=== PATIENT | female | born 1965 | race Caucasian/White ===

== ENCOUNTER 2022-12-21 08:36 | Outpatient (OUT) | payer BC, SELFPAY ==
--- NOTE | 2022-12-21 08:46 | ECG_ITS ---
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
--- NOTE | 2022-12-21 09:37 | PM.PRESUREVA ---
History of Present Illness History of Present Illness Chief complaint: PAT visit Narrative: Patient presents for preadmission testing. The patient states she has a long history of an enlarged thyroid, however it was discovered earlier this year that she had a thyroid nodule and she underwent a biopsy. She states she has intermittent dysphagia and hoarseness of her voice. She denies heat or cold intolerance, fatigue, difficulty breathing, or any other complaints. Review of Systems ROS Narrative REVIEW OF SYSTEMS: Negative except as stated in HPI, ten or more systems reviewed. Constitutional: No fever , chills, weakness ENT: No sore throat or epistaxis Cardiovascular: No edema, chest pain, or palpitations Respiratory: No shortness of breath, cough, or wheezing Musculoskeletal: No joint pain or swelling Gastrointestinal: No abdominal pain, constipation, diarrhea, or vomiting Genitourinary: No dysuria or hematuria Neurological: No numbness, tingling, weakness, or headache Psychiatric: No mood changes PFSH PFS Medical History (Updated 12/21/22 @ 09:36 by Elina Osuna NP) (2022) Surgical History (Updated 12/21/22 @ 09:20 by Elina Osuna NP) Family History (Updated 12/21/22 @ 09:15 by Elina Osuna NP) Other Family history of COPD (chronic obstructive pulmonary disease) Family history of brain cancer Family history of diabetes mellitus Family history of heart disease Family history of hypertension Family history of kidney cancer Family history of myocardial infarction Family history of pancreatic cancer Family history of stroke Social History (Updated 12/21/22 @ 09:12 by Elina Osuna NP) Within the past year, how often did you have a drink containing alcohol: monthly or less Smoking status: Never smoker Non-prescribed substance use: denies use 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 Highest level of school completed/degree received: high school graduate Meds Home Medications and Allergies Home Medications Medication Instructions Recorded Confirmed Type atorvastatin 20 mg tablet 20 mg PO DAILY 12/21/22 12/21/22 History gabapentin 600 mg tablet 600 mg PO DAILY 12/21/22 12/21/22 History glucosamine-chondroitin 250 mg-200 2 tab PO TID 12/21/22 12/21/22 History mg tablet (Osteo Bi-Flex) multivitamin 1 tab PO DAILY 12/21/22 12/21/22 History Allergies Allergy/AdvReac Type Severity Reaction Status Date / Time Penicillins Allergy Hives Verified 12/21/22 09:08 Sulfa (Sulfonamide Allergy Hives Verified 12/21/22 09:08 Antibiotics) Exam Narrative Exam Narrative: Constitutional: Awake, alert, comfortable, well-appearing, nontoxic, interactive, vital signs as charted Head: Normocephalic, atraumatic Eyes: Conjunctiva and lids normal to inspection, pupils normal ENT: Tympanic membranes pearly foster, nonerythematous, noninjected, naris patent, posterior oropharynx clear, oral mucosa moist Neck: Supple, normal appearance, normal range of motion, no meningeal signs, no lymphadenopathy Respiratory: No respiratory distress, breath sounds clear Cardiovascular: Regular rate and rhythm, strong and regular heart tones Musculoskeletal: Normal gait, no swelling or edema Skin: No rashes or induration, no lesions, only visible skin inspected Neuro: No neurological deficits, normal sensation Psychiatric: Oriented ?3, normal affect Assessment and Plan Assessment and Plan (1) Dysphagia: (2) Hoarseness of voice: (3) Thyroid mass: Onset Date: 2022 (4) Thyromegaly: Plan Right hemithyroidectomy, possible total thyroidectomy, possible neck exploration with RLN monitor, frozen section, 1st assist, 2nd scrub scheduled with Dr. Neff 12/28/2022.
[2022-12-21 10:01] LABS: Basophils Percent Auto 0.5 % (0.2-2.0); Eosinophils Absolute Auto 0.1 10^3/uL (0.0-0.7); Eosinophils Percent Auto 1.8 % (0.9-7.0); Hematocrit 42.1 % (36.0-48.0); Immature Granulocytes Abs Auto 0.02 10^3/uL (0.00-0.03); Immature Granulocytes Pct Auto 0.4 % (0.0-0.5); Lymphocytes Absolute Auto 1.8 10^3/uL (1.2-3.8); Lymphocytes Percent Auto 31.1 % (20.5-60.0); Mean Corpuscular HGB Conc 33.3 g/dL (29.9-35.2); Mean Corpuscular Hemoglobin 31.3 pg (26.7-34.0); Mean Corpuscular Volume 94.2 fL (81.0-99.0); Mean Platelet Volume 9.2 fL (9.5-13.5); Monocytes Absolute Auto 0.4 10^3/uL (0.3-0.8); Neutrophils Absolute Auto 3.4 10^3/uL (1.4-6.5); Neutrophils Percent Auto 59.2 % (43.0-75.0); Platelet Count 258 10^3/uL (150-450); Red Blood Count 4.47 10^6/uL (4.20-5.40); Red Cell Distribution Width 11.6 % (11.0-15.0); White Blood Count 5.7 10^3/uL (4.0-11.0)
[2022-12-21 11:10] LABS: Calcium 9.5 mg/dL (8.5-10.1); Magnesium 2.1 mg/dL (1.8-2.4); Phosphorus 2.6 mg/dL (2.6-4.7)
[2022-12-21 12:20] LABS: INR 0.96; Partial Thromboplastin Time 24.2 sec (22.3-36.2); Prothrombin Time 10.2 sec (9.0-11.6)
== END 2022-12-21 08:37 ==
LOC: PST 08:40
PROVIDERS: Otolaryngology; PCP Family Medicine
DX: Z01.812 Encounter for preprocedural laboratory examination (principal); Z01.810 Encounter for preprocedural cardiovascular examination; R13.10 Dysphagia, unspecified; R49.0 Dysphonia; E07.9 Disorder of thyroid, unspecified; E01.0 Iodine-deficiency related diffuse (endemic) goiter; R94.31 Abnormal electrocardiogram [ECG] [EKG]
CPT/HCPCS: 36415; 82310; 83735; 84100; 85025; 85610; 85730; 93005; G0463

== ENCOUNTER 2022-12-28 14:50 | Outpatient (OUT) | payer BC, SELFPAY ==
[2022-12-21 09:13] VITALS: BP 121/76; PULSE 71; RESP 18; TEMP 36.5; O2SAT 98; BMI 32.5
[2022-12-28] VITALS (15 sets, daily range): BP systolic 103–133; BP diastolic 53–87; PULSE 77–99; RESP 16–20; TEMP 36.1–36.9; O2SAT 92–99; BMI 32.5; BMI 33.5
--- NOTE | 2022-12-28 | OP_ITS ---
OPERATION DATE: ??12/28/2022 SURGEON:? Lena Neff M.D. PREOPERATIVE DIAGNOSIS:? Left thyroid nodule. POSTOPERATIVE DIAGNOSIS:? Papillary carcinoma of the thyroid. PROCEDURE:? Total thyroidectomy and neck exploration. ANESTHESIA:? General endotracheal. COMPLICATIONS:? None. FINDINGS:? A 1.5 cm left thyroid nodule consistent with papillary carcinoma, as well as anterior compartment lymphadenopathy. INDICATIONS:? This 57-year-old woman presented with an enlarging left thyroid nodule and a fine needle aspiration which showed atypia of undetermined significance.? PROCEDURE:? Patient identified in the holding area and taken back to the OR where she was placed in the supine position.? After induction of general endotracheal anesthesia, using a recurrent laryngeal nerve monitoring tube, a shoulder roll was placed and the neck was prepped and draped in a sterile fashion.? An 8 cm transverse incision was made two finger breadths above the sternal notch, following relaxed skin lines of tension.? Dissection then was carried out through the platysma and subplatysmal flaps were raised superiorly to the thyroid notch and inferiorly to the clavicle.? A thyroid retractor was put in position and the strap muscles were incised in the midline with the harmonic scalpel.? The patient was noted to have a pyramidal lobe of the thyroid, which was dissected away and sent for separate pathologic analysis.? There was also fibroadipose lymphatic containing tissue within the anterior compartment of the neck, which was dissected away using the harmonic scalpel and sent for separate pathologic analysis.? The isthmus of the thyroid was then transected and attention turned to the left thyroid.? The strap muscles were bluntly elevated off of the thyroid gland, and then a subcapsular dissection was performed, first exposing and isolating the superior thyroid vessels, which were hemoclipped and transected with harmonic scalpel, and then dissecting the inferior fascial and vascular attachments to the gland with harmonic scalpel.? The middle thyroid vein was transected and hemoclipped, and the gland was rotated medially.? The superior and inferior parathyroid glands were identified and bluntly dissected away from the thyroid gland, and the recurrent laryngeal nerve was identified in the tracheoesophageal groove.? The thyroid gland was then dissected away from the trachea with the recurrent laryngeal nerve under direct observation.? The gland was then sent for pathologic analysis, which was consistent with a papillary carcinoma.? Decision was then made to proceed with right thyroidectomy, and this proceeded the same as it had on the left.? After completing the thyroidectomy, the recurrent laryngeal nerve was tested and found to be electrically intact bilaterally.? The wound was copiously irrigated and a #7 round [employer] drain was placed through a stab incision in the sternal notch.? The wound was then closed by re-approximating the strap muscles in the midline and closing the skin with two deep 4-0 Vicryl sutures layers and a 5-0 Monocryl subcuticular stitch.? A pressure dressing was placed, and the patient was awakened and taken to the recovery room in good condition. HEATHER
[2022-12-28] MEDS: LACTATED RINGER'S SOLUTION 1,000 ML 50 ML IV ×2 (08:52→15:32)
[2022-12-28] MEDS: SCOPOLAMINE 1 EACH PATCH.TD.3 1 PATCH TD (09:11)
[2022-12-28] MEDS: CEFAZOLIN SODIUM 1,000 MG in 0.9 % SODIUM CHLORIDE 50 ML 100 MG IV (09:44)
[2022-12-28] MEDS: LIDOCAINE HCL 1%-EPINEPHRINE 1:100,000 10 ML MDV INJ (10:21)
--- NOTE | 2022-12-28 12:37 | PC.NURSE ---
1026 UPDATED VIA HIS CELL PHONE [phone] UPDATED VIA HI CELL PHONE [phone] DR JONES WENT OUT AND SPOKE WITH 1223 UPDATED VIA HIS CELL PHONE
[2022-12-28] MEDS: BACITRACIN OINTMENT 28.4 GM TUBE 1 APPLIC TOPICAL (13:21)
[2022-12-28] MEDS: HYDROMORPHONE HCL 0.5 MG/0.5 ML SYRINGE IV (13:41)
[2022-12-28 18:51] LABS: Calcium 8.8 mg/dL (8.5-10.1)
[2022-12-28] MEDS: ACETAMINOPHEN 325 MG TABLET 650 MG PO (18:51)
[2022-12-28] MEDS: FAMOTIDINE 20 MG TABLET PO (20:50)
[2022-12-29 06:00] VITALS: BP 112/62; PULSE 75; RESP 18; TEMP 36.8; O2SAT 92
[2022-12-29 06:46] LABS: Calcium 8.9 mg/dL (8.5-10.1)
== END 2022-12-29 09:54 | disposition home or self-care (01) ==
LOC: SURGOUT 14:50 → MS 14:50 → SURGOUT 14:50
PROVIDERS: PCP Family Medicine; Visit Provider Otolaryngology
PROC: (CPT 60240; principal; 2022-12-28 09:10)
DX: C73 Malignant neoplasm of thyroid gland (principal); R13.10 Dysphagia, unspecified; R49.0 Dysphonia; Z90.710 Acquired absence of both cervix and uterus
CPT/HCPCS: 60240; 36415; 82310; 88305; 88307; 95865; 95940; J1170; J2704

== ENCOUNTER 2023-02-11 07:37 | Outpatient (OUT) | payer BC, SELFPAY ==
[2023-02-11 08:29] LABS: Alanine Aminotransferase 72 U/L (14-59); Albumin Level 3.6 g/dL (3.4-5.0); Alkaline Phosphatase 149 U/L (46-116); Aspartate Amino Transferase 34 U/L (15-37); BUN Creatinine Ratio 16.5; Bilirubin Total 0.5 mg/dL (0.2-1.0); Chloride 108 mmol/L (98-107); Estimated GFR (African America >60 (>=60); Estimated GFR (Non-African Ame >60 (>=60); Globulin 3.5 g/dL; Glucose 102 mg/dL (74-106); Sodium 143 mmol/L (136-145); Total Protein 7.1 g/dL (6.4-8.2)
== END 2023-02-11 07:38 | disposition home or self-care (01) ==
LOC: LAB 07:38
PROVIDERS: PCP Family Medicine; Visit Provider Family Medicine
DX: E78.2 Mixed hyperlipidemia (principal)
CPT/HCPCS: 36415; 80053

== ENCOUNTER 2023-03-02 09:12 | Outpatient (OUT) | payer BC, SELFPAY ==
--- NOTE | 2023-03-02 09:14 | MM_ITS ---
Patient: CASSIE PEREZ Exam Date: 03/02/2023 : 1965 Gender:F Ordering : DR Ave Barnett M.D. Admission #: [id number] Family : Order #: [id number] CLICK HERE TO VIEW EXAM RADIOLOGY REPORT PROCEDURE: MM TOMOSYNTHESIS SCREENING BI COMPARISON: MG MAMM SCREEN 3D ANN CAD, 03/01/2022. MG MAMM SCREEN 3D ANN CAD, 02/27/2021. INDICATIONS: Screening Calculator Name NCI Breast Cancer Risk Assessment Tool 5 Year Breast Cancer Risk 1.20% Lifetime Breast Cancer Risk 6.70% Personal Breast Cancer No Personal Ovarian Cancer No Treatments None Family Cancers Father with pancreatic cancer at age 91; Mother with kidney cancer at age 69; Sister with kidney cancer at age 54. LOCATION: [facility] BREAST COMPOSITION: Scattered areas fibroglandular density. FINDINGS: DIAGNOSTIC CATEGORY 1--NEGATIVE. NO CHANGE FROM COMPARISON ASSESSMENT. Scattered benign-appearing lymph nodes are present. RIGHT BREAST: No significant suspicious finding. LEFT BREAST: No significant suspicious finding. RECOMMENDATIONS: ROUTINE MAMMOGRAM AND CLINICAL EVALUATION IN 12 MONTHS. PLEASE NOTE: A NORMAL MAMMOGRAM DOES NOT EXCLUDE THE POSSIBILITY OF BREAST CANCER. A CLINICALLY SUSPICIOUS PALPABLE LUMP SHOULD BE BIOPSIED. Dictated by: Haris Chung MD on 03/02/2023 at 12:13 Approved by: Haris Chung MD on 03/02/2023 at 12:49
== END 2023-03-02 09:13 | disposition home or self-care (01) ==
LOC: MAMMO 09:12
PROVIDERS: PCP Family Medicine; Visit Provider Family Medicine
DX: Z12.31 Encounter for screening mammogram for malignant neoplasm of breast (principal); Z80.51 Family history of malignant neoplasm of kidney; Z80.0 Family history of malignant neoplasm of digestive organs
CPT/HCPCS: 77063; 77067

== ENCOUNTER 2023-10-03 16:05 | Outpatient (OUT) | payer BC, SELFPAY ==
--- NOTE | 2023-10-03 16:09 | XR_ITS ---
The [address] [address] Patient Name: CASSIE PEREZ MRN: [id number] date: 1965 Sex: F Assigned Patient Location: LAB Current Patient Location: LAB Accession/Order Number: [id number] Exam Date: 10/03/2023 16:12 Report Date: 10/03/2023 16:46 At the request of: MARTA EISENBERG Procedure: XR chest 2V EXAM: XR chest 2V HISTORY: chest pain R07.9 ; technologist notes state chest discomfort and achiness. COMPARISON: None. TECHNIQUE: PA and lateral views of the chest performed. FINDINGS: The trachea is midline. The heart size is normal. The cardiomediastinal silhouette and hilar shadows are normal. The lung volumes are slightly diminished. There is no consolidation or infiltrate, pleural effusion or pulmonary vascular congestion. There is no pneumothorax. There is no acute osseous abnormality. There is slight dextroscoliosis of the thoracic spine. XR/XR chest 2V IMPRESSION: There is no acute cardiopulmonary process. Electronically authenticated by: RD VAZQUEZ Date: 10/03/2023 16:46
== END 2023-10-03 16:06 | disposition home or self-care (01) ==
LOC: LAB 16:06
PROVIDERS: PCP Family Medicine; Visit Provider Family Medicine
DX: R07.9 Chest pain, unspecified (principal)
CPT/HCPCS: 71046

== ENCOUNTER 2024-01-16 07:27 | Outpatient (OUT) | payer BC, SELFPAY ==
--- OUTSIDE RECORDS SUMMARY | 2024-01-16 07:33 | XMS_ITS | CCD ---
Author Organization [facility] CliniSysc Care Team Providers Care [employer] Technician Name Role Phone Marta Eisenberg Unavailable Abelardo, Salinas Consulting Unavailable FAINA, DR MARTA Donohue Attending Unavailable FAINA, DR MARTA Donohue Primary Care Unavailable FAINA, DR MARTA Donohue Admitting Unavailable EISENBERG, DR MARTA Donohue Consulting Unavailable EISENBERG, DR MARTA Donohue Primary Care Unavailable FABY ., GRETA Attending Unavailable FABY ., GRETA Admitting Unavailable FABY ., GRETA Consulting Unavailable FAINA, DR MARTA Donohue Primary Care Unavailable FABY ., GRETA Attending Unavailable FABY ., GRETA Admitting Unavailable FABY ., GRETA Consulting Unavailable EISENBERG, DR MARTA Donohue Primary Care Unavailable FABY ., GRETA Attending Unavailable FABY ., GRETA Admitting Unavailable FAINA, DR MARTA Donohue Consulting Unavailable FAINA, DR MARTA Donohue Primary Care Unavailable EISENBERG, DR MARTA Donohue Attending Unavailable EISENBERG, DR MARTA Donohue Admitting Unavailable Ziebtania, Salinas Consulting Unavailable EISENBERG, DR MARTA Donohue Consulting Unavailable TIMMIJon, DR STAUFFER Attending Unavailable ROBERT, DR STAUFFER Admitting Unavailable FAINA, DR MARTA Donohue Primary Care Unavailable EISENBERG, DR MARTA Donohue Primary Care Unavailable TIMMIS, DR STAUFFER Admitting Unavailable TIMMIJon, DR STAUFFER Attending Unavailable EISENBERG, DR MARTA Donohue Primary Care Unavailable Abelardo, Sal[place] Consulting Unavailable FAINA, DR MARTA Donohue Attending Unavailable FAINA, DR MARTA Donohue Admitting Unavailable FAINA, DR MARTA Donohue Consulting Unavailable FAINA, DR MARTA Donohue Primary Care Unavailable EISENBERG, DR MARTA Donohue Attending Unavailable EISENBERG, DR MARTA Donohue Admitting Unavailable Abelardo, Salinas Consulting Unavailable FAINA, DR MARTA Donohue Consulting Unavailable FAINA, DR MARTA Donohue Primary Care Unavailable FAINA, DR MARTA Donohue Consulting Unavailable EISENBERG, DR MARTA Donohue Attending Unavailable EISENBERG, DR MARTA Donohue Admitting Unavailable Eisenberg Marta MOSER Primary Care Provider Xiomy Jones Unavailable [phone] MD Marta Eisenberg Primary Care Provider MD Nikkie Hoover Attending Provider MD Marta Eisenberg Primary Care Provider MD Nikkie Hoover Attending Provider Nikkie Hoover Admitting Unavailable Nikkie Hoover Attending Unavailable Eisenberg, Marta E Primary Care Unavailable Xiomy Jones MD Unavailable Marta Eisenberg MD Primary Care Provider FAINA, MARTA E Primary Care Unavailable EISENBERG, MARTA E Primary Care Unavailable ENGELEKlarissa G ARYAN Attending Unavailable EISENBERG, MARTA E Primary Care Unavailable EISENBERG, MARTA E Primary Care Unavailable ENGELEKlarissa G ARYAN Attending Unavailable EISENBERG, MARTA E Primary Care Unavailable ENGELER G ARYAN Attending Unavailable EISENBERG, MARTA E Primary Care Unavailable EISENBERG, MARTA E Primary Care Unavailable EISENBERG, MARTA E Primary Care Unavailable ANAMIKA BRAGA Attending Unavailmary e EISENBERG, MARTA E Primary Care Unavailable YANELIS G ARYAN Attending Unavailable XIOMY JONES Referring Unavaila ble EISENBERG, MARTA E Primary Care Unavailable EISENBERG, MARTA E Primary Care Unavailable ENGNORA G ARYAN Attending Unavailable EISENBERG, MARTA E Primary Care Unavailable EISENBERG, MARTA E Primary Care Unavailable Telly HOOVER Attending Unavailable Allergies Allergy Classification Reported Allergen(s) Allergy Type Date of Onset Reaction(s) Facility Penicillins (antibiotic) (1 source) Penicillins Drug Allergy 01-10-20 24 Unknown Reaction [facility] Sulfonamides (antibiotic) (1 source) Sulfonamides (Antibiotic) Drug Allergy 01-10-20 24 Unknown Reaction [facility] (4 sources) Penicillin Drug Allergy Unknown [facility] Other (4 sources) PCN-200 Propensity to adverse reactions Unknown [employer] [facility] Other (19 sources) Substance with sulfonamide structure and antibacterial mechanism of action (substance) Drug allergy 01-11-[address] [facility] (4 sources) SULFA 10 Propensity to adverse reactions Unknown [employer] Other (3 sources) Penicillins; Translations: [PENICILLINS] Drug allergy (disorder) 03-04-20 13 [facility] Repository (2 sources) Sulfonamides (Antibiotic) Drug allergy (disorder) 03-04-20 13 [facility] Repository (15 sources) Penicillins Drug Allergy 01-11-[address] [facility] (1 source) Substance with penicillin structure and antibacterial mechanism of action (substance) Drug allergy Unknown [facility] Other (1 source) patient allergy list reviewed by nurse or physicia Propensity to adverse reactions 05-20-20 16 Comment:Done [facility] [facility] Other (1 source) Allergies Reconciled Propensity to adverse reactions Unknown [facility] [facility] Other (1 source) Sulf-10 Drug allergy 05-30-20 15 Unknown [employer] [facility] Other (1 source) Sulfonamides (Antibiotic); Translations: [SULFA (SULFONAMIDE ANTIBIOTICS)] Propensity to adverse reactions to drug (disorder) 01-11-20 23 [facility] Repository Medications Current Medications Medication Drug Class(es) Dates Sig (Normalized) Sig (Original) atorvastatin (20 sources) HMG-CoA Reductase Inhibitor Start: 10-13-2023 take 1 tablet by mouth once daily Atorvastatin Active 0 .ROUTE .COMPLEX October 13, 2023 1:03pm take 1 tablet by mouth once daily Start: 11-12-2022 End: 10-13-2023 take 20 mg by mouth once daily Atorvastatin Discontinu ed 20 MG PO Daily September 23, 2023 1:00am October 13, 2023 1:03pm gabapentin 800 mg oral tablet (20 sources) Anti-epileptic Agent Start: 09-02-2023 End: 09-26-2023 take 600 mg by mouth once daily at bedtime Gabapentin Discontinued 600 MG PO Daily at bedtime September 02, 2023 1:00am September 26, 2023 3:05pm Start: 08-31-2022 End: 12-27-2023 take 800 mg by mouth once daily at bedtime Gabapentin Active 800 MG PO Daily at bedtime December 26 2024 9:09am Start: 08-31-2022 gabapentin (NE URONTIN) 600 mg tablet Take by mouth daily at bedtime. 0 08/31/2022 Active Comment on above: Take by mouth daily at bedtime. glucosamine/msm/chondr oitin A ([id number]-KG M ORAL) (15 sources) glucosamine/msm/ chond roitin A ([id number]-[id number]-F SM ORAL) Take by mouth. 0 Active Comment on above: Take by mouth. levothyroxine sodium 0.137 mg oral tablet (16 sources) l-Thyroxine Start: 10-21-19 take 1 tablet by mouth once daily before breakfast levothyroxine (SYNTHROID) 137 mcg tablet Take 1 tablet by mouth daily before breakfast. 30 tablet 3 10/21/2023 Active Start: 09-26-2023 take 137 ug by mouth once joseph y Levothyroxine Active 137 MCG PO Daily September 26, 2023 12:00am Start: 03-24-2023 take 1 tablet by carlie th once daily before breakfast levothyroxine (SYNTHROID) 137 mcg tablet Take 1 tablet by mouth daily before breakfast. 30 tablet 3 03/24/2023 Active Start: 01-11-2023 take 1 tablet by carlie th once daily levothyroxine (SYNTHROID) 125 mcg tablet Take 1 tablet by mouth once daily. Start 01/27/23 30 tablet 2 01/11/2023 Active Comment on above: Take 1 tablet by carlie th once daily. Start 01/27/23 Take 1 tablet by carlie th daily before breakfast. MULTIVITAMIN ORAL (15 sources) MULTIVITAMIN ORA L Take by mouth. 0 Active Comment on above: Take by mouth. permethrin 50 mg/ml topical cream (1 source) Pyrethroid Start: 01-10-2024 Permethrin Active 1 APPLIC TOPICAL Q14D 60 January 10, 2024 12:00am apply second treatment 14 days after first treatment if live lice remain Completed/Discontinued Medications Medication Drug Class(es) Dates Sig (Normalized) Sig (Original) liothyronine sodium 0.025 mg oral tablet (13 sources) l-Triiodothyronine Start: 12-29-2022 take 1 tablet by mouth twice daily liothyronine (CYTOMEL) 25 mcg tablet Take 25 mcg by mouth twice daily. 0 12/29/2022 Active Comment on above: Take 25 mcg by mouth twice daily. pilocarpine hydrochloride 5 mg oral tablet (13 sources) Cholinergic Receptor Agonist Start: 01-11-2023 take 1 tablet by mouth three times daily pilocarpine (SALAGEN, PILOCARPINE,) 5 mg tablet Indications: Thyroid cancer (HCC) Take 1 tablet by mouth three times daily. Start 01/24/23 15 tablet 0 01/11/2023 Active Comment on above: Take 1 tablet by carlie th three times daily. Start 01/24/23 prochlorperazine 10 mg oral tablet (13 sources) Phenothiazine Start: 01-11-2023 take 1 tablet by mouth every eight hours as needed prochlorperazine (COMPAZINE) 10 mg tablet Indications: Thyroid cancer (HCC) Take 1 tablet by mouth every 8 hours as needed. 15 tablet 1 01/11/2023 Active Comment on above: Take 1 tablet by carlie th every 8 hours as needed. Problems Active Problems Problem Classification Problem Date Documented Da te Episodic/Chronic Cancer of thyroid (17 sources) Malignant tumor of thyroid gland; Translations: [Malignant neoplasm of thyroid gland] Onset: 01-24-2023 Chronic Disorders of lipid metabolism (3 sources) Hyperlipidemia; Translations: [Hyperlipidemia, unspecified] Onset: 10-11-2018 09-23-2023 Chronic Malaise and fatigue (6 sources) Fatigue; Translations: [Other fatigue] 09-23-2023 Episodic Nonspecific chest pain (2 sources) Chest pain; Translations: [Chest pain, unspecified] Onset: 03-01-2016 10-03-2023 Episodic Other gastrointestinal disorders (1 source) Other specified symptoms and signs involving the digestive system and abdomen; Translations: [Oth symptoms and signs involving the dgstv sys and abdomen] Episodic Other nutritional; endocrine; and metabolic disorders (1 source) Obese class I; Translations: [Body mass index (BMI) 32.0-32.9, adult] Chronic Other nutritional; endocrine; and metabolic disorders (1 source) Body mass index 30+ - obesity; Translations: [Body mass index 31.0-31.9, adult] Onset: 06-19-2018 Chronic Other upper respiratory disease (4 sources) Seasonal allergic rhinitis; Translations: [Other seasonal allergic rhinitis] Chronic Other upper respiratory disease (1 source) Other seasonal allergic rhinitis Chronic Residual codes; unclassified (1 source) Tobacco user; Translations: [Tobacco use] Episodic Residual codes; unclassified (1 source) Tobacco use and exposure - finding; Translations: [Tobacco use] 09-23-2023 Episodic Spondylosis; intervertebral disc disorders; other back problems (8 sources) Degeneration of intervertebral disc; Translations: [Other intervertebral disc degeneration, lumbar region] Onset: 02-18-2022 09-23-2023 Chronic Spondylosis; intervertebral disc disorders; other back problems (7 sources) Sacrococcygeal disorders, not elsewhere classified; Translations: [Low back pain] Onset: 05-20-2016 Episodic Thyroid disorders (20 sources) Goiter; Translations: [Iodine-deficiency related diffuse (endemic) goiter] Onset: 11-08-2022 Chronic Unclassified (4 sources) LOW BACK PAIN, UNSPECIFIED; Translations: [LOW BACK PAIN, UNSPECIFIED] Onset: 02-22-2022 Past or Other Problems Problem Classification Problem Date Documented Da te Episodic/Chronic Other non-traumatic joint disorders (1 source) Arthralgia of the lower leg; Translations: [Pain in joint, lower leg] Onset: 03-01-2016 Episodic Other non-traumatic joint disorders (1 source) Pain in wrist; Translations: [Pain in right wrist] Onset: 09-08-2015 Episodic Other screening for suspected conditions (not mental disorders or infectious disease) (5 sources) Encounter for screening for malignant neoplasm of colon; Translations: [Encounter for screening mammogram for malignant neoplasm of breast] Onset: 03-01-2022 Episodic Other upper respiratory infections (1 source) Acute sinusitis; Translations: [Acute sinusitis, unspecified] Onset: 05-30-2015 Episodic Residual codes; unclassified (1 source) Family history of malignant neoplasm of kidney; Translations: [FAM HX MALIGNANT NEOPLASM KIDNEY] Onset: 03-02-2022 Episodic Residual codes; unclassified (1 source) Family history of malignant neoplasm of other organs or systems; Translations: [FAM HX MALIG NEOPLASM OTH ORGN/SYS] Onset: 03-02-2022 Episodic Unclassified (1 source) LOW BACK PAIN, UNSPECIFIED; Translations: [LOW BACK PAIN, UNSPECIFIED] Onset: 02-19-2022 Results Test Name Value Interpretation Reference Range Facility [facility] 11-29-2023 CNCO Letter Text Normal [facility] CNOVon 11-29-2023 CNOV Office Visit (RADTSA ) CASSIE WINTERS ([id number]) 1965 F Date Time Provider Department 11/29/23 3:00 PM Telly HOOVER RADTSA During your visit today, we recorded the following information about you: Weight 91.5 kg Telly Hoover MD 12/05/2023 9:04 AM Signed Radiation Oncology - Follow-up Note PATIENT NAME: Cassie Winters PATIENT : 1965 Primary Site: Thyroid Date of Diagnosis: 11/19/2022 Clinical Stage: T1 Nx Mx Pathologic Stage: T1 N0 Mx DIAGNOSIS: Papillary thyroid carcinoma status post total thyroidectomy T1BN0. S/p I-131: 53.4 mCi 01/26/2023. HPI: Doing well. Denies new problems or concerns. No neck pain or dysphagia. Denies any palpitations shortness of breath or chest pain. 03/24/23:Overall doing fairly well. Having some mild dysphagia mostly mid chest. Having some mild anterior upper chest discomfort, nonexertional. Denies shortness of breath or diaphoresis. States that she has discomfort when she pushes on her left clavicular head. No recent falls. Overall some mild to moderate fatigue, still active RADIOLOGY: Whole-body scan 02/02/2023: Uptake within the thyroid bed area. No abnormal uptake consistent with metastasis. Patient presented with mild dysphagia, dry cough and occasional hoarse voice. LABORATORY: Latest Reference Range AND Units 01/10/23 12:10 01/26/23 10:59 03/17/23 09:49 05/18/23 09:53 11/22/23 08:27 Thyroglobulin Ab, Serum <4.0 IU/mL 1.1 Thyroglobulin, Serum 1.6 - 50.0 ng/mL 0.1 (L) Thyroglobulin, LC-MS/MS 1.3 - 31.8 ng/mL 3.6 18.7 <0.5 (L) T4 5.5 - 10.2 ug/dL 8.3 9.9 9.0 TSH 0.270 - 4.200 mIU/L 0.436 0.095 (L) 0.214 (L) (L): Data is abnormally low Latest Reference Range AND Units 01/10/23 12:10 01/26/23 10:59 03/17/23 09:49 05/18/23 09:53 Thyroglobulin, LC-MS/MS 1.3 - 31.8 ng/mL 3.6 18.7 T4 5.5 - 10.2 ug/dL 8.3 9.9 TSH 0.270 - 4.200 mIU/L 0.436 0.095 (L) Thyroglobulin Ab, Serum <4.0 IU/mL 1.1 Thyroglobulin, Serum 1.6 - 50.0 ng/mL 0.1 (L) (L): Data is abnormally low Dysphagia: No Mucositis: No Voice Changes:No Fatigue: No Nausea: No Vomitting: No Pain: No Taste: No Weight loss: No ALLERGIES Allergen Reactions Penicillins Hives Sulfa (Sulfonamide * Hives MEDICATIONS: levothyroxine (SYNTHROID) 137 mcg tablet Take 1 tablet by mouth daily before breakfast. atorvastatin (LIPITOR) 20 mg tablet gabapentin (NEURONTIN) 800 mg tablet Take by mouth daily at bedtime. glucosamine/msm/chondr oitin A ([id number]-ECLEIR-BD M ORAL) Take by mouth. MULTIVITAMIN ORAL Take by mouth. PAST MEDICAL HISTORY Diagnosis Date Chronic pain d/t sacrum fx, RLE pain Hypercholesteremia Prior radiation therapy, collagen vascular disease, or inflammatory bowel disease: No status: Status post vaginal hysterectomy PAST SURGICAL HISTORY Procedure Laterality Date SECTION HX PAST SURGICAL HISTORY OF coccyx d/t a fall THYROIDECTOMY VAGINAL HYSTERECTOMY FAMILY HISTORY Problem Relation Age of Onset Renal Cell Cancer Mother Pancreatic Cancer Father Renal Cell Cancer Sister Cancer Maternal Uncle Cancer Maternal Uncle Cancer Maternal Uncle Cancer Maternal Aunt Cancer Maternal Aunt Cancer Paternal Aunt Social History Tobacco Use Smoking status: Never Smokeless tobacco: Never Substance Use Topics Alcohol use: Not Currently Comment: rarely Drug use: Not Currently COMPLETE REVIEW OF SYSTEMS: GENERAL: feeling well without fatigue, no recent change in weight NECK: denies swelling or pain in neck RESPIRATORY: no cough, no wheezing or shortness of breath CARDIOVASCULAR: See HPI. No palpitations or tachycardia GI: normal appetite, tolerating PO well, BMs normal, and no abdominal pain SKIN: no rash NEURO: no numbness or paresthesias and no weakness of the extremities As noted in HPI PHYSICAL EXAM: VS: Wt 91.5 kg (201 lb 11.5 oz) BMI 30.67 kg/m? KPS: 100 General Appearance: Alert and oriented. No acute distress. 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 Thyroid cancer: Overall doing fairly well. T4 and TSH appropriate. Thyroglobulin undetectable. Signed by: Telly Hoover MD cc: Marta Eisenberg ([facility]) [address] [place] [phone] Xiomy Jones MD [address] [place] [address] [address] [facility] [address] Allergies As of Date: 11/29/2023 Noted Allergy Reaction PENICILLINS 01/10/2023 4 - Hives SULFA (SULFONAMIDE ANTIBIOTICS) 01/10/2023 4 - Hives Date Reviewed: 05/31/2023 Reviewed by: Mario Farnsworth LPN - Fully Assessed Reason for Visit: Thyroid Cancer [8 (more content not included)... Normal [facility] Laboratory - Chemistry and C hemistry - challengeon 11-22-2023 T4 [Mass/Vol] 9.0 ug/dL 5.5-10.2 [facility] TSH Qn 0.214 m[IU]/L 0.270-4.200 [facility] T4 SerPl-mCncon 11-22-2023 T4 [Mass/Vol] 9.0 ug/dL Normal 5.5-10.2 [facility] Comment on above: Order Comment: Speci men Type: BLOOD SPECIMENOrdering Facility: [facility] Address: [address], [place] [address] Performed By: #### 3 026-2, 3016-3 ####[facility] LABCLIA [id number] [place] [address] [place] THYROGLOBULIN BY LC-MS/MS, S IRVING OR PLASMA, FOR THYROGLOBULIN ANTIBODY INTERFERENCEon 11-22-2023 THYROGLOBULIN, LC-MS/MS <0.5 Low 1.3-31.8 [facility] Comment on above: Order Comment: Speci men Type: BLOOD SPECIMENOrdering Facility: [facility] Address: [address] [place] [address] Result Comment: Results obtained with different test methods or kits cannot be used interchangeably. Thyroglobulin results, regardless of concentration, should not be interpreted as absolute evidence for the presence or absence of papillary or follicular thyroid cancer. Thyroglobulin testing is not recommended for use as a screening procedure to detect the presence of thyroid cancer in the general population. INTERPRETIVE INFORMATION: Thyroglobulin by LC-MS/MS, Serum/Plasma Lower limit of detection for Thyroglobulin by LC-MS/MS is 0.5 ng/mL. This test was developed and its performance characteristics determined by [employer]. It has not been cleared or approved by the [place] Food and Drug Administration. This test was performed in a CLIA certified laboratory and is intended for clinical purposes. Performed By: [facility] [address] [place] [address] City Constable: Jose Carlos Rico MD, PhD CLIA Number: [id number] Performed By: #### [facility] ####[facility] [id number] [place] [id number] TSH SerPl-aCncon 11-22-2023 TSH Qn 0.214 m[IU]/L Low 0.270-4.200 [facility] Comment on above: Order Comment: Speci men Type: BLOOD SPECIMENOrdering Facility: [facility] Address: [address] [place] [address] Performed By: #### 3 026-2, 3016-3 ####[facility] LABCLIA [id number] [id number] [address] [place] Thyroglobulin [Mass/volume] in Serum or Plasmaon 11-22-2023 Thyroglobulin [Mass/Vol] <0.5 ng/mL 1.3-31.8 [facility] Comment on above: Results obtained wit h different test methods or kits cannot be used interchangeably. Thyroglobulin results, regardless of concentration, should not be interpreted as absolute evidence for the presence or absence of papillary or follicular thyroid cancer. Thyroglobulin testing is not recommended for use as a screening procedure to detect the presence of thyroid cancer in the general population.INTERPRETIVE INFORMATION: Thyroglobulin by LC-MS/MS, Serum/PlasmaLower limit of detection for Thyroglobulin by LC-MS/MS is 0.5 ng/mL.This test was developed and its performance characteristics determined by [employer]. It has not been cleared or approved by the [place] Food and Drug Administration. This test was performed in a CLIA certified laboratory and is intended for clinical purposes.Performed By: [facility] [place] [id number] Director: Jose Carlos Rico MD, PhDCLIA Number: [id number] [facility] 06-01-2023 CNCO Letter Text Normal [facility] CNOVon 05-31-2023 CNOV Office Visit (RADTSA ) CASSIE WINTERS ([id number]) 1965 F Date Time Provider Department 05/31/23 2:45 PM Telly HOOVER RADTSA During your visit today, we recorded the following information about you: Temperature Pulse Respiration Blood pressure 97.4 degrees 75/minute 16/minute 107/73 Weight 94.8 kg Telly Hoover MD 05/31/2023 2:45 PM Signed Radiation Oncology - Follow-up Note PATIENT NAME: Cassie Winters PATIENT : 1965 Primary Site: Thyroid Date of Diagnosis: 11/19/2022 Clinical Stage: T1 Nx Mx Pathologic Stage: T1 N0 Mx DIAGNOSIS: Papillary thyroid carcinoma status post total thyroidectomy T1BN0. S/p I-131: 53.4 mCi 01/26/2023. HPI: Patient has some continued anterior chest discomfort/pressure. Does not associate with activity stairs. Occasional increased with food that seems to stick midway down chest. Denies vomiting. Denies diaphoresis arm pain. Has not had prior cardiac issues. Has not seen a family doctor regarding this. 03/24/23:Overall doing fairly well. Having some mild dysphagia mostly mid chest. Having some mild anterior upper chest discomfort, nonexertional. Denies shortness of breath or diaphoresis. States that she has discomfort when she pushes on her left clavicular head. No recent falls. Overall some mild to moderate fatigue, still active RADIOLOGY: Whole-body scan 02/02/2023: Uptake within the thyroid bed area. No abnormal uptake consistent with metastasis. Patient presented with mild dysphagia, dry cough and occasional hoarse voice. LABORATORY: Latest Reference Range AND Units 01/10/23 12:10 01/26/23 10:59 03/17/23 09:49 05/18/23 09:53 Thyroglobulin, LC-MS/MS 1.3 - 31.8 ng/mL 3.6 18.7 T4 5.5 - 10.2 ug/dL 8.3 9.9 TSH 0.270 - 4.200 mIU/L 0.436 0.095 (L) Thyroglobulin Ab, Serum <4.0 IU/mL 1.1 Thyroglobulin, Serum 1.6 - 50.0 ng/mL 0.1 (L) (L): Data is abnormally low Dysphagia: No Mucositis: No Voice Changes:No Fatigue: No Nausea: No Vomitting: No Pain: No Taste: No Weight loss: No ALLERGIES Allergen Reactions Penicillins Hives Sulfa (Sulfonamide * Hives MEDICATIONS: levothyroxine (SYNTHROID) 137 mcg tablet Take 1 tablet by mouth daily before breakfast. atorvastatin (LIPITOR) 20 mg tablet gabapentin (NEURONTIN) 600 mg tablet Take by mouth daily at bedtime. glucosamine/msm/chondr oitin A (SUCVIPMWWIH-OIGGJE-YI M ORAL) Take by mouth. MULTIVITAMIN ORAL Take by mouth. PAST MEDICAL HISTORY Diagnosis Date Chronic pain d/t sacrum fx, RLE pain Hypercholesteremia Prior radiation therapy, collagen vascular disease, or inflammatory bowel disease: No status: Status post vaginal hysterectomy PAST SURGICAL HISTORY Procedure Laterality Date SECTION HX PAST SURGICAL HISTORY OF coccyx d/t a fall THYROIDECTOMY VAGINAL HYSTERECTOMY FAMILY HISTORY Problem Relation Age of Onset Renal Cell Cancer Mother Pancreatic Cancer Father Renal Cell Cancer Sister Cancer Maternal Uncle Cancer Maternal Uncle Cancer Maternal Uncle Cancer Maternal Aunt Cancer Maternal Aunt Cancer Paternal Aunt Social History Tobacco Use Smoking status: Never Smokeless tobacco: Never Substance Use Topics Alcohol use: Not Currently Comment: rarely Drug use: Not Currently COMPLETE REVIEW OF SYSTEMS: GENERAL: feeling well without fatigue, no recent change in weight NECK: denies swelling or pain in neck RESPIRATORY: no cough, no wheezing or shortness of breath CARDIOVASCULAR: See HPI. No palpitations or tachycardia GI: normal appetite, tolerating PO well, BMs normal, and no abdominal pain SKIN: no rash NEURO: no numbness or paresthesias and no weakness of the extremities As noted in HPI PHYSICAL EXAM: VS: BP 107/73 Pulse 75 Temp 36.3 ?C (97.4 ?F) Resp 16 Wt 94.8 kg (209 lb) SpO2 100% BMI 31.78 kg/m? KPS: 100 General Appearance: Alert and oriented. No acute distress. 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 Thyroid cancer: Overall doing fairly well. Her thyroid functions are appropriate with appropriate TSH suppression. Thyroglobulin low. 2 Chest discomfort/dysphagia. This has been fairly chronic for difficult to characterize. Recommend she see her family doctor for further evaluation. Signed by: Telly Hoover MD cc: Marta Eisenberg ([facility]) [address] [place] [phone] Xiomy Jones MD [address] [place] [phone] Allergies As of Date: 05/31/2023 Noted Allergy Reaction PENICILLINS 01/10/2023 4 - Hives SULFA (SULFONAMIDE ANTIBIOTI (more content not included)... Normal [facility] CNCOon 05-18-2023 CNCO Letter Text Normal [facility] T4 SerPl-mCncon 05-18-2023 T4 [Mass/Vol] 9.9 ug/dL Normal 5.5-10.2 [facility] Comment on above: Order Comment: Speci men Type: BLOOD SPECIMENOrdering Facility: [facility] Address: [address] [place] [address] Performed By: #### 3 016-3, 3026-2 ####[facility] LABIA [id number] [place] [address] [place] TSH SerPl-aCncon 05-18-2023 TSH Qn 0.095 m[IU]/L Low 0.270-4.200 [facility] Comment on above: Order Comment: Speci men Type: BLOOD SPECIMENOrdering Facility: [facility] Address: [address] [place] [address] Performed By: #### 3 016-3, 3026-2 ####[facility] [id number] [place] [address] [place] Thyroglobulin and Thyrogobul in Ab panelon 05-18-2023 Thyroglobulin Ab Qn 1.1 [IU]/mL Normal <4.0 [facility] Comment on above: Order Comment: Speci men Type: BLOOD SPECIMENOrdering Facility: [facility] Address: [address] [place] [address] Result Comment: The Thyroglobulin Antibody test was performed using the [employer] DXI paramagnetic particle chemiluminescent immunoassay method. Results obtained with different assay methods or kits cannot be used interchangeably. Performed By: #### 5 7780-9 ####[facility] LABIA [id number] [place] [address] [place] THYROGLOBULIN, SERUM 0.1 ng/mL Low 1.6-50.0 [facility] Comment on above: Order Comment: Speci men Type: BLOOD SPECIMENOrdering Facility: [facility] Address: [address] [place] [address] Result Comment: The Thyroglobulin test was performed using the [employer] [place] [employer] DXI paramagnetic particle chemiluminescent immunoassay method. Results obtained with different assay methods or kits cannot be used interchangeably. Performed By: #### 5 7780-9 ####[facility] LABCLIA [id number] [id number] [id number] [place] CNCOon 03-24-2023 CNCO Letter Text Normal [facility] CNOVon 03-24-2023 CNOV Office Visit (RADTSA ) CASSIE WINTERS ([id number]) 1965 F Date Time Provider Department 03/24/23 10:15 AM Telly HOOVER During your visit today, we recorded the following information about you: Temperature Pulse Respiration Blood pressure 96.7 degrees 72/minute 18/minute 117/79 Weight 98 kg Telly Hoover MD 03/24/2023 1:11 PM Signed Radiation Oncology - Follow-up Note PATIENT NAME: Cassie Winters PATIENT : 1965 Primary Site: Thyroid Date of Diagnosis: 11/19/2022 Clinical Stage: T1 Nx Mx Pathologic Stage: T1 N0 Mx DIAGNOSIS: Papillary thyroid carcinoma status post total thyroidectomy T1BN0. S/p I-131: 53.4 mCi 01/26/2023. HPI: Overall doing fairly well. Having some mild dysphagia mostly mid chest. Having some mild anterior upper chest discomfort, nonexertional. Denies shortness of breath or diaphoresis. States that she has discomfort when she pushes on her left clavicular head. No recent falls. Overall some mild to moderate fatigue, still active RADIOLOGY: Whole-body scan 02/02/2023: Uptake within the thyroid bed area. No abnormal uptake consistent with metastasis. Patient presented with mild dysphagia, dry cough and occasional hoarse voice. LABORATORY: Latest Reference Range AND Units 01/10/23 12:10 01/26/23 10:59 03/17/23 09:49 Thyroglobulin, LC-MS/MS 1.3 - 31.8 ng/mL 3.6 18.7 T4 5.5 - 10.2 ug/dL 8.3 TSH 0.270 - 4.200 mIU/L 0.436 Dysphagia: No Mucositis: No Voice Changes:No Fatigue: No Nausea: No Vomitting: No Pain: No Taste: No Weight loss: No ALLERGIES Allergen Reactions Penicillins Hives Sulfa (Sulfonamide * Hives MEDICATIONS: pilocarpine (SALAGEN, PILOCARPINE,) 5 mg tablet Take 1 tablet by mouth three times daily. Start 01/24/23 prochlorperazine (COMPAZINE) 10 mg tablet Take 1 tablet by mouth every 8 hours as needed. levothyroxine (SYNTHROID) 125 mcg tablet Take 1 tablet by mouth once daily. Start 01/27/23 atorvastatin (LIPITOR) 20 mg tablet gabapentin (NEURONTIN) 600 mg tablet Take by mouth daily at bedtime. liothyronine (CYTOMEL) 25 mcg tablet Take 25 mcg by mouth twice daily. glucosamine/msm/chondr oitin A ([id number]-AQ M ORAL) Take by mouth. MULTIVITAMIN ORAL Take by mouth. PAST MEDICAL HISTORY Diagnosis Date Chronic pain d/t sacrum fx, RLE pain Hypercholesteremia Prior radiation therapy, collagen vascular disease, or inflammatory bowel disease: No status: Status post vaginal hysterectomy PAST SURGICAL HISTORY Procedure Laterality Date SECTION HX PAST SURGICAL HISTORY OF coccyx d/t a fall THYROIDECTOMY VAGINAL HYSTERECTOMY FAMILY HISTORY Problem Relation Age of Onset Renal Cell Cancer Mother Pancreatic Cancer Father Renal Cell Cancer Sister Cancer Maternal Uncle Cancer Maternal Uncle Cancer Maternal Uncle Cancer Maternal Aunt Cancer Maternal Aunt Cancer Paternal Aunt Social History Tobacco Use Smoking status: Never Smokeless tobacco: Never Substance Use Topics Alcohol use: Not Currently Comment: rarely Drug use: Not Currently COMPLETE REVIEW OF SYSTEMS: GENERAL: feeling well without fatigue, no recent change in weight NECK: denies swelling or pain in neck RESPIRATORY: no cough, no wheezing or shortness of breath CARDIOVASCULAR: no chest pain, no palpitations GI: normal appetite, tolerating PO well, BMs normal, and no abdominal pain SKIN: no rash NEURO: no numbness or paresthesias and no weakness of the extremities As noted in HPI PHYSICAL EXAM: VS: There were no vitals taken for this visit. KPS: 100 General Appearance: Alert and oriented. No acute distress. Neck: No suspicious mass or tenderness RADIOLOGY/LABORATORY DATA: see HPI ASSESSMENT/PLAN: Papillary thyroid carcinoma status post total thyroidectomy T1BN0 status post I-131: 53.4 mCi 01/26/2023 Overall doing fairly well. Her thyroid functions are in the normal levels but I would like to increase her dose to further suppress her TSH. This may help with her fatigue as well. If her chest pain continues or becomes exertional recommend she get in for evaluation. If her dysphagia continues consider addition of Carafate. Signed by: Telly Hoover MD cc: Marta Eisenberg ([facility]) [address] [place] [phone] Xiomy Jones MD [address] [place] [phone] Allergies As of Date: 03/24/2023 Noted Allergy Reaction PENICILLINS 01/10/2023 4 - Hives SULFA (SULFONAMIDE ANTIBIOTICS) 01/10/2023 4 - Hives Date Reviewed: 03/24/2023 Reviewed by: Elina Schulte RN - Fully Assessed Reason for Visit: Thyroid Cancer [879] Primary Visit Diagnosis:Thyroid cancer (HCC) [C73] Order(s):T4/THYROXINE BLOOD [SQT4] Order #: [id number] FUTURE TSH BLD [SQTSH] Order #: [id number] FUTURE THYROGLO (more content not included)... Normal [facility] CNCOon 03-17-2023 CNCO Letter (Out) (NCCAP) CASSIE WINTERS ([id number]) 1965 F Date Time Provider Department 03/17/23 Telly HOOVER During your visit today, we recorded the following information about you: Allergies As of Date: 03/17/2023 Noted Allergy Reaction PENICILLINS 01/10/2023 4 - Hives SULFA (SULFONAMIDE ANTIBIOTICS) 01/10/2023 4 - Hives Date Reviewed: 02/04/2023 Reviewed by: Mario Farnsworth LPN - Fully Assessed Prescriptions as of 03/17/2023 - pilocarpine (SALAGEN, PILOCARPINE,) 5 mg tablet Take 1 tablet by mouth three times daily. Start 01/24/23 - prochlorperazine (COMPAZINE) 10 mg tablet Take 1 tablet by mouth every 8 hours as needed. - levothyroxine (SYNTHROID) 125 mcg tablet Take 1 tablet by mouth once daily. Start 01/27/23 - atorvastatin (LIPITOR) 20 mg tablet - gabapentin (NEURONTIN) 600 mg tablet Take by mouth daily at bedtime. - liothyronine (CYTOMEL) 25 mcg tablet Take 25 mcg by mouth twice daily. - glucosamine/msm/chondr oitin A ([id number]-RZ M ORAL) Take by mouth. - MULTIVITAMIN ORAL Take by mouth. Problem List As Of Date 03/17/2023 Noted Resolved Thyroid cancer (HCC) [C73] 01/24/2023 Letter Text Encounter Status:Closed by SMITA ZAMBRANO on 03/17/23 [facility] Harper 03-17-2023 ANSHULN Telephone (JOANN) SINGHCASSIE ([id number]) 1965 F Date Time Provider Department 03/17/23 Telly HOOVER During your visit today, we recorded the following information about you: Elina Schulte, RN 03/17/2023 3:29 PM Signed Pt was in getting labs today and asked to speak to nurse. She stated she does not feel her thyroid meds are working as she has been very tired. She was wondering if labs come back abnormal, if you could adjust her dose prior to seeing her as scheduled. Labs will result 03/18. Pt prefers Saurabh Boateng. Thank you ERIKA Lennon Ariana, LPN 03/18/2023 4:09 PM Signed I notified [place] of Dr. Hoover's response. She will keep her follow up as scheduled next week. Mario Farnsworth LPN Allergies As of Date: 03/17/2023 Noted Allergy Reaction PENICILLINS 01/10/2023 4 - Hives SULFA (SULFONAMIDE ANTIBIOTICS) 01/10/2023 4 - Hives Date Reviewed: 02/04/2023 Reviewed by: Mario Farnsworth LPN - Fully Assessed Reason for Visit: Medication Dosage Adjustment [1205] Results, Lab [1201] Prescriptions as of 03/18/2023 - pilocarpine (SALAGEN, PILOCARPINE,) 5 mg tablet Take 1 tablet by mouth three times daily. Start 01/24/23 - prochlorperazine (COMPAZINE) 10 mg tablet Take 1 tablet by mouth every 8 hours as needed. - levothyroxine (SYNTHROID) 125 mcg tablet Take 1 tablet by mouth once daily. Start 01/27/23 - atorvastatin (LIPITOR) 20 mg tablet - gabapentin (NEURONTIN) 600 mg tablet Take by mouth daily at bedtime. - liothyronine (CYTOMEL) 25 mcg tablet Take 25 mcg by mouth twice daily. - glucosamine/msm/chondr oitin A ([id number] M ORAL) Take by mouth. - MULTIVITAMIN ORAL Take by mouth. Problem List As Of Date 03/17/2023 Noted Resolved Thyroid cancer (HCC) [C73] 01/24/2023 Encounter Status:Closed by MARIO FARNSWORTH on 03/18/23 Normal [facility] T4 SerPl-mCncon 03-17-2023 T4 [Mass/Vol] 8.3 ug/dL Normal 5.5-10.2 [facility] Comment on above: Order Comment: Speci men Type: BLOOD SPECIMENOrdering Facility: [facility] Address: [address] [place] [phone] Performed By: #### 3 026-2, 3016-3 ####[facility] LABCLIA [id number] [place] [id number] [place] TSH SerPl-aCncon 03-17-2023 TSH Qn 0.436 m[IU]/L Normal 0.270-4.200 [facility] Comment on above: Order Comment: Speci men Type: BLOOD SPECIMENOrdering Facility: [facility] Address: [address] [place] [address] [place] [address] Performed By: #### 3 026-2, 3016-3 ####[facility] LABCLIA [id number] [address] [place] CNOVon 02-04-2023 CNOV Office Visit (RADTSA ) CASSIE WINTERS ([id number]) 1965 F Date Time Provider Department 02/04/23 9:00 AM Telly HOOVER During your visit today, we recorded the following information about you: Temperature Pulse Respiration Blood pressure 97.6 degrees 78/minute 16/minute 112/83 Weight 95.7 kg Telly Hoover MD 02/04/2023 9:05 AM Signed Radiation Oncology - New Patient/Consult Note PATIENT NAME: Cassie Winters PATIENT : 1965 Primary Site: Thyroid Date of Diagnosis: 11/19/2022 Clinical Stage: T1 Nx Mx Pathologic Stage: T1 N0 Mx DIAGNOSIS: 57 year old female with papillary thyroid carcinoma status post total thyroidectomy T1BN0. I-131: 53.4 mCi 01/26/2023 HPI: Patient completed I-131 treatment after Thyrogen stimulation. She did well without significant post I-131 issues mild metallic taste when she drinks soda out of a can. Whole-body scan 02/02/2023: Uptake within the thyroid bed area. No abnormal uptake consistent with metastasis. Patient presented with mild dysphagia, dry cough and occasional hoarse voice. LABORATORY: Latest Reference Range AND Units 01/10/23 12:10 01/26/23 10:59 (S/p Thyrogen prior to I131 Thyroglobulin, LC-MS/MS 1.3 - 31.8 ng/mL 3.6 18.7 FOCUSED ROS: Dysphagia: No Mucositis: No Voice Changes:No Fatigue: No Nausea: No Vomitting: No Pain: No Taste: No Weight loss: No ALLERGIES Allergen Reactions Penicillins Hives Sulfa (Sulfonamide * Hives MEDICATIONS: levothyroxine (SYNTHROID) 125 mcg tablet Take 1 tablet by mouth once daily. Start 01/27/23 atorvastatin (LIPITOR) 20 mg tablet gabapentin (NEURONTIN) 600 mg tablet Take by mouth daily at bedtime. glucosamine/msm/chondr oitin A ([id number]-UD M ORAL) Take by mouth. MULTIVITAMIN ORAL Take by mouth. pilocarpine (SALAGEN, PILOCARPINE,) 5 mg tablet Take 1 tablet by mouth three times daily. Start 01/24/23 prochlorperazine (COMPAZINE) 10 mg tablet Take 1 tablet by mouth every 8 hours as needed. liothyronine (CYTOMEL) 25 mcg tablet Take 25 mcg by mouth twice daily. PAST MEDICAL HISTORY Diagnosis Date Chronic pain d/t sacrum fx, RLE pain Hypercholesteremia Prior radiation therapy, collagen vascular disease, or inflammatory bowel disease: No status: Status post vaginal hysterectomy PAST SURGICAL HISTORY Procedure Laterality Date SECTION HX PAST SURGICAL HISTORY OF coccyx d/t a fall THYROIDECTOMY VAGINAL HYSTERECTOMY FAMILY HISTORY Problem Relation Age of Onset Renal Cell Cancer Mother Pancreatic Cancer Father Renal Cell Cancer Sister Cancer Maternal Uncle Cancer Maternal Uncle Cancer Maternal Uncle Cancer Maternal Aunt Cancer Maternal Aunt Cancer Paternal Aunt Social History Tobacco Use Smoking status: Never Smokeless tobacco: Never Substance Use Topics Alcohol use: Not Currently Comment: rarely Drug use: Not Currently COMPLETE REVIEW OF SYSTEMS: GENERAL: feeling well without fatigue, no recent change in weight NECK: denies swelling or pain in neck RESPIRATORY: no cough, no wheezing or shortness of breath CARDIOVASCULAR: no chest pain, no palpitations GI: normal appetite, tolerating PO well, BMs normal, and no abdominal pain SKIN: no rash NEURO: no numbness or paresthesias and no weakness of the extremities As noted in HPI PHYSICAL EXAM: VS: BP 112/83 Pulse 78 Temp 36.4 ?C (97.6 ?F) Resp 16 Wt 95.7 kg (211 lb) SpO2 98% BMI 32.08 kg/m? KPS: 100 General Appearance: Alert and oriented. No acute distress. Neck: No suspicious mass or tenderness RADIOLOGY/LABORATORY DATA: see HPI ASSESSMENT/PLAN: Papillary thyroid carcinoma status post total thyroidectomy T1BN0 status post I-131: 53.4 mCi 01/26/2023 Patient is doing well after I-131 therapy. Scan showed only uptake within the thyroid bed no evidence of metastasis. She is initiated thyroid replacement. Will monitor for appropriate TSH suppression. Plan to recheck labs in 6 to 8 weeks. Signed by: Telly Hoover MD cc: Marta Eisenberg ([facility]) [address] [place] [phone] Xiomy Jones MD [address] [place] [phone] Allergies As of Date: 02/04/2023 Noted Allergy Reaction PENICILLINS 01/10/2023 4 - Hives SULFA (SULFONAMIDE ANTIBIOTICS) 01/10/2023 4 - Hives Date Reviewed: 02/04/2023 Reviewed by: Mario Farnsworth LPN - Fully Assessed Reason for Visit: Thyroid Cancer [879] Primary Visit Diagnosis:Thyroid cancer (HCC) [C73] Order(s):TSH BLD [SQTSH] Order #: [id number] FUTURE T4/THYROXINE BLOOD [SQT4] Order #: [id number] FUTURE Prescriptions as of 02/04/2023 - pilocarpine (SALAGEN, PILOCARPINE,) 5 mg tablet Take 1 tablet by mouth three times daily. Start 01/24/23 - prochlorperazine (COMPAZINE) 10 mg tablet Take (more content not included)... Normal [facility] NM thyroid ca whole bodyon 0 02-02-2023 NM thyroid ca whole body [facility] Main [address] [address] Nuclear Medicine Report Signed Patient: Cassie Winters MR#: [id number] : 1965 Acct:[id number] Age/Sex: 57 / F ADM Date: 01/26/23 Loc: NM Room: Type: [facility] Attending Dr: Nikkie Hoover MD Copies to: MD Lokesh Etienne II, MD Ordering Provider: Telly Hoover MD Date of Service: 02/02/23 NM/NM thyroid ca whole body: *Dose ordered* Thyroid cancer NM thyroid ca whole body 01/26/2023 12:49 PM SIGNS AND SYMPTOMS: *Dose ordered* Thyroid cancer PROTOCOL: Whole body scintigraphic images were obtained 7 days after oral radiotracer administration. COMPARISON: None. RADIOPHARMACEUTICAL: 53.4 mCi of oral iodine 131 FINDINGS: There is radiotracer accumulation within the neck corresponding to the expected location of the thyroid gland. There is a small amount of of physiologic radiotracer accumulation within the bladder and kidneys. No focal abnormal radiotracer circulation is noted outside of the thyroid bed. NM/NM thyroid ca whole body IMPRESSION: No focal abnormal radiotracer circulation is noted outside of the thyroid bed. Impression dictated by: Lokesh Guzmán M.D.02/02/2023 3:40 PM Dictation Location: [facility]07 Transcribed By: [facility] 02/02/23 1540 Dictated By: Lokesh Guzmán II, MD 02/02/23 1534 Signed By: 02/02/23 1540 [facility] CASSIE WINTERS ([id number]) 1965 F Date Time Provider Department 01/28/23 Telly HOOVER During your visit today, we recorded the following information about you: Rowena Vásquez 01/28/2023 4:26 PM Signed Pt LM for a call back. Stated ROD started her on a new thyroid medication and wasn't sure if this was in place of her old one or if she is suppose to take both. Requested a call back to verify @ [phone]. Rowena Vásquez Elina Schulte RN 01/31/2023 2:54 PM Signed Pt was notified. Elina Schulte RN Allergies As of Date: 01/28/2023 Noted Allergy Reaction PENICILLINS 01/10/2023 4 - Hives SULFA (SULFONAMIDE ANTIBIOTICS) 01/10/2023 4 - Hives Date Reviewed: 01/24/2023 Reviewed by: Mario Farnsworth LPN - Fully Assessed Reason for Visit: Patient Question [0360] Prescriptions as of 01/31/2023 - pilocarpine (SALAGEN, PILOCARPINE,) 5 mg tablet Take 1 tablet by mouth three times daily. Start 01/24/23 - prochlorperazine (COMPAZINE) 10 mg tablet Take 1 tablet by mouth every 8 hours as needed. - levothyroxine (SYNTHROID) 125 mcg tablet Take 1 tablet by mouth once daily. Start 01/27/23 - atorvastatin (LIPITOR) 20 mg tablet - gabapentin (NEURONTIN) 600 mg tablet Take by mouth daily at bedtime. - liothyronine (CYTOMEL) 25 mcg tablet Take 25 mcg by mouth twice daily. - glucosamine/msm/chondr oitin A ([id number]-QY M ORAL) Take by mouth. - MULTIVITAMIN ORAL Take by mouth. Problem List As Of Date 01/28/2023 Noted Resolved Thyroid cancer (HCC) [C73] 01/24/2023 Encounter Status:Closed by ELINA SCHULTE on 01/31/23 [facility] CNOVon 01-26-2023 CNOV Office Visit (RADTSA ) CASSIE WINTERS ([id number]) 1965 F Date Time Provider Department 01/26/23 12:30 PM Telly HOOVER During your visit today, we recorded the following information about you: Telly Hoover MD 01/26/2023 2:01 PM Signed PATIENT NAME: Cassie Winters PATIENT : 1965 I-131 treatment 54 mCi [facility] Note at [facility] Allergies As of Date: 01/26/2023 Noted Allergy Reaction PENICILLINS 01/10/2023 4 - Hives SULFA (SULFONAMIDE ANTIBIOTICS) 01/10/2023 4 - Hives Date Reviewed: 01/24/2023 Reviewed by: Mario Farnsworth LPN - Fully Assessed Primary Visit Diagnosis:Thyroid cancer (HCC) [C73] Prescriptions as of 01/26/2023 - pilocarpine (SALAGEN, PILOCARPINE,) 5 mg tablet Take 1 tablet by mouth three times daily. Start 01/24/23 - prochlorperazine (COMPAZINE) 10 mg tablet Take 1 tablet by mouth every 8 hours as needed. - levothyroxine (SYNTHROID) 125 mcg tablet Take 1 tablet by mouth once daily. Start 01/27/23 - atorvastatin (LIPITOR) 20 mg tablet - gabapentin (NEURONTIN) 600 mg tablet Take by mouth daily at bedtime. - liothyronine (CYTOMEL) 25 mcg tablet Take 25 mcg by mouth twice daily. - glucosamine/msm/chondr oitin A ([id number]-NV M ORAL) Take by mouth. - MULTIVITAMIN ORAL Take by mouth. Problem List As Of Date 01/26/2023 Noted Resolved Thyroid cancer (HCC) [C73] 01/24/2023 Encounter Status:Closed by Telly HOOVER on 01/26/23 Normal [facility] THYROGLOBULIN BY MASS SPECTR OMETRYon 01-26-2023 THYROGLOBULIN, LC-MS/MS 18.7 ng/mL Normal 1.3-31.8 [facility] Comment on above: Order Comment: Speci men Type: BLOOD SPECIMENOrdering Facility: [facility] Address: [address] [place] [phone] Result Comment: Results obtained with different test methods or kits cannot be used interchangeably. Thyroglobulin results, regardless of concentration, should not be interpreted as absolute evidence for the presence or absence of papillary or follicular thyroid cancer. Thyroglobulin testing is not recommended for use as a screening procedure to detect the presence of thyroid cancer in the general population. INTERPRETIVE INFORMATION: Thyroglobulin by LC-MS/MS, Serum/Plasma Lower limit of detection for Thyroglobulin by LC-MS/MS is 0.5 ng/mL. This test was developed and its performance characteristics determined by [employer]. It has not been cleared or approved by the [place] Food and Drug Administration. This test was performed in a CLIA certified laboratory and is intended for clinical purposes. Performed By: [facility] [address] [place] [address] City Constable: Jose Carlos Rico MD, PhD Performed By: #### T [facility] ####[facility] [email or web address] [id number] [place] [address] CNOVon 01-25-2023 CNOV Office Visit (RADTSA ) CASSIE WINTERS ([id number]) 1965 F Date Time Provider Department 01/25/23 9:00 AM LAB/PORT RADT LIAN DAVID During your visit today, we recorded the following information about you: Temperature Pulse Respiration Blood pressure 97.1 degrees 82/minute 18/minute 130/81 Referring Provider: Telly HOOVER [[id number]] Allergies As of Date: 01/25/2023 Noted Allergy Reaction PENICILLINS 01/10/2023 4 - Hives SULFA (SULFONAMIDE ANTIBIOTICS) 01/10/2023 4 - Hives Date Reviewed: 01/24/2023 Reviewed by: Mario Farnsworth LPN - Fully Assessed Reason for Visit: Thyroid Cancer [879] Cmt: Thyrogen Injection Primary Visit Diagnosis:Thyroid cancer (HCC) [C73] Order(s):[] thyrotropin marco 0.9 mg injection (THYROGEN)Disp: Rfl: Prescriptions as of 01/25/2023 - pilocarpine (SALAGEN, PILOCARPINE,) 5 mg tablet Take 1 tablet by mouth three times daily. Start 01/24/23 - prochlorperazine (COMPAZINE) 10 mg tablet Take 1 tablet by mouth every 8 hours as needed. - levothyroxine (SYNTHROID) 125 mcg tablet Take 1 tablet by mouth once daily. Start 01/27/23 - atorvastatin (LIPITOR) 20 mg tablet - gabapentin (NEURONTIN) 600 mg tablet Take by mouth daily at bedtime. - liothyronine (CYTOMEL) 25 mcg tablet Take 25 mcg by mouth twice daily. - glucosamine/msm/chondr oitin A ([id number] M ORAL) Take by mouth. - MULTIVITAMIN ORAL Take by mouth. Problem List As Of Date 01/25/2023 Noted Resolved Thyroid cancer (HCC) [C73] 01/24/2023 Prescriptions ordered this encounter Disp Refills Start End THYROTROPIN MARCO 0.9 MG INTRAMUSCULA* 01/25/2023 01/25/2023 Route: INTRAMUSCULA Encounter Status:Closed by ELINA SCHULTE on 01/25/23 [facility] CNOVdeandre 01-24-2023 CNOV Office Visit (RADTSA ) CASSIE WINTERS ([id number]) 1965 F Date Time Provider Department 01/24/23 9:00 AM LAB/PORT RADT LIAN DAVID During your visit today, we recorded the following information about you: Temperature Pulse Respiration Blood pressure 97.2 degrees 73/minute 16/minute 115/78 Weight 94.3 kg Mario Farnsworth LPN 01/24/2023 8:57 AM Signed Status: Patient states there is no possibility she is at this time. Referring Provider: Telly HOOVER [[id number]] Allergies As of Date: 01/24/2023 Noted Allergy Reaction PENICILLINS 01/10/2023 4 - Hives SULFA (SULFONAMIDE ANTIBIOTICS) 01/10/2023 4 - Hives Date Reviewed: 01/24/2023 Reviewed by: Mario Farnsworth LPN - Fully Assessed Reason for Visit: Thyroid Cancer [879] Primary Visit Diagnosis:Thyroid cancer (HCC) [C73] Order(s):[] thyrotropin marco 0.9 mg injection (THYROGEN)Disp: Rfl: Prescriptions as of 01/24/2023 - pilocarpine (SALAGEN, PILOCARPINE,) 5 mg tablet Take 1 tablet by mouth three times daily. Start 01/24/23 - prochlorperazine (COMPAZINE) 10 mg tablet Take 1 tablet by mouth every 8 hours as needed. - levothyroxine (SYNTHROID) 125 mcg tablet Take 1 tablet by mouth once daily. Start 01/27/23 - atorvastatin (LIPITOR) 20 mg tablet - gabapentin (NEURONTIN) 600 mg tablet Take by mouth daily at bedtime. - liothyronine (CYTOMEL) 25 mcg tablet Take 25 mcg by mouth twice daily. - glucosamine/msm/chondr oitin A ([id number] M ORAL) Take by mouth. - MULTIVITAMIN ORAL Take by mouth. Problem List As Of Date 01/24/2023 Noted Resolved Thyroid cancer (HCC) [C73] 01/24/2023 Visit Notes: >> Mario Farnsworth LPN Mon Jan 24, 2023 8:57 AM Status: Signed Status: Patient states there is no possibility she is at this time. Prescriptions ordered this encounter Disp Refills Start End THYROTROPIN MARCO 0.9 MG INTRAMUSCULA* 01/24/2023 01/24/2023 Route: INTRAMUSCULA Encounter Status:Closed by MARIO FARNSWORTH on 01/24/23 [facility] Harper 01-19-2023 MARYCHUY Telephone (VIGNESHYoulicitA) CASSIE WINTERS ([id number]) 1965 F Date Time Provider Department 01/19/23 Telly HOOVER During your visit today, we recorded the following information about you: Mario Farnsworth LPN 01/19/2023 2:30 PM Signed I called to update [place] that the 01/26/23 and 02/02/23 appt's at [facility] have been confirmed. She denies further questions. Mario Farnsworth LPN Allergies As of Date: 01/19/2023 Noted Allergy Reaction PENICILLINS 01/10/2023 4 - Hives SULFA (SULFONAMIDE ANTIBIOTICS) 01/10/2023 4 - Hives Date Reviewed: 01/11/2023 Reviewed by: Anamika Braga RD - Fully Assessed Reason for Visit: Patient Update [1234] Prescriptions as of 01/19/2023 - pilocarpine (SALAGEN, PILOCARPINE,) 5 mg tablet Take 1 tablet by mouth three times daily. Start 01/24/23 - prochlorperazine (COMPAZINE) 10 mg tablet Take 1 tablet by mouth every 8 hours as needed. - levothyroxine (SYNTHROID) 125 mcg tablet Take 1 tablet by mouth once daily. Start 01/27/23 - atorvastatin (LIPITOR) 20 mg tablet - gabapentin (NEURONTIN) 600 mg tablet Take by mouth daily at bedtime. - liothyronine (CYTOMEL) 25 mcg tablet Take 25 mcg by mouth twice daily. - glucosamine/msm/chondr oitin A ([id number] M ORAL) Take by mouth. - MULTIVITAMIN ORAL Take by mouth. Problem List As Of Date: 01/19/2023 (None) Encounter Status:Closed by MARIO FARNSWORTH on 01/19/23 [facility] Harper 01-17-2023 MARYCHUY Telephone (RADTSA) CASSIE WINTERS ([id number]) 1965 F Date Time Provider Department 01/17/23 Telly HOOVER During your visit today, we recorded the following information about you: Mario Farnsworth LPN 01/17/2023 9:01 AM Signed I-131 order pending your approval. Mario Farnsworth LPN Allergies As of Date: 01/17/2023 Noted Allergy Reaction PENICILLINS 01/10/2023 4 - Hives SULFA (SULFONAMIDE ANTIBIOTICS) 01/10/2023 4 - Hives Date Reviewed: 01/11/2023 Reviewed by: Anamika Braga RD - Fully Assessed Reason for Visit: Orders [681] Primary Visit Diagnosis:Thyroid cancer (HCC) [C73] Order(s):I-131 SODIUM IODIDE SOLUTION [[id number]] Order #: [id number] FUTURE Prescriptions as of 01/19/2023 - pilocarpine (SALAGEN, PILOCARPINE,) 5 mg tablet Take 1 tablet by mouth three times daily. Start 01/24/23 - prochlorperazine (COMPAZINE) 10 mg tablet Take 1 tablet by mouth every 8 hours as needed. - levothyroxine (SYNTHROID) 125 mcg tablet Take 1 tablet by mouth once daily. Start 01/27/23 - atorvastatin (LIPITOR) 20 mg tablet - gabapentin (NEURONTIN) 600 mg tablet Take by mouth daily at bedtime. - liothyronine (CYTOMEL) 25 mcg tablet Take 25 mcg by mouth twice daily. - glucosamine/msm/chondr oitin A ([id number] M ORAL) Take by mouth. - MULTIVITAMIN ORAL Take by mouth. Problem List As Of Date: 01/17/2023 (None) Encounter Status:Closed by Telly HOOVER on 01/19/23 [facility] CNStella 01-10-2023 CNOV Office Visit (MORENOA ) CASSIE WINTERS ([id number]) 1965 F Date Time Provider Department 01/10/23 10:45 AM Telly HOOVER During your visit today, we recorded the following information about you: Temperature Pulse Respiration Blood pressure 98.4 degrees 76/minute 16/minute 108/69 Weight Height 95.7 kg 1.727 m G Aryan Hoover MD 01/13/2023 2:20 PM Signed Radiation Oncology - New Patient/Consult Note PATIENT NAME: Cassie Winters PATIENT : 1965 REQUESTING PROVIDER: Dr. Jones Primary Site: Thyroid Date of Diagnosis: 11/19/2022 Clinical Stage: T1 Nx Mx Pathologic Stage: T1 N0 Mx DIAGNOSIS: 57 year old female with papillary thyroid carcinoma status post total thyroidectomy [id number]. HPI: 57 year old female who presents with above diagnosis, for an opinion regarding the role of radiation therapy in the management of the patient's disease. Final recommendations will be communicated back to the requesting physician by way of the shared medical record, or letter to requesting physician via US mail. Patient presented with mild dysphagia, dry cough and occasional hoarse voice. She underwent thyroid ultrasound on 11/08/2022 demonstrating stable small nodules right lobe, 15 x 19 x 14 mm TR 5 nodule within the left lobe which was significantly larger than prior ultrasound. Additionally stable TR4 nodule. Biopsy was recommended. Patient was seen by Dr. Jones, and on 11/30/2022 she underwent FNA of the left thyroid mid lobe nodule, pathology demonstrating atypia of undetermined significance with cytologic atypia, papillary thyroid carcinoma cannot be ruled out. Patient underwent total thyroidectomy on 11/19/2022. Frozen section of the left thyroid consistent with papillary thyroid carcinoma insufflate underwent total thyroidectomy at date of surgery. Pathology revealing no evidence of metastatic carcinoma in 4 lymph nodes from the anterior neck. Pyramidal lobe without evidence of malignancy. Left thyroid however demonstrating papillary thyroid carcinoma predominantly classic type of focal Warth and like features, 1.4 cm in dimension, focally extending to the inked margin. Right thyroid hemorrhoidectomy without evidence of malignancy including 1 lymph node within the specimen. No perineural invasion.[id number] Patient has done very well after surgery. Her hoarseness and dysphagia have resolved. Denies other new problems. FOCUSED ROS: Dysphagia: No Mucositis: No Voice Changes:No Fatigue: No Nausea: No Vomitting: No Pain: No Taste: No Weight loss: No ALLERGIES Allergen Reactions Penicillins Hives Sulfa (Sulfonamide * Hives MEDICATIONS: gabapentin (NEURONTIN) 600 mg tablet Take by mouth daily at bedtime. liothyronine (CYTOMEL) 25 mcg tablet Take 25 mcg by mouth twice daily. glucosamine/msm/chondr oitin A ([id number] M ORAL) Take by mouth. MULTIVITAMIN ORAL Take by mouth. pilocarpine (SALAGEN, PILOCARPINE,) 5 mg tablet Take 1 tablet by mouth three times daily. Start 01/24/23 prochlorperazine (COMPAZINE) 10 mg tablet Take 1 tablet by mouth every 8 hours as needed. levothyroxine (SYNTHROID) 125 mcg tablet Take 1 tablet by mouth once daily. Start 01/27/23 atorvastatin (LIPITOR) 20 mg tablet PAST MEDICAL HISTORY Diagnosis Date Chronic pain d/t sacrum fx, RLE pain Hypercholesteremia Prior radiation therapy, collagen vascular disease, or inflammatory bowel disease: No status: Status post vaginal hysterectomy PAST SURGICAL HISTORY Procedure Laterality Date SECTION HX PAST SURGICAL HISTORY OF coccyx d/t a fall THYROIDECTOMY VAGINAL HYSTERECTOMY FAMILY HISTORY Problem Relation Age of Onset Renal Cell Cancer Mother Pancreatic Cancer Father Renal Cell Cancer Sister Cancer Maternal Uncle Cancer Maternal Uncle Cancer Maternal Uncle Cancer Maternal Aunt Cancer Maternal Aunt Cancer Paternal Aunt Social History Tobacco Use Smoking status: Never Smokeless tobacco: Never Substance Use Topics Alcohol use: Not Currently Comment: rarely Drug use: Not Currently COMPLETE REVIEW OF SYSTEMS: GENERAL: feeling well without fatigue, no recent change in weight NECK: denies swelling or pain in neck RESPIRATORY: no cough, no wheezing or shortness of breath CARDIOVASCULAR: no chest pain, no palpitations GI: normal appetite, tolerating PO well, BMs normal, and no abdominal pain SKIN: no rash NEURO: no numbness or paresthesias and no weakness of the extremities As noted in HPI PHYSICAL EXAM: VS: BP 108/69 Pulse 76 Temp 36.9 ?C (98.4 ?F) Resp 16 Ht 172.7 cm (5' 8 ) Wt 95.7 kg (211 lb) SpO2 98% BMI 32.08 kg/m? KPS: 100 General Appearance: Alert and oriented. No acute distress. HEENT: NCAT. Sclera anicteric. PERRL. EOMI. Oral cavity AND oropharnyx: lips and gums nor (more content not included)... Normal [facility] THYROGLOBULIN BY MASS SPECTR OMETRYon 01-10-2023 THYROGLOBULIN, LC-MS/MS 3.6 ng/mL Normal 1.3-31.8 [facility] Comment on above: Order Comment: Speci men Type: BLOOD SPECIMENOrdering Facility: [facility] Address: [place] [address] Result Comment: Results obtained with different test methods or kits cannot be used interchangeably. Thyroglobulin results, regardless of concentration, should not be interpreted as absolute evidence for the presence or absence of papillary or follicular thyroid cancer. Thyroglobulin testing is not recommended for use as a screening procedure to detect the presence of thyroid cancer in the general population. INTERPRETIVE INFORMATION: Thyroglobulin by LC-MS/MS, Serum/Plasma Lower limit of detection for Thyroglobulin by LC-MS/MS is 0.5 ng/mL. This test was developed and its performance characteristics determined by [employer]. It has not been cleared or approved by the [place] Food and Drug Administration. This test was performed in a CLIA certified laboratory and is intended for clinical purposes. Performed By: [facility] [address] [place] [address] City Constable: Jose Carlos Rico MD, PhD Performed By: #### T [facility] ####[facility] [id number] [place] [id number] US THYROID FN ASP BXon 11-30 US THYROID FN ASP BX Begin Addendum #1 COLLECTED DATE/TIME: 11/19/2022, 13:16 EDT Final Diagnosis Report for [facility] [place] (A/B) LEFT THYROID MID LOBE NODULE; FINE NEEDLE ASPIRATION: - ATYPIA OF UNDETERMINED SIGNIFICANCE WITH CYTOLOGIC ATYPIA, SEE NOTE. NOTE: Papillary thyroid carcinoma cannot be ruled out. Clinical correlation is suggested. Intradepartmental consultation was obtained. 11/29/[address] Eisenberg, 11/30/2022 Verified with Geraldine that report was present in the office. Original Report EXAMINATION: US THYROID FN ASP BX HISTORY: Thyroid nodule COMPARISON: Ultrasound thyroid 11/08/2022 TECHNIQUE: After obtaining informed consent, ultrasound-guided fine needle aspiration was performed in the usual sterile manner. FINDINGS: IMAGING: Ultrasound. BIOPSY NEEDLE: 25-gauge; 3 separate passes LOCATION: Left lobe mid body 15 x 19 x 14 mm irregular TR 5 nodule. SPECIMEN TYPE: Cellular tissue. LOCAL ANESTHETIC: Buffered Xylocaine. COMPLICATIONS: None. LABORATORY: Prepared slide smears and washings for cell block evaluation. OTHER: Negative. PATHOLOGY: Pending. An addendum will be added when results are available. IMPRESSION: 1. Uneventful ultrasound guided fine needle aspiration (FNA). 2. Pathology results are pending. Normal [facility] US THYROIDon 11-08-2022 US THYROID EXAMINATION: US THYROID HISTORY: Diffuse endemic goiter COMPARISON: Ultrasound thyroid 02/27/2021 FINDINGS: RIGHT LOBE: Heterogeneous echotexture. Contains stable a 7 mm and a 6 mm nonsuspicious nodule. Lobe size: 5.0 x 1.3 x 1.4 cm LEFT LOBE: Heterogeneous echotexture. Contains a 15 x 19 x 14 mm TR 5 nodule within mid body (previously 8 x 8 x 6 mm). Within inferior pole is a 13 x 11 x 10 mm stable TR 4 nodule. Lobe size: 5.0 x 1.7 x 1.8 cm ISTHMUS: Heterogeneous echotexture. Thickness: 2 mm IMPRESSION: 1. Interval increase in size of a suspicious TR5 nodule within mid body of left thyroid lobe. Fine-needle aspiration is recommended. TR5 (highly suspicious): > 0.5 cm Annual ultrasound follow-up for up to 5 years. > 1.0 cm FNA. TR4 (moderately suspicious): If > 1.0 cm Follow-up ultrasound in 1, 2, 3, and 5 years. If > 1.5 cm fine needle aspiration (FNA). Electronically authenticated by: SALINAS ZHOU Date: 2022-11-08 15:05 Normal [facility] CBC AUTO DIFFon 11-06-2022 BASO # 0.0 103/ul Normal 0.0-0.[address] [facility] Comment on above: Performed By: #### C BC #### [facility] [address] [address] [address] Joellen Kohli Basophils/100 WBC (Bld) 0.5 % Normal 0.2-2.[address] [facility] Comment on above: Performed By: #### C BC #### [facility] [address] [place] [address] Dr. Joellen Kohli EO # 0.1 103/ul Normal 0.0-0.[address] [facility] Comment on above: Performed By: #### C BC #### [facility] [address] [place] [address] Dr. Joellen Kohli Eosinophils/100 WBC (Bld) 1.7 % Normal 0.9-7.[address] [facility] Comment on above: Performed By: #### C BC #### [facility] [address] [place] [address] Dr. Joellen Kohli Erythrocyte distribution width (RBC) [Ratio] 11.5 % Normal 11.0-15.[address] [facility] Comment on above: Performed By: #### C BC #### [facility] [address] [place] [address] Dr. Joellen Kohli Hematocrit (Bld) [Volume fraction] 42.0 % Normal 36.0-48.[address] [facility] Comment on above: Performed By: #### C BC #### [facility] [address] [place] [address] Dr. Joellen Kohli Hemoglobin (Bld) [Mass/Vol] 14.1 g/dL Normal 12.0-16.[address] [facility] Comment on above: Performed By: #### C BC #### [facility] [address] [place] [address] Dr. Joellen Kohli IG # 0.01 10e3/ul Normal 0.00-0.[address] [facility] Comment on above: Performed By: #### C BC #### [facility] [address] [place] [address] Dr. Joellen Kohli IG % 0.2 % Normal 0.0-0.5 [facility] Comment on above: Performed By: #### C BC #### [facility] [address] [place] [address] Dr. Joellen Kohli LYMPH # 2.2 103/ul Normal 1.2-3.[address] [facility] Comment on above: Performed By: #### C BC #### [facility] [address] [place] [address] Dr. Joellen Kohli Lymphocytes/100 WBC (Bld) 38.1 % Normal 20.5-60.[address] [facility] Comment on above: Performed By: #### C BC #### [facility] [address] [place] [address] Dr. Joellen Kohli MANUAL DIFF REQ NO Normal [facility] Comment on above: Performed By: #### C BC #### [facility] [address] [place] [address] Dr. Joellen Kohli MCH (RBC) [Entitic mass] 30.9 pg Normal 26.7-34.[address] [facility] Comment on above: Performed By: #### C BC #### [facility] [address] [place] [address] Dr. Joellen Kohli MCHC (RBC) [Mass/Vol] 33.6 g/dL Normal 29.9-35.2 [facility] Comment on above: Performed By: #### C BC #### [facility] [address] [place] [address] Dr. Joellen Kohli MCV (RBC) [Entitic vol] 91.9 fL Normal 81.0-99.[address] [facility] Comment on above: Performed By: #### C BC #### [facility] [address] [place] [address] Dr. Joellen Kohli MONO # 0.5 103/ul Normal 0.3-0.8 [facility] Comment on above: Performed By: #### C BC #### [facility] [address] [place] [address] Dr. Joellen Kohli Monocytes/100 WBC (Bld) 9.2 % Normal 1.7-12.0 [facility] Comment on above: Performed By: #### C BC #### [facility] [address] [place] [address] Dr. Joellen Kohli NEUT # 2.9 103/ul Normal 1.4-6.5 [facility] Comment on above: Performed By: #### C BC #### [facility] [address] [address] [address] Joellen Kohli Neutrophils/100 WBC (Bld) 50.3 % Normal 43.0-75.[address] [facility] Comment on above: Performed By: #### C BC #### [facility] [address] [address] [address] Joellen Kohli Platelet mean volume (Bld) [Entitic vol] 9.1 fL Critically low 9.5-13.[address] [facility] Comment on above: Performed By: #### C BC #### [facility] [address] [address] [address] Joellen Kohli PLT 306 103/ul Normal 150-450 [facility] Comment on above: Performed By: #### C BC #### [facility] [address] [place] [address] Dr. Joellen Kohli RBC 4.57 106/ul Normal 4.20-5.40 [facility] Comment on above: Performed By: #### C BC #### [facility] [address] [place] [address] Dr. Joellen Kohli WBC 5.8 103/ul Normal 4.0-11.0 [facility] Comment on above: Performed By: #### C BC #### [facility] [address] [place] [address] Dr. Joellen Kohli LIPID PROFILEon 11-06-2022 CHOL-HDL RATIO NORM SEE BELOW Normal [facility] Comment on above: Result Comment: 3.3 - 4.4 LOW RISK 4.4 - 7.1 AVERAGE RISK 7.1 - 11.0 MODERATE RISK >11.0 HIGH RISK Performed By: #### C MP, TSH, LIPID #### [facility] [address] [address] [address] Joellen Kohli Cholesterol [Mass/Vol] 276 mg/dL Critically high <=200 [facility] Comment on above: Performed By: #### C MP, TSH, LIPID #### [facility] [address] [place] [address] Dr. Joellen Kohli Cholesterol in HDL [Mass/Vol] 52 mg/dL Normal 40-60 [facility] Comment on above: Performed By: #### C MP, TSH, LIPID #### [facility] [address] [address] [address] Joellen Kohli Cholesterol in LDL [Mass/Vol] 192.4 mg/dL Normal [facility] Comment on above: Performed By: #### C MP, TSH, LIPID #### [facility] [address] [address] [address] Joellen Kohli Cholesterol.total/C holesterol in HDL [Mass ratio] 5.3 {ratio} Normal [facility] Comment on above: Performed By: #### C MP, TSH, LIPID #### [facility] [address] [address] [address] Joellen Kohli HDL NORMAL > or = 60 mg/dl - LO W CARDIOVASCULAR RISK <40 mg/dl - HIGH CARDIOVASCULAR RISK Normal [facility] Comment on above: Performed By: #### C MP, TSH, LIPID #### [facility] [address] [address] [address] Joellen Kohli LDL CALC NORMAL SEE BELOW Normal [facility] Comment on above: Result Comment: <100 mg/dl OPTIMAL 100 - 129 mg/dl NEAR OR ABOVE OPTIMAL 130 - 159 mg/dl BORDERLINE HIGH 160 - 189 mg/dl HIGH >190 mg/dl VERY HIGH Performed By: #### C MP, TSH, LIPID #### [facility] [address] [address] [address] Joellen Kohli Triglyceride [Mass/Vol] 158 mg/dL Critically high <=150 [facility] Comment on above: Performed By: #### C MP, TSH, LIPID #### [facility] [address] [address] [address] Joellen Kohli VLDL CALC 31.6 mg/dL Normal [facility] Comment on above: Performed By: #### C MP, TSH, LIPID #### [facility] [address] [address] [address] Joellen Kohli PROF 14(COMP METB)on 023 Albumin [Mass/Vol] 3.8 g/dL Normal 3.4-5.0 [facility] Comment on above: Performed By: #### C MP, TSH, LIPID #### [facility] [address] [address] [address] Joellen Kohli Albumin/Globulin [Mass ratio] 1.0 {ratio} Normal [facility] Comment on above: Performed By: #### C MP, TSH, LIPID #### [facility] [address] [address] [address] Joellen Kohli ALP [Catalytic activity/Vol] 115 U/L Normal 46-[address] [facility] Comment on above: Performed By: #### C MP, TSH, LIPID #### [facility] [address] [address] [address] Joellen Kohli ALT [Catalytic activity/Vol] 35 U/L Normal 14-[address] [facility] Comment on above: Performed By: #### C MP, TSH, LIPID #### [facility] [address] [address] [address] Joellen Kohli Anion gap [Moles/Vol] 11.5 mmol/L Normal [facility] Comment on above: Performed By: #### C MP, TSH, LIPID #### [facility] [address] [address] [address] Joellen Kohli AST [Catalytic activity/Vol] 17 U/L Normal 15-[address] [facility] Comment on above: Performed By: #### C MP, TSH, LIPID #### [facility] [address] [address] [address] Joellen Kohli Bilirubin [Mass/Vol] 0.5 mg/dL Normal 0.2-1.[address] [facility] Comment on above: Performed By: #### C MP, TSH, LIPID #### [facility] [address] [address] [address] Joellen Kohli Calcium [Mass/Vol] 9.4 mg/dL Normal 8.5-10.1 [facility] Comment on above: Performed By: #### C MP, TSH, LIPID #### [facility] [address] [address] [address] Joellen Kohli Chloride [Moles/Vol] 106 mmol/L Normal 98-[address] [facility] Comment on above: Performed By: #### C MP, TSH, LIPID #### [facility] [address] [address] [address] Joellen Kohli CO2 [Moles/Vol] 26.8 mmol/L Normal 21.0-32.0 [facility] Comment on above: Performed By: #### C MP, TSH, LIPID #### [facility] [address] [address] [address] Joellen Kohli Creatinine [Mass/Vol] 0.89 mg/dL Normal 0.55-1.[address] [facility] Comment on above: Performed By: #### C MP, TSH, LIPID #### [facility] [address] [place] [address] Dr. Joellen Kohli EGFR-AF QATARI >60 Normal >=60 [facility] Comment on above: Performed By: #### C MP, TSH, LIPID #### [facility] [address] [place] [address] Dr. Joellen Kohli EGFR-NON AF QATARI >60 Normal >=[address] [facility] Comment on above: Performed By: #### C MP, TSH, LIPID #### [facility] [address] [place] [address] Dr. Joellen Kohli Globulin (S) [Mass/Vol] 3.9 g/dL Normal [facility] Comment on above: Performed By: #### C MP, TSH, LIPID #### [facility] [address] [address] [address] Joellen Kohli Glucose [Mass/Vol] 104 mg/dL Normal 74-106 [facility] Comment on above: Performed By: #### C MP, TSH, LIPID #### [facility] [address] [address] [address] Joellen Kohli Potassium [Moles/Vol] 4.3 mmol/L Normal 3.5-5.[address] [facility] Comment on above: Performed By: #### C MP, TSH, LIPID #### [facility] [address] [place] [address] Dr. Joellen Kohli Protein [Mass/Vol] 7.7 g/dL Normal 6.4-8.2 [facility] Comment on above: Performed By: #### C MP, TSH, LIPID #### [facility] [address] [address] [address] Joellen Kohli Sodium [Moles/Vol] 140 mmol/L Normal 136-145 [facility] Comment on above: Performed By: #### C MP, TSH, LIPID #### [facility] [address] [address] [address] Joellen Kohli Urea nitrogen [Mass/Vol] 16.0 mg/dL Normal 7.0-18.[address] [facility] Comment on above: Performed By: #### C MP, TSH, LIPID #### [facility] [address] [place] [address] Dr. Joellen Kohli Urea nitrogen/Creatinine [Mass ratio] 18.0 mg/mg Normal [facility] Comment on above: Performed By: #### C MP, TSH, LIPID #### [facility] [address] [address] [address] Joellen Kohli TSHon 11-06-2022 TSH 1.121 uIU/mL Normal 0.358-3.740 [facility] Comment on above: Performed By: #### C MP, TSH, LIPID #### [facility] [address] [place] [address] Dr. Joellen Kohli MG MAMM SCREEN 3D ANN CADon 03-01-2022 MG MAMM SCREEN 3D ANN CAD Patient: CASSIE WINTERS Exam Date: 03/01/2022 : 1965 Gender:F Ordering : DR MARTA EISENBERG M.D. Admission #: [id number] Family : Order #: [id number] CLICK HERE TO VIEW EXAM RADIOLOGY REPORT PROCEDURE: MAMMOGRAM SCREENING 3D BILATERAL CAD COMPARISON: MG MAMM SCREEN 3D ANN CAD, 02/27/2021. MG MAMM SCREEN ANN W CAD, 05/22/2019. INDICATIONS: Screening mammography Calculator Name NCI Breast Cancer Risk Assessment Tool 5 Year Breast Cancer Risk 1.20% Lifetime Breast Cancer Risk 6.90% Personal Breast Cancer No Personal Ovarian Cancer No Treatments None Family Cancers Father with pancreatic cancer at age 91; Mother with kidney cancer at age 69; Sister with kidney cancer at age 54. LOCATION: [facility] BREAST COMPOSITION: Scattered areas fibroglandular density. FINDINGS: DIAGNOSTIC CATEGORY 1--NEGATIVE. RIGHT BREAST: No significant suspicious finding. No significant change has occurred. LEFT BREAST: No significant suspicious finding. No significant change has occurred. RECOMMENDATIONS: ROUTINE MAMMOGRAM AND CLINICAL EVALUATION IN 12 MONTHS. PLEASE NOTE: A NORMAL MAMMOGRAM DOES NOT EXCLUDE THE POSSIBILITY OF BREAST CANCER. A CLINICALLY SUSPICIOUS PALPABLE LUMP SHOULD BE BIOPSIED. Dictated by: Salinas Zhou M.D. on 03/01/2022 at 11:53 Approved by: Salinas Zhou M.D. on 03/01/2022 at 11:[address] [facility] XR LSPINE MIN 4 VIEWSon 08 XR LSPINE MIN 4 VIEWS EXAMINATION: XR LSPINE MIN 4 VIEWS HISTORY: Low back pain , chronic COMPARISON: XR lumbar spine 09/04/2020 FINDINGS: BONES: Mild left convex curvature lumbar spine. Mild-moderate degenerative facet arthropathy L3-L4 through L5-S1. No fracture, spondylolisthesis, or bone lesion. DISC SPACES: Mild narrowing L4-L5, L5-S1. PARASPINOUS: Negative. No paraspinous abnormality is seen. OTHER: Negative. IMPRESSION: 1. No appreciable acute abnormality. 2. Multilevel mild degenerative changes; not appreciably changed. Electronically authenticated by: SALINAS ZHOU Date: 2022-02-15 07:[address] [facility] Provider Letter FTon 10-09 Provider Letter [facility] [place], [facility] [place] [address] Re: CASSIE WINTERS Date of : 1965 Thank you for your referral of Cassie Winters who was seen on consultation on October 01, 2020, for flare up of rectal pressure. I have enclosed my consultation note for your review. I will be happy to follow Cassie should her symptoms continue. Sincerely, Mckinley Hernadez MD General Surgery Normal [facility] Ambulatory Clinical Summaryo n 10-01-2020 Ambulatory Clinical Summary {[id number]}CD:[id number] Normal [facility] General Surgery Office/Clini c Noteon 10-01-2020 General Surgery Office/Clinic Note HPI Staff 55 year old female on consultation from Marta Eisenberg for recent flare up of rectal pressure which took her to the ER on 09/04/20. Patient has history of flare ups following [place] [address] Santiago. Complains of swelling of the coccyx radiating down into the rectal area. States she has degenerative disc disease and has pain in lower back as well. Inflammation has reduced since ER visit. Has not had colonoscopy but did have Cologuard prior to Covid. Denies rectal bleeding, change in bowels or family history of colon malignancy. History of Present Illness 55 yo female with h/o low pack pain and coccygeal fx after injury, had coc[place] [address] Santiago, then second surgery for bone spur; had improvement in symptoms until recently; felt that area was swollen and painful to sit, sharp pains in area of scar, radiating down right side into gluteal muscle; no skin changes; normal x-rays; seen in ED; had physical therapy with some improvement; no internal pain; no change in bms or blood in stool, no pain or pressure with bms; just with sitting or activity; no radiation down leg. Review of Systems PHQ Score Initial Depression Screen Score: 0 ROS - Provider Constitutional: no fever, no sweats, no weight loss. Eyes: yes glasses, no blurred vision, no visual loss. ENMT: no dentures, no hoarseness, no swallowing difficulties, no hearing loss, no ear infection(s), no nose bleeds. Cardiovascular: normal blood pressure, no chest pain, regular heartbeat, no heart murmur. Respiratory: no shortness of breath, no cough, no asthma, no wheezing. Gastrointestinal: no nausea, no vomiting, no diarrhea, no constipation, no blood in stool, no change in bowel habits, no abdominal pain, no hepatitis. Genitourinary: no kidney stones, no urine infection, no dysuria. Musculoskeletal: moderate pain, no weakness. Skin: no changing moles, no rash, no skin lumps. Neurologic: no seizures, no epilepsy, no headache. Psychiatric: no emotional or psychiatric problem. Heme/Lymph: no bleeding problems, no anemia, no blood clots, no transfusions. Allergy/Immunologic: no swollen lymph nodes/glands, no IV drug abuse. Other: Additional ROS info: Except as noted in the above Review of Systems and in the History of Present Illness, all other systems have been reviewed and are negative or noncontributory. Physical Exam Vitals & Measurements T: 36.8 ?C (Tympanic) BP: 118/74 HT: 172.72 cm HT: 172.7 cm WT: 95.70 kg WT: 95.7 kg BMI: 32.08 HEENT: normal conjunctiva, sclera clear, no scleral icterus, EOM intact, PERRLA, oral mucosa moist without lesions. Neck: trachea midline, no mass, symmetric, no thyromegaly or nodules, no adenopathy Respiratory: lungs CTA, respirations non labored. Cardiovascular: regular rate and rhythm, no murmur, no pedal edema or varicosities. Musculoskeletal: normal gait, digits and nails without infection, nodes, cyanosis, clubbing. lower back scar tender to palpation; along right lower sacrum; no skin changes, no induration; Skin: no rashes, no lesions, no ulcers, no subcutaneous nodules, induration. Psychiatric/Neuro: oriented to time, place, person, judgement normal, affect appropriate for age, insight intact, no focal deficits. Tests: , review of old records completed, Assessment/Plan 1. Sacral pain (M53.3: Sacrococcygeal disorders, not elsewhere classified) suspect lower back disc disease; recommend evaluation by neurology or spine surgeon; not internal pain or pressure or bowel changes; if negative workup, would recommend colonoscopy for completeness. 2. Low back pain (M54.5: Low back pain) see # 1 Orders: Most recent diastolic blood pressure <80 mm Hg 3078F Systolic BP <130 mm Hg (Most Recent) 3074F Follow-up With When Contact Information ДМИТРИЙ MOSER, Mckinley Martínez if needed [address] [place] [address]- Additional Instructions: Problem List/Past Medical History Ongoing Hyperlipidemia Knee pain Low back pain Lumbago Rectal pressure Sacral pain Historical No qualifying data Procedure/Surgical History Colonoscopy (07/31/2018), JONNY BSO - Total abdominal hysterectomy and bilateral salpingo-oophorectomy (07/18/2003), Coccyx. Medications No active medications Allergies penicillin (Unknown) sulfa drugs (Unknown) Social History Alcohol - Denies Alcohol Use, 09/30/2020 Substance Abuse - Denies Substance Abuse, 09/30/2020 Tobacco Never (less than 100 in lifetime) Tobacco Use:. Never Smokeless Tobacco Use:., 10/01/2020 Family History Family history is negative Immunizations Vaccine Date Status Comments influenza virus vaccine, inactivated - Not Given Patient Refuses Normal [facility] Comment on above: Result Comment: Elec tronically Signed By: ДМИТРИЙ MOSER, Mckinley Schulte\Date and Time Signed: 10/01/20 16:58 EDT Ambulatory Clinical Summaryo n 09-17-2020 Ambulatory Clinical Summary {[id number] }CD:[id number] Normal [facility] Physician Referralon 021 Physician Referral [id number] 0CD:127 Normal [facility] Vital Signs Date Time Vital Sign Value Performing Clinician Facility 01-10-2024 09:15-0400 Body height 168.91 cm [facility] 01-10-2024 09:15-0400 Body mass index (BMI) [Ratio] 32.1 kg/m2 [facility] 01-10-2024 09:15-0400 Body weight 91.62 kg [facility] 01-10-2024 09:15-0400 Diastolic blood pressure 72 mm[Hg] [facility] 01-10-2024 09:15-0400 Heart rate 71 /min [facility] 01-10-2024 09:15-0400 Systolic blood pressure 111 mm[Hg] [facility] 11-29-2023 14:48-0400 Body mass index (BMI) [Ratio] 30.67 kg/m2 MARCE Hoover MD Work Phone: [facility] 11-29-2023 14:48-0400 Body weight 91.5 kg MARCE Hoover MD Work Phone: [facility] 05-31-2023 14:24-0500 Body temperature 97.39 [degF] MARCE Hoover MD Work Phone: [facility] 05-31-2023 14:24-0500 Body weight 94.8 kg MARCE Hoover MD Work Phone: [facility] 05-31-2023 14:24-0500 Diastolic blood pressure 73 mm[Hg] MARCE Hoover MD Work Phone: [facility] 05-31-2023 14:24-0500 Heart rate 75 /min MARCE Hoover MD Work Phone: [facility] 05-31-2023 14:24-0500 Respiratory rate 16 /min MARCE Hoover MD Work Phone: [facility] 05-31-2023 14:24-0500 SaO2% (BldA) [Mass fraction] 100 % MARCE Hoover MD Work Phone: [facility] 05-31-2023 14:24-0500 Systolic blood pressure 107 mm[Hg] MARCE Hoover MD Work Phone: [facility] 01-25-2023 08:54-0400 Body temperature 97.11 [degF] [facility] Work Phone: [facility] 01-25-2023 08:54-0400 Diastolic blood pressure 81 mm[Hg] [facility] Work Phone: [facility] 01-25-2023 08:54-0400 Heart rate 82 /min [facility] Work Phone: [facility] 01-25-2023 08:54-0400 Respiratory rate 18 /min [facility] Work Phone: [facility] 01-25-2023 08:54-0400 SaO2% (BldA) [Mass fraction] 98 % [facility] Work Phone: [facility] 01-25-2023 08:54-0400 Systolic blood pressure 130 mm[Hg] [facility] Work Phone: [facility] 01-24-2023 08:53-0400 Body temperature 97.2 [degF] [facility] Work Phone: [facility] 01-24-2023 08:53-0400 Body weight 94.35 kg [facility] Work Phone: [facility] 01-24-2023 08:53-0400 Diastolic blood pressure 78 mm[Hg] [facility] Work Phone: [facility] 01-24-2023 08:53-0400 Heart rate 73 /min [facility] Work Phone: [facility] 01-24-2023 08:53-0400 Respiratory rate 16 /min [facility] Work Phone: [facility] 01-24-2023 08:53-0400 SaO2% (BldA) [Mass fraction] 98 % [facility] [place] Work Phone: [facility] 01-24-2023 08:53-0400 Systolic blood pressure 115 mm[Hg] [facility] Work Phone: [facility] 01-10-2023 10:59-0400 Body height 172.7 cm MARCE Hoover MD Work Phone: [facility] 01-10-2023 10:59-0400 Body temperature 98.4 [degF] MARCE Hoover MD Work Phone: [facility] 01-10-2023 10:59-0400 Body weight 95.71 kg MARCE Hoover MD Work Phone: [facility] 01-10-2023 10:59-0400 Diastolic blood pressure 69 mm[Hg] MARCE Hoover MD Work Phone: [facility] 01-10-2023 10:59-0400 Heart rate 76 /min MARCE Hoover MD Work Phone: [facility] 01-10-2023 10:59-0400 Respiratory rate 16 /min MARCE Hoover MD Work Phone: [facility] 01-10-2023 10:59-0400 SaO2% (BldA) [Mass fraction] 98 % MARCE Hoover MD Work Phone: [facility] 01-10-2023 10:59-0400 Systolic blood pressure 108 mm[Hg] MARCE Hoover MD Work Phone: [facility] 11-04-2022 15:00-0400 Body height 168.91 cm Marta Eisenberg Other [employer] Other 11-04-2022 15:00-0400 Body mass index (BMI) [Ratio] 33.86 kg/m2 Marta Eisenberg Other [employer] Other 11-04-2022 15:00-0400 Body weight 96.62 kg Marta Eisenberg Other [employer] Other 11-04-2022 15:00-0400 Diastolic blood pressure 80 mm[Hg] Marta Eisenberg Other [employer] Other 11-04-2022 15:00-0400 SaO2% (BldA) [Mass fraction] 99 % Marta Eisenberg Other [employer] Other 11-04-2022 15:00-0400 Systolic blood pressure 120 mm[Hg] Marta Eisenberg Other [employer] Other Encounters Encounter Date Encounter Type Care Provider Facility Start: 01-10-2024 Patient encounter status [facility] Start: 01-10-2024 End: 01-10-2024 ambulatory [facility] Work Phone: Start: 01-10-2024 End: 01-10-2024 Patient encounter procedure [facility] Work Phone: Start: 11-29-2023 End: 11-29-2023 ambulatory MARTA EISENBERG Facility:[facility] Start: 11-29-2023 End: 11-29-2023 Patient encounter procedure Telly Hoover MD Work Phone: Radiation Oncology Comment on above: Thyroid cancer (HCC) (Primary Dx) Start: 11-22-2023 End: 11-22-2023 ambulatory MARTA EISENBERG Facility:[facility] Start: 11-22-2023 Non-patient / Non-visit [facility] [email or web address] Work Phone: Start: 08-17-2023 End: 08-17-2023 ambulatory Marta Eisenberg Other [facility] [employer] Other Start: 08-17-2023 Telephone encounter Marta Eisenberg [facility] Start: 05-31-2023 End: 05-31-2023 ambulatory MARTA EISENBERG Facility:[facility] Start: 05-31-2023 End: 05-31-2023 Patient encounter procedure Telly Hoover MD Work Phone: Radiation Oncology Comment on above: Thyroid cancer (HCC) (Primary Dx) Start: 05-18-2023 End: 05-18-2023 ambulatory MARTA EISENBERG Facility:[facility] Start: 03-24-2023 End: 03-24-2023 ambulatory MARTA EISENBERG Facility:[facility] Start: 03-17-2023 Telephone encounter Telly Hoover MD Work Phone: Radiation Oncology Comment on above: Medication Dosage Ad justment; Results, Lab Start: 03-17-2023 End: 03-17-2023 ambulatory MARTA EISENBERG Facility:[facility] Start: 02-04-2023 End: 02-04-2023 ambulatory MARTA EISENBERG Facility:[facility] Start: 01-28-2023 Telephone encounter Telly Hoover MD Work Phone: Radiation Oncology Comment on above: Patient Question Start: 01-26-2023 End: 01-26-2023 ambulatory Nikkie Hoover Facility:[facility] Start: 01-26-2023 End: 01-26-2023 ambulatory MD Marta Eisenberg Work Phone: [facility] Work Phone: Start: 01-26-2023 End: 01-26-2023 Patient encounter procedure MD Marta Eisenberg Work Phone: [facility] Work Phone: Comment on above: Thyroid cancer (HCC) (Primary Dx) Start: 01-25-2023 End: 01-25-2023 ambulatory MARTA EISENBERG Facility:[facility] Start: 01-25-2023 End: 01-25-2023 Patient encounter procedure [facility] [place] Work Phone: Radiation Oncology Comment on above: Thyroid cancer (HCC) (Primary Dx) Start: 01-24-2023 End: 01-24-2023 Orders Only Telly Hoover MD Work Phone: Radiation Oncology Comment on above: Thyroid cancer (HCC) (Primary Dx) Start: 01-24-2023 End: 01-24-2023 Patient encounter procedure MD Marta Eisenberg Work Phone: [facility] Work Phone: Start: 01-21-2023 Patient encounter procedure [facility] Provider [facility] Department Start: 01-19-2023 Telephone encounter Telly Hoover MD Work Phone: Radiation Oncology Comment on above: Patient Update Start: 01-17-2023 Patient encounter procedure [facility] Provider [facility] Department Start: 01-17-2023 Telephone encounter Telly Hoover MD Work Phone: Radiation Oncology Comment on above: Orders Start: 01-14-2023 Patient encounter procedure [facility] Provider [facility] Department Start: 01-11-2023 End: 01-11-2023 ambulatory ANAMIKA BRAGA Facility:[facility] Start: 01-11-2023 End: 01-11-[address] Work Phone: [facility] Start: 01-11-2023 End: 01-11-2023 Nutrition therapy Anamika Braga RD Work Phone: Nutrition Therapy Comment on above: Nutrition Telephone Start: 01-10-2023 End: 01-10-2023 ambulatory Telly HOOVER Facility:[facility] Start: 01-10-2023 End: 01-10-2023 Patient encounter procedure Telly Hoover MD Work Phone: Radiation Oncology Comment on above: Thyroid cancer (HCC) (Primary Dx) Start: 12-28-[address] XIOMY Villatoro ty:[facility] Start: 12-21-[address] MARTA Nugent ity:[facility] Start: 11-24-2022 End: 11-24-2022 ambulatory Marta Eisenberg Other [employer] Other Start: 11-24-2022 Telephone encounter Marta Eisenberg [facility] Start: 11-19-2022 End: 11-19-[address] MARTA EISENBERG Facility:[facility] Start: 11-11-2022 Encounter for genera l adult medical examination without abnormal findings DR MARTA EISENBERG [facility] Start: 11-09-2022 End: 11-09-2022 ambulatory Marta Eisenberg Other [employer] Other Start: 11-09-2022 Telephone encounter Marta Eisenberg [facility] Start: 11-08-2022 End: 11-09-[address] MARTA EISENBERG Facility:[facility] Start: 11-06-2022 End: 11-07-[address] MARTA EISENBERG Facility:[facility] Start: 11-06-2022 End: 11-07-2022 Encounter for general adult medical examination without abnormal findings DR MARTA EISENBERG Facility:[facility] Start: 11-04-2022 End: 11-04-2022 ambulatory Marta Eisenberg Other [employer] Other Start: 11-04-2022 Encounter for genera l adult medical examination without abnormal findings Marta Eisenberg [facility] Start: 11-04-2022 Periodic preventive med est patient 40-64yrs Marta Eisenberg [facility] Start: 03-19-[address] MARTA EISENBERG Facil ity:[facility] Start: 03-05-2022 End: 03-05-[address] MARTA EISENBERG Facility:[facility] Start: 03-01-2022 End: 03-02-[address] MARTA EISENBERG Facility:[facility] Start: 02-19-2022 End: 02-20-[address] MARTA EISENBERG Facility:[facility] Start: 02-13-2022 End: 02-14-2022 ambulatory Salinas Zhou Facility:[facility] Start: 02-12-2022 Adult health examination Marta Eisenberg Other [employer] Other Procedures Date Procedure Procedure Detail Performing Clinician Start: 05-22-[address] Work Phone: Start: 06-19-2018 General examination of patient Marta Eisenberg Other Start: 06-19-2018 Screening for malign ant neoplasm of colon Marta Eisenberg Other Screening for malign ant neoplasm of breast Marat Eisenberg Other Plan of Treatment Date Care Activity Detail Author Start: 11-21-2025 Screening for malign ant neoplasm of colon [facility] Start: 05-31-2024 End: 08-30-2024 THYROGLOBULIN BY LC-MS/MS, SERUM OR PLASMA, FOR THYROGLOBULIN ANTIBODY INTERFERENCE THYROGLOBULIN BY LC-MS/MS, SERUM OR PLASMA, FOR THYROGLOBULIN ANTIBODY INTERFERENCE Lab Routine Thyroid cancer (HCC) Expected: 05/31/2024, Expires: 08/30/2024 [facility] Comment on above: Expected: 05/31/2024 , Expires: 08/30/2024 Start: 05-31-2024 End: 08-30-2024 Thyrotropin [Units/volume] in Serum or Plasma THYROID STIMULATING HORMONE Lab Routine Thyroid cancer (HCC) Expected: 05/31/2024, Expires: 08/30/2024 [facility] Work Phone: Comment on above: Expected: 05/31/2024 , Expires: 08/30/2024 Start: 05-31-2024 End: 08-30-2024 Thyroxine (T4) [Mass/volume] in Serum or Plasma T4/THYROXINE Lab Routine Thyroid cancer (HCC) Expected: 05/31/2024, Expires: 08/30/2024 [facility] Comment on above: Expected: 05/31/2024 , Expires: 08/30/2024 Start: 05-30-2024 End: 05-30-2024 Patient encounter procedure 05/30/2024 10:15 AM EST Office Visit Radiation Oncology [address] [place] [address] Telly Hoover MD [address] [place] [address] [place] [address] Followup Radiation Oncology Comment on above: Followup Start: 05-23-2024 End: 05-23-2024 Patient encounter procedure 05/23/2024 10:00 AM EST Office Visit [facility] [address] [place] [address] Lab Followup [facility] Comment on above: Lab Followup Start: 03-18-2024 Influenza vaccination Influenz a Vaccine (Season Ended) [facility] Start: 11-29-2023 End: 02-28-2024 THYROGLOBULIN BY MASS SPECTROMETRY THYROGLOBULIN BY MASS SPECTROMETRY Lab Routine Thyroid cancer (HCC) Expected: 11/29/2023 (Approximate), Expires: 02/28/2024 [facility] Work Phone: Comment on above: Expected: 11/29/2023 (Approximate), Expires: 02/28/2024 Start: 11-29-2023 End: 02-28-2024 Thyrotropin [Units/volume] in Serum or Plasma TSH BLD Lab Routine Thyroid cancer (HCC) Expected: 11/29/2023 (Approximate), Expires: 02/28/2024 [facility] Work Phone: Comment on above: Expected: 11/29/2023 (Approximate), Expires: 02/28/2024 Start: 11-29-2023 End: 02-28-2024 Thyroxine (T4) [Mass/volume] in Serum or Plasma T4/THYROXINE BLOOD Lab Routine Thyroid cancer (HCC) Expected: 11/29/2023 (Approximate), Expires: 02/28/2024 [facility] Work Phone: Comment on above: Expected: 11/29/2023 (Approximate), Expires: 02/28/2024 Start: 2023 RSV Vaccine (1 - 1-d ose 60+ series) RSV Vaccine (1 - 1-dose 60+ series) [facility] Start: 07-18-2023 Behavioral Health Screening Behavioral Health Screening [facility] Start: 03-18-2023 Covid-19 Vaccine () Covid-19 Vaccine () [facility] Start: 03-18-2023 Influenza vaccination [facility] Start: 02-02-2023 Radionuclide localization of tumor, whole body NM thyroid ca whole body [facility] Start: 01-26-2023 End: 03-28-2023 THYROGLOBULIN BY MASS SPECTROMETRY THYROGLOBULIN BY MASS SPECTROMETRY Lab Routine Thyroid cancer (HCC) Expected: 01/26/2023, Expires: 03/28/2023 [facility] Work Phone: Comment on above: Expected: 01/26/2023 , Expires: 03/28/2023 Start: 01-10-2023 End: 03-12-2023 THYROGLOBULIN BY MASS SPECTROMETRY [facility] Work Phone: Comment on above: Expected: 01/10/2023 , Expires: 03/12/2023 Start: 07-18-2022 DEPRESSION ASSESSMENT DEPRESSION ASS ESSMENT [facility] Start: 05-22-2020 Mammography [facility] Start: 05-22-2020 Screening for malign ant neoplasm of breast Mammogram Screening [facility] Start: 2013 SHINGRIX VACCINE (1 of 2) SHINGRIX VACCINE (1 of 2) [facility] Start: 2008 COLOGUARD (FIT-DNA) COLOGUARD (FIT-D NA) [facility] Start: 2008 Colonoscopy COLONOSCOPY [facility] Start: 2008 COLORECTAL CANCER SCREENING COLORECTAL CANCER SCREENING [facility] Start: [address] COLONOGRAPHY [facility] Start: 2008 DIABETES SCREEN DIABETES SCREEN [facility] Start: 2008 Diabetes Screening Diabetes Screenin g [facility] Start: 2008 FECAL OCCULT BLOOD FECAL OCCULT BLOO D [facility] Start: 2008 Lipid 1996 panel - S irving or Plasma Lipid Screening [facility] Start: 2008 Lipid panel Lipid Screening [facility] Start: 2008 LIPID SCREEN LIPID SCREEN [facility] Start: 2008 Screening for malign ant neoplasm of colon [facility] Start: 2008 SIGMOIDOSCOPY SIGMOIDOSCOPY [facility] Start: 1993 HPV TESTING HPV TESTING [facility] Start: 1993 Screening for malign ant neoplasm of cervix HPV Testing [facility] Start: 1984 PAP TESTING PAP TESTING [facility] Start: 1984 Screening for malign ant neoplasm of cervix Pap Testing [facility] Start: 1982 Urine microalbumin profile [facility] Start: 1981 HEPATITIS C SCREENING HEPATITIS C [facility] Start: 1981 Hepatitis C screening Hepatitis [facility] Start: 1981 HIV SCREENING HIV SCREENING [facility] Start: 1981 HIV screening HIV Screening [facility] Start: 02-26-1964 COVID-19 VACCINE (#1) COVID-19 VACCI NE (#1) [facility] End: 02-09-2024 Rp therapy oral administration NM THERAPY THYROID I-131 Radiology Routine Thyroid cancer (HCC) 1 Occurrences starting 01/11/2023 until 02/09/2024 [facility] Work Phone: Comment on above: 1 Occurrences starti ng 01/11/2023 until 02/09/2024 [facility] Payers Date Payer Category Payer Self-pay [id number] 2021 Unknown [employer] SS PPO [id number] 2021-Present [phone] [facility] [id number] [place] [address] PPO [id number] 1965 Unknown [id number] 3 1965 Unknown [id number] 3 1963 Unknown [id number] 3 1963 Unknown [id number] 3 1965 Unknown [id number] 3 1965 Unknown [id number] 3 1965 Unknown [id number] 3 1965 Unknown [id number] 3 1965 Unknown [id number] 3 1965 Unknown [id number] 3 1961 [facility] [id number] 1961 Self-pay [id number] Unknown O [id number] Unknown [id number] 1 Social History Date Type Detail Facility Unknown if ever smoked [employer] Other Start: 01-10-2023 End: 01-24-2023 Sex Assigned At [facility] Start: 01-10-2023 End: 01-10-2024 Tobacco smoking status NHIS Never smoked tobacco [facility] Start: 01-10-2023 Tobacco use and exposure Smokeless tobacco non-user [facility] Start: 01-10-2023 End: 11-29-2023 Alcohol intake Ex-drinker (finding) [facility] Start: 01-10-2023 Alcohol Comment rarely [facility] Start: 1965 Sex Assigned At Not on file [facility] Start: 01-10-2023 End: 01-24-2023 History of Social function [facility] National Score (1-100), lower number is lower risk 89 [facility] Start: 1965 Sex Assigned At Female F [facility] Clinical Notes 11-04-2022 to 11-29-2023 Telly Hoover MD - 11/29/2023 3:18 PM Telly Lua MD - 05/31/2023 2:32 PM ESTTelephone Encounter - Mario Farnsworth LPN - 03/18/2023 4:09 PM EDT Note Date & Type Note Facility 11-29-2023 Note HNO ID: [id number] Author: Telly HOOVER MD Service: ? Author Type: Physician Type: Progress Notes Filed: 12/05/2023 09:04 Note Text: Radiation Oncology - Follow-up Note PATIENT NAME: Cassie Winters PATIENT : 1965 Primary Site: Thyroid Date of Diagnosis: 11/19/2022 Clinical Stage: T1 Nx Mx Pathologic Stage: T1 N0 Mx DIAGNOSIS: Papillary thyroid carcinoma status post total thyroidectomy T1BN0. S/p I-131: 53.4 mCi 01/26/2023. HPI: Doing well. Denies new problems or concerns. No neck pain or dysphagia. Denies any palpitations shortness of breath or chest pain. 03/24/23:Overall doing fairly well. Having some mild dysphagia mostly mid chest. Having some mild anterior upper chest discomfort, nonexertional. Denies shortness of breath or diaphoresis. States that she has discomfort when she pushes on her left clavicular head. No recent falls. Overall some mild to moderate fatigue, still active RADIOLOGY: Whole-body scan 02/02/2023: Uptake within the thyroid bed area. No abnormal uptake consistent with metastasis. Patient presented with mild dysphagia, dry cough and occasional hoarse voice. LABORATORY: Latest Reference Range AND Units 01/10/23 12:10 01/26/23 10:59 03/17/23 09:49 05/18/23 09:53 11/22/23 08:27 Thyroglobulin Ab, Serum <4.0 IU/mL 1.1 Thyroglobulin, Serum 1.6 - 50.0 ng/mL 0.1 (L) Thyroglobulin, LC-MS/MS 1.3 - 31.8 ng/mL 3.6 18.7 <0.5 (L) T4 5.5 - 10.2 ug/dL 8.3 9.9 9.0 TSH 0.270 - 4.200 mIU/L 0.436 0.095 (L) 0.214 (L) (L): Data is abnormally low Latest Reference Range AND Units 01/10/23 12:10 01/26/23 10:59 03/17/23 09:49 05/18/23 09:53 Thyroglobulin, LC-MS/MS 1.3 - 31.8 ng/mL 3.6 18.7 T4 5.5 - 10.2 ug/dL 8.3 9.9 TSH 0.270 - 4.200 mIU/L 0.436 0.095 (L) Thyroglobulin Ab, Serum <4.0 IU/mL 1.1 Thyroglobulin, Serum 1.6 - 50.0 ng/mL 0.1 (L) (L): Data is abnormally low Dysphagia: No Mucositis: No Voice Changes:No Fatigue: No Nausea: No Vomitting: No Pain: No Taste: No Weight loss: No ALLERGIES Allergen Reactions Penicillins Hives Sulfa (Sulfonamide * Hives MEDICATIONS: levothyroxine (SYNTHROID) 137 mcg tablet Take 1 tablet by mouth daily before breakfast. atorvastatin (LIPITOR) 20 mg tablet gabapentin (NEURONTIN) 800 mg tablet Take by mouth daily at bedtime. glucosamine/msm/chondroitin A ([id number] ORAL) Take by mouth. MULTIVITAMIN ORAL Take by mouth. PAST MEDICAL HISTORY Diagnosis Date Chronic pain d/t sacrum fx, RLE pain Hypercholesteremia Prior radiation therapy, collagen vascular disease, or inflammatory bowel disease: No status: Status post vaginal hysterectomy PAST SURGICAL HISTORY Procedure Laterality Date SECTION HX PAST SURGICAL HISTORY OF coccyx d/t a fall THYROIDECTOMY VAGINAL HYSTERECTOMY FAMILY HISTORY Problem Relation Age of Onset Renal Cell Cancer Mother Pancreatic Cancer Father Renal Cell Cancer Sister Cancer Maternal Uncle Cancer Maternal Uncle Cancer Maternal Uncle Cancer Maternal Aunt Cancer Maternal Aunt Cancer Paternal Aunt Social History Tobacco Use Smoking status: Never Smokeless tobacco: Never Substance Use Topics Alcohol use: Not Currently Comment: rarely Drug use: Not Currently COMPLETE REVIEW OF SYSTEMS: GENERAL: feeling well without fatigue, no recent change in weight NECK: denies swelling or pain in neck RESPIRATORY: no cough, no wheezing or shortness of breath CARDIOVASCULAR: See HPI. No palpitations or tachycardia GI: normal appetite, tolerating PO well, BMs normal, and no abdominal pain SKIN: no rash NEURO: no numbness or paresthesias and no weakness of the extremities As noted in HPI PHYSICAL EXAM: VS: Wt 91.5 kg (201 lb 11.5 oz) BMI 30.67 kg/m? KPS: 100 General Appearance: Alert and oriented. No acute distress. 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 Thyroid cancer: Overall doing fairly well. T4 and TSH appropriate. Thyroglobulin undetectable. Signed by: Telly Hoover MD cc: Marta Eisenberg ([facility]) [address] [place] [phone] Xiomy Jones MD [address] [place] [phone] [facility] 11-29-2023 History of Presen t illness Narrative Radiation Oncology - Follow-up Note PATIENT NAME: Cassie Winters PATIENT : 1965 Primary Site: Thyroid Date of Diagnosis: 11/19/2022 Clinical Stage: T1 Nx Mx Pathologic Stage: T1 N0 Mx DIAGNOSIS: Papillary thyroid carcinoma status post total thyroidectomy T1BN0. S/p I-131: 53.4 mCi 01/26/2023. HPI: Doing well. Denies new problems or concerns. No neck pain or dysphagia. Denies any palpitations shortness of breath or chest pain. 03/24/23:Overall doing fairly well. Having some mild dysphagia mostly mid chest. Having some mild anterior upper chest discomfort, nonexertional. Denies shortness of breath or diaphoresis. States that she has discomfort when she pushes on her left clavicular head. No recent falls. Overall some mild to moderate fatigue, still active RADIOLOGY: Whole-body scan 02/02/2023: Uptake within the thyroid bed area. No abnormal uptake consistent with metastasis. Patient presented with mild dysphagia, dry cough and occasional hoarse voice. LABORATORY: Latest Reference Range & Units 01/10/23 12:10 01/26/23 10:59 03/17/23 09:49 05/18/23 09:53 11/22/23 08:27 Thyroglobulin Ab, Serum <4.0 IU/mL 1.1 Thyroglobulin, Serum 1.6 - 50.0 ng/mL 0.1 (L) Thyroglobulin, LC-MS/MS 1.3 - 31.8 ng/mL 3.6 18.7 <0.5 (L) T4 5.5 - 10.2 ug/dL 8.3 9.9 9.0 TSH 0.270 - 4.200 mIU/L 0.436 0.095 (L) 0.214 (L) (L): Data is abnormally low Latest Reference Range & Units 01/10/23 12:10 01/26/23 10:59 03/17/23 09:49 05/18/23 09:53 Thyroglobulin, LC-MS/MS 1.3 - 31.8 ng/mL 3.6 18.7 T4 5.5 - 10.2 ug/dL 8.3 9.9 TSH 0.270 - 4.200 mIU/L 0.436 0.095 (L) Thyroglobulin Ab, Serum <4.0 IU/mL 1.1 Thyroglobulin, Serum 1.6 - 50.0 ng/mL 0.1 (L) (L): Data is abnormally low Dysphagia: No Mucositis: No Voice Changes:No Fatigue: No Nausea: No Vomitting: No Pain: No Taste: No Weight loss: No ALLERGIES Allergen Reactions Penicillins Hives Sulfa (Sulfonamide * Hives MEDICATIONS: levothyroxine (SYNTHROID) 137 mcg tablet Take 1 tablet by mouth daily before breakfast. atorvastatin (LIPITOR) 20 mg tablet gabapentin (NEURONTIN) 800 mg tablet Take by mouth daily at bedtime. glucosamine/msm/chondroitin A ([id number] ORAL) Take by mouth. MULTIVITAMIN ORAL Take by mouth. PAST MEDICAL HISTORY Diagnosis Date Chronic pain d/t sacrum fx, RLE pain Hypercholesteremia Prior radiation therapy, collagen vascular disease, or inflammatory bowel disease: No status: Status post vaginal hysterectomy PAST SURGICAL HISTORY Procedure Laterality Date SECTION HX PAST SURGICAL HISTORY OF coccyx d/t a fall THYROIDECTOMY VAGINAL HYSTERECTOMY FAMILY HISTORY Problem Relation Age of Onset Renal Cell Cancer Mother Pancreatic Cancer Father Renal Cell Cancer Sister Cancer Maternal Uncle Cancer Maternal Uncle Cancer Maternal Uncle Cancer Maternal Aunt Cancer Maternal Aunt Cancer Paternal Aunt Social History Tobacco Use Smoking status: Never Smokeless tobacco: Never Substance Use Topics Alcohol use: Not Currently Comment: rarely Drug use: Not Currently COMPLETE REVIEW OF SYSTEMS: GENERAL: feeling well without fatigue, no recent change in weight NECK: denies swelling or pain in neck RESPIRATORY: no cough, no wheezing or shortness of breath CARDIOVASCULAR: See HPI. No palpitations or tachycardia GI: normal appetite, tolerating PO well, BMs normal, and no abdominal pain SKIN: no rash NEURO: no numbness or paresthesias and no weakness of the extremities As noted in HPI PHYSICAL EXAM: VS: Wt 91.5 kg (201 lb 11.5 oz) BMI 30.67 kg/m KPS: 100 General Appearance: Alert and oriented. No acute distress. 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 Thyroid cancer: Overall doing fairly well. T4 and TSH appropriate. Thyroglobulin undetectable. Signed by: Telly Hoover MD cc: Marta Eisenberg ([facility]) [address] [place] [phone] Xiomy Jones MD [address] [place] [phone] documented in this encounter [facility] 05-31-2023 Note HNO ID: [id number] Author: Telly Hoover MD Service: ? Author Type: Physician Type: Progress Notes Filed: 05/31/2023 2:45 PM Note Text: Radiation Oncology - Follow-up Note PATIENT NAME: Cassie Winters PATIENT : 1965 Primary Site: Thyroid Date of Diagnosis: 11/19/2022 Clinical Stage: T1 Nx Mx Pathologic Stage: T1 N0 Mx DIAGNOSIS: Papillary thyroid carcinoma status post total thyroidectomy T1BN0. S/p I-131: 53.4 mCi 01/26/2023. HPI: Patient has some continued anterior chest discomfort/pressure. Does not associate with activity stairs. Occasional increased with food that seems to stick midway down chest. Denies vomiting. Denies diaphoresis arm pain. Has not had prior cardiac issues. Has not seen a family doctor regarding this. 03/24/23:Overall doing fairly well. Having some mild dysphagia mostly mid chest. Having some mild anterior upper chest discomfort, nonexertional. Denies shortness of breath or diaphoresis. States that she has discomfort when she pushes on her left clavicular head. No recent falls. Overall some mild to moderate fatigue, still active RADIOLOGY: Whole-body scan 02/02/2023: Uptake within the thyroid bed area. No abnormal uptake consistent with metastasis. Patient presented with mild dysphagia, dry cough and occasional hoarse voice. LABORATORY: Latest Reference Range AND Units 01/10/23 12:10 01/26/23 10:59 03/17/23 09:49 05/18/23 09:53 Thyroglobulin, LC-MS/MS 1.3 - 31.8 ng/mL 3.6 18.7 T4 5.5 - 10.2 ug/dL 8.3 9.9 TSH 0.270 - 4.200 mIU/L 0.436 0.095 (L) Thyroglobulin Ab, Serum <4.0 IU/mL 1.1 Thyroglobulin, Serum 1.6 - 50.0 ng/mL 0.1 (L) (L): Data is abnormally low Dysphagia: No Mucositis: No Voice Changes:No Fatigue: No Nausea: No Vomitting: No Pain: No Taste: No Weight loss: No ALLERGIES Allergen Reactions Penicillins Hives Sulfa (Sulfonamide * Hives MEDICATIONS: levothyroxine (SYNTHROID) 137 mcg tablet Take 1 tablet by mouth daily before breakfast. atorvastatin (LIPITOR) 20 mg tablet gabapentin (NEURONTIN) 600 mg tablet Take by mouth daily at bedtime. glucosamine/msm/chondroitin A ([id number] ORAL) Take by mouth. MULTIVITAMIN ORAL Take by mouth. PAST MEDICAL HISTORY Diagnosis Date Chronic pain d/t sacrum fx, RLE pain Hypercholesteremia Prior radiation therapy, collagen vascular disease, or inflammatory bowel disease: No status: Status post vaginal hysterectomy PAST SURGICAL HISTORY Procedure Laterality Date SECTION HX PAST SURGICAL HISTORY OF coccyx d/t a fall THYROIDECTOMY VAGINAL HYSTERECTOMY FAMILY HISTORY Problem Relation Age of Onset Renal Cell Cancer Mother Pancreatic Cancer Father Renal Cell Cancer Sister Cancer Maternal Uncle Cancer Maternal Uncle Cancer Maternal Uncle Cancer Maternal Aunt Cancer Maternal Aunt Cancer Paternal Aunt Social History Tobacco Use Smoking status: Never Smokeless tobacco: Never Substance Use Topics Alcohol use: Not Currently Comment: rarely Drug use: Not Currently COMPLETE REVIEW OF SYSTEMS: GENERAL: feeling well without fatigue, no recent change in weight NECK: denies swelling or pain in neck RESPIRATORY: no cough, no wheezing or shortness of breath CARDIOVASCULAR: See HPI. No palpitations or tachycardia GI: normal appetite, tolerating PO well, BMs normal, and no abdominal pain SKIN: no rash NEURO: no numbness or paresthesias and no weakness of the extremities As noted in HPI PHYSICAL EXAM: VS: BP 107/73 Pulse 75 Temp 36.3 ?C (97.4 ?F) Resp 16 Wt 94.8 kg (209 lb) SpO2 100% BMI 31.78 kg/m? KPS: 100 General Appearance: Alert and oriented. No acute distress. 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 Thyroid cancer: Overall doing fairly well. Her thyroid functions are appropriate with appropriate TSH suppression. Thyroglobulin low. 2 Chest discomfort/dysphagia. This has been fairly chronic for difficult to characterize. Recommend she see her family doctor for further evaluation. Signed by: Telly Hoover MD cc: Marta Eisenberg ([facility]) [address] [facility] [place] [phone] Xiomy Jones MD [address] [facility] [address] [facility] [id number] [facility] 05-31-2023 History of Presen t illness Narrative Radiation Oncology - Follow-up Note PATIENT NAME: Cassie Winters PATIENT : 1965 Primary Site: Thyroid Date of Diagnosis: 11/19/2022 Clinical Stage: T1 Nx Mx Pathologic Stage: T1 N0 Mx DIAGNOSIS: Papillary thyroid carcinoma status post total thyroidectomy T1BN0. S/p I-131: 53.4 mCi 01/26/2023. HPI: Patient has some continued anterior chest discomfort/pressure. Does not associate with activity stairs. Occasional increased with food that seems to stick midway down chest. Denies vomiting. Denies diaphoresis arm pain. Has not had prior cardiac issues. Has not seen a family doctor regarding this. 03/24/23:Overall doing fairly well. Having some mild dysphagia mostly mid chest. Having some mild anterior upper chest discomfort, nonexertional. Denies shortness of breath or diaphoresis. States that she has discomfort when she pushes on her left clavicular head. No recent falls. Overall some mild to moderate fatigue, still active RADIOLOGY: Whole-body scan 02/02/2023: Uptake within the thyroid bed area. No abnormal uptake consistent with metastasis. Patient presented with mild dysphagia, dry cough and occasional hoarse voice. LABORATORY: Latest Reference Range & Units 01/10/23 12:10 01/26/23 10:59 03/17/23 09:49 05/18/23 09:53 Thyroglobulin, LC-MS/MS 1.3 - 31.8 ng/mL 3.6 18.7 T4 5.5 - 10.2 ug/dL 8.3 9.9 TSH 0.270 - 4.200 mIU/L 0.436 0.095 (L) Thyroglobulin Ab, Serum <4.0 IU/mL 1.1 Thyroglobulin, Serum 1.6 - 50.0 ng/mL 0.1 (L) (L): Data is abnormally low Dysphagia: No Mucositis: No Voice Changes:No Fatigue: No Nausea: No Vomitting: No Pain: No Taste: No Weight loss: No ALLERGIES Allergen Reactions Penicillins Hives Sulfa (Sulfonamide * Hives MEDICATIONS: levothyroxine (SYNTHROID) 137 mcg tablet Take 1 tablet by mouth daily before breakfast. atorvastatin (LIPITOR) 20 mg tablet gabapentin (NEURONTIN) 600 mg tablet Take by mouth daily at bedtime. glucosamine/msm/chondroitin A ([id number] ORAL) Take by mouth. MULTIVITAMIN ORAL Take by mouth. PAST MEDICAL HISTORY Diagnosis Date Chronic pain d/t sacrum fx, RLE pain Hypercholesteremia Prior radiation therapy, collagen vascular disease, or inflammatory bowel disease: No status: Status post vaginal hysterectomy PAST SURGICAL HISTORY Procedure Laterality Date SECTION HX PAST SURGICAL HISTORY OF coccyx d/t a fall THYROIDECTOMY VAGINAL HYSTERECTOMY FAMILY HISTORY Problem Relation Age of Onset Renal Cell Cancer Mother Pancreatic Cancer Father Renal Cell Cancer Sister Cancer Maternal Uncle Cancer Maternal Uncle Cancer Maternal Uncle Cancer Maternal Aunt Cancer Maternal Aunt Cancer Paternal Aunt Social History Tobacco Use Smoking status: Never Smokeless tobacco: Never Substance Use Topics Alcohol use: Not Currently Comment: rarely Drug use: Not Currently COMPLETE REVIEW OF SYSTEMS: GENERAL: feeling well without fatigue, no recent change in weight NECK: denies swelling or pain in neck RESPIRATORY: no cough, no wheezing or shortness of breath CARDIOVASCULAR: See HPI. No palpitations or tachycardia GI: normal appetite, tolerating PO well, BMs normal, and no abdominal pain SKIN: no rash NEURO: no numbness or paresthesias and no weakness of the extremities As noted in HPI PHYSICAL EXAM: VS: BP 107/73 Pulse 75 Temp 36.3 C (97.4 F) Resp 16 Wt 94.8 kg (209 lb) SpO2 100% BMI 31.78 kg/m KPS: 100 General Appearance: Alert and oriented. No acute distress. 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 Thyroid cancer: Overall doing fairly well. Her thyroid functions are appropriate with appropriate TSH suppression. Thyroglobulin low. 2 Chest discomfort/dysphagia. This has been fairly chronic for difficult to characterize. Recommend she see her family doctor for further evaluation. Signed by: Telly Hoover MD cc: Marta Eisenberg ([facility]) [address] [place] [address] [place] [phone] Xiomy Jones MD [address] [place] [phone] documented in this encounter [facility] 03-24-2023 Note HNO ID: [id number] Author: Telly Hoover MD Service: ? Author Type: Physician Type: Progress Notes Filed: 03/24/2023 1:11 PM Note Text: Radiation Oncology - Follow-up Note PATIENT NAME: Cassie Winters PATIENT : 1965 Primary Site: Thyroid Date of Diagnosis: 11/19/2022 Clinical Stage: T1 Nx Mx Pathologic Stage: T1 N0 Mx DIAGNOSIS: Papillary thyroid carcinoma status post total thyroidectomy T1BN0. S/p I-131: 53.4 mCi 01/26/2023. HPI: Overall doing fairly well. Having some mild dysphagia mostly mid chest. Having some mild anterior upper chest discomfort, nonexertional. Denies shortness of breath or diaphoresis. States that she has discomfort when she pushes on her left clavicular head. No recent falls. Overall some mild to moderate fatigue, still active RADIOLOGY: Whole-body scan 02/02/2023: Uptake within the thyroid bed area. No abnormal uptake consistent with metastasis. Patient presented with mild dysphagia, dry cough and occasional hoarse voice. LABORATORY: Latest Reference Range AND Units 01/10/23 12:10 01/26/23 10:59 03/17/23 09:49 Thyroglobulin, LC-MS/MS 1.3 - 31.8 ng/mL 3.6 18.7 T4 5.5 - 10.2 ug/dL 8.3 TSH 0.270 - 4.200 mIU/L 0.436 Dysphagia: No Mucositis: No Voice Changes:No Fatigue: No Nausea: No Vomitting: No Pain: No Taste: No Weight loss: No ALLERGIES Allergen Reactions Penicillins Hives Sulfa (Sulfonamide * Hives MEDICATIONS: pilocarpine (SALAGEN, PILOCARPINE,) 5 mg tablet Take 1 tablet by mouth three times daily. Start 01/24/23 prochlorperazine (COMPAZINE) 10 mg tablet Take 1 tablet by mouth every 8 hours as needed. levothyroxine (SYNTHROID) 125 mcg tablet Take 1 tablet by mouth once daily. Start 01/27/23 atorvastatin (LIPITOR) 20 mg tablet gabapentin (NEURONTIN) 600 mg tablet Take by mouth daily at bedtime. liothyronine (CYTOMEL) 25 mcg tablet Take 25 mcg by mouth twice daily. glucosamine/msm/chondroitin A ([id number] ORAL) Take by mouth. MULTIVITAMIN ORAL Take by mouth. PAST MEDICAL HISTORY Diagnosis Date Chronic pain d/t sacrum fx, RLE pain Hypercholesteremia Prior radiation therapy, collagen vascular disease, or inflammatory bowel disease: No status: Status post vaginal hysterectomy PAST SURGICAL HISTORY Procedure Laterality Date SECTION HX PAST SURGICAL HISTORY OF coccyx d/t a fall THYROIDECTOMY VAGINAL HYSTERECTOMY FAMILY HISTORY Problem Relation Age of Onset Renal Cell Cancer Mother Pancreatic Cancer Father Renal Cell Cancer Sister Cancer Maternal Uncle Cancer Maternal Uncle Cancer Maternal Uncle Cancer Maternal Aunt Cancer Maternal Aunt Cancer Paternal Aunt Social History Tobacco Use Smoking status: Never Smokeless tobacco: Never Substance Use Topics Alcohol use: Not Currently Comment: rarely Drug use: Not Currently COMPLETE REVIEW OF SYSTEMS: GENERAL: feeling well without fatigue, no recent change in weight NECK: denies swelling or pain in neck RESPIRATORY: no cough, no wheezing or shortness of breath CARDIOVASCULAR: no chest pain, no palpitations GI: normal appetite, tolerating PO well, BMs normal, and no abdominal pain SKIN: no rash NEURO: no numbness or paresthesias and no weakness of the extremities As noted in HPI PHYSICAL EXAM: VS: There were no vitals taken for this visit. KPS: 100 General Appearance: Alert and oriented. No acute distress. Neck: No suspicious mass or tenderness RADIOLOGY/LABORATORY DATA: see HPI ASSESSMENT/PLAN: Papillary thyroid carcinoma status post total thyroidectomy T1BN0 status post I-131: 53.4 mCi 01/26/2023 Overall doing fairly well. Her thyroid functions are in the normal levels but I would like to increase her dose to further suppress her TSH. This may help with her fatigue as well. If her chest pain continues or becomes exertional recommend she get in for evaluation. If her dysphagia continues consider addition of Carafate. Signed by: Telly Hoover MD cc: Marta Eisenberg ([facility]) [address] [place] [address] [place] [phone] Xiomy Jones MD [address] [facility] [address] [place] [address] [facility] 03-18-2023 Miscellaneous Notes I notified [place] of Dr. Hoover's response. She will keep her follow up as scheduled next week. Mario Farnsowrth LPN Pt was in getting labs today and asked to speak to nurse. She stated she does not feel her thyroid meds are working as she has been very tired. She was wondering if labs come back abnormal, if you could adjust her dose prior to seeing her as scheduled. Labs will result 03/18. Pt prefers [facility] [place]. Thank you Elina Schulte RN documented in this encounter [facility] 02-04-2023 Note HNO ID: [id number] Author: Telly Hoover MD Service: ? Author Type: Physician Type: Progress Notes Filed: 02/04/2023 9:05 AM Note Text: Radiation Oncology - New Patient/Consult Note PATIENT NAME: Cassie Winters PATIENT : 1965 Primary Site: Thyroid Date of Diagnosis: 11/19/2022 Clinical Stage: T1 Nx Mx Pathologic Stage: T1 N0 Mx DIAGNOSIS: 57 year old female with papillary thyroid carcinoma status post total thyroidectomy T1BN0. I-131: 53.4 mCi 01/26/2023 HPI: Patient completed I-131 treatment after Thyrogen stimulation. She did well without significant post I-131 issues mild metallic taste when she drinks soda out of a can. Whole-body scan 02/02/2023: Uptake within the thyroid bed area. No abnormal uptake consistent with metastasis. Patient presented with mild dysphagia, dry cough and occasional hoarse voice. LABORATORY: Latest Reference Range AND Units 01/10/23 12:10 01/26/23 10:59 (S/p Thyrogen prior to I131 Thyroglobulin, LC-MS/MS 1.3 - 31.8 ng/mL 3.6 18.7 FOCUSED ROS: Dysphagia: No Mucositis: No Voice Changes:No Fatigue: No Nausea: No Vomitting: No Pain: No Taste: No Weight loss: No ALLERGIES Allergen Reactions Penicillins Hives Sulfa (Sulfonamide * Hives MEDICATIONS: levothyroxine (SYNTHROID) 125 mcg tablet Take 1 tablet by mouth once daily. Start 01/27/23 atorvastatin (LIPITOR) 20 mg tablet gabapentin (NEURONTIN) 600 mg tablet Take by mouth daily at bedtime. glucosamine/msm/chondroitin A ([id number] ORAL) Take by mouth. MULTIVITAMIN ORAL Take by mouth. pilocarpine (SALAGEN, PILOCARPINE,) 5 mg tablet Take 1 tablet by mouth three times daily. Start 01/24/23 prochlorperazine (COMPAZINE) 10 mg tablet Take 1 tablet by mouth every 8 hours as needed. liothyronine (CYTOMEL) 25 mcg tablet Take 25 mcg by mouth twice daily. PAST MEDICAL HISTORY Diagnosis Date Chronic pain d/t sacrum fx, RLE pain Hypercholesteremia Prior radiation therapy, collagen vascular disease, or inflammatory bowel disease: No status: Status post vaginal hysterectomy PAST SURGICAL HISTORY Procedure Laterality Date SECTION HX PAST SURGICAL HISTORY OF coccyx d/t a fall THYROIDECTOMY VAGINAL HYSTERECTOMY FAMILY HISTORY Problem Relation Age of Onset Renal Cell Cancer Mother Pancreatic Cancer Father Renal Cell Cancer Sister Cancer Maternal Uncle Cancer Maternal Uncle Cancer Maternal Uncle Cancer Maternal Aunt Cancer Maternal Aunt Cancer Paternal Aunt Social History Tobacco Use Smoking status: Never Smokeless tobacco: Never Substance Use Topics Alcohol use: Not Currently Comment: rarely Drug use: Not Currently COMPLETE REVIEW OF SYSTEMS: GENERAL: feeling well without fatigue, no recent change in weight NECK: denies swelling or pain in neck RESPIRATORY: no cough, no wheezing or shortness of breath CARDIOVASCULAR: no chest pain, no palpitations GI: normal appetite, tolerating PO well, BMs normal, and no abdominal pain SKIN: no rash NEURO: no numbness or paresthesias and no weakness of the extremities As noted in HPI PHYSICAL EXAM: VS: BP 112/83 Pulse 78 Temp 36.4 ?C (97.6 ?F) Resp 16 Wt 95.7 kg (211 lb) SpO2 98% BMI 32.08 kg/m? KPS: 100 General Appearance: Alert and oriented. No acute distress. Neck: No suspicious mass or tenderness RADIOLOGY/LABORATORY DATA: see HPI ASSESSMENT/PLAN: Papillary thyroid carcinoma status post total thyroidectomy T1BN0 status post I-131: 53.4 mCi 01/26/2023 Patient is doing well after I-131 therapy. Scan showed only uptake within the thyroid bed no evidence of metastasis. She is initiated thyroid replacement. Will monitor for appropriate TSH suppression. Plan to recheck labs in 6 to 8 weeks. Signed by: Telly Hoover MD cc: Marta Eisenberg ([facility]) [address] [place] [phone] Xiomy Jones MD [address] [place] [id number] [place] [address] 01-31-2023 Miscellaneous Notes Pt was notified. Elina Schulte RN Pt LM for a call back. Stated ROD started her on a new thyroid medication and wasn't sure if this was in place of her old one or if she is suppose to take both. Requested a call back to verify @ [phone]. Rowena Vásquez documented in this encounter [facility] 01-26-2023 Note HNO ID: [id number] Author: Telly Hoover MD Service: ? Author Type: Physician Type: Progress Notes Filed: 01/26/2023 2:01 PM Note Text: PATIENT NAME: Cassie Winters PATIENT : 1965 I-131 treatment 54 mCi [facility] Note at [facility] 01-26-2023 History of Presen t illness Narrative PATIENT NAME: Cassie Winters PATIENT : 1965 I-131 treatment 54 mCi [facility] Note at [facility] documented in this encounter [facility] 01-24-2023 Nurse Note Status: Patient states there is no possibility she is at this time. documented in this encounter [facility] 01-19-2023 Miscellaneous Notes I called to update [place] that the 01/26/23 and 02/02/23 appt's at [facility] have been confirmed. She denies further questions. Mario Farnsworth LPN documented in this encounter [facility] 01-17-2023 Miscellaneous Notes I-131 order pending your approval. Mario Farnsworth LPN documented in this encounter [facility] 01-13-2023 Note HNO ID: [id number] Author: Telly Hoover MD Service: ? Author Type: Physician Type: Progress Notes Filed: 01/13/2023 2:20 PM Note Text: Radiation Oncology - New Patient/Consult Note PATIENT NAME: Cassie Winters PATIENT : 1965 REQUESTING PROVIDER: Dr. Jones Primary Site: Thyroid Date of Diagnosis: 11/19/2022 Clinical Stage: T1 Nx Mx Pathologic Stage: T1 N0 Mx DIAGNOSIS: 57 year old female with papillary thyroid carcinoma status post total thyroidectomy T1BN0. HPI: 57 year old female who presents with above diagnosis, for an opinion regarding the role of radiation therapy in the management of the patient's disease. Final recommendations will be communicated back to the requesting physician by way of the shared medical record, or letter to requesting physician via US mail. Patient presented with mild dysphagia, dry cough and occasional hoarse voice. She underwent thyroid ultrasound on 11/08/2022 demonstrating stable small nodules right lobe, 15 x 19 x 14 mm TR 5 nodule within the left lobe which was significantly larger than prior ultrasound. Additionally stable TR4 nodule. Biopsy was recommended. Patient was seen by Dr. Jones, and on 11/30/2022 she underwent FNA of the left thyroid mid lobe nodule, pathology demonstrating atypia of undetermined significance with cytologic atypia, papillary thyroid carcinoma cannot be ruled out. Patient underwent total thyroidectomy on 11/19/2022. Frozen section of the left thyroid consistent with papillary thyroid carcinoma insufflate underwent total thyroidectomy at date of surgery. Pathology revealing no evidence of metastatic carcinoma in 4 lymph nodes from the anterior neck. Pyramidal lobe without evidence of malignancy. Left thyroid however demonstrating papillary thyroid carcinoma predominantly classic type of focal Warth and like features, 1.4 cm in dimension, focally extending to the inked margin. Right thyroid hemorrhoidectomy without evidence of malignancy including 1 lymph node within the specimen. No perineural invasion.[id number] Patient has done very well after surgery. Her hoarseness and dysphagia have resolved. Denies other new problems. FOCUSED ROS: Dysphagia: No Mucositis: No Voice Changes:No Fatigue: No Nausea: No Vomitting: No Pain: No Taste: No Weight loss: No ALLERGIES Allergen Reactions Penicillins Hives Sulfa (Sulfonamide * Hives MEDICATIONS: gabapentin (NEURONTIN) 600 mg tablet Take by mouth daily at bedtime. liothyronine (CYTOMEL) 25 mcg tablet Take 25 mcg by mouth twice daily. glucosamine/msm/chondroitin A ([id number] ORAL) Take by mouth. MULTIVITAMIN ORAL Take by mouth. pilocarpine (SALAGEN, PILOCARPINE,) 5 mg tablet Take 1 tablet by mouth three times daily. Start 01/24/23 prochlorperazine (COMPAZINE) 10 mg tablet Take 1 tablet by mouth every 8 hours as needed. levothyroxine (SYNTHROID) 125 mcg tablet Take 1 tablet by mouth once daily. Start 01/27/23 atorvastatin (LIPITOR) 20 mg tablet PAST MEDICAL HISTORY Diagnosis Date Chronic pain d/t sacrum fx, RLE pain Hypercholesteremia Prior radiation therapy, collagen vascular disease, or inflammatory bowel disease: No status: Status post vaginal hysterectomy PAST SURGICAL HISTORY Procedure Laterality Date SECTION HX PAST SURGICAL HISTORY OF coccyx d/t a fall THYROIDECTOMY VAGINAL HYSTERECTOMY FAMILY HISTORY Problem Relation Age of Onset Renal Cell Cancer Mother Pancreatic Cancer Father Renal Cell Cancer Sister Cancer Maternal Uncle Cancer Maternal Uncle Cancer Maternal Uncle Cancer Maternal Aunt Cancer Maternal Aunt Cancer Paternal Aunt Social History Tobacco Use Smoking status: Never Smokeless tobacco: Never Substance Use Topics Alcohol use: Not Currently Comment: rarely Drug use: Not Currently COMPLETE REVIEW OF SYSTEMS: GENERAL: feeling well without fatigue, no recent change in weight NECK: denies swelling or pain in neck RESPIRATORY: no cough, no wheezing or shortness of breath CARDIOVASCULAR: no chest pain, no palpitations GI: normal appetite, tolerating PO well, BMs normal, and no abdominal pain SKIN: no rash NEURO: no numbness or paresthesias and no weakness of the extremities As noted in HPI PHYSICAL EXAM: VS: BP 108/69 Pulse 76 Temp 36.9 ?C (98.4 ?F) Resp 16 Ht 172.7 cm (5' 8 ) Wt 95.7 kg (211 lb) SpO2 98% BMI 32.08 kg/m? KPS: 100 General Appearance: Alert and oriented. No acute distress. HEENT: NCAT. Sclera anicteric. PERRL. EOMI. Oral cavity AND oropharnyx: lips and gums normal, oral and pharyngeal mucosa moist, palate elevates normally, tongue mobile and without palpable lesions, tonsils without masses Neck: Normal ROM. No palpable cervical or supraclavicular adenopathy. Well-healing low neck incision. No masses notable. Musculoskeletal: No edema. Normal ROM in extremities (more content not included)... [facility] 01-13-2023 History of Presen t illness Narrative Radiation Oncology - New Patient/Consult Note PATIENT NAME: Cassie Winters PATIENT : 1965 REQUESTING PROVIDER: Dr. Jones Primary Site: Thyroid Date of Diagnosis: 11/19/2022 Clinical Stage: T1 Nx Mx Pathologic Stage: T1 N0 Mx DIAGNOSIS: 57 year old female with papillary thyroid carcinoma status post total thyroidectomy T1BN0. HPI: 57 year old female who presents with above diagnosis, for an opinion regarding the role of radiation therapy in the management of the patient's disease. Final recommendations will be communicated back to the requesting physician by way of the shared medical record, or letter to requesting physician via [place] mail. Patient presented with mild dysphagia, dry cough and occasional hoarse voice. She underwent thyroid ultrasound on 11/08/2022 demonstrating stable small nodules right lobe, 15 x 19 x 14 mm TR 5 nodule within the left lobe which was significantly larger than prior ultrasound. Additionally stable TR4 nodule. Biopsy was recommended. Patient was seen by Dr. Jones, and on 11/30/2022 she underwent FNA of the left thyroid mid lobe nodule, pathology demonstrating atypia of undetermined significance with cytologic atypia, papillary thyroid carcinoma cannot be ruled out. Patient underwent total thyroidectomy on 11/19/2022. Frozen section of the left thyroid consistent with papillary thyroid carcinoma insufflate underwent total thyroidectomy at date of surgery. Pathology revealing no evidence of metastatic carcinoma in 4 lymph nodes from the anterior neck. Pyramidal lobe without evidence of malignancy. Left thyroid however demonstrating papillary thyroid carcinoma predominantly classic type of focal Warth and like features, 1.4 cm in dimension, focally extending to the inked margin. Right thyroid hemorrhoidectomy without evidence of malignancy including 1 lymph node within the specimen. No perineural invasion.[id number] Patient has done very well after surgery. Her hoarseness and dysphagia have resolved. Denies other new problems. FOCUSED ROS: Dysphagia: No Mucositis: No Voice Changes:No Fatigue: No Nausea: No Vomitting: No Pain: No Taste: No Weight loss: No ALLERGIES Allergen Reactions Penicillins Hives Sulfa (Sulfonamide * Hives MEDICATIONS: gabapentin (NEURONTIN) 600 mg tablet Take by mouth daily at bedtime. liothyronine (CYTOMEL) 25 mcg tablet Take 25 mcg by mouth twice daily. glucosamine/msm/chondroitin A ([id number] ORAL) Take by mouth. MULTIVITAMIN ORAL Take by mouth. pilocarpine (SALAGEN, PILOCARPINE,) 5 mg tablet Take 1 tablet by mouth three times daily. Start 01/24/23 prochlorperazine (COMPAZINE) 10 mg tablet Take 1 tablet by mouth every 8 hours as needed. levothyroxine (SYNTHROID) 125 mcg tablet Take 1 tablet by mouth once daily. Start 01/27/23 atorvastatin (LIPITOR) 20 mg tablet PAST MEDICAL HISTORY Diagnosis Date Chronic pain d/t sacrum fx, RLE pain Hypercholesteremia Prior radiation therapy, collagen vascular disease, or inflammatory bowel disease: No status: Status post vaginal hysterectomy PAST SURGICAL HISTORY Procedure Laterality Date SECTION HX PAST SURGICAL HISTORY OF coccyx d/t a fall THYROIDECTOMY VAGINAL HYSTERECTOMY FAMILY HISTORY Problem Relation Age of Onset Renal Cell Cancer Mother Pancreatic Cancer Father Renal Cell Cancer Sister Cancer Maternal Uncle Cancer Maternal Uncle Cancer Maternal Uncle Cancer Maternal Aunt Cancer Maternal Aunt Cancer Paternal Aunt Social History Tobacco Use Smoking status: Never Smokeless tobacco: Never Substance Use Topics Alcohol use: Not Currently Comment: rarely Drug use: Not Currently COMPLETE REVIEW OF SYSTEMS: GENERAL: feeling well without fatigue, no recent change in weight NECK: denies swelling or pain in neck RESPIRATORY: no cough, no wheezing or shortness of breath CARDIOVASCULAR: no chest pain, no palpitations GI: normal appetite, tolerating PO well, BMs normal, and no abdominal pain SKIN: no rash NEURO: no numbness or paresthesias and no weakness of the extremities As noted in HPI PHYSICAL EXAM: VS: BP 108/69 Pulse 76 Temp 36.9 C (98.4 F) Resp 16 Ht 172.7 cm (5' 8 ) Wt 95.7 kg (211 lb) SpO2 98% BMI 32.08 kg/m KPS: 100 General Appearance: Alert and oriented. No acute distress. HEENT: NCAT. Sclera anicteric. PERRL. EOMI. Oral cavity & oropharnyx: lips and gums normal, oral and pharyngeal mucosa moist, palate elevates normally, tongue mobile and without palpable lesions, tonsils without masses Neck: Normal ROM. No palpable cervical or supraclavicular adenopathy. Well-healing low neck incision. No masses notable. Musculoskeletal: No edema. Normal ROM in extremities. No bone or spine tenderness. Neuro: Speech fluent. Gait normal. No focal deficits. Skin: No rashes noted Lymphatics: No palpable lymphadenopathy. Hematologic: No signs of active bleeding. RADIOLOGY/LABORATORY DATA: see HPI ASSESSMENT/PLAN: Papillary thyroid carcinoma status post total thyroidectomy T1BN0 Patient is doing well after total thyroidectomy. She does have a small in the lateral tumor however does appear to be at the surgical margin. Given the size over 1 cm and close/positive margin I do feel there is a role for postoperative I-131 ablative treatment. The role of I-131 ablative treatment discussed at length with patient. Potential advantages of further staging with post I-131 whole-body scan as well as ablation of any remnant thyroid tissue to enable/facilitate thyroglobulin surveillance in the future. Patient expressed an understanding of the information presented. Patient expressed understanding willing to comply with radiation safety precautions with outpatient delivery. Would recommend a dose of 30 to 50 mCi using Thyrogen stimulation. We will schedule this sometime in January. We will also order baseline thyroglobulin today to see where she has. We will discuss further after this formulate treatment plan. Signed by: Telly Hoover MD cc: Marta Eisenberg ([facility]) [address] [place] [phone] Xiomy Jones MD [address] [place] [id number] documented in this encounter [facility] 01-11-2023 Note Education (NUTRSA) CASSIE WINTERS ([id number]) 1965 F Date Time Provider Department 01/11/23 1:30 PM ANAMIKA BRAGA Reason for Visit: Nutrition Telephone [2013] Primary Visit Diagnosis:Thyroid cancer (HCC) [C73] During your visit today, we recorded the following information about you: Allergies As of Date: 01/11/2023 Noted Allergy Reaction PENICILLINS 01/10/2023 4 - Hives SULFA (SULFONAMIDE ANTIBIOTICS) 01/10/2023 4 - Hives Date Reviewed: 01/11/2023 Reviewed by: Anamika Braga RD - Fully Assessed Prescriptions as of 01/11/2023 - pilocarpine (SALAGEN, PILOCARPINE,) 5 mg tablet Take 1 tablet by mouth three times daily. Start 01/24/23 - prochlorperazine (COMPAZINE) 10 mg tablet Take 1 tablet by mouth every 8 hours as needed. - levothyroxine (SYNTHROID) 125 mcg tablet Take 1 tablet by mouth once daily. Start 01/27/23 - atorvastatin (LIPITOR) 20 mg tablet - gabapentin (NEURONTIN) 600 mg tablet Take by mouth daily at bedtime. - liothyronine (CYTOMEL) 25 mcg tablet Take 25 mcg by mouth twice daily. - glucosamine/msm/chondroitin A ([id number] ORAL) Take by mouth. - MULTIVITAMIN ORAL Take by mouth. Encounter Status:Closed by ANAMIKA BRAGA on 01/11/23 [facility] 01-11-2023 Note HNO ID: [id number] Author: Anamika Braga RD Service: ? Author Type: Registered Dietitian Type: Progress Notes Filed: 01/11/2023 1:43 PM Note Text: Oncology Nutrition Therapy Initial Assessment I have communicated my name and active licensure. The patient's identity and physical location were verified at the time of this visit. Either the patient or their legal medical sales representative has been informed of the risks and benefits of -- and alternatives to -- treatment through a remote evaluation and consents to proceed with the evaluation remotely. RECOMMENDED MALNUTRITION DIAGNOSIS: NO MALNUTRITION IDENTIFIED Nutrition Diagnosis: Behavioral-Environmental: Food and nutrition related knowledge deficit, related to, lack of prior exposure to information , as evidenced by verbalizes incomplete information Nutrition Intervention: -reviewed low-iodine guidelines -provider contact information provided for further questions/concerns Nutrition Monitoring AND Evaluation: -PO Intake -Wt status -BM's -Biochemical Markers -Plan of care Patient's symptoms are: None Pt presents for nutrition counseling for thyroid cancer and questions about low iodine diet. Pt is currently getting Radioactive Iodine treatment. Pt denies any chewing/swallowing issues, denies current N/V/D/C. Patient requested call from dietitian due to questions regarding low-iodine diet that was reviewed with her by radiation. She had some confusion with sodium and the food label. Briefly reviewed diet guidelines with pt and discussed what to look for on the nutrition label. Pt verbalized understanding and requested written information to be mailed to her. Thank you for allowing me to participate in the care of this pt. Readiness to Learn: Cognitive ability: Alert and oriented Motivation to learn: Interested Family support: Unable to assess - Family not present Instruction provided to: Patient Patient learns best by: Multiple Methods Factors affecting learning: None Physical limitations affecting learning: None Educational materials provided: Low-Iodine Diet, Food Label Anthropometrics: Height: Last 1 Encounter Ht Readings: Date: Ht: 01/10/2023 172.7 cm (5' 8 ) Current weight: Last 1 Encounter Wt Readings: Date: Wt: 01/10/2023 95.7 kg (211 lb) Estimated body mass index is 32.08 kg/m? as calculated from the following: Height as of 01/10/23: 172.7 cm (5' 8 ). Weight as of 01/10/23: 95.7 kg (211 lb). Resting Metabolic Rate: 1584 Weight Change: n/a [place] Body Weight: 63.9kg Estimated kilocalorie needs: 1043-8200 kilocalories determined by 25-30 kcal/kg Estimated protein needs: 64-77 grams determined by 1.0-1.2 g/kg Dosing weight Estimated fluid needs: ~0502-4701 milliliters based on 1 mL per kcal (unless otherwise indicated) Nutrition Focused Physical Exam: Unable to perform exam due to patient unavailable, will re-attempt during reassessment. Potential Signs of Inflammation: chronic condition Allergies: Penicillins and Sulfa (Sulfonamide Antibiotics) Medications: Current Outpatient Medications Medication Sig Dispense Refill pilocarpine (SALAGEN, PILOCARPINE,) 5 mg tablet Take 1 tablet by mouth three times daily. Start 01/24/23 15 tablet 0 prochlorperazine (COMPAZINE) 10 mg tablet Take 1 tablet by mouth every 8 hours as needed. 15 tablet 1 levothyroxine (SYNTHROID) 125 mcg tablet Take 1 tablet by mouth once daily. Start 01/27/23 30 tablet 2 atorvastatin (LIPITOR) 20 mg tablet gabapentin (NEURONTIN) 600 mg tablet Take by mouth daily at bedtime. liothyronine (CYTOMEL) 25 mcg tablet Take 25 mcg by mouth twice daily. glucosamine/msm/chondroitin A ([id number] ORAL) Take by mouth. MULTIVITAMIN ORAL Take by mouth. No current facility-administered medications for this visit. Need for Follow up: prn Referred by: radiation nursing MNT Billing Type: Initial Assess/15 min 1 unit Time Spent with Patient: 15 minutes Signed by: Anamika Braga, MS, RDN, LD [facility] 01-11-2023 History of Presen t illness Narrative Oncology Nutrition Therapy Initial Assessment I have communicated my name and active licensure. The patient's identity and physical location were verified at the time of this visit. Either the patient or their legal medical sales representative has been informed of the risks and benefits of -- and alternatives to -- treatment through a remote evaluation and consents to proceed with the evaluation remotely. RECOMMENDED MALNUTRITION DIAGNOSIS: NO MALNUTRITION IDENTIFIED Nutrition Diagnosis: Behavioral-Environmental: Food and nutrition related knowledge deficit, related to, lack of prior exposure to information , as evidenced by verbalizes incomplete information Nutrition Intervention: -reviewed low-iodine guidelines -provider contact information provided for further questions/concerns Nutrition Monitoring & Evaluation: -PO Intake -Wt status -BM's -Biochemical Markers -Plan of care Patient's symptoms are: None Pt presents for nutrition counseling for thyroid cancer and questions about low iodine diet. Pt is currently getting Radioactive Iodine treatment. Pt denies any chewing/swallowing issues, denies current N/V/D/C. Patient requested call from dietitian due to questions regarding low-iodine diet that was reviewed with her by radiation. She had some confusion with sodium and the food label. Briefly reviewed diet guidelines with pt and discussed what to look for on the nutrition label. Pt verbalized understanding and requested written information to be mailed to her. Thank you for allowing me to participate in the care of this pt. Readiness to Learn: Cognitive ability: Alert and oriented Motivation to learn: Interested Family support: Unable to assess - Family not present Instruction provided to: Patient Patient learns best by: Multiple Methods Factors affecting learning: None Physical limitations affecting learning: None Educational materials provided: Low-Iodine Diet, Food Label Anthropometrics: Height: Last 1 Encounter Ht Readings: Date: Ht: 01/10/2023 172.7 cm (5' 8 ) Current weight: Last 1 Encounter Wt Readings: Date: Wt: 01/10/2023 95.7 kg (211 lb) Estimated body mass index is 32.08 kg/m as calculated from the following: Height as of 01/10/23: 172.7 cm (5' 8 ). Weight as of 01/10/23: 95.7 kg (211 lb). Resting Metabolic Rate: 1584 Weight Change: n/a [place] Body Weight: 63.9kg Estimated kilocalorie needs: 0638-5565 kilocalories determined by 25-30 kcal/kg Estimated protein needs: 64-77 grams determined by 1.0-1.2 g/kg Dosing weight Estimated fluid needs: ~7995-9013 milliliters based on 1 mL per kcal (unless otherwise indicated) Nutrition Focused Physical Exam: Unable to perform exam due to patient unavailable, will re-attempt during reassessment. Potential Signs of Inflammation: chronic condition Allergies: Penicillins and Sulfa (Sulfonamide Antibiotics) Medications: Current Outpatient Medications Medication Sig Dispense Refill pilocarpine (SALAGEN, PILOCARPINE,) 5 mg tablet Take 1 tablet by mouth three times daily. Start 01/24/23 15 tablet 0 prochlorperazine (COMPAZINE) 10 mg tablet Take 1 tablet by mouth every 8 hours as needed. 15 tablet 1 levothyroxine (SYNTHROID) 125 mcg tablet Take 1 tablet by mouth once daily. Start 01/27/23 30 tablet 2 atorvastatin (LIPITOR) 20 mg tablet gabapentin (NEURONTIN) 600 mg tablet Take by mouth daily at bedtime. liothyronine (CYTOMEL) 25 mcg tablet Take 25 mcg by mouth twice daily. glucosamine/msm/chondroitin A (ETYSVVARWXN-WBSRCV-KGN ORAL) Take by mouth. MULTIVITAMIN ORAL Take by mouth. No current facility-administered medications for this visit. Need for Follow up: prn Referred by: radiation nursing MNT Billing Type: Initial Assess/15 min 1 unit Time Spent with Patient: 15 minutes Signed by: Anamika Braga MS, RDN, LD documented in this encounter [facility] 11-24-2022 Evaluation note Encounter Date Diagnosis Assessment Notes November, Thyromegaly (ICD-10 - E01.0) [employer] Other 04-20-2023 Evaluation note* Encounter Date Diagnosis Assessment Notes Treatment Notes Treatment Clinical Notes Oct, Wellness examination (ICD-10 - Z00.00) Personalized health advice was given to the beneficiary with a referral, if appropriate, to health education of preventative counseling services or programs aimed at reducing identified risk factors and improving self-management or community-based lifestyle interventions to reduce health risks and promote self-management and wellness, including weight loss, physical activity, smoking cessation, fall prevention and nutrition. A written plan for screenings discussed, including colonoscopy, mammography, flu vaccination, other vaccinations if at risk, routine lab studies, eye exams, glaucoma screening, skin checks, risk factors for medical problems discussed, including BP control, obesity, and need for consistent exercise. Counseling was provided here today - specifically in regard to any positively answered questions as noted above. 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 [employer] Other [employer] noteNo InformationNort [employer] Other evaluation note* Diagnosis Thyroid cancer (HCC)- Primary Malignant neoplasm of thyroid gland [facility] [place] [facility]* Diagnosis Thyroid cancer (HCC)- Primary Malignant neoplasm of thyroid gland documented in this encounter [facility] [place] [facility]* Diagnosis Thyroid cancer (HCC)- Primary Malignant neoplasm of thyroid gland documented in this encounter [facility] [place] [facility]* Diagnosis Thyroid cancer (HCC)- Primary Malignant neoplasm of thyroid gland documented [facility] encounter [facility] [place] noteNo assessment information availableL[facility] Work Phone: [employer] note* Diagnosis Thyroid cancer (HCC)- Primary Malignant neoplasm of thyroid gland documented in this encounter [facility] note* Diagnosis Thyroid cancer (HCC)- Primary Malignant neoplasm of thyroid gland documented in this encounter [facility] [place] [facility]* Diagnosis Thyroid cancer (HCC)- Primary Malignant neoplasm of thyroid gland documented in this encounter [facility] general Narrative - Reported* Type Description Date Medical History DDD (degenerative disc disease), lumbar Medical History Enlarged thyroid Medical History Fatigue Surgical History JONNY AND BSO 2003 Surgical History TAIL BONE FRACTURE Hospitalization History SEE SURGICAL HX [employer] Other Reason for referral (narrative)* Diagnostic Procedure Only (Routine) - Pending Review Specialty Diagnoses / Procedures Referred By Sridevi burris Referred To Contact MOLECULAR & FUNCTIONAL IMAGING Diagnoses Thyroid cancer (HCC) Procedures NM THERAPY THYROID I-131 RP THERAPY ORAL ADMINISTRATION Telly Hoover MD [address] [place] [address] [place] [address] Molecular & Functional Imaging [address] [place] [address] Referral ID Status Reason Start Date Expiration Date Visits Requested Visits Authorized [id number] Pending Review Auto-Generat ed Referral 01/11/2023 02/09/2024 1 1 [facility] Summary Purpose Family History Relationship Condition Age at Onset Recorded Date/T sukhdeep brother Hypertension Unknown father Unknown Heart disease Unknown Not Specified Heart disease Unknown Unknown Diabetes mellitus Unknown Malignant neoplasm Unknown sister Malignant neoplasm Unknown Advance Directives Advance Directive Response Recorded Date/ Time Advance Directives No January 13 2:31pm Reason for Referral Reason *FU 12/01 Dr. Ari Boateng. Recent US, last OV, and pathology report. thank you Diagnosis 1 Thyromegaly (E01.0) Referral Organization [facility] Referring Provider First Name Marta Referring Provider Last Name Faina Referring Provider Specialty Family [facility] Referred Organization [facility] Referred Provider Xiomy Jones Referred Address ,[place], [place],[address] Referred Provider Specialty Otolaryngolo gy Referral Priority Routine General Notes Rosina Peter 12:53:57 PM >reeived today, attachments made, notes locked, referral faxed P2P Medications Administered Section Inactive Administered Medications - up to 3 most recent administrations Medication Order MAR Action Action Date Dose Rate Site thyrotropin marco 0.9 mg injection (THYROGEN) 0.9 mg, INTRAMUSCULAR, ONCE, 1 dose, On Tue01/24/23 at 1000, REFRIGERATE Given 01/24/2023 9:52 AM EDT 0.9 mg Hip, Left Inactive Administered Medications - up to 3 most recent administrations Medication Order MAR Action Action Date Dose Rate Site thyrotropin marco 0.9 mg injection (THYROGEN) 0.9 mg, INTRAMUSCULAR, ONCE, 1 dose, On Tue01/25/23 at 0900, REFRIGERATE Given 01/25/2023 8:59 AM EDT 0.9 mg Buttocks, Left Chief Complaint and Reason for Visit Chief Complaint c73 Chief Complaint bug bites Additional Source Comments INFORMATION SOURCE (unrecogn ized section and content) DATE CREATED AUTHOR 10/10/2020 [facility] DATE CREATED AUTHOR AUTHOR'S ORGANIZ ATION 12/01/2022 [facility] DATE CREATED AUTHOR AUTHOR'S ORGANIZ ATION 02/03/2023 [facility] DATE CREATED AUTHOR AUTHOR'S ORGANIZ ATION 12/06/2023 [facility] REASON FOR VISIT (unrecogniz ed section and content) Reason Comments Thyroid Cancer Thyrogen Injection Specialty Diagnoses / Procedures Referred By Contac t Referred To Contact Diagnoses Thyroid cancer (HCC) Procedures THYROTROPIN INJECTION Telly Hoover MD [address] [place] [address] Nate Treat [facility] [address] [place] [address] Referral ID Status Reason Start Date Expiration Date V isits Requested Visits Authorized [id number] Authorized 01/24/2023 07/17/2023 99 99 Reason Comments Nutrition Telephone Reason Comments Consult Reason Comments Orders Reason Comments Patient Update Reason Comments Thyroid Cancer Reason Comments Patient Question Reason Comments Medication Dosage Adjustment Results, Lab Source Comments (unrecognize d section and content) In the event this informatio n is protected by the Federal Confidentiality of Alcohol and Drug Abuse Patient Records regulations: The Federal rules restrict any use of the information to criminally investigate or prosecute any alcohol or drug abuse patient.[facility] the event this information is protected by the Federal Confidentiality of Alcohol and Drug Abuse Patient Records regulations: The Federal rules restrict any use of the information to criminally investigate or prosecute any alcohol or drug abuse patient.[facility] the event this information is protected by the Federal Confidentiality of Alcohol and Drug Abuse Patient Records regulations: The Federal rules restrict any use of the information to criminally investigate or prosecute any alcohol or drug abuse patient.[facility] Hospital[facility] the event this information is protected by the Federal Confidentiality of Alcohol and Drug Abuse Patient Records regulations: The Federal rules restrict any use of the information to criminally investigate or prosecute any alcohol or drug abuse patient.[facility] the event this information is protected by the Federal Confidentiality of Alcohol and Drug Abuse Patient Records regulations: The Federal rules restrict any use of the information to criminally investigate or prosecute any alcohol or drug abuse patient.[facility] the event this information is protected by the Federal Confidentiality of Alcohol and Drug Abuse Patient Records regulations: The Federal rules restrict any use of the information to criminally investigate or prosecute any alcohol or drug abuse patient.[facility] the event this information is protected by the Federal Confidentiality of Alcohol and Drug Abuse Patient Records regulations: The Federal rules restrict any use of the information to criminally investigate or prosecute any alcohol or drug abuse patient.[facility] Hospital[facility] the event this information is protected by the Federal Confidentiality of Alcohol and Drug Abuse Patient Records regulations: The Federal rules restrict any use of the information to criminally investigate or prosecute any alcohol or drug abuse patient.[facility] the event this information is protected by the Federal Confidentiality of Alcohol and Drug Abuse Patient Records regulations: The Federal rules restrict any use of the information to criminally investigate or prosecute any alcohol or drug abuse patient.[facility] the event this information is protected by the Federal Confidentiality of Alcohol and Drug Abuse Patient Records regulations: The Federal rules restrict any use of the information to criminally investigate or prosecute any alcohol or drug abuse patient.[facility] the event this information is protected by the Federal Confidentiality of Alcohol and Drug Abuse Patient Records regulations: The Federal rules restrict any use of the information to criminally investigate or prosecute any alcohol or drug abuse patient.[facility] HospitalIn the event this information is protected by the Federal Confidentiality of Alcohol and Drug Abuse Patient Records regulations: The Federal rules restrict any use of the information to criminally investigate or prosecute any alcohol or drug abuse patient.[facility] HospitalIn the event this information is protected by the Federal Confidentiality of Alcohol and Drug Abuse Patient Records regulations: The Federal rules restrict any use of the information to criminally investigate or prosecute any alcohol or drug abuse patient.[facility] the event this information is protected by the Federal Confidentiality of Alcohol and Drug Abuse Patient Records regulations: The Federal rules restrict any use of the information to criminally investigate or prosecute any alcohol or drug abuse patient.[facility] HospitalIn the event this information is protected by the Federal Confidentiality of Alcohol and Drug Abuse Patient Records regulations: The Federal rules restrict any use of the information to criminally investigate or prosecute any alcohol or drug abuse patient.[facility] Care Teams (unrecognized sec tion and content) Team Status: Active Member Role Status Dates Marta Eisenberg MD Primary Care Provider Active Team Status: Active Member Role Status Dates Marta Eisenberg MD Primary Care Provider Active Start: November 22, 2023 Nikkie Hoover MD Attending Provider Active Start: November 22, 2023 Team Status: Inactive Member Role Status Dates Marta Eisenberg MD Primary Care Provide r, Attending Provider Active Start: January 10, 2024 End: January 10, 2024 [employer] Science Laboratory Technician Relationship Specialty Start Date End Date Marta Eisenberg MD [address] [facility] [place] [address] PCP - General Family Medicine 01/07/23 Xiomy Jones [address] [facility] [address] [place] [address] Ent - Otolaryngology 01/07/23 [employer] Laboratory Technician Relationship Specialty Start Date End Date Marta Eisenberg MD [address] [facility] [place] [id number] PCP - General Family Medicine 01/07/23 Xiomy Jones [address] [facility] [address] [place] [address] Ent - Otolaryngology 01/07/23 [employer] Laboratory Technician Relationship Specialty Start Date End Date Marta Eisenberg MD [address] [facility] [place] [id number] PCP - General Family Medicine 01/07/23 Xiomy Jones [address] [facility] [address] [place] [address] Ent - Otolaryngology 01/07/23 [employer] Laboratory Technician Relationship Specialty Start Date End Date Marta Eisenberg MD [address] [facility] [place] [id number] PCP - General Family Medicine 01/07/23 Xiomy Jones [address] [facility] [address] [place] [address] Ent - Otolaryngology 01/07/23 [employer] Science Laboratory Technician Relationship Specialty Start Date End Date Marta Eisenberg MD [address] [facility] [place] [phone] PCP - General Family Medicine 01/07/23 Xiomy Jones [address] [facility] [address] [place] [address] Ent - Otolaryngology 01/07/23 [employer] Laboratory Technician Relationship Specialty Start Date End Date Marta Eisenberg MD [address] [facility] [place] [phone] PCP - General Family Medicine 01/07/23 Xiomy Jones [address] [facility] [address] [place] [address] Ent - Otolaryngology 01/07/23 [employer] Laboratory Technician Relationship Specialty Start Date End Date Marta Eisenberg MD [address] [place] [address] PCP - General Family Medicine 01/07/23 Xiomy Jones [address] [facility] [address] [place] [address] Ent - Otolaryngology 01/07/23 [employer] Laboratory Technician Relationship Specialty Start Date End Date Marta Eisenberg MD [address] [place] [address] PCP - General Family Medicine 01/07/23 Xiomy Jones [address] [facility] [address] [place] [address] Ent - Otolaryngology 01/07/23 Team Status: Active Member Role Status Dates Marta Eisenberg MD Primary Care Provider Active Team Status: Inactive Member Role Status Dates Marta Eisenberg MD Primary Care Provider Active Nikkie Hoover MD Attending Provider Active [employer] Technician Relationship Specialty Start Date End Date Marta Eisenberg MD [address] [place] [address] PCP - General Family Medicine 01/07/23 Xiomy Jones [address] [facility] [address] [place] [address] Ent - Otolaryngology 01/07/23 [employer] Laboratory Technician Relationship Specialty Start Date End Date Marta Eisenberg MD [address] [place] [address] PCP - General Family Medicine 01/07/23 Xiomy Jones MD [address] [facility] [address] [place] [address] Ent - Otolaryngology 01/07/23 Earth Science Laboratory Technician Relationship Specialty Start Date End Date Marta Eisenberg MD [address] [place] [phone] PCP - General Family Medicine 01/07/23 Xiomy Jones MD [address] [facility] [address] [place] [address] Ent - Otolaryngology 01/07/23 Team Status: Active Member Role Status Dates Marta Eisenberg MD Primary Care Provider Active Start: November 22, 2023 Nikkie Hoover MD Attending Provider Active Start: November 22, 2023 Team Status: Inactive Member Role Status Dates Marta Eisenberg MD Primary Care Provide r, Attending Provider Active Start: January 10, 2024 End: January 10, 2024 Goals (unrecognized section and content) Goals may be documented in a n alternate section FOR RECORDS PERTAINING TO PATIENTS WHO ARE OR HAVE BEEN ENROLLED IN A CHEMICAL DEPENDENCY/SUBSTANCEABUSE PROGRAM, SOME INFORMATION MAY BE OMITTED. This clinical summary was aggregated from multiple sources. Caution should be exercised in using it in the provision of clinical care. This summary normalizes information from multiple sources, and as a consequence, information in this document may materially change the coding, format and clinical context of patient data. In addition, data may be omitted in some cases. CLINICAL DECISIONS SHOULD BE BASED ON THE PRIMARY CLINICAL RECORDS. [facility] [employer] [facility]. provides no warranty or guarantee of the accuracy or completeness of information in this document.
[2024-01-16 08:26] LABS: Anion Gap 13.2; BUN Creatinine Ratio 19.8; Calcium 8.7 mg/dL (8.5-10.1); Carbon Dioxide 27.9 mmol/L (21.0-32.0); Chloride 106 mmol/L (98-107); Chol HDL Ratio 3.1; Cholesterol 180 mg/dL (<=200); Estimated GFR (African America >60 (>=60); Estimated GFR (Non-African Ame >60 (>=60); Glucose 102 mg/dL (74-106); HDL Cholesterol 59 mg/dL (40-60); LDL Cholesterol Calculated 103.4 mg/dL; Potassium 4.1 mmol/L (3.5-5.1); Sodium 143 mmol/L (136-145); Triglycerides 88 mg/dL (<=150); VLDL CHOLESTEROL 17.6 mg/dL
== END 2024-01-16 07:28 | disposition home or self-care (01) ==
LOC: LAB 07:29
PROVIDERS: PCP Family Medicine; Visit Provider Family Medicine
DX: Z00.00 Encounter for general adult medical examination without abnormal findings (principal)
CPT/HCPCS: 36415; 80048; 80061

== ENCOUNTER 2024-12-25 15:41 | Outpatient (OUT) | payer OTHER, SELFPAY ==
--- NOTE | 2024-12-25 16:10 | MM_ITS ---
Patient Name: CASSIE PEREZ MR#: [id number] : 1965 Exam Date: 12/25/2024 Ordering Doctor: DR MARTA EISENBERG M.D. RADIOLOGY REPORT PROCEDURE: MM TOMOSYNTHESIS SCREENING BI COMPARISON: MM TOMOSYNTHESIS SCREENING BI, 03/02/2023. MG MAMM SCREEN 3D ANN CAD, 03/01/2022. MG MAMM SCREEN 3D ANN CAD, 02/27/2021. MG MAMM ANN SCRN W CAD DIG, 05/22/2013. INDICATIONS: screening for malignant neoplasm of breast Calculator Name NCI Breast Cancer Risk Assessment Tool 5 Year Breast Cancer Risk 1.30% Lifetime Breast Cancer Risk 6.40% Personal Breast Cancer No Personal Ovarian Cancer No Treatments Thyroidectomy & radiation pill, age 57 Family Cancers Father with pancreatic cancer at age 91; Mother with kidney cancer at age 69; Sister with kidney cancer at age 54. LOCATION: [facility] BREAST COMPOSITION: There are scattered areas of fibroglandular density. FINDINGS: DIAGNOSTIC CATEGORY 1--NEGATIVE. RIGHT BREAST: No significant suspicious finding. LEFT BREAST: No significant suspicious finding. RECOMMENDATIONS: ROUTINE MAMMOGRAM AND CLINICAL EVALUATION IN 12 MONTHS. PLEASE NOTE: A NORMAL MAMMOGRAM DOES NOT EXCLUDE THE POSSIBILITY OF BREAST CANCER. A CLINICALLY SUSPICIOUS PALPABLE LUMP SHOULD BE BIOPSIED. Dictated by: Charlie Guan DO on 12/25/2024 at 16:22 Approved by: Charlie Guan DO on 12/25/2024 at 16:25
== END 2024-12-25 15:42 | disposition home or self-care (01) ==
LOC: MAMMO 15:44
PROVIDERS: PCP Family Medicine; Visit Provider Family Medicine
DX: Z12.31 Encounter for screening mammogram for malignant neoplasm of breast (principal)
CPT/HCPCS: 77063; 77067

== ENCOUNTER 2024-12-29 07:41 | Outpatient (OUT) | payer OTHER, SELFPAY ==
--- OUTSIDE RECORDS SUMMARY | 2024-12-29 07:45 | XMS_ITS | Clinical Summary ---
Author Organization [facility] Address [address] [place] [id number] Care Team Providers Care Legal Arbitrator Name Role Phone Ave Barnett MD Primary Care Provider Lena Neff MD Unavailable [phone] Allergies Active Allergy Reactions Criticality Noted Date Comments Penicillins Hives 01/10/2023 Sulfa (Sulfonamide Antibiotics) Hives 12/17 Medications atorvastatin (LIPITOR) 20 mg tablet 01/07/2023 Active MULTIVITAMIN ORAL Take by mouth. Active levothyroxine (SYNTHROID) 137 mcg tablet Take 1 tablet by mouth daily before breakfast. 30 tablet 3 09/19/2024 Active Active Problems Problem Noted Date Diagnosed Date Thyroid cancer 01/24/2023 Encounters Date Type Department Care Team Description 12/25/2024 Orders Only Radiation Oncology [address] [address] Telly Hoover MD 12/24/2024 Orders Only Hematology/Oncology [address] [place] [address] Pauline Boo RPh 12/21/2024 Telephone Radiation Oncology [address] [place] [address] Telly Hoover MD Orders 12/21/2024 Telephone Radiation Oncology [address] [place] [address] Telly Hoover MD 12/19/2024 Telephone Radiation Oncology [address] [place] [address] [place] [address] Telly Hoover MD Patient Question from Last 3 Months Family History Medical History Relation Comments Pancreatic Cancer Father Cancer Maternal Aunt 1 Cancer Maternal Aunt 2 Cancer Maternal Uncle 1 Cancer Maternal Uncle 2 Cancer Maternal Uncle 3 Renal Cell Cancer Mother Cancer Paternal Aunt Renal Cell Cancer Sister Relation Status Comments Father Maternal Aunt 1 Maternal Aunt 2 Maternal Uncle 1 Maternal Uncle 2 Maternal Uncle 3 Mother Paternal Aunt Sister Alive Social History Tobacco Use Types Packs/Day Years Used Date Smoking Tobacco: Never Smokeless Tobacco: Never Tobacco Cessation:Counseling Given: Not Answered Alcohol Use Standard Drinks/Week Comments Not Currently 0 (1 standard drink = 0.6 oz pur e alcohol) rarely PHQ-2 Answer Date Recorded PHQ-2 score 0 07/19/2024 Area Deprivation Index Answer Date Steven rded National Score (1-100), lower number is lower ri sk 89 01/10/2023 State Score (1-10), lower number is lower risk 8 01/10/2023 Data from: https://www.neighborhoodatlas.[facility] [place]/. Last address used for calculation [address] 01/10/2023 Comments No Sex and Gender Information Value Date Recorded Sex Assigned at Not on file Legal Sex Female 10:20 AM EDT Gender Identity Not on file Sexual Orientation Not on file Last Filed Vital Signs Vital Sign Reading Time Taken Comments Blood Pressure 125/80 07/19/2024 1:37 PM EST Pulse 66 07/19/2024 1:37 PM EST Temperature 35.9 C (96.6 F) 07/19/2024 1:37 PM EST Respiratory Rate 18 07/19/2024 1:37 PM EST Oxygen Saturation 99% 07/19/2024 1:37 PM EST Inhaled Oxygen Concentration - - Weight 93.6 kg (206 lb 5.6 oz) 07/19/2024 1:37 P M EST Height 172.7 cm (5' 8 ) 01/10/2023 10:59 AM EDT Body Mass Index 31.38 01/10/2023 10:59 AM EDT Plan of Treatment Upcoming Encounters Date Type Department Care Team (Late st Contact Info) Description 12/31/2024 8:15 AM EDT Office Visit [facility] [address] [place] [address] 1st labs TG, T4, TSH 12/31/2024 8:30 AM EDT Office Visit Radiation Oncology [address] [place] [address] Thyrogen Injection 01/01/2025 8:30 AM EDT Office Visit Radiation Oncology [address] [place] [address] [place] [address] Thyrogen injectin 01/04/2025 9:15 AM EDT Office Visit [facility] [address] [place] [address] lab TG only 01/10/2025 9:30 AM EDT Office Visit Radiation Oncology [address] [place] [address] Telly Hoover MD [address] [place] [address] Follow up Health Maintenance Due Date Last Done Comments Anxiety Screening 1981 Depression Screening 1981 HIV Screening 1981 Hepatitis C Screening 1981 DTaP,Tdap,Td Vaccine (1 - Tdap) 1982 Cervical Cancer Screening 1984 CT Colonography 2008 Colonoscopy 2008 Diabetes Screening 2008 Fecal Occult Blood 2008 Lipid Screening 2008 Sigmoidoscopy 2008 Pneumococcal Vaccine: 50+ (1 of 1 - PCV) 2013 Shingrix Vaccine (1 of 2) 2013 Mammogram Screening 05/22/2020 05/22/2019 Covid-19 Vaccine ( season) 2024 07/21/2021, 10/10/2020, 09/11/2020 Influenza Vaccine (Season Ended) 2025 Cologuard (FIT-DNA) 11/21/2025 11/21/2022, 9 Colorectal Cancer Screening 11/21/2025 RSV Vaccine (1 - 1-dose 75+ series) 2038 Insurance [facility] [employer] PPO Care Teams Legal Arbitrator Relationship Specialty Start Date End Date Ave Barnett MD [address] [place] [id number] PCP - General Family Medicine 01/07/23 Lena Neff MD [address] [facility] [address] [place] [address] Ent - Otolaryngology 01/07/23
--- OUTSIDE RECORDS SUMMARY | 2024-12-29 07:45 | XMS_ITS | Encounter Summary ---
Author Organization [facility] Address [address] [place] [id number] Care Team Providers Care Chest Painting And Sealing Supervisor Name Role Phone Ave Barnett MD Primary Care Provider [phone] Lena Neff MD Unavailable [phone] Source Comments In the event this information is protected by the Federal Confidentiality of Alcohol and Drug AbusePatient Records regulations: The Federal rules restrict any use of the information to criminally investigate or prosecute any alcohol or drug abuse patient.[facility] Reason for Visit * Reason Comments Patient Question Encounter Details Date Type Department Care Team (Late st Contact Info) Description 12/19/2024 Telephone Radiation Oncology [address] [place], [place] [address] [place] [place] [address] Telly Hoover MD [address] [place] [address] [place] [address] Patient Question Social History Tobacco Use Types Packs/Day Years Used Date Smoking Tobacco: Never Smokeless Tobacco: Never Alcohol Use Standard Drinks/Week Comments Not Currently 0 (1 standard drink = 0.6 oz pur e alcohol) rarely PHQ-2 Answer Date Recorded PHQ-2 score 0 07/19/2024 Area Deprivation Index Answer Date Steven rded National Score (1-100), lower number is lower ri sk 89 01/10/2023 State Score (1-10), lower number is lower risk 8 01/10/2023 Data from: https://www.neighborhoodatlas.medicine.[facility]/. Last address used for calculation [address] 01/10/2023 Comments No Sex and Gender Information Value Date Recorded Sex Assigned at Not on file Legal Sex Female 10:20 AM EDT Gender Identity Not on file Sexual Orientation Not on file documented as of this encounter Miscellaneous Notes * Telephone Encounter - Marla Farnsworth RN - 12/19/2024 10:44 AM EDT Patient notified of Dr. Hoover's response. Marla Farnsworth RN * Telephone Encounter - Marla Farnsworth RN - 12/19/2024 8:26 AM EDT Loni called stating she is scheduled for day 2 Thyrogen injection on 12/25/24. She alsohas a mammogram scheduled same day in the afternoon and would like to know if it's ok to keep mammogram as scheduled or should she reschedule? Please advise. Marla Farnsworth RN documented in this encounter Plan of Treatment Upcoming Encounters Date Type Department Care Team (Late st Contact Info) Description 12/31/2024 8:15 AM EDT Office Visit [facility] [address] [place] [address] 1st labs TG, T4, TSH 12/31/2024 8:30 AM EDT Office Visit Radiation Oncology [address] [place] [address] Thyrogen Injection 01/01/2025 8:30 AM EDT Office Visit Radiation Oncology [address] [place] [address] [place] [address] Thyrogen injectin 01/04/2025 9:15 AM EDT Office Visit [facility] [address] [place] [address] lab TG only 01/10/2025 9:30 AM EDT Office Visit Radiation Oncology [address] [place] [address] Telly Hoover MD [address] [place] [address] Follow up documented as of this encounter Visit Diagnoses Not on filedocumented in this encounter Care Teams Chest Painting And Sealing Supervisor Relationship Specialty [place] [address] [place] [phone] PCP - General Family Medicine 01/07/23 Lena Neff MD [address] [place] [id number] Ent - Otolaryngology 01/07/23 documented as of this encounter
--- OUTSIDE RECORDS SUMMARY | 2024-12-29 07:45 | XMS_ITS | CCD ---
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 Name Role Phone Ave Eisenberg Unavailable Zisumaya, Wild Consulting Unavailable FAINA, DR AVE Donohue Attending Unavailable FAINA, DR AVE Donohue Primary Care Unavailable FAINA, DR AVE Donohue Admitting Unavailable EISENBERG, DR AVE Donohue Consulting Unavailable EISENBERG, DR AVE Donohue Primary Care Unavailable FABY ., GRETA Attending Unavailable FABY ., GRETA Admitting Unavailable FABY ., GRETA Consulting Unavailable FAINA, DR AVE Donohue Primary Care Unavailable FABY ., GRETA Attending Unavailable FABY ., GRETA Admitting Unavailable FABY ., GRETA Consulting Unavailable FAINA, DR AVE Donohue Primary Care Unavailable FABY ., GREAT Attending Unavailable FABY ., GRETA Admitting Unavailable FAINA, DR AVE Donohue Consulting Unavailable FAINA, DR AVE Donohue Primary Care Unavailable EISENBERG, DR AVE Donohue Attending Unavailable EISENBERG, DR AVE Donohue Admitting Unavailable OtonielebWild marin Consulting Unavailable FAINA, DR AVE Donohue Consulting Unavailable TIMMIJon, DR STAUFFER Attending Unavailable TIMOSCAR, DR STAUFFER Admitting Unavailable FAINA, DR AVE Donohue Primary Care Unavailable EISENBERG, DR AVE Donohue Primary Care Unavailable TIMMIJon, DR STAUFFER Admitting Unavailable TIMOSCAR, DR STAUFFER Attending Unavailable FAINA, DR AVE Donohue Primary Care Unavailable OtonielebWild marin Consulting Unavailable FAINA, DR AVE Donohue Attending Unavailable FAINA, DR AVE Donohue Admitting Unavailable FAINA, DR AVE Donohue Consulting Unavailable EISENBERG, DR AVE Donohue Primary Care Unavailable EISENBERG, DR AVE Donohue Attending Unavailable FAINA, DR AVE Donohue Admitting Unavailable ZiWild shell Consulting Unavailable FAINA, DR AVE Donohue Consulting Unavailable FAINA, DR AVE Donohue Primary Care Unavailable EISENBERG, DR AVE Donohue Consulting Unavailable FAINA, DR AVE Donohue Attending Unavailable EISENBERG, DR AVE Donohue Admitting Unavailable Eisenberg Ave MOSER E Primary Care Provider AishwaryaLena Cindy Unavailable MD Ave Eisenberg Primary Care Provider MD Nikkie Hoover Attending Provider MD vAe Eisenberg Primary Care Provider MD Nikkie Hoover Attending Provider Nikkie Hoover Admitting Unavailable Nikkie Hoover Attending Unavailable Ave Eisenberg Primary Care Unavailable Lena Neff MD Unavailable Ave Eisenberg MD Primary Care Provider AVE EISENBERG Primary Care Unavailable AVE EISENBERG Primary Care Unavailable Telly HOOVER Attending Unavailable Telly HOOVER Referring Unavailable AVE EISENBERG Primary Care Unavailable Allergies Allergy Classification Reported Allergen(s) Allergy Type Date of Onset Reaction(s) Facility Penicillins (antibiotic) (1 source) Penicillins Drug Allergy 01-10-20 24 Unknown Reaction [facility] Sulfonamides (antibiotic) (1 source) Sulfonamides (Antibiotic) Drug Allergy 01-10-20 24 Unknown Reaction [facility] (4 sources) Penicillin Drug Allergy Unknown [facility] Other (4 sources) PCN-200 Propensity to adverse reactions Unknown [facility] Other (20 sources) Substance with sulfonamide structure and antibacterial mechanism of action (substance) Drug allergy 01-11-20 23 [facility] (4 sources) SULFA 10 Propensity to adverse reactions Unknown [facility] Other (5 sources) Penicillins; Translations: [PENICILLINS] Drug allergy (disorder) 03-04-20 13 [facility] Repository Comment on above: Onset Date: 05/30/20 15 (2 sources) Sulfonamides (Antibiotic) Drug allergy (disorder) 03-04-20 13 [facility] Repository (19 sources) Penicillins Drug Allergy 01-11-20 23 [facility] (1 source) Substance with penicillin structure and antibacterial mechanism of action (substance) Drug allergy Unknown [facility] Other (1 source) patient allergy list reviewed by nurse or physicia Propensity to adverse reactions 05-20-20 16 Comment:Done [facility] Other (1 source) Allergies Reconciled Propensity to adverse reactions Unknown [facility] Other (1 source) Sulf-10 Drug allergy 05-30-20 15 Unknown [facility] Other (2 sources) Sulfonamides (Antibiotic); Translations: [SULFA (SULFONAMIDE ANTIBIOTICS)] Allergy to substance 01-11-20 Unknown Reaction [facility] (5 sources) Penicillins Drug Allergy 01-11-20 [facility] Medications Current Medications Medication Drug Class(es) Dates Sig (Normalized) Sig (Original) atorvastatin 20 mg oral tablet (20 sources) HMG-CoA Reductase Inhibitor Start: 10-13-2023 End: 10-23-2024 take 1 tablet by mouth once daily Atorvastatin 20 mg tablet Active 0 .ROUTE .COMPLEX October 23, 2024 8:28am TAKE 1 TABLET BY MOUTH DAILY Start: 10-13-2023 take 1 tablet by carlie th once daily Atorvastatin Active 0 .ROUTE .COMPLEX October 13, 2023 1:03pm take 1 tablet by mouth once daily Start: 11-12-2022 End: 10-13-2023 atorvastatin (LIPITOR) 20 mg tablet 01/07/2023 Active levothyroxine sodium 0.137 mg oral tablet (20 sources) l-Thyroxine Start: 09-26-2023 take 1 capsule by mouth once daily Levothyroxine 137 mcg capsule Active 137 MCG PO Daily September 26, 2023 12:00am Start: 07-08-2023 End: 09-19-2024 take 1 tablet by mouth once daily before breakfast levothyroxine (SYNTHROID) 137 mcg tablet Take 1 tablet by mouth daily before breakfast. 30 tablet 3 09/19/2024 Active Start: 03-24-2023 take 1 tablet by carlie [...] carlie th daily before breakfast. MULTIVITAMIN ORAL (20 sources) MULTIVITAMIN ORA L Take by mouth. Active MULTIVITAMIN ORA L Take by mouth. 0 Active Comment on above: Take by mouth. Completed/Discontinued Medications Medication Drug Class(es) Dates Sig (Normalized) Sig (Original) gabapentin 800 mg oral tablet (20 sources) Anti-epileptic Agent Start: 08-31-2022 End: 09-26-2023 take 1 tablet by mouth once daily at bedtime Gabapentin 600 mg tablet Discontinued 600 MG PO Daily at bedtime September 02, 2023 1:00am September 26, 2023 3:05pm Start: 08-31-2022 End: 07-27-2024 take 1 tablet by mouth once daily at bedtime Gabapentin 800 mg tablet Discontinued 800 MG PO Daily at bedtime September 26, 2023 12:00am December 27, 2023 9:09am Comment on above: Take by mouth daily at bedtime. glucosamine/msm/chond roitin A ([id number]-V SM ORAL) (19 sources) End: 07-27-2024 glucosamine/msm/chondroiti n A ([id number]-[id number]-WWK ORAL) Take by mouth. 07/27/2024 Discontinued glucosamine/msm/ chondroitin A ([id number]-PWURPX-RDY ORAL) Take by mouth. Active glucosamine/msm/ chondroitin A (MSRXPMMUMHQ-ZLGQAW-YXN ORAL) Take by mouth. 0 Active Comment on above: Take by mouth. liothyronine sodium 0.025 mg oral tablet (13 sources) l-Triiodothyronine Start: 023 take 1 tablet by mouth twice daily liothyronine (CYTOMEL) 25 mcg tablet Take 25 mcg by mouth twice daily. 0 12/29/2022 Active Comment on above: Take 25 mcg by mouth twice daily. permethrin 50 mg/ml topical cream (2 sources) Pyrethroid Start: 024 End: 025 Permethrin 5 % cream Discontinued 1 APPLIC TOPICAL Q14D 60 January 10, 2024 12:00am November 19, 2024 3:30pm apply second treatment 14 days after first treatment if live lice remain pilocarpine hydrochloride 5 mg oral tablet (13 sources) Cholinergic Receptor Agonist Start: 023 take 1 tablet by mouth three times daily pilocarpine (SALAGEN, PILOCARPINE,) 5 mg tablet Indications: Thyroid cancer (HCC) Take 1 tablet by mouth three times daily. Start 01/24/23 15 tablet 0 01/11/2023 Active Comment on above: Take 1 tablet by carlie th three times daily. Start 01/24/23 prochlorperazine 10 mg oral tablet (13 sources) Phenothiazine Start: 023 take 1 tablet by mouth every eight hours as needed prochlorperazine (COMPAZINE) 10 mg tablet Indications: Thyroid cancer (HCC) Take 1 tablet by mouth every 8 hours as needed. 15 tablet 1 01/11/2023 Active Comment on above: Take 1 tablet by carlie th every 8 hours as needed. Problems Active Problems Problem Classification Problem Date Documented Da te Episodic/Chronic Cancer of thyroid (20 sources) Malignant tumor of thyroid gland; Translations: [Malignant neoplasm of thyroid gland] Onset: 01-24-2023 Chronic Disorders of lipid metabolism (5 sources) Hyperlipidemia; Translations: [Hyperlipidemia, unspecified] Onset: 10-11-2018 09-23-2023 Chronic Malaise and fatigue (7 sources) Fatigue; Translations: [Other fatigue] 09-23-2023 Episodic Nonspecific chest pain (3 sources) Chest pain; Translations: [Chest pain, unspecified] [...] Translations: [Tobacco use] Episodic Residual codes; unclassified (2 sources) Tobacco use and exposure - finding; Translations: [Tobacco use] 09-23-2023 Episodic Spondylosis; intervertebral disc disorders; other back problems (9 sources) Degeneration of intervertebral disc; Translations: [Other intervertebral disc degeneration, lumbar region] Onset: 02-18-2022 09-23-2023 Chronic Spondylosis; intervertebral disc disorders; other back problems (7 sources) Sacrococcygeal disorders, not elsewhere classified; Translations: [Low back pain] Onset: 05-20-2016 Episodic Superficial injury; contusion (1 source) Insect bite of lower limb; Translations: [Insect bite (nonvenomous), unspecified lower leg, initial encounter] 01-10-2024 Episodic Thyroid disorders (20 sources) Goiter; Translations: [...] Test Name Value Interpretation Reference Range Facility [facility]RAD[facility] CASSIE WINTERS ([id number]) 1965 F Date Time Provider Department 12/21/24 Telly HOOVER During your visit today, we recorded the following information about you: Mario Farnsworth RN 12/21/2024 4:36 PM Signed I notified Lubna that we do not have insurance authorization for her scheduled Thyrogen injections and will need to reschedule her appts. PSS: please reschedule appt's as follows. Patient is aware of all the new appt dates and times. 12/31 8:15 hem lab 8:30 Thyrogen injection 01/01 8:30 Thyrogen injection 01/04 9:15 hem lab 01/10 9:[address] Hoover. Thanks ERIKA Franco Jodi 12/24/2024 9:21 AM Signed Appointments changed per request Allergies As of Date: 12/21/2024 Noted Allergy Reaction PENICILLINS 01/10/2023 4 - Hives SULFA (SULFONAMIDE ANTIBIOTICS) 01/10/2023 4 - Hives Date Reviewed: 07/19/2024 Reviewed by: Elina Schulte, ERIKA - Fully Assessed Prescriptions as of 12/24/2024 - levothyroxine (SYNTHROID) 137 mcg tablet Take 1 tablet by mouth daily before breakfast. - atorvastatin (LIPITOR) 20 mg tablet - MULTIVITAMIN ORAL Take by mouth. Problem List As Of Date 12/21/2024 Noted Resolved Thyroid cancer (HCC) [C73] 01/24/2023 Encounter Status:Closed by MARIO FARNSWORTH on 12/24/24 [facility] Telephone (RADShepherd Intelligent SystemsA) CASSIE WINTERS ([id number]) 1965 F Date Time Provider Department 12/21/24 Telly HOOVER During your visit today, we recorded the following information about you: Mario Farnsworth RN 12/21/2024 4:37 PM Signed Pharmacist: Please place Thyrogen orders scheduled 12/31/24 and 01/01/[address] Hoover. Thanks ERIKA Franco Kathryn, [facility] 12/24/2024 8:17 AM Signed Orders placed and routed in a separate encounter Giancarlo Pathak, Terri, BCOP Allergies As of Date: 12/21/2024 Noted Allergy Reaction PENICILLINS 01/10/2023 4 - Hives SULFA (SULFONAMIDE ANTIBIOTICS) 01/10/2023 4 - Hives Date Reviewed: 07/19/2024 Reviewed by: Elina Schulte, ERIKA - Fully Assessed Reason for Visit: Orders [681] Prescriptions as of 12/24/2024 - levothyroxine (SYNTHROID) 137 mcg tablet Take 1 tablet by mouth daily before breakfast. - atorvastatin (LIPITOR) 20 mg tablet - MULTIVITAMIN ORAL Take by mouth. Problem List As Of Date 12/21/2024 Noted Resolved Thyroid cancer (HCC) [C73] 01/24/2023 Encounter Status:Closed by PAULINE PATHAK on 12/24/24 [facility] 12-19-2024 [facility] Telephone ([employer]) SINGHCASSIE ([id number]) 1965 F Date Time Provider Department 12/19/24 Telly HOOVER During your visit today, we recorded the following information about you: Mario Farnsworth RN 12/19/2024 8:27 AM Signed Cassie called stating she is scheduled for day 2 Thyrogen injection on 12/25/24. She also has a mammogram scheduled same day in the afternoon and would like to know if it's ok to keep mammogram as scheduled or should she reschedule? Please advise. ERIKA Franco Ariana E, RN 12/19/2024 10:44 AM Signed Patient notified of Dr. Hoover's response. Mario Farnsworth RN Allergies As of Date: 12/19/2024 Noted Allergy Reaction PENICILLINS 01/10/2023 4 - Hives SULFA (SULFONAMIDE ANTIBIOTICS) 01/10/2023 4 - Hives Date Reviewed: 07/19/2024 Reviewed by: Elina Schulte, RN - Fully Assessed Reason for Visit: Patient Question [1477] Prescriptions as of 12/19/2024 - levothyroxine (SYNTHROID) 137 mcg tablet Take 1 tablet by mouth daily before breakfast. - atorvastatin (LIPITOR) 20 mg tablet - MULTIVITAMIN ORAL Take by mouth. Problem List As Of Date 12/19/2024 Noted Resolved Thyroid cancer (HCC) [C73] 01/24/2023 Encounter Status:Closed by MARIO FARNSWORTH on 12/19/24 [facility] CNOVon 07-19-2024 CNOV Office Visit (RADTSA ) SINGHCASSIE ([id number]) 1965 F Date Time Provider Department 07/19/24 1:30 PM Telly HOOVER During your visit today, we recorded the following information about you: Temperature Pulse Respiration Blood pressure 96.6 degrees 66/minute 18/minute 125/80 Weight 93.6 kg Telly Hoover MD 07/27/2024 12:55 PM Signed Radiation Oncology - Follow-up Note [...] area. No abnormal uptake consistent with metastasis. LABORATORY: Latest Reference Range AND Units 01/26/23 10:59 03/17/23 09:49 05/18/23 09:53 11/22/23 08:27 05/23/24 08:23 07/09/24 14:04 Thyroglobulin, LC-MS/MS 1.3 - 31.8 ng/mL 18.7 <0.5 (L) T4 5.5 - 10.2 ug/dL 8.3 9.9 9.0 9.4 TSH 0.270 - 4.200 mIU/L 0.436 0.095 (L) 0.214 (L) 0.255 (L) Thyroglobulin Ab, Serum <4.0 IU/mL 1.1 <0.9 Thyroglobulin, Serum 1.6 - 50.0 ng/mL 0.1 (L) 0.1 (L) (L): Data is abnormally low Latest [...] before breakfast. atorvastatin (LIPITOR) 20 mg tablet MULTIVITAMIN ORAL Take by mouth. gabapentin (NEURONTIN) 800 mg tablet Take by mouth daily at bedtime. glucosamine/msm/chondr oitin A (DGYHEOXZAKK-AAFUIE-NS M ORAL) Take by mouth. PAST MEDICAL HISTORY Diagnosis [...] noted in HPI PHYSICAL EXAM: VS: BP 125/80 Pulse 66 Temp (!) 35.9 ?C (96.6 ?F) Resp 18 Wt 93.6 kg (206 lb 5.6 oz) SpO2 99% BMI 31.38 kg/m? KPS: 100 General Appearance: Alert and oriented. No acute distress. 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 Thyroid cancer: Overall doing fairly well. Thyroglobulin remains very low. On appropriate (more content not included)... Normal [facility] Thyroglobulin and Thyrogobul in Ab panelon 07-09-2024 Thyroglobulin Ab Qn [IU]/mL Normal <4.0 [facility] Comment on above: Order Comment: Smooth verde Type: BLOOD SPECIMEN Ordering Facility: [facility] Address: [address] [place] [address] Result Comment: The Thyroglobulin Antibody test was performed using the [employer] Un[employer]el DXI paramagnetic particle chemiluminescent immunoassay method. Results obtained with different assay methods or kits cannot be used interchangeably. Performed By: #### 5 7780-9 #### [facility] CLIA [id number] [address] [place] [address] [place] THYROGLOBULIN, SERUM 0.1 ng/mL Low 1.6-50.0 [facility] Comment on above: Order Comment: Smooth [place]de Type: BLOOD SPECIMEN Ordering Facility: [facility] Address: [address] [place] [address] Result Comment: The Thyroglobulin test was performed using the [employer] Un[employer]el DXI paramagnetic particle chemiluminescent immunoassay method. Results obtained with different assay methods or kits cannot be used interchangeably. Performed By: #### 5 7780-9 #### [facility] CLIA [id number] [address] [place] [address] OF [facility] CNPNon 06-21-2024 [facility] Telephone (RADTSA) CASSIE WINTERS ([id number]) 1965 F Date Time Provider Department 06/21/24 Telly HOOVER During your visit today, we recorded the following information about you: Elina Schulte RN 06/21/2024 10:44 AM Signed Call placed to pt due to not having thyroglobulin results yet. After speaking to client services, it will be at least 07/02 before these result due to a nationwide shortage of what is needed to run the test. We will cancel follow up for now and monitor for results. Once resulted, we will call patient and reschedule. Pt was notified and in agreement with this plan. PSS- please cancel follow up for now. ERIKA Lennon Jodi 06/21/2024 10:46 AM Signed Cancelled per request Mario Farnsworth RN 07/05/2024 4:13 PM Signed I notified Lubna that the previously drawn Thyroglobulin interference level to be cancelled and patient is to have thyroglobulin reflex drawn. Dr. Hoover: Please sign pended lab order. PSS: Please call patient and schedule lab draw and follow up. Thanks ERIKA Franco Trisha 07/06/2024 3:44 PM Signed Patient is scheduled 07/09/24 at 200PM for labs and following up with Dr Hoover on 07/19/24 at 1045 Christine Semaj PSS Allergies As of Date: 06/21/2024 Noted Allergy Reaction PENICILLINS 01/10/2023 4 - Hives SULFA (SULFONAMIDE ANTIBIOTICS) 01/10/2023 4 - Hives Date Reviewed: 05/31/2023 Reviewed by: Mario Farnsworth LPN - Fully Assessed Reason for Visit: Future Appointment [256] Results [95] Appointment [186] Primary Visit Diagnosis:Thyroid cancer (HCC) [C73] Order(s):THYROGLOBULIN , SERUM WITH REFLEX TO IA OR LC-MS/MS [SQTHYRORF] Order #: [id number] FUTURE Prescriptions as of 07/09/2024 - levothyroxine (SYNTHROID) 137 mcg tablet Take 1 tablet by mouth daily before breakfast. - atorvastatin (LIPITOR) 20 mg tablet - gabapentin (NEURONTIN) 800 mg tablet Take by mouth daily at bedtime. - glucosamine/msm/chondr oitin A (FRHRQYEQTZU-RSPEKT-CW M ORAL) Take by mouth. - MULTIVITAMIN ORAL Take by mouth. Problem List As Of Date 06/21/2024 Noted Resolved Thyroid cancer (HCC) [C73] 01/24/2023 Encounter Status:Closed by MARIO FARNSWORTH on 07/09/24 Normal [facility] T4 SerPl-mCncon 05-23-2024 T4 [Mass/Vol] 9.4 ug/dL Normal 5.5-10.2 [facility] Comment on above: Order Comment: Speci men Type: BLOOD SPECIMEN Ordering Facility: [facility] Address: [address] [place] [address] Performed By: #### 3 016-3, 3026-2 #### [facility] CLIA [id number] [address] [place] [address] [place] TSH SerPl-aCncon 05-23-2024 TSH Qn 0.255 m[IU]/L Low 0.270-4.200 [facility] Comment on above: Order Comment: Merissai men Type: BLOOD SPECIMEN Ordering Facility: [facility] Address: [address] [place] [address] Performed By: #### 3 016-3, 3026-2 #### [facility] CLIA [id number] [facility] [place] [address] [place] Laboratory - Chemistry and C hemistry - challengeon 11-22-2023 T4 [Mass/Vol] 9.0 ug/dL 5.5-10.2 [facility] TSH Qn 0.214 m[IU]/L 0.270-4.200 [facility] Thyroglobulin [Mass/volume] in Serum or Plasmaon 11-22-2023 Thyroglobulin [Mass/Vol] <0.5 ng/mL 1.3-31.8 [facility] Comment on above: Results obtained wit h [...] developed and its performance characteristics determined by [employer]. It has not been cleared or approved by the [place] Food and Drug Administration. This test was performed in a CLIA certified laboratory and is intended for clinical purposes.Performed By: [employer] [place] [address] [id number] Director: Jose Carlos Rico MD, PhDCLIA Number: [id number] NM thyroid ca whole bodyon 0 02-02-2023 NM thyroid ca whole body [place] [id number] Nuclear Medicine Report Signed Patient: Cassie Winters MR#: [id number] : 1965 Acct:[id number] Age/Sex: 57 / F ADM Date: 01/26/23 Loc: [place] Room: Type: [facility] Attending Dr: Nikkie Hoover MD Copies to: [...] Lokesh Guzmán M.D.02/02/2023 3:40 PM Dictation Location: [place] [address] Transcribed By: [facility] 02/02/23 1540 Dictated By: Lokesh Guzmán II, MD 02/02/23 1534 Signed By: 02/02/[address] [facility] US THYROID FN ASP BXon 11-30 US THYROID FN ASP BX Begin Addendum #1 COLLECTED DATE/TIME: 11/19/2022, 13:16 EDT Final Diagnosis Report for [facility] [place] [place] (A/B) LEFT THYROID MID LOBE NODULE; [...] 2. Pathology results are pending. Normal [facility] US THYROIDon 11-08-2022 US THYROID EXAMINATION: US [...] fine needle aspiration (FNA). Electronically authenticated by: WILD ZHOU Date: 2022-11-08 15:05 Normal [facility] CBC AUTO DIFFon 11-06-2022 BASO # 0.0 103/ul Normal 0.0-0.1 [facility] Comment on above: Performed By: #### C BC #### [facility] [address] [place] [address] [address] Joellen Kohli Basophils/100 WBC (Bld) 0.5 % Normal 0.2-2.0 [facility] Comment on above: Performed By: #### C BC #### [facility] [address] [place] [address] [address] Joellen Kohli EO # 0.1 103/ul Normal 0.0-0.7 [facility] Comment on above: Performed By: #### C BC #### [facility] [address] [place] [address] Dr. Joellen Kohli Eosinophils/100 WBC (Bld) 1.7 % Normal 0.9-7.0 [facility] Comment on above: Performed By: #### C BC #### [facility] [address] [place] [address] Dr. Joellen Kohli Erythrocyte distribution width (RBC) [Ratio] 11.5 % Normal 11.0-15.0 [facility] Comment on above: Performed By: #### C BC #### [facility] [address] [place] [address] Dr. Joellen Kohli Hematocrit (Bld) [Volume fraction] 42.0 % Normal 36.0-48.0 [facility] Comment on above: Performed By: #### C BC #### [facility] [address] [place] [address] Dr. Joellen Kohli Hemoglobin (Bld) [Mass/Vol] 14.1 g/dL Normal 12.0-16.0 [facility] Comment on above: Performed By: #### C BC #### [facility] [address] [place] [address] Dr. Joellen Kohli IG # 0.01 10e3/ul Normal 0.00-0.03 [facility] Comment on above: Performed By: #### C BC #### [facility] [address] [place] [address] Dr. Joellen Kohli IG % 0.2 % Normal 0.0-0.5 [facility] Comment on above: Performed By: #### C BC #### [facility] [address] [place] [address] Dr. Joellen Kohli LYMPH # 2.2 103/ul Normal 1.2-3.8 [facility] Comment on above: Performed By: #### C BC #### [facility] [address] [place] [address] Dr. Joellen Kohli Lymphocytes/100 WBC (Bld) 38.1 % Normal 20.5-60.0 [facility] Comment on above: Performed By: #### C BC #### [facility] [address] [place] [address] Dr. Joellen Kohli MANUAL DIFF REQ NO Normal [facility] Comment on above: Performed By: #### C BC #### [facility] [address] [place] [address] Dr. Joellen Kohli MCH (RBC) [Entitic mass] 30.9 pg Normal 26.7-34.0 [facility] Comment on above: Performed By: #### C BC #### [facility] [address] [place] [address] Dr. Joellen Kohli MCHC (RBC) [Mass/Vol] 33.6 g/dL Normal 29.9-35.2 [facility] Comment on above: Performed By: #### C BC #### [facility] [address] [place] [address] Dr. Joellen Kohli MCV (RBC) [Entitic vol] 91.9 fL Normal 81.0-99.0 [facility] Comment on above: Performed By: #### C BC #### [facility] [address] [place] [address] Dr. Joellen Kohli MONO # 0.5 103/ul Normal 0.3-0.8 [facility] Comment on above: Performed By: #### C BC #### [facility] [address] [place] [address] Dr. Joellen Kohli Monocytes/100 WBC (Bld) 9.2 % Normal 1.7-12.0 [facility] Comment on above: Performed By: #### C BC #### [facility] [address] [place] [address] Dr. Joellen Kohli NEUT # 2.9 103/ul Normal 1.4-6.5 [facility] Comment on above: Performed By: #### C BC #### [facility] [address] [place] [address] Dr. Joellen Kohli Neutrophils/100 WBC (Bld) 50.3 % Normal 43.0-75.0 [facility] Comment on above: Performed By: #### C BC #### [facility] [address] [place] [address] Dr. Joellen Kohli Platelet mean volume (Bld) [Entitic vol] 9.1 fL Critically low 9.5-13.5 [facility] Comment on above: Performed By: #### C BC #### [facility] [address] [place] [address] Dr. Joellen Kohli PLT 306 103/ul Normal 150-450 [facility] Comment on above: Performed By: #### C BC #### [facility] [address] [address] [address] Joellen Kohli RBC 4.57 106/ul Normal 4.20-5.40 [facility] Comment on above: Performed By: #### C BC #### [facility] [address] [place] [address] Dr. Joellen Kohli WBC 5.8 103/ul Normal 4.0-11.0 [facility] Comment on above: Performed By: #### C BC #### [facility] [address] [place] [address] Dr. Joellen Kohli LIPID PROFILEon 11-06-2022 CHOL-HDL RATIO NORM SEE BELOW Normal [facility] Comment on above: Result Comment: 3.3 - 4.4 LOW RISK 4.4 - 7.1 AVERAGE RISK 7.1 - 11.0 MODERATE RISK >11.0 HIGH RISK Performed By: #### C MP, TSH, LIPID #### [facility] [address] [place] [address] Dr. Joellen Kohli Cholesterol [Mass/Vol] 276 mg/dL Critically high <=200 [facility] Comment on above: Performed By: #### C MP, TSH, LIPID #### [facility] [address] [place] [address] Dr. Joellen Kohli Cholesterol in HDL [Mass/Vol] 52 mg/dL Normal 40-60 [facility] Comment on above: Performed By: #### C MP, TSH, LIPID #### [facility] [address] [place] [address] Dr. Joellen Kohli Cholesterol in LDL [Mass/Vol] 192.4 mg/dL Normal [facility] Comment on above: Performed By: #### C MP, TSH, LIPID #### [facility] [address] [address] [address] Joellen Kohli Cholesterol.total/C holesterol in HDL [Mass ratio] 5.3 {ratio} Normal [facility] Comment on above: Performed By: #### C MP, TSH, LIPID #### [facility] [address] [address] [address] Joellen Kohli HDL NORMAL > or = 60 mg/dl - LO W CARDIOVASCULAR RISK <40 mg/dl - HIGH CARDIOVASCULAR RISK Normal [facility] Comment on above: Performed By: #### C MP, TSH, LIPID #### [facility] [address] [address] [address] Joellen Kohli LDL CALC NORMAL SEE BELOW Normal [facility] Comment on above: Result Comment: <100 mg/dl OPTIMAL 100 - 129 mg/dl NEAR OR ABOVE OPTIMAL 130 - 159 mg/dl BORDERLINE HIGH 160 - 189 mg/dl HIGH >190 mg/dl VERY HIGH Performed By: #### C MP, TSH, LIPID #### [facility] [address] [address] [address] Joellen Kohli Triglyceride [Mass/Vol] 158 mg/dL Critically high <=150 [facility] Comment on above: Performed By: #### C MP, TSH, LIPID #### [facility] [address] [place] [address] Dr. Joellen Kohli VLDL CALC 31.6 mg/dL Normal [facility] Comment on above: Performed By: #### C MP, TSH, LIPID #### [facility] [address] [address] [address] Joellen Kohli PROF 14(COMP METB)on 023 Albumin [Mass/Vol] 3.8 g/dL Normal 3.4-5.0 [facility] Comment on above: Performed By: #### C MP, TSH, LIPID #### [facility] [address] [place] [address] Dr. Joellen Kohli Albumin/Globulin [Mass ratio] 1.0 {ratio} Normal [facility] Comment on above: Performed By: #### C MP, TSH, LIPID #### [facility] [address] [address] [address] Joellen Kohli ALP [Catalytic activity/Vol] 115 U/L Normal 46-116 [facility] Comment on above: Performed By: #### C MP, TSH, LIPID #### [facility] [address] [address] [address] Joellen Kohli ALT [Catalytic activity/Vol] 35 U/L Normal 14-59 [facility] Comment on above: Performed By: #### C MP, TSH, LIPID #### [facility] [address] [address] [address] Joellen Kohli Anion gap [Moles/Vol] 11.5 mmol/L Normal [facility] Comment on above: Performed By: #### C MP, TSH, LIPID #### [facility] [address] [address] [address] Joellen Kohli AST [Catalytic activity/Vol] 17 U/L Normal 15-37 [facility] Comment on above: Performed By: #### C MP, TSH, LIPID #### [facility] [address] [address] [address] Joellen Kohli Bilirubin [Mass/Vol] 0.5 mg/dL Normal 0.2-1.0 [facility] Comment on above: Performed By: #### C MP, TSH, LIPID #### [facility] [address] [address] [address] Joellen Kohli Calcium [Mass/Vol] 9.4 mg/dL Normal 8.5-10.1 [facility] Comment on above: Performed By: #### C MP, TSH, LIPID #### [facility] [address] [address] [address] Joellen Kohli Chloride [Moles/Vol] 106 mmol/L Normal 98-107 [facility] Comment on above: Performed By: #### C MP, TSH, LIPID #### [facility] [address] [address] [address] Joellen Kohli CO2 [Moles/Vol] 26.8 mmol/L Normal 21.0-32.0 [facility] Comment on above: Performed By: #### C MP, TSH, LIPID #### [facility] [address] [address] [address] Joellen Kohli Creatinine [Mass/Vol] 0.89 mg/dL Normal 0.55-1.02 [facility] Comment on above: Performed By: #### C MP, TSH, LIPID #### [facility] [address] [address] [address] Joellen Kohli EGFR-AF BHUTANESE >60 Normal >=60 [facility] Comment on above: Performed By: #### C MP, TSH, LIPID #### [facility] [address] [address] [address] Joellen Kohli EGFR-NON AF BHUTANESE >60 Normal >=60 [facility] Comment on above: Performed By: #### C MP, TSH, LIPID #### [facility] [address] [address] [address] Joellen Kohli Globulin (S) [Mass/Vol] 3.9 g/dL Normal [facility] Comment on above: Performed By: #### C MP, TSH, LIPID #### [facility] [address] [address] [address] Joellen Kohli Glucose [Mass/Vol] 104 mg/dL Normal 74-106 [facility] Comment on above: Performed By: #### C MP, TSH, LIPID #### [facility] [address] [address] [address] Joellen Kohli Potassium [Moles/Vol] 4.3 mmol/L Normal 3.5-5.1 [facility] Comment on above: Performed By: #### C MP, TSH, LIPID #### [facility] [address] [address] [address] Joellen Kohli Protein [Mass/Vol] 7.7 g/dL Normal 6.4-8.2 [facility] Comment on above: Performed By: #### C MP, TSH, LIPID #### [facility] [address] [address] [address] Joellen Kohli Sodium [Moles/Vol] 140 mmol/L Normal 136-145 [facility] Comment on above: Performed By: #### C MP, TSH, LIPID #### [facility] [address] [address] [address] Joellen Kohli Urea nitrogen [Mass/Vol] 16.0 mg/dL Normal 7.0-18.0 [facility] Comment on above: Performed By: #### C MP, TSH, LIPID #### [facility] [address] [address] [address] Joellen Kohli Urea nitrogen/Creatinine [Mass ratio] 18.0 mg/mg Normal [facility] Comment on above: Performed By: #### C MP, TSH, LIPID #### [facility] [address] [address] [address] Joellen Kohli TSHon 11-06-2022 TSH 1.121 uIU/mL Normal 0.358-3.740 [facility] Comment on above: Performed By: #### C MP, TSH, LIPID #### [facility] [address] [address] [address] Joellen Kohli MG MAMM SCREEN 3D ANN CADon 03-01-2022 MG MAMM SCREEN 3D ANN CAD Patient: CASSIE WINTERS Exam Date: 03/01/2022 : 1965 Gender:F Ordering : DR AVE EISENBERG M.D. Admission #: [id number] Family : Order #: [id number] CLICK HERE TO VIEW EXAM RADIOLOGY REPORT [...] kidney cancer at age 52. LOCATION: [facility] BREAST COMPOSITION: Scattered areas fibroglandular density. FINDINGS: [...] PALPABLE LUMP SHOULD BE BIOPSIED. Dictated by: Wild Zhou M.D. on 03/01/2022 at 11:53 Approved by: Wild Zhou M.D. on 03/01/2022 at 11:56 Normal [facility] XR LSPINE MIN 4 VIEWSon 08-0 XR LSPINE MIN 4 VIEWS EXAMINATION: XR [...] changes; not appreciably changed. Electronically authenticated by: WILD ZHOU Date: 2022-02-15 07:44 Normal [facility] Provider Letter FTon 10-09 Provider Letter [facility] [place] [place] [address], [facility] [place] [address] Re: CASSIE WINTERS Date of : 1965 Thank you for your referral of Cassie Winters who was seen on consultation on October 01, 2020, for flare up of rectal pressure. I have enclosed my consultation note for your review. I will be happy to follow Cassie should her symptoms continue. Sincerely, Mckinley Hernadez MD General Surgery Normal [facility] Ambulatory Clinical Summaryo n 10-01-2020 Ambulatory Clinical Summary {[id number]}CD:[id number] Normal [facility] General Surgery Office/Clini c Noteon 10-01-2020 General Surgery Office/Clinic Note HPI Staff 55 year old female on consultation from [address] for recent flare up of rectal [...] With When Contact Information ДМИТРИЙ MOSER, Mckinley Cyr [place] [address]- Additional Instructions: Problem List/Past Medical [...] inactivated - Not Given Patient Refuses Normal [facility] Comment on above: Result Comment: Elec tronically Signed By: ДМИТРИЙ MOSER, Mckinley Schulte\Date and Time Signed: 10/01/20 16:58 EDT Ambulatory Clinical Summaryo n 09-17-2020 Ambulatory Clinical Summary {[id number]}CD:[id number] Normal [facility] Physician Referralon 021 Physician Referral [id number] 0CD:127 [facility] Vital Signs Date Time Vital Sign Value Performing Clinician Facility 11-19-2024 15:25-0400 Body height 168.91 cm [facility] 11-19-2024 15:25-0400 Body mass index (BMI) [Ratio] 33 kg/m2 [facility] 11-19-2024 15:25-0400 Body weight 94.34 kg [facility] 11-19-2024 15:25-0400 Diastolic blood pressure 73 mm[Hg] [facility] 11-19-2024 15:25-0400 Heart rate 71 /min [facility] 11-19-2024 15:25-0400 Systolic blood pressure 111 mm[Hg] [facility] 07-19-2024 13:37-0500 Body mass index (BMI) [Ratio] 31.38 kg/m2 MARCE Hoover MD Work Phone: [facility] 07-19-2024 13:37-0500 Body temperature 96.6 [degF] MARCE Hoover MD Work Phone: [facility] 07-19-2024 13:37-0500 Body weight 93.6 kg MARCE Hoover MD Work Phone: [facility] 07-19-2024 13:37-0500 Diastolic blood pressure 80 mm[Hg] MARCE Hoover MD Work Phone: [facility] 01-02-2025 13:37-0500 Heart rate 66 /min MARCE Hoover MD Work Phone: [facility] 07-19-2024 13:37-0500 Respiratory rate 18 /min MARCE Hoover MD Work Phone: [facility] 07-19-2024 13:37-0500 SaO2% (BldA) [Mass fraction] 99 % MARCE Hoover MD Work Phone: [facility] 07-19-2024 13:37-0500 Systolic blood pressure 125 mm[Hg] MARCE Hoover MD Work Phone: [facility] 01-10-2024 09:15-0400 Body height 168.91 cm [facility] 01-10-2024 09:15-0400 Body mass index (BMI) [Ratio] 32.1 kg/m2 [facility] 01-10-2024 09:15-0400 Body weight 91.62 kg [facility] 01-10-2024 09:15-0400 Diastolic blood pressure 72 mm[Hg] [facility] 01-10-2024 09:15-0400 Heart rate 71 /min [facility] 01-10-2024 09:15-0400 Systolic blood pressure 111 mm[Hg] [facility] 11-29-2023 14:48-0400 Body mass index (BMI) [Ratio] 30.67 kg/m2 MARCE Hoover MD Work Phone: [facility] 11-29-2023 14:48-0400 Body weight 91.5 kg MARCE Hoover MD Work Phone: [facility] 05-31-2023 14:24-0500 Body temperature 97.39 [degF] MARCE Hoover MD Work Phone: [facility] 05-31-2023 14:24-0500 Body weight 94.8 kg MARCE Hoover MD Work Phone: [facility] 05-31-2023 14:24-0500 Diastolic blood pressure 73 mm[Hg] MARCE Hoover MD Work Phone: [facility] 05-31-2023 14:24-0500 Heart rate 75 /min MARCE Hoover MD Work Phone: [facility] 05-31-2023 14:24-0500 Respiratory rate 16 /min MARCE Hoover MD Work Phone: [facility] 05-31-2023 14:24-0500 SaO2% (BldA) [Mass fraction] 100 % MARCE Hoover MD Work Phone: [facility] 05-31-2023 14:24-0500 Systolic blood pressure 107 mm[Hg] MARCE Hoover MD Work Phone: [facility] 01-25-2023 08:54-0400 Body temperature 97.11 [degF] [facility] [place] Work Phone: [facility] 01-25-2023 08:54-0400 Diastolic blood pressure 81 mm[Hg] [facility] [place] Work Phone: [facility] 01-25-2023 08:54-0400 Heart rate 82 /min [facility] [place] Work Phone: [facility] 01-25-2023 08:54-0400 Respiratory rate 18 /min [facility] [place] Work Phone: [facility] 01-25-2023 08:54-0400 SaO2% (BldA) [Mass fraction] 98 % [facility] [place] Work Phone: [facility] 01-25-2023 08:54-0400 Systolic blood pressure 130 mm[Hg] [facility] [place] Work Phone: [facility] 01-24-2023 08:53-0400 Body temperature 97.2 [degF] [facility] [place] Work Phone: [facility] 01-24-2023 08:53-0400 Body weight 94.35 kg [facility] [place] Work Phone: [facility] 01-24-2023 08:53-0400 Diastolic blood pressure 78 mm[Hg] [facility] [place] Work Phone: [facility] 01-24-2023 08:53-0400 Heart rate 73 /min [facility] [place] Work Phone: [facility] 01-24-2023 08:53-0400 Respiratory rate 16 /min [facility] [place] Work Phone: [facility] 01-24-2023 08:53-0400 SaO2% (BldA) [Mass fraction] 98 % [facility] [place] Work Phone: [facility] 01-24-2023 08:53-0400 Systolic blood pressure 115 mm[Hg] [facility] [place] Work Phone: [facility] 01-10-2023 10:59-0400 Body height 172.7 cm MARCE Hoover MD Work Phone: [facility] 01-10-2023 10:59-0400 Body temperature 98.4 [degF] MARCE Hoover MD Work Phone: [facility] 01-10-2023 10:59-0400 Body weight 95.71 kg MARCE Hoover MD Work Phone: [facility] 01-10-2023 10:59-0400 Diastolic blood pressure 69 mm[Hg] MARCE Hoover MD Work Phone: [facility] 01-10-2023 10:59-0400 Heart rate 76 /min MARCE Hoover MD Work Phone: [facility] 01-10-2023 10:59-0400 Respiratory rate 16 /min MARCE Hoover MD Work Phone: [facility] 01-10-2023 10:59-0400 SaO2% (BldA) [Mass fraction] 98 % MARCE Hoover MD Work Phone: [facility] 01-10-2023 10:59-0400 Systolic blood pressure 108 mm[Hg] MARCE Hoover MD Work Phone: [facility] 11-04-2022 15:00-0400 Body height 168.[address] Other [employer] Other 11-04-2022 15:00-0400 Body mass index (BMI) [Ratio] 33.86 kg/m2 [facility] Other [employer] Other 11-04-2022 15:00-0400 Body weight 96.[address] Other [employer] Other 11-04-2022 15:00-0400 Diastolic blood pressure 80 mm[Hg] [facility] Other [facility] Other 11-04-2022 15:00-0400 SaO2% (BldA) [Mass fraction] 99 % [address] [facility] Other [facility] Other 11-04-2022 15:00-0400 Systolic blood pressure 120 mm[Hg] [facility] Other [employer] Other Encounters Encounter Date Encounter Type Care Provider Facility Start: 12-25-2024 End: 12-25-2024 Orders Only Telly Hoover MD Work Phone: [facility] Start: 12-24-2024 End: 12-24-2024 Orders Only Pauline Pathak [facility] Work Phone: Hematology/Oncology Start: 12-21-2024 End: 12-24-2024 Telephone encounter Telly Hoover MD Work Phone: Radiation Oncology Comment on above: Orders Start: 12-19-2024 End: 12-19-2024 Telephone encounter Telly Hoover MD Work Phone: Radiation Oncology Comment on above: Patient Question Start: 11-19-2024 End: 11-19-2024 [facility] Work Phone: Start: 11-19-2024 End: 11-19-2024 Encounter for general adult medical examination without abnormal findings [facility] Start: 11-19-2024 End: 11-19-2024 Patient encounter procedure [facility] Work Phone: Start: 09-19-2024 End: 09-19-2024 Refill Telly Hoover MD Work Phone: Radiation Oncology Comment on above: Refill Request Start: 07-19-2024 End: 07-19-2024 ambulatory Telly HOOVER Facility:[facility] Start: 07-19-2024 End: 07-19-2024 Office outpatient visit 15 minutes Telly Hoover MD Work Phone: Radiation Oncology Comment on above: Thyroid cancer (HCC) (Primary Dx) Start: 07-09-2024 End: 07-09-[address] Facility:[facility] Start: 06-21-2024 End: 07-09-2024 Telephone encounter Telly Hoover MD Work Phone: Radiation Oncology Comment on above: Future Appointment; Results; Appointment Start: 05-23-2024 End: 05-23-[address] [facility] [address] Facility:[facility] Start: 02-16-2024 Refill Telly davila MD Work Phone: Radiation Oncology Comment on above: Refill Request Start: 01-10-2024 Patient encounter status [facility] Start: 01-10-2024 End: 01-10-2024 ambulatory [facility] Work Phone: Start: 01-10-2024 End: 01-10-2024 Patient encounter procedure [facility] Work Phone: Start: 11-29-2023 End: 11-29-2023 Patient encounter procedure Telly Hoover MD Work Phone: Radiation Oncology Comment on above: Thyroid cancer (HCC) (Primary Dx) Start: 11-22-2023 Non-patient / Non-visit [facility] Work Phone: Start: 10-21-2023 Refill Telly davila MD Work Phone: Radiation Oncology Comment on above: Refill Request Start: 08-17-2023 End: 08-17-[address] Other [facility] [employer] Other Start: 08-17-[address] [facility] Start: 05-31-2023 End: 05-31-2023 Patient encounter procedure Telly Hoover MD Work Phone: Radiation Oncology Comment on above: Thyroid cancer (HCC) (Primary Dx) Start: 03-17-2023 Telephone encounter Telly Hoover MD Work Phone: Radiation Oncology Comment on above: Medication Dosage Ad justment; Results, Lab Start: 01-28-2023 Telephone encounter Telly Hoover MD Work Phone: Radiation Oncology Comment on above: Patient Question Start: 01-26-2023 End: 01-26-2023 ambulatory Nikkie Hoover Facility:[facility] Start: 01-26-2023 End: 01-26-[address] Work Phone: [facility] Work Phone: Start: 01-26-2023 End: 01-26-2023 Patient encounter procedure MD [address] Work Phone: [facility] Work Phone: Comment on above: Thyroid cancer (HCC) (Primary Dx) Start: 01-25-2023 End: 01-25-2023 Patient encounter procedure [facility] [place] Work Phone: Radiation Oncology Comment on above: Thyroid cancer (HCC) (Primary Dx) Start: 01-24-2023 End: 01-24-2023 Orders Only Telly Hoover MD Work Phone: Radiation Oncology Comment on above: Thyroid cancer (HCC) (Primary Dx) Start: 01-24-2023 End: 01-24-[address] Work Phone: [facility] [place] Work Phone: Start: 01-21-2023 Patient encounter procedure [facility] Provider [facility] Start: 01-19-2023 Telephone encounter Telly Hoover MD Work Phone: Radiation Oncology Comment on above: Patient Update Start: 01-17-2023 Patient encounter procedure [facility] Provider [facility] Start: 01-17-2023 Telephone encounter Telly Hoover MD Work Phone: Radiation Oncology Comment on above: Orders Start: 01-14-2023 Patient encounter procedure [facility] Provider [facility] Start: 01-11-2023 End: 01-11-[address] Work Phone: [place] Start: 01-11-2023 End: 01-11-2023 Nutrition therapy Anamika Alston RD Work Phone: Nutrition Therapy Comment on above: Nutrition Telephone Start: 01-10-2023 End: 01-10-2023 Patient encounter procedure Telly Hoover MD Work Phone: Radiation Oncology Comment on above: Thyroid cancer (HCC) (Primary Dx) Start: 12-28-[address] LENA Nugenti ty:[facility] Start: 12-21-[address] Nugent ity:[facility] Start: 11-24-2022 End: 11-24-[address] Other [employer] Other Start: 11-24-[address] [facility] Start: 11-19-2022 End: 11-19-[address] Facility:[facility] Start: 11-11-2022 Encounter for genera l adult medical examination without abnormal findings DR AVE EISENBERG [facility] Start: 11-09-2022 End: 11-09-[address] Other [employer] Other Start: 11-09-[address] [facility] Start: 11-08-2022 End: 11-09-[address] E[address] Facility:[facility] Start: 11-06-2022 End: 11-07-[address] E[address] Facility:[facility] Start: 11-06-2022 End: 11-07-2022 Encounter for general adult medical examination without abnormal findings DR A[facility] EISEN[facility] Facility:[facility] Start: 11-04-2022 End: 11-04-[address] Other [employer] Other Start: 11-04-2022 Encounter for genera l adult medical examination without abnormal findings [facility] Start: 11-04-2022 Periodic preventive med est patient 40-[address] [facility] Start: 03-19-[address] Facil ity:[facility]1 Start: 03-05-2022 End: 03-05-[address] Facility:[facility] Start: 03-01-2022 End: 03-02-[address] Facility:[facility] Start: 02-19-2022 End: 02-20-[address] Facility:[facility] Start: 02-13-2022 End: 02-14-2022 ambulatory Wild Zhuo Facility:[facility] Start: 02-12-[address] Other [employer] Other Procedures Date Procedure Procedure Detail Performing Clinician Start: 05-22-[address] Work Phone: Start: 06-19-2018 General examination of patient [facility] Start: 06-19-2018 Screening for malign ant neoplasm of colon [facility] Screening for malign ant neoplasm of breast [facility] Plan of Treatment Date Care Activity Detail Author Start: 2038 RSV Vaccine (1 - 1-d ose 75+ series) RSV Vaccine (1 - 1-dose 75+ series) [facility] Start: 11-21-2025 Screening for malign ant neoplasm of colon [facility] Start: 03-18-2025 Influenza vaccination Influenz a Vaccine (Season Ended) [facility] Start: 01-16-2025 End: 04-17-2025 Thyroglobulin and Thyrogobulin Ab panel - Serum or Plasma THYROGLOBULIN, SERUM WITH REFLEX TO IA OR LC-MS/MS Lab Routine Thyroid cancer (HCC) Expected: 01/16/2025, Expires: 04/17/2025 [facility] Work Phone: Comment on above: Expected: 01/16/2025 , Expires: 04/17/2025 Start: 01-16-2025 End: 04-17-2025 Thyrotropin [Units/volume] in Serum or Plasma THYROID STIMULATING HORMONE Lab Routine Thyroid cancer (HCC) Expected: 01/16/2025, Expires: 04/17/2025 [facility] Comment on above: Expected: 01/16/2025 , Expires: 04/17/2025 Start: 01-16-2025 End: 04-17-2025 Thyroxine (T4) free [Mass/volume] in Serum or Plasma T4 FREE/FREE THYROXINE Lab Routine Thyroid cancer (HCC) Expected: 01/16/2025, Expires: 04/17/2025 [facility] Comment on above: Expected: 01/16/2025 , Expires: 04/17/2025 Start: 01-10-2025 End: 01-10-2025 Patient encounter procedure 01/10/2025 9:30 AM EDT Office Visit Radiation Oncology [address] [place] [address] Telly Hoover MD [address] [place] [address] Follow up Radiation Oncology Comment on above: Follow up Start: 01-09-2025 End: 01-09-2025 Patient encounter procedure 01/09/2025 11:45 AM EDT Office Visit Radiation Oncology [address] [place] [address] Telly Hoover MD [address] [facility] [place] [address] Follow up Radiation Oncology Comment on above: Follow up Start: 01-04-2025 End: 01-04-2025 Patient encounter procedure 01/04/2025 9:15 AM EDT Office Visit [facility] [address] [facility] [address] [place] [address] [facility] Comment on above: lab TG only Start: 01-01-2025 End: 01-01-2025 Patient encounter procedure 01/01/2025 8:30 AM EDT Office Visit Radiation Oncology [address] [facility] [place] [address] Thyrogen injectin Radiation Oncology Comment on above: Thyrogen injectin Start: 12-31-2024 End: 12-31-[address] [facility] Comment on above: 1st labs TG, T4, TSH Thyrogen Injection Start: 12-28-2024 End: 12-28-2024 Nursing evaluation of patient and report 12/28/2024 9:00 AM EDT Nurse Visit Radiation Oncology [address] [facility] [place] [address] Betzaida, Nurse Radt [address] [facility] [place] [address] lab TG only Radiation Oncology Comment on above: lab TG only Start: 12-28-2024 End: 12-28-2024 Patient encounter procedure 12/28/2024 9:00 AM EDT Office Visit [facility] [address] [facility] [place] [address] [facility] Comment on above: lab TG only Start: 12-25-2024 End: 12-25-2024 Nursing evaluation of patient and report 12/25/2024 9:15 AM EDT Nurse Visit Radiation Oncology [address] [facility] [place] [address] Betzaida, Nurse Radt [address] [facility] [place] [address] injection Thyrogen Radiation Oncology Comment on above: injection Thyrogen Start: 12-25-2024 End: 12-25-2024 Patient encounter procedure 12/25/2024 9:00 AM EDT Office Visit Radiation Oncology [address] [facility] [place] [address] Injection Thyrogen Radiation Oncology Comment on above: Injection Thyrogen Start: 12-24-2024 End: 12-24-2024 Patient encounter procedure 12/24/2024 9:00 AM EDT Office Visit Radiation Oncology [address] [facility] [place] [address] 1st labs TG, T4, TSH Radiation Oncology Comment on above: 1st labs TG, T4, TSH Start: 07-19-2024 End: 07-19-2024 Patient encounter procedure 07/19/2024 10:45 AM EST Office Visit Radiation Oncology [address] [facility] [place] [address] Telly Hoover MD [address] [facility] [place] [address] follow up from labs Radiation Oncology Comment on above: follow up from labs Start: 07-06-2024 End: 10-05-2024 Thyroglobulin and Thyrogobulin Ab panel - Serum or Plasma THYROGLOBULIN, SERUM WITH REFLEX TO IA OR LC-MS/MS Lab Routine Thyroid cancer (HCC) Expected: 07/06/2024, Expires: 10/05/2024 [facility] Work Phone: Comment on above: Expected: 07/06/2024 , Expires: 10/05/2024 Start: 05-31-2024 End: 08-30-2024 THYROGLOBULIN BY LC-MS/MS, SERUM OR PLASMA, FOR THYROGLOBULIN ANTIBODY INTERFERENCE THYROGLOBULIN BY LC-MS/MS, SERUM OR PLASMA, FOR THYROGLOBULIN ANTIBODY INTERFERENCE Lab Routine Thyroid cancer (HCC) Expected: 05/31/2024, Expires: 08/30/2024 [facility] Comment on above: Expected: 05/31/2024 , Expires: 08/30/2024 Start: 05-31-2024 End: 08-30-2024 Thyrotropin [Units/volume] in Serum or Plasma THYROID STIMULATING HORMONE Lab Routine Thyroid cancer (HCC) Expected: 05/31/2024, Expires: 08/30/2024 [facility] Work Phone: Comment on above: Expected: 05/31/2024 , Expires: 08/30/2024 Start: 05-31-2024 End: 08-30-2024 Thyroxine (T4) [Mass/volume] in Serum or Plasma T4/THYROXINE Lab Routine Thyroid cancer (HCC) Expected: 05/31/2024, Expires: 08/30/2024 [facility] Comment on above: Expected: 05/31/2024 , Expires: 08/30/2024 Start: 05-30-2024 End: 05-30-2024 Patient encounter procedure 05/30/2024 10:15 AM EST Office Visit Radiation Oncology [address] [place] [address] [place] [address] Telly Hoover MD [address] [place] [address] [place] [address] Followup Radiation Oncology Comment on above: Followup Start: 05-23-2024 End: 05-23-2024 Patient encounter procedure 05/23/2024 10:[address] EST Office Visit [facility] [address] [facility] [place] [address] [facility] Comment on above: Lab Followup Start: 03-18-2024 Covid-19 Vaccine () Covid-19 Vaccine () [facility] Start: 03-18-2024 Influenza vaccination C [facility] Start: 11-29-2023 End: 02-28-2024 THYROGLOBULIN BY MASS SPECTROMETRY THYROGLOBULIN BY MASS SPECTROMETRY Lab Routine Thyroid cancer (HCC) Expected: 11/29/2023 (Approximate), Expires: 02/28/2024 [facility] Work Phone: Comment on above: Expected: 11/29/2023 (Approximate), Expires: 02/28/2024 Start: 11-29-2023 End: 02-28-2024 Thyrotropin [Units/volume] in Serum or Plasma TSH BLD Lab Routine Thyroid cancer (HCC) Expected: 11/29/2023 (Approximate), Expires: 02/28/2024 [facility] Work Phone: Comment on above: Expected: 11/29/2023 (Approximate), Expires: 02/28/2024 Start: 11-29-2023 End: 02-28-2024 Thyroxine (T4) [Mass/volume] in Serum or Plasma T4/THYROXINE BLOOD Lab Routine Thyroid cancer (HCC) Expected: 11/29/2023 (Approximate), Expires: 02/28/2024 [facility] Work Phone: Comment on above: Expected: 11/29/2023 (Approximate), Expires: 02/28/2024 Start: 2023 RSV Vaccine (1 - 1-d ose 60+ series) RSV Vaccine (1 - 1-dose 60+ series) [facility] Start: 07-18-2023 Behavioral Health Screening Behavioral Health Screening [facility] Start: 03-18-2023 Covid-19 Vaccine ( season) Covid-19 Vaccine ( season) [facility] Start: 03-18-2023 Influenza vaccination C [facility] Start: 02-02-2023 Radionuclide localization of tumor, whole body NM thyroid ca whole body [facility] Start: 01-26-2023 End: 03-28-2023 THYROGLOBULIN BY MASS SPECTROMETRY THYROGLOBULIN BY MASS SPECTROMETRY Lab Routine Thyroid cancer (HCC) Expected: 01/26/2023, Expires: 03/28/2023 [facility] Work Phone: Comment on above: Expected: 01/26/2023 , Expires: 03/28/2023 Start: 01-10-2023 End: 03-12-2023 THYROGLOBULIN BY MASS SPECTROMETRY [facility] Work Phone: Comment on above: Expected: 01/10/2023 , Expires: 03/12/2023 Start: 07-18-2022 DEPRESSION ASSESSMENT DEPRESSION ASS ESSMENT [facility] Start: 05-22-2020 Mammography [facility] Start: 05-22-2020 Screening for malign ant neoplasm of breast Mammogram Screening [facility] Start: 2013 Pneumococcal Vaccine : 50+ (1 of 1 - PCV) Pneumococcal Vaccine: 50+ (1 of 1 - PCV) [facility] Start: 2013 SHINGRIX VACCINE (1 of 2) SHINGRIX VACCINE (1 of 2) [facility] Start: 2008 COLOGUARD (FIT-DNA) COLOGUARD (FIT-D NA) [facility] Start: 2008 Colonoscopy COLONOSCOPY [facility] Start: 2008 COLORECTAL CANCER SCREENING COLORECTAL CANCER SCREENING [facility] Start: [address] COLONOGRAPHY [facility] Start: 2008 DIABETES SCREEN DIABETES SCREEN [facility] Start: 2008 Diabetes Screening Diabetes Screenin g [facility] Start: 2008 FECAL OCCULT BLOOD FECAL OCCULT BLOO D [facility] Start: 2008 Lipid 1996 panel - S irving or Plasma Lipid Screening [facility] Start: 2008 Lipid panel Lipid Screening [facility] Start: 2008 LIPID SCREEN LIPID SCREEN [facility] Start: 2008 Screening for malign ant neoplasm of colon [facility] Start: 2008 SIGMOIDOSCOPY SIGMOIDOSCOPY [facility] Start: 1993 HPV TESTING HPV TESTING [facility] Start: 1993 Screening for malign ant neoplasm of cervix HPV Testing [facility] Start: 1984 PAP TESTING PAP TESTING [facility] Start: 1984 Screening for malign ant neoplasm of cervix [facility] Start: 1982 Urine microalbumin profile [facility] Start: 1981 Anxiety Screening Anxiety Screening [facility] Start: 1981 Depression Screening Depression Scre ening [facility] Start: 1981 HEPATITIS C SCREENING HEPATITIS C [facility] Start: 1981 Hepatitis C screening Hepatitis C [facility] Start: 1981 HIV SCREENING HIV SCREENING [facility] Start: 1981 HIV screening HIV Screening [facility] Start: 02-26-1964 COVID-19 VACCINE (#1) COVID-19 VACCI NE (#1) [facility] Hepatic function panel [facility] End: 02-09-2024 Rp therapy oral administration NM THERAPY THYROID I-131 Radiology Routine Thyroid cancer (HCC) 1 Occurrences starting 01/11/2023 until 02/09/2024 [facility] Work Phone: Comment on above: 1 Occurrences starti ng 01/11/2023 until 02/09/2024 Thyroglobulin and Thyrogobulin Ab panel - Serum or Plasma THYROGLOBULIN, SERUM WITH REFLEX TO IA OR LC-MS/MS Lab Routine Thyroid cancer (HCC) 07/09/2024 2:04 PM EST [facility] Payers Date Payer Category Payer Private Health Insurance MMO SUP ER[employer] PPO Member Subscriber Plan / Payer (Effective 2024-Present) Name: Cassie Winters Relation to Subscriber: Self Name: Singh Cassie Payer ID: Not on file Type: PPO Address: [place] [id number] 2024 Unknown [id number] 2023 Self-pay [id number] 2021 Unknown [id number] 1963 Unknown [id number]. 593 1963 Unknown [id number]. 593 1963 Unknown [id number] [id number]. 593 1963 Unknown [id number] [id number]. 593 1963 Unknown [id number] [id number]. 593 1963 Unknown [id number] 2.16.840.1.142146.3.579.2. 593 1963 Unknown [id number] [id number]. 593 1963 Unknown [id number] 2.16.840.1.855011.3.579.2. 593 1963 Unknown [id number] [id number]. 593 1963 Unknown [id number] [id number]. 593 1959 Blue Cross Blue [facility] [id number] 1959 Self-pay [id number] Unknown [facility] [id number] Unknown [id number] 531 Social History Date Type Detail Facility Unknown if ever smoked [facility] [facility] Other Start: 01-10-2023 End: 01-24-2023 Sex Assigned At [facility] Start: 01-10-2023 End: 01-10-2024 Tobacco smoking status NHIS Never smoked tobacco [facility] Start: 01-10-2023 Tobacco use and exposure Smokeless tobacco non-user [facility] Start: 01-10-2023 End: 11-29-2023 Alcohol intake Ex-drinker (finding) [facility] Start: 01-10-2023 Alcohol Comment rarely [facility] Start: 1965 Sex Assigned At Not on file [facility] Start: 01-10-2023 End: 01-24-2023 History of Social function [facility] National Score (1-100), lower number is lower risk 89 [facility] Start: 1965 Sex Assigned At Female F [facility] Start: 11-19-2024 Sex Female (finding) [facility] Clinical Notes 11-04-2022 to 12-24-2024 Telephone Encounter - Mary Avery - 12/24/2024 9:20 AM EDTTelephone Encounter - Mary Avery - 12/24/2024 9:20 AM EDTTelephone Encounter - Mario Farnsworth RN - 12/21/2024 4:34 PM EDT Note Date & Type Note Facility 12-24-2024 Telephone encounter Note Appointments changed per request [facility] 12-24-2024 Miscellaneous Notes Appointments changed per request I notified Lubna that we do not have insurance authorization for her scheduled Thyrogen injections and will need to reschedule her appts. PSS: please reschedule appt's as follows. Patient is aware of all the new appt dates and times. 12/31 8:15 hem lab 8:30 Thyrogen injection 01/01 8:30 Thyrogen injection 01/04 9:15 hem lab 01/10 9:[address] Hoover. Thanks Mario Farnsworth RN documented in this encounter [facility] 12-24-2024 Telephone encounter Note Orders placed and routed in a separate encounter Giancarlo Pathak PharmD, CHARU [facility] 12-24-2024 Miscellaneous Notes Orders placed and routed in a separate encounter Giancarlo Pathak PharmD, BCOP Pharmacist: Please place Thyrogen orders scheduled 12/31/24 and 01/01/[address] Hoover. Thanks Mario Farnsworth RN documented in this encounter [facility] 12-21-2024 Telephone encounter Note Pharmacist: Please place Thyrogen orders scheduled 12/31/24 and 01/01/[address] Hoover. Thanks Mario Farnsworth RN [facility] 12-21-2024 Telephone encounter Note I notified Lubna that we do not have insurance authorization for her scheduled Thyrogen injections and will need to reschedule her appts. PSS: please reschedule appt's as follows. Patient is aware of all the new appt dates and times. 12/31 8:15 hem lab 8:30 Thyrogen injection 01/01 8:30 Thyrogen injection 01/04 9:15 hem lab 01/10 9:[address] Hoover. Thanks Mario Farnsworth RN [facility] 12-19-2024 Telephone encounter Note Patient notified of Dr. Hoover's response. Mario Farnsworth RN [facility] 12-19-2024 Miscellaneous Notes Patient notified of Dr. Hoover's response. Mario Farnsworth RN Cassie called stating she is scheduled for day 2 Thyrogen injection on 12/25/24. She also has a mammogram scheduled same day in the afternoon and would like to know if it's ok to keep mammogram as scheduled or should she reschedule? Please advise. Mario Farnsworth RN documented in this encounter [facility] 12-19-2024 Telephone encounter Note Cassie called stating she is scheduled for day 2 Thyrogen injection on 12/25/24. She also has a mammogram scheduled same day in the afternoon and would like to know if it's ok to keep mammogram as scheduled or should she reschedule? Please advise. Mario Farnsworth RN [facility] 09-19-2024 Telephone encounter Note Please sign if agreeable. Elina Schulte RN [facility] 09-19-2024 Miscellaneous Notes Please sign if agreeable. Elina Schulte RN documented in this encounter [facility] 07-19-2024 Note HNO ID: [id number] Author: Telly HOOVER MD Service: ? Author Type: Physician Type: Progress Notes Filed: 07/27/2024 12:55 Note Text: Radiation Oncology - Follow-up Note [...] area. No abnormal uptake consistent with metastasis. LABORATORY: Latest Reference Range AND Units 01/26/23 10:59 03/17/23 09:49 05/18/23 09:53 11/22/23 08:27 05/23/24 08:23 07/09/24 14:04 Thyroglobulin, LC-MS/MS 1.3 - 31.8 ng/mL 18.7 <0.5 (L) T4 5.5 - 10.2 ug/dL 8.3 9.9 9.0 9.4 TSH 0.270 - 4.200 mIU/L 0.436 0.095 (L) 0.214 (L) 0.255 (L) Thyroglobulin Ab, Serum <4.0 IU/mL 1.1 <0.9 Thyroglobulin, Serum 1.6 - 50.0 ng/mL 0.1 (L) 0.1 (L) (L): Data is abnormally low Latest [...] before breakfast. atorvastatin (LIPITOR) 20 mg tablet MULTIVITAMIN ORAL Take by mouth. gabapentin (NEURONTIN) 800 mg tablet Take by mouth daily at bedtime. glucosamine/msm/chondroitin A ([id number] ORAL) Take by mouth. PAST MEDICAL HISTORY Diagnosis [...] noted in HPI PHYSICAL EXAM: VS: BP 125/80 Pulse 66 Temp (!) 35.9 ?C (96.6 ?F) Resp 18 Wt 93.6 kg (206 lb 5.6 oz) SpO2 99% BMI 31.38 kg/m? KPS: 100 General Appearance: Alert and oriented. No acute distress. 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 Thyroid cancer: Overall doing fairly well. Thyroglobulin remains very low. On appropriate TSH suppression. Recommend follow-up in 6 months with Thyrogen stimulated thyroglobulin. Signed by: Telly Hoover MD cc: [facility] ([facility]) [address] [place] [address] Lena Neff MD [address] (more content not included)... [facility] 07-19-2024 History of Presen t illness Narrative Radiation [...] area. No abnormal uptake consistent with metastasis. LABORATORY: Latest Reference Range & Units 01/26/23 10:59 03/17/23 09:49 05/18/23 09:53 11/22/23 08:27 05/23/24 08:23 07/09/24 14:04 Thyroglobulin, LC-MS/MS 1.3 - 31.8 ng/mL 18.7 <0.5 (L) T4 5.5 - 10.2 ug/dL 8.3 9.9 9.0 9.4 TSH 0.270 - 4.200 mIU/L 0.436 0.095 (L) 0.214 (L) 0.255 (L) Thyroglobulin Ab, Serum <4.0 IU/mL 1.1 <0.9 Thyroglobulin, Serum 1.6 - 50.0 ng/mL 0.1 (L) 0.1 (L) (L): Data is abnormally low Latest [...] before breakfast. atorvastatin (LIPITOR) 20 mg tablet MULTIVITAMIN ORAL Take by mouth. gabapentin (NEURONTIN) 800 mg tablet Take by mouth daily at bedtime. glucosamine/msm/chondroitin A ([id number] ORAL) Take by mouth. PAST MEDICAL HISTORY Diagnosis [...] noted in HPI PHYSICAL EXAM: VS: BP 125/80 Pulse 66 Temp (!) 35.9 C (96.6 F) Resp 18 Wt 93.6 kg (206 lb 5.6 oz) SpO2 99% BMI 31.38 kg/m KPS: 100 General Appearance: Alert and oriented. No acute distress. 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 Thyroid cancer: Overall doing fairly well. Thyroglobulin remains very low. On appropriate TSH suppression. Recommend follow-up in 6 months with Thyrogen stimulated thyroglobulin. Signed by: Telly Hoover MD cc: [facility] [address] [place] [phone] Lena Neff MD [address] [facility] [address] [place] [address] documented in this encounter [facility] 07-06-2024 Telephone encounter Note Patient is scheduled 07/09/24 at 200PM for labs and following up with Dr Hoover on 07/19/24 at 1045 Christine Semaj PSS [facility] 07-06-2024 Miscellaneous Notes Patient is scheduled 07/09/24 at 200PM for labs and following up with Dr Hoover on 07/19/24 at 1045 Christine Semaj PSS I notified Lubna that the previously drawn Thyroglobulin interference level to be cancelled and patient is to have thyroglobulin reflex drawn. Dr. Hoover: Please sign pended lab order. PSS: Please call patient and schedule lab draw and follow up. Thanks Mario Farnsworth RN Cancelled per request Call placed to pt due to not having thyroglobulin results yet. After speaking to client services, it will be at least 07/02 before these result due to a nationwide shortage of what is needed to run the test. We will cancel follow up for now and monitor for results. Once resulted, we will call patient and reschedule. Pt was notified and in agreement with this plan. PSS- please cancel follow up for now. Elina Schulte, ERIKA documented in this encounter [facility] 07-05-2024 Telephone encounter Note I notified Lubna that the previously drawn Thyroglobulin interference level to be cancelled and patient is to have thyroglobulin reflex drawn. Dr. Hoover: Please sign pended lab order. PSS: Please call patient and schedule lab draw and follow up. Thanks Mario Farnsworth RN [facility] 06-21-2024 Telephone encounter Note Cancelled per request [facility] 06-21-2024 Telephone encounter Note Call placed to pt due to not having thyroglobulin results yet. After speaking to client services, it will be at least 07/02 before these result due to a nationwide shortage of what is needed to run the test. We will cancel follow up for now and monitor for results. Once resulted, we will call patient and reschedule. Pt was notified and in agreement with this plan. PSS- please cancel follow up for now. Elina Schulte RN [facility] 11-29-2023 History of Presen t illness Narrative [...] by mouth daily at bedtime. glucosamine/msm/chondroitin A ([id number] ORAL) Take by mouth. MULTIVITAMIN ORAL Take [...] undetectable. Signed by: Telly Hoover MD cc: [facility] ([facility]) [address] [place] [phone] Lena Neff MD [address] [place] [id number] documented in this encounter [facility] 05-31-2023 History of Presen t illness [...] by mouth daily at bedtime. glucosamine/msm/chondroitin A ([id number] ORAL) Take by mouth. MULTIVITAMIN ORAL Take [...] evaluation. Signed by: Telly Hoover MD cc: [facility] [address] [place] [phone] Lena Neff MD [address] [place] [id number] documented in this encounter [facility] 03-18-2023 Miscellaneous Notes I notified Lubna of Dr. Hoover's response. She will keep her follow up as scheduled next week. Mario Farnsworth LPN Pt was in getting labs today and asked to speak to nurse. She stated she does not feel her thyroid meds are working as she has been very tired. She was wondering if labs come back abnormal, if you could adjust her dose prior to seeing her as scheduled. Labs will result 03/18. Pt prefers [facility]. Thank you Elina Schulte RN documented in this encounter [facility] 01-31-2023 Miscellaneous Notes Pt was notified. Elina Schulte RN Pt LM for a call back. Stated ROD started her on a new thyroid medication and wasn't sure if this was in place of her old one or if she is suppose to take both. Requested a call back to verify @ [phone]. Rowena Vásquez documented in this encounter [facility] 01-26-2023 History of Presen t illness Narrative PATIENT NAME: Cassie Winters PATIENT : 1965 I-131 treatment 54 mCi [facility] [place] [facility] documented in this encounter [facility] 01-24-2023 Nurse Note Status: Patient states there is no possibility she is at this time. documented in this encounter [facility] 01-19-2023 Miscellaneous Notes I called to update [place] that the 01/26/23 and 02/02/23 [place] [facility] [place]. She denies further questions. Mario Farnsworth LPN documented in this encounter [facility] 01-17-2023 Miscellaneous Notes I-131 order pending your approval. Mario Farnsworth LPN documented in this encounter [facility] 01-13-2023 History of Presen t illness Narrative Radiation Oncology - New Patient/Consult Note PATIENT NAME: Cassie Winters PATIENT : 1965 REQUESTING PROVIDER: Dr. Neff Primary Site: Thyroid Date of Diagnosis: 11/19/2022 [...] was recommended. Patient was seen by Dr. Neff, and on 11/30/2022 she underwent FNA of [...] lymph node within the specimen. No perineural invasion.[id number] Patient has done very well after surgery. [...] mcg by mouth twice daily. glucosamine/msm/chondroitin A ([id number] ORAL) Take by mouth. MULTIVITAMIN ORAL Take [...] plan. Signed by: Telly Hoover MD cc: Ave Eisenberg ([facility]) [address] [place] [phone] Lena Neff MD [address] [place] [id number] documented in this encounter [facility] 01-11-2023 History of Presen t illness Narrative Oncology Nutrition Therapy Initial Assessment I have communicated my name and active licensure. The patient's identity and physical location were verified at the time of this visit. Either the patient or their legal market survey representative has been informed of the risks [...] Resting Metabolic Rate: 1584 Weight Change: n/a [place] Body Weight: 63.9kg Estimated kilocalorie needs: 2906-8180 kilocalories determined by 25-30 kcal/kg Estimated protein needs: 64-77 grams determined by 1.0-1.2 g/kg Dosing weight Estimated fluid needs: ~4459-1944 milliliters based on 1 mL per kcal [...] mcg by mouth twice daily. glucosamine/msm/chondroitin A ([id number] ORAL) Take by mouth. MULTIVITAMIN ORAL Take by mouth. No current facility-administered medications for this visit. 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 [employer] Other evaluation noteNo InformationNort ValueFirst [employer] Other evaluation note* Diagnosis Thyroid cancer (HCC)- Primary Malignant neoplasm of thyroid gland [facility] Diagnosis Thyroid cancer (HCC)- Primary Malignant neoplasm of thyroid gland [facility]* Diagnosis Thyroid cancer (HCC)- Primary Malignant neoplasm of thyroid gland [facility]* Diagnosis Thyroid cancer (HCC)- Primary Malignant neoplasm of thyroid gland [facility] noteNo assessment information available[facility] Work Phone: [facility] note* Diagnosis Thyroid cancer (HCC)- Primary Malignant neoplasm of thyroid gland [facility] Diagnosis Thyroid cancer (HCC)- Primary Malignant neoplasm of thyroid gland [facility]* Diagnosis Thyroid cancer (HCC)- Primary Malignant neoplasm of thyroid gland [facility]* Diagnosis Thyroid cancer (HCC)- Primary Malignant neoplasm of thyroid gland [facility]* Diagnosis Thyroid cancer (HCC)- Primary Malignant neoplasm of thyroid gland documented in this encounter [facility] note* Diagnosis Onset Date Resolution Status Admit Date Mixed hyperlipidemia acute November 19, 2024 3:19pm Wellness examination acute November 19, 2024 3:19pm [facility] Work Phone: History general Narrative - Reported* Type Description Date Medical History DDD (degenerative disc disease), lumbar Medical History Enlarged thyroid Medical History Fatigue Surgical History JONNY AND BSO 2003 Surgical History TAIL BONE FRACTURE Hospitalization History SEE SURGICAL HX [facility] [employer] Other Reason for referral (narrative)* Diagnostic Procedure Only (Routine) - Pending Review Specialty Diagnoses / Procedures Referred By Contbri t Referred To Contact MOLECULAR & FUNCTIONAL IMAGING Diagnoses Thyroid cancer (HCC) Procedures NM THERAPY THYROID I-131 RP THERAPY ORAL ADMINISTRATION Telly Hoover MD [address] [place] [address] [place] [address] Molecular & Functional Imaging [address] [place] [id number] Referral ID Status Reason Start Date Expiration Date Visits Requested Visits Authorized [id number] Pending Review Auto-Generat ed Referral 01/11/2023 02/09/2024 1 1 [facility] Summary Purpose Family History Relationship Condition Age at Onset Recorded Date/T sukhdeep brother Hypertension Unknown father Unknown Heart disease Unknown Not Specified Heart disease Unknown Unknown Diabetes mellitus Unknown Malignant neoplasm Unknown sister Malignant neoplasm Unknown Relationship Condition Age at Onset Recorded Date/T sukhdeep brother Hypertension Unknown father Unknown Heart disease Unknown mother Heart disease Unknown Unknown Diabetes mellitus Unknown Malignant neoplasm Unknown sister Malignant neoplasm Unknown Advance Directives Advance Directive Response Recorded Date/ Time Advance Directives No January 13 2:31pm Reason for Referral Reason *FU 12/01 Dr. Ari arredondo - [place]. Recent US, last OV, and pathology report. thank you Diagnosis 1 Thyromegaly (E01.0) Referral Organization [facility] [place] Referring Provider First Name Ave Referring Provider Last Name Faina Referring Provider Specialty Family [facility] Referred Organization [facility] Referred Provider Lena Neff Referred Address ,[place], [place],[address] Referred Provider Specialty Otolaryngolo gy Referral Priority [...] Chief Complaint c73 Chief Complaint bug bites Chief Complaint Admit Date Wellness November 19, 2024 3:19pm Reason for Visit Admit Date Mixed hyperlipidemia November 19, 2024 3:19p m Wellness examination November 19, 2024 3:19p m Additional Source Comments INFORMATION SOURCE (unrecogn ized section and content) DATE CREATED AUTHOR 10/10/2020 [facility] DATE CREATED AUTHOR AUTHOR'S ORGANIZ ATION 12/01/2022 [facility] DATE CREATED AUTHOR AUTHOR'S ORGANIZ ATION 02/03/2023 [facility] DATE CREATED AUTHOR AUTHOR'S ORGANIZ ATION 12/24/2024 [facility] REASON FOR VISIT (unrecogniz ed section and content) Reason Comments Thyroid Cancer Thyrogen Injection Specialty Diagnoses / Procedures Referred By Sridevi t Referred To Contact Diagnoses Thyroid cancer (HCC) Procedures THYROTROPIN INJECTION Telly Hoover MD [address] [place] [address] [place] [address] Nate Treat Betza[place] [facility] [place] [place] [address] Referral ID Status Reason Start Date Expiration Date V isits Requested Visits Authorized [id number] Authorized 01/24/2023 07/17/2023 99 99 Reason Comments Nutrition Telephone Reason Comments Consult Reason Comments Orders Reason Comments Patient Update Reason Comments Thyroid Cancer Reason Comments Patient Question Reason Comments Medication Dosage Adjustment Results, Lab Reason Onset Date Comments Refill Request 02/16/2024 Reason Onset Date Comments Refill Request 10/21/2023 Reason Comments Future Appointment Results Appointment Reason Onset Date Comments Refill Request 09/19/2024 Source Comments (unrecognize d section and content) In the event this informatio n is protected by the Federal Confidentiality of Alcohol and Drug Abuse Patient Records regulations: The Federal rules restrict any use of the information to criminally investigate or prosecute any alcohol or drug abuse patient.[facility] the event this information is protected by the Federal Confidentiality of Alcohol and Drug Abuse Patient Records regulations: The Federal rules restrict any use of the information to criminally investigate or prosecute any alcohol or drug abuse patient.[facility] the event this information is protected by the Federal Confidentiality of Alcohol and Drug Abuse Patient Records regulations: The Federal rules restrict any use of the information to criminally investigate or prosecute any alcohol or drug abuse patient.[facility] the event this information is protected by the Federal Confidentiality of Alcohol and Drug Abuse Patient Records regulations: The Federal rules restrict any use of the information to criminally investigate or prosecute any alcohol or drug abuse patient.[facility] the event this information is protected by the Federal Confidentiality of Alcohol and Drug Abuse Patient Records regulations: The Federal rules restrict any use of the information to criminally investigate or prosecute any alcohol or drug abuse patient.[facility] the event this information is protected by the Federal Confidentiality of Alcohol and Drug Abuse Patient Records regulations: The Federal rules restrict any use of the information to criminally investigate or prosecute any alcohol or drug abuse patient.[facility] the event this information is protected by the Federal Confidentiality of Alcohol and Drug Abuse Patient Records regulations: The Federal rules restrict any use of the information to criminally investigate or prosecute any alcohol or drug abuse patient.[facility] the event this information is protected by the Federal Confidentiality of Alcohol and Drug Abuse Patient Records regulations: The Federal rules restrict any use of the information to criminally investigate or prosecute any alcohol or drug abuse patient.[facility] the event this information is protected by the Federal Confidentiality of Alcohol and Drug Abuse Patient Records regulations: The Federal rules restrict any use of the information to criminally investigate or prosecute any alcohol or drug abuse patient.[facility] the event this information is protected by the Federal Confidentiality of Alcohol and Drug Abuse Patient Records regulations: The Federal rules restrict any use of the information to criminally investigate or prosecute any alcohol or drug abuse patient.[facility] the event this information is protected by the Federal Confidentiality of Alcohol and Drug Abuse Patient Records regulations: The Federal rules restrict any use of the information to criminally investigate or prosecute any alcohol or drug abuse patient.[facility] the event this information is protected by the Federal Confidentiality of Alcohol and Drug Abuse Patient Records regulations: The Federal rules restrict any use of the information to criminally investigate or prosecute any alcohol or drug abuse patient.[facility] the event this information is protected by the Federal Confidentiality of Alcohol and Drug Abuse Patient Records regulations: The Federal rules restrict any use of the information to criminally investigate or prosecute any alcohol or drug abuse patient.[facility] the event this information is protected by the Federal Confidentiality of Alcohol and Drug Abuse Patient Records regulations: The Federal rules restrict any use of the information to criminally investigate or prosecute any alcohol or drug abuse patient.[facility] the event this information is protected by the Federal Confidentiality of Alcohol and Drug Abuse Patient Records regulations: The Federal rules restrict any use of the information to criminally investigate or prosecute any alcohol or drug abuse patient.[facility] ClinicIn the event this information is protected by the Federal Confidentiality of Alcohol and Drug Abuse Patient Records regulations: The Federal rules restrict any use of the information to criminally investigate or prosecute any alcohol or drug abuse patient.[facility] the event this information is protected by the Federal Confidentiality of Alcohol and Drug Abuse Patient Records regulations: The Federal rules restrict any use of the information to criminally investigate or prosecute any alcohol or drug abuse patient.[facility] Hospital[facility] the event this information is protected by the Federal Confidentiality of Alcohol and Drug Abuse Patient Records regulations: The Federal rules restrict any use of the information to criminally investigate or prosecute any alcohol or drug abuse patient.[facility] Hospital[facility] the event this information is protected by the Federal Confidentiality of Alcohol and Drug Abuse Patient Records regulations: The Federal rules restrict any use of the information to criminally investigate or prosecute any alcohol or drug abuse patient.[facility] Hospital[facility] the event this information is protected by the Federal Confidentiality of Alcohol and Drug Abuse Patient Records regulations: The Federal rules restrict any use of the information to criminally investigate or prosecute any alcohol or drug abuse patient.[facility] the event this information is protected by the Federal Confidentiality of Alcohol and Drug Abuse Patient Records regulations: The Federal rules restrict any use of the information to criminally investigate or prosecute any alcohol or drug abuse patient.[facility] the event this information is protected by the Federal Confidentiality of Alcohol and Drug Abuse Patient Records regulations: The Federal rules restrict any use of the information to criminally investigate or prosecute any alcohol or drug abuse patient.[facility] Hospital[facility] the event this information is protected by the Federal Confidentiality of Alcohol and Drug Abuse Patient Records regulations: The Federal rules restrict any use of the information to criminally investigate or prosecute any alcohol or drug abuse patient.[facility] the event this information is protected by the Federal Confidentiality of Alcohol and Drug Abuse Patient Records regulations: The Federal rules restrict any use of the information to criminally investigate or prosecute any alcohol or drug abuse patient.[facility] Hospital[facility] the event this information is protected by the Federal Confidentiality of Alcohol and Drug Abuse Patient Records regulations: The Federal rules restrict any use of the information to criminally investigate or prosecute any alcohol or drug abuse patient.[facility] Care Teams (unrecognized sec tion and content) Team Status: Active Member Role Status Dates Ave Eisenberg MD Primary Care Provider Active Team Status: Inactive Member Role Status Dates Ave Eisenberg MD Primary Care Provide r, Attending Provider Active Start: November 19, 2024 End: November 19, 2024 Team Status: Active Member Role Status Dates Ave Eisenberg MD Primary Care Provider Active Start: November 22, 2023 Nikkie Hoover MD Attending Provider Active Start: November 22, 2023 Team Status: Inactive Member Role Status Dates Ave Eisenberg MD Primary Care Provide r, Attending Provider Active Start: January 10, 2024 End: January 10, 2024 Feed Mill Supervisor Relationship Specialty Start Date End Date Ave Eisenberg MD [address] [place] [phone] PCP - General Family Medicine 6/23/23 Lena Neff [address] [place] [address] Ent - Otolaryngology 01/07/23 [employer] Mill Supervisor Relationship Specialty Start Date End Date Ave Eisenberg MD [address] [facility] [place] [phone] PCP - General Family Medicine 01/07/23 Lena Neff [address] [place] [address] Ent - Otolaryngology 01/07/23 Feed Mill Supervisor Relationship Specialty Start Date End Date Ave Eisenberg MD [address] [facility] [place] [phone] PCP - General Family Medicine 01/07/23 Lena Neff [address] [facility] [address] [place] [address] Ent - Otolaryngology 01/07/23 Feed Mill Supervisor Relationship Specialty Start Date End Date Ave Eisenberg MD [address] [facility] [place] [phone] PCP - General Family Medicine 01/07/23 Lena Neff [address] [facility] [address] [place] [address] Ent - Otolaryngology 01/07/23 Feed Mill Supervisor Relationship Specialty Start Date End Date Ave Eisenberg MD [address] [facility] [place] [address] PCP - General Family Medicine 01/07/23 Lena Neff [address] [facility] [address] [place] [address] Ent - Otolaryngology 01/07/23 Feed Mill Supervisor Relationship Specialty Start Date End Date Ave Eisenberg MD [address] [facility] [place] [phone] PCP - General Family Medicine 01/07/23 Lena Neff [address] [facility] [address] [place] [address] Ent - Otolaryngology 01/07/23 Feed Mill Supervisor Relationship Specialty Start Date End Date Ave Eisenberg MD [address] [facility] [place] [address] PCP - General Family Medicine 01/07/23 Lena Neff [address] [facility] [address] [place] [address] Ent - Otolaryngology 01/07/23 Feed Mill Supervisor Relationship Specialty Start Date End Date Ave Eisenberg MD [address] [facility] [place] [address] PCP - General Family Medicine 01/07/23 Lena Neff [address] [facility] [address] [place] [address] Ent - Otolaryngology 01/07/23 Team Status: Inactive Member Role Status Dates Ave Eisenberg MD Primary Care Provider Active Nikkie Hoover MD Attending Provider Active [employer] Supervisor Relationship Specialty Start Date End Date Ave Eisenberg MD [address] [facility] [place] [address] PCP - General Family Medicine 01/07/23 Lena Neff [address] [place] [address] Ent - Otolaryngology 01/07/23 [employer] Mill Supervisor Relationship Specialty Start Date End Date Ave Eisenberg MD [address] [facility] [place] [address] PCP - General Family Medicine 01/07/23 Lena Neff MD [address] [place] [address] Ent - Otolaryngology 01/07/23 Feed Mill Supervisor Relationship Specialty Start Date End Date Ave Eisenberg MD [address] [place] [address] PCP - General Family Medicine 01/07/23 Lena Neff MD [address] [place] [address] Ent - Otolaryngology 01/07/23 Feed Mill Supervisor Relationship Specialty Start Date End Date Ave Eisenberg MD [address] [facility] [place] [address] PCP - General Family Medicine 01/07/23 Lena Neff MD [address] [place] [address] Ent - Otolaryngology 01/07/23 Feed Mill Supervisor Relationship Specialty Start Date End Date Ave Eisenberg MD [address] [place] [address] PCP - General Family Medicine 01/07/23 Lena Neff MD [address] [facility] [address] [place] [address] Ent - Otolaryngology 01/07/23 Feed Mill Supervisor Relationship Specialty Start Date End Date Ave Eisenberg MD [address] [place] [phone] PCP - General Family Medicine 01/07/23 Lena Neff MD [address] [place] [address] [address] [place] [address] Ent - Otolaryngology 01/07/23 Feed Mill Supervisor Relationship Specialty Start Date End Date Ave Eisenberg MD [address] [place] [phone] PCP - General Family Medicine 01/07/23 Lena Neff MD [address] [place] [address] [address] [place] [address] Ent - Otolaryngology 01/07/23 Feed Mill Supervisor Relationship Specialty Start Date End Date Ave Eisenberg MD [address] [place] [address] PCP - General Family Medicine 01/07/23 Lena Neff MD [address] [facility] [address] [place] [address] Ent - Otolaryngology 01/07/23 Goals (unrecognized section and content) Goals may [...] BE BASED ON THE PRIMARY CLINICAL RECORDS. [facility] [employer] [facility]. provides no warranty or guarantee of the accuracy or completeness of information in this document.
--- OUTSIDE RECORDS SUMMARY | 2024-12-29 07:45 | XMS_ITS | Encounter Summary ---
Author Organization [facility] Address [address] [place] [address] Care Team Providers Care Environmental Health Sanitarian Name Role Phone Ave Barnett MD Primary Care Provider [phone] Lena Neff MD Unavailable [phone] Source Comments In the event this information is protected by the Federal Confidentiality of Alcohol and Drug AbusePatient Records regulations: The Federal rules restrict any use of the information to criminally investigate or prosecute any alcohol or drug abuse patient.[facility] Encounter Details Date Type Department Care Team (Late st Contact Info) Description 12/21/2024 Telephone Radiation Oncology [facility] [place] [address] Telly Hoover MD [address] [place] [address] [place] [address] Social History Tobacco Use Types Packs/Day Years [...] is lower risk 8 01/10/2023 Data from: https://www.neighborhoodatlas.medicine.[facility]/. Last address used for calculation [address] 01/10/2023 Comments No Sex and Gender Information Value Date Recorded Sex Assigned at Not on file Legal Sex Female 10:20 AM EDT Gender Identity Not on file Sexual Orientation Not on file documented as of this encounter Miscellaneous Notes * Telephone Encounter - Mary Avery - 12/24/2024 9:20 AM EDT Appointments changed per request * Telephone Encounter - Marla Farnsworth RN - 12/21/2024 4:34 PM EDT I notified [place] that we do not have insurance authorization for her scheduled Thyrogen injections and will need to reschedule her appts. PSS: please reschedule appt's as follows. Patient is aware of all the new appt dates and times. 12/31 8:15 hem lab 8:30 Thyrogen injection 01/01 8:30 Thyrogen injection 01/04 9:15 hem lab 01/10 9:[address] Hoover. Thanks Marla Farnsworth RN documented in this encounter Plan of Treatment Upcoming Encounters Date Type Department Care Team (Late st Contact Info) Description 12/31/2024 8:15 AM EDT Office Visit [facility] [address] [place] [address] 1st labs TG, T4, TSH 12/31/2024 8:30 AM EDT Office Visit Radiation Oncology [address] [place] [address] Thyrogen Injection 01/01/2025 8:30 AM EDT Office Visit Radiation Oncology [address] [place] [address] Thyrogen injectin 01/04/2025 9:15 AM EDT Office Visit [facility] [address] [place] [address] lab TG only 01/10/2025 9:30 AM EDT Office Visit Radiation Oncology [address] [place] [address] [place] [address] Telly Hoover MD [address] [place] [address] Follow up documented as of this encounter Visit Diagnoses Not on filedocumented in this encounter Care Teams Environmental Health Sanitarian Relationship Specialty Start Date End Date Ave Barnett MD [address] [place] [phone] PCP - General Family Medicine 01/07/23 Lena Neff MD [address] [place] [address] Ent - Otolaryngology 01/07/23 documented as of this encounter
--- OUTSIDE RECORDS SUMMARY | 2024-12-29 07:45 | XMS_ITS | Clinical Summary ---
Author Organization [facility] Address [address] [place] [address] Care Team Providers Care Dipper And Baker Name Role Phone Ave Barnett MD Primary Care Provider [phone] Allergies Active Allergy Reactions Criticality Noted Date Comments Penicillins Hives 10/31/2014 Sulfa Antibiotics Hives 10/31/2014 Medications atorvastatin (Lipitor) 20 MG tablet Take 20 mg by mouth in the morning. 12/09/2022 Active gabapentin (Neurontin) 600 MG tablet Take 600 mg by mouth at bedtime. Active levothyroxine (Synthroid, Levoxyl) 125 MCG tablet Take 125 mcg by mouth in the morning. Take before meals. Active Multiple Vitamin (multivitamin) capsule Take 1 capsule by mouth in the morning. Active glucosamine-cho ndroitin 500-400 MG tablet Take 1 tablet by mouth in the morning and 1 tablet in the evening and 1 tablet before bedtime. Active Active Problems Problem Noted Date Diagnosed Date Papillary thyroid carcinoma 01/05/2023 Overview (02/16/2023): Diagnosed 11/19/22. Papillary thyroid carcinoma. Total thyroidectomy 12/28/22. Completed post op I-[address] Maier mid January 2023. Thyromegaly 12/28/2022 Resolved Problems Problem Noted Date Diagnosed Date Resolved Date Seasonal allergic rhinitis 12/28/2022 0 12/28/2022 BMI 30.0-30.9,adult 10/31/2014 12/29/19 Premature menopause on HRT 10/31/2014 0 12/28/2022 Family History Medical History Relation Name Comments Heart disease Father Cancer Mother Diabetes Mother Heart failure Mother Cancer Sibling Hypertension Sibling Relation Name Status Comments Father Mother Sibling Social History Tobacco Use Types Packs/Day Years Used Date Smoking Tobacco: Never Smokeless Tobacco: Never Tobacco Cessation:Counseling Given: Not Answered Alcohol Use Standard Drinks/Week Comments Never 0 (1 standard drink = 0.6 oz pur e alcohol) Comments Unknown Sex and Gender Information Value Date Recorded Sex Assigned at Not on file Legal Sex Female 7:24 PM EDT Gender Identity Not on file Sexual Orientation Not on file Last Filed Vital Signs Vital Sign Reading Time Taken Comments Blood Pressure 129/75 02/16/2023 8:57 AM EDT Pulse - - Temperature - - Respiratory Rate - - Oxygen Saturation - - Inhaled Oxygen Concentration - - Weight 97.5 kg (215 lb) 02/16/2023 8:57 AM EDT Height 172.7 cm (5' 8 ) 02/16/2023 8:57 AM EDT Body Mass Index 32.69 02/16/2023 8:57 AM EDT Plan of Treatment Not on file Insurance [facility] Care Teams Dipper And Baker Relationship Specialty Start Date End Date Ave Barnett MD PCP - General Family Medicine 11/29/22
--- OUTSIDE RECORDS SUMMARY | 2024-12-29 07:45 | XMS_ITS | Encounter Summary ---
Author Organization [facility] Address [address] [place] [address] Care Team Providers Care Body Work Auto Trimmer Name Role Phone Ave Barnett MD Primary Care Provider [phone] Lena Neff MD Unavailable [phone] Source Comments In the event this information is protected by the Federal Confidentiality of Alcohol and Drug AbusePatient Records regulations: The Federal rules restrict any use of the information to criminally investigate or prosecute any alcohol or drug abuse patient.[facility] Encounter Details Date Type Department Care Team (Late st Contact Info) Description 12/24/2024 Orders Only Hematology/Oncology [address] [place] [address] Pauline Boo [facility] [address] [place] [address] Social History Tobacco Use Types Packs/Day [...] is lower risk 8 01/10/2023 Data from: https://www.neighborhoodatlas.medicine.[facility].edu/. Last address used for calculation [address] 01/10/2023 Comments No Sex and Gender Information Value Date Recorded Sex Assigned at Not on file Legal Sex Female 10:20 AM EDT Gender Identity Not on file Sexual Orientation Not on file documented as of this encounter Plan of Treatment Upcoming Encounters Date Type Department Care Team (Late st Contact Info) Description 12/31/2024 8:15 AM EDT Office Visit [facility] [address] [place], [place] [id number] 1st labs TG, T4, TSH 12/31/2024 8:30 AM EDT Office Visit Radiation Oncology [address] [place], [place] [id number] Thyrogen Injection 01/01/2025 8:30 AM EDT Office Visit Radiation Oncology [address] [place] [address] [place] [address] Thyrogen injectin 01/04/2025 9:15 AM EDT Office Visit [facility] [address] [place] [address] lab TG only 01/10/2025 9:30 AM EDT Office Visit Radiation Oncology [address] [place] [address] [place] [address] Telly Hoover MD [address] [place] [address] Follow up documented as of this encounter Visit Diagnoses Not on filedocumented in this encounter Care Teams Body Work Auto Trimmer Relationship Specialty Start Date End Date Ave Barnett MD [address] [facility] [place] [phone] PCP - General Family Medicine 01/07/23 Lena Neff MD [address] [address] Ent - Otolaryngology 01/07/23 documented as of this encounter
--- OUTSIDE RECORDS SUMMARY | 2024-12-29 07:45 | XMS_ITS | Encounter Summary ---
Author Organization [facility] Address [address] [place] [address] Care Team Providers Care Janitor Head Name Role Phone Ave Barnett MD Primary Care Provider Lena Neff MD Unavailable [phone] Source Comments In the event this information is protected by the Federal Confidentiality of Alcohol and Drug AbusePatient Records regulations: The Federal rules restrict any use of the information to criminally investigate or prosecute any alcohol or drug abuse patient.[facility] Reason for Visit * Reason Comments Orders Encounter Details Date Type Department Care Team (Late st Contact Info) Description 12/21/2024 Telephone Radiation Oncology [address] [place], [place] [address] [place] [place] [address] Telly Hoover MD [address] [place] [address] [place] [address] Orders Social History Tobacco Use Types Packs/Day Years [...] is lower risk 8 01/10/2023 Data from: https://www.neighborhoodatlas.medicine.[facility]/. Last address used for calculation [address] 01/10/2023 Comments No Sex and Gender Information Value Date Recorded Sex Assigned at Not on file Legal Sex Female 10:20 AM EDT Gender Identity Not on file Sexual Orientation Not on file documented as of this encounter Miscellaneous Notes * Telephone Encounter - Pauline Boo RPh - 12/24/2024 8:17 AM EDT Orders placed and routed in a separate encounter Giancarlo Boo PharmD, BCOP * Telephone Encounter - Marla Farnsworth RN - 12/21/2024 4:36 PM EDT Pharmacist: Please place Thyrogen orders scheduled 12/31/24 and 01/01/[address] Hoover. Thanks Marla Farnsworth RN documented in this encounter Plan of Treatment Upcoming Encounters Date Type Department Care Team (Late st Contact Info) Description 12/31/2024 8:15 AM EDT Office Visit [facility] [address] [place] [address] [place] [address] 1st labs TG, T4, TSH 12/31/2024 8:30 AM EDT Office Visit Radiation Oncology [address] [place] [address] [place] [address] Thyrogen Injection 01/01/2025 8:30 AM EDT Office Visit Radiation Oncology [address] [place] [address] [place] [address] Thyrogen injectin 01/04/2025 9:15 AM EDT Office Visit [facility] [address] [place] [address] [place] [address] lab TG only 01/10/2025 9:30 AM EDT Office Visit Radiation Oncology [address] [facility] [place] [address] Telly Hoover MD [address] [facility] [facility] [place] [address] Follow up documented as of this encounter Visit Diagnoses Not on filedocumented in this encounter Care Teams Janitor Head Relationship Specialty Start Date End Date Ave Barnett MD [address] [place] [address] PCP - General Family Medicine 01/07/23 Lena Neff MD [address] [facility] [address] [place] [address] Ent - Otolaryngology 01/07/23 documented as of this encounter
--- OUTSIDE RECORDS SUMMARY | 2024-12-29 07:45 | XMS_ITS | Clinical Summary ---
Author Organization [facility] Address [address] [place] [address] Care Team Providers Care Road Grader Name Role Phone Ave Barnett MD Primary Care Provider [phone] Allergies Active Allergy Reactions Criticality Noted Date Comments Penicillins Hives 10/31/2014 Sulfa Antibiotics Hives 10/31/2014 Medications No known medications Active Problems Problem Noted Date Diagnosed Date BMI 30.0-30.9,adult 10/31/2014 Premature menopause on HRT 10/31/2014 Family History Medical History Relation Name Comments Heart Disease Father Stroke Maternal Grandfather Stroke Maternal Grandmother Cancer Mother Kidney Diabetes Mother Insuline Depend ent Heart Disease Mother Cancer Sister 1 Kidney Relation Name Status Comments Brother 1 Alive Brother 2 Alive Brother 3 Alive Brother 4 Alive Father Alive Maternal Grandfather Maternal Grandmother Mother Paternal Grandfather Paternal Grandmother Sister 1 Alive Sister 2 Alive Social History Tobacco Use Types Packs/Day Years Used Date Smoking Tobacco: Never Smokeless Tobacco: Never Tobacco Cessation:Counseling Given: Yes Alcohol Use Standard Drinks/Week Comments No 0 (1 standard drink = 0.6 oz pur e alcohol) Comments No Sex and Gender Information Value Date Recorded Sex Assigned at Not on file Legal Sex Female 1:27 AM EST Gender Identity Not on file Sexual Orientation Not on file Last Filed Vital Signs Vital Sign Reading Time Taken Comments Blood Pressure 118/74 04/26/2016 10:51 AM EDT Pulse - - Temperature - - Respiratory Rate - - Oxygen Saturation - - Inhaled Oxygen Concentration - - Weight 90.7 kg (200 lb) 04/26/2016 10:51 AM EDT Height 172.7 cm (5' 8 ) 04/26/2016 10:51 AM EDT Body Mass Index 30.41 04/26/2016 10:51 AM EDT Plan of Treatment Not on file Insurance [place] [employer] Care Teams Road Grader Relationship Specialty Start Date End Date Ave Barnett MD PCP - General Family Medicine 04/26/16
--- OUTSIDE RECORDS SUMMARY | 2024-12-29 07:45 | XMS_ITS ---
Author Organization [facility] Address [address] [place] [address] Care Team Providers Care Accounting Reconciliation Clerk Name Role Phone Ave Barnett MD Primary Care Provider [phone] Lena Neff MD Unavailable [phone] Active Problems Problem Noted Date Diagnosed Date Thyroid cancer 01/24/2023 Current Treatment and Therapy Plans AMB THYROTROPIN MARCO 0.9 MG D1,2 - Q28D* Plan Start Date:12/31/2024 Plan Provider:Telly Hoover MD Linked Problems Thyroid cancer (HCC) Treatment Medications Current Day (Day 1 , Cycle 1 - Planned for 12/31/2024) Next Day (Day 2, Cycle 1 - Planned for 01/01/2025) thyrotropin marco (THYROGEN) thyrotropin marco 0.9 mg injection (THYROGEN) thyrotropin marco 0.9 mg injection (THYROGEN) Past Treatment and Therapy Plans NON-CHEMO 1 Plan Name Start Date Discontinue Date Treatment Medications Discontinue Reason Plan Provider Cycles AMB THYROTROPIN MARCO 0.9 MG D1,2 - Q28D 3 05/24/2023 thyrotropin marco (THYROGEN) Other Telly Hoover MD 1 of 1 cycle started
[2024-12-29 09:46] LABS: Alanine Aminotransferase 32 U/L (14-59); Albumin Globulin Ratio 1.1; Albumin Level 3.8 g/dL (3.4-5.0); Alkaline Phosphatase 135 U/L (46-116); Anion Gap 15.5; Aspartate Amino Transferase 15 U/L (15-37); BUN Creatinine Ratio 22.1; Bilirubin Total 0.6 mg/dL (0.2-1.0); Calcium 9.3 mg/dL (8.5-10.1); Carbon Dioxide 27.6 mmol/L (21.0-32.0); Chloride 104 mmol/L (98-107); Cholesterol 183 mg/dL (<=200); Estimated GFR (African America >60 (>=60 mL/min/1.73m^2); Estimated GFR (Non-African Ame >60 (>=60 mL/min/1.73m^2); Globulin 3.6 g/dL; Glucose 98 mg/dL (74-106); HDL Cholesterol 61 mg/dL (40-60); Potassium 4.1 mmol/L (3.5-5.1); Sodium 143 mmol/L (136-145); Total Protein 7.4 g/dL (6.4-8.2); Triglycerides 127 mg/dL (<=150); VLDL CHOLESTEROL 25.4 mg/dL
== END 2024-12-29 07:42 | disposition home or self-care (01) ==
PROVIDERS: PCP Family Medicine; Visit Provider Family Medicine
DX: Z00.00 Encounter for general adult medical examination without abnormal findings (principal); E78.2 Mixed hyperlipidemia
CPT/HCPCS: 36415; 80053; 80061

== ENCOUNTER 2025-02-20 19:38 | Outpatient (REF) | payer OTHER, SELFPAY ==
--- OUTSIDE RECORDS SUMMARY | 2025-02-20 09:00 | XMS_ITS | Encounter Summary ---
Author Organization [facility] Address [address] [facility] [place] [address] Care Team Providers Care Finishing Range Supervisor Name Role Phone Ave Barnett MD Primary Care Provider [phone] Reason for Visit * Reason Comments Well Women Visit Encounter Details Date Type Department Care Team (Late st Contact Info) Description 02/20/2025 9:00 AM EDT Office Visit [facility] [address] [place] [address] Sarai Quintana PA [address] [place], [facility]11 Well woman exam with routine gynecological exam; Breast cancer screening by mammogram; Postmenopausal state Social History Tobacco Use Types Packs/Day Years Used Date Smoking Tobacco: Never Smokeless Tobacco: Never Alcohol Use Standard Drinks/Week Comments Never 0 (1 standard drink = 0.6 oz pur e alcohol) Comments Unknown Sex and Gender Information Value Date Recorded Sex Assigned at Not on file Legal Sex Female 7:24 PM EDT Gender Identity Not on file Sexual Orientation Not on file documented as of this encounter Last Filed Vital Signs Vital Sign Reading Time Taken Comments Blood Pressure 112/68 02/20/2025 8:53 AM EDT Pulse - - Temperature - - Respiratory Rate - - Oxygen Saturation - - Inhaled Oxygen Concentration - - Weight 94.8 kg (209 lb) 02/20/2025 8:53 AM EDT Height - - Body Mass Index 31.78 02/16/2023 8:57 AM EDT documented in this encounter Progress Notes * ELYSIA Gonzales - 02/20/2025 9:00 AM EDT Reason for Appointment: Patient ID: Loni Winters is a 59 y.o. female who presents for Well Women Visit Patient presents today for Annual Exam. MEDICATIONS Current Outpatient Medications Medication Instructions atorvastatin (LIPITOR) 20 mg, Oral, Daily gabapentin (NEURONTIN) 400 mg, Nightly levothyroxine (SYNTHROID, LEVOXYL) 137 mcg, Daily before breakfast Multiple Vitamin (multivitamin) capsule 1 capsule, Oral, Daily ALLERGIES Allergies Allergen Reactions Penicillins Hives Sulfa Antibiotics Hives PROBLEMS Active Ambulatory Problems Diagnosis Date Noted Thyromegaly 12/28/2022 Papillary thyroid carcinoma (HCC) 01/05/2023 Resolved Ambulatory Problems Diagnosis Date Noted BMI 30.0-30.9,adult 10/31/2014 Premature menopause on HRT 10/31/2014 Seasonal allergic rhinitis 12/28/2022 Past Medical History: Diagnosis Date Adenomyosis distress affecting care ([facility]) 1990 Fractured coccyx (HCC) Other seasonal allergic rhinitis Papillary carcinoma (HCC) HISTORY PAST MEDICAL HISTORY SOCIAL HISTORY Past Medical History: Diagnosis Date Adenomyosis BMI 30.0-30.9,adult 10/31/2014 distress affecting care ([facility]) 1991 Fractured coccyx (HCC) Other seasonal allergic rhinitis Papillary carcinoma (HCC) Premature menopause on HRT 10/31/2014 Thyromegaly Social History Tobacco Use Smoking status: Never Smokeless tobacco: Never Substance Use Topics Alcohol use: Never Drug use: Never FAMILY HISTORY Family History Problem Relation Name Age of Onset Heart failure Mother Diabetes Mother Cancer Mother Heart disease Father Hypertension Sibling Cancer Sibling SURGICAL HISTORY Past Surgical History: Procedure Laterality Date AFIRMA THYROID FNA ANALYSIS 11/19/2022 thyroid FNA SECTION, LOW TRANSVERSE with BTL FNA W IMAGING GUIDANCE 11/19/2022 thyroid OTHER SURGICAL HISTORY two tailbone surgery THYROID SURGERY 12/28/2022 total, Timmis TOTAL ABDOMINAL HYSTERECTOMY W/ BILATERAL SALPINGOOPHORECTOMY REVIEW OF SYSTEMS Review of Systems: Review of Systems Constitutional: Negative. HENT: Negative. Eyes: Negative. Respiratory: Negative. Cardiovascular: Negative. Gastrointestinal: Negative. Genitourinary: Negative. Musculoskeletal: Negative. Skin: Negative. Neurological: Negative. All other systems reviewed and are negative. Hematological: Negative. Endocrine: Negative. Allergic/Immunologic: Negative. OBJECTIVE Objective: Physical Exam Constitutional: Appearance: Normal appearance. She is normal weight. Genitourinary: Right Adnexa: not tender and no mass present. Left Adnexa: not tender and no mass present. Cervix is absent. Uterus is absent. Breasts: Breasts are soft. Right: Normal. Left: Normal. HENT: Head: Normocephalic. Nose: Nose normal. Mouth/Throat: Mouth: Mucous membranes are moist. Cardiovascular: Rate and Rhythm: Normal rate. Pulses: Normal pulses. Pulmonary: Effort: Pulmonary effort is normal. Breath sounds: Normal breath sounds. Abdominal: General: Bowel sounds are normal. Palpations: Abdomen is soft. Musculoskeletal: General: Normal range of motion. Cervical back: Normal range of motion. Neurological: General: No focal deficit present. Mental Status: She is alert and oriented to person, place, and time. Skin: General: Skin is warm and dry. Psychiatric: Mood and Affect: Mood normal. Behavior: Behavior normal. Thought Content: Thought content normal. Judgment: Judgment normal. Vitals and nursing note reviewed. Exam conducted with a cut in worker present. Vitals: Estimated body mass index is 31.78 kg/m?? as calculated from the following: Height as of 02/16/23: 5' 8 . Weight as of this encounter: 209 lb. BP: 112/68 No LMP recorded. ASSESSMENT & PLAN ICD-10-CM 1. Well woman exam with routine gynecological exam Z01.419 THIN PREP TIS PAP AND HR HPV DNA 2. Breast cancer screening by mammogram Z12.31 Bilateral screening mammogram Bilateral screening mammogram 3. Postmenopausal state Z78.0 DEXA bone density Annual Exam: Patient presents today for an annual exam. Patient states she is doing well and has no complaints. Pap was obtained without difficulty. Orders Placed This Encounter Procedures Bilateral screening mammogram DEXA bone density Follow Up: Patient is to return in one year for annual unless needed otherwise. Documented by ELYSIA Gonzales on behalf of: ELYSIA Gonzales documented in this encounter Plan of Treatment Upcoming Encounters Date Type Department Care Team (Late st Contact Info) Description 02/25/2026 9:00 AM EDT Procedure Visit [facility] LUND [address] [place] [address] [place] [phone] Sarai Quintana PA [address] [place] [address] [place] [address] Scheduled Orders Name Type Priority Associated Diagnoses Orde r Schedule Bilateral screening mammogram Imaging Routine Breast cancer screening by mammogram Expected: 02/20/2025, Expires: 04/22/2026 DEXA bone density Imaging Routine Postmenopausal state Expected: 02/20/2025 (Approximate), Expires: 02/20/2026 THIN PREP TIS PAP AND HR HPV DNA Pathology and Cytology Routine Well woman exam with routine gynecological exam Ordered: 02/20/2025 documented as of this encounter Visit Diagnoses Diagnosis Well woman exam with routine gynecological exam Routine gynecological examination Breast cancer screening by mammogram Postmenopausal state Asymptomatic postmenopausal status (age-related) (natural) documented in this encounter Care Teams Finishing Range Supervisor Relationship Specialty [place] [address] [place] [address] [place] [phone] PCP - General Family Medicine 02/04/25 documented as of this encounter
--- OUTSIDE RECORDS SUMMARY | 2025-02-20 19:44 | XMS_ITS | Encounter Summary ---
Author Organization [facility] Address [address] [facility] [place] [address] Care Team Providers Care Round Up Ring Hand Name Role Phone Ave Barnett MD Primary Care Provider [phone] Encounter Details Date Type Department Care Team (Late Contact Info) Description 02/20/2025 Bamboo flowsheet [facility] [address] [facility] [place] [address] Sarai Quintana PA [address] [facility] [address] [place], [place] [address] Social History Tobacco Use Types Packs/Day Years [...] Description 02/25/2026 9:00 AM EDT Procedure Visit [facility] [address] [facility] [address] [place] [address] Sarai Quintana PA [address] [facility] [facility] [address] [place] [id number] documented as of this encounter Visit Diagnoses Not on filedocumented in this encounter Care Teams Round Up Ring Hand Relationship Specialty Start Date End Date Ave Barnett MD [address] [place] [phone] PCP - General Family Medicine 02/04/25 documented as of this encounter
--- OUTSIDE RECORDS SUMMARY | 2025-02-20 19:44 | XMS_ITS | Clinical Summary ---
Author Organization [facility] Address [address] [place] [address] Care Team Providers Care Wheel Grinder Name Role Phone Ave Barnett MD Primary Care Provider [phone] Allergies Active Allergy Reactions Criticality Noted Date Comments Penicillins Hives 10/31/2014 Sulfa Antibiotics Hives 10/31/2014 Medications atorvastatin (Lipitor) 20 MG tablet Take 20 mg by mouth in the morning. 3 Active Multiple Vitamin (multivitamin) capsule Take 1 capsule by mouth in the morning. Active levothyroxine (Synthroid, Levoxyl) 137 MCG tablet Take 137 mcg by mouth in the morning. Take before meals. 5 Active gabapentin (Neurontin) 400 MG capsule Take 400 mg by mouth at bedtime 5 Active gabapentin (Neurontin) 600 MG tablet Take 600 mg by mouth at bedtime. 02/21/20 25 Discontinu ed(Other) levothyroxine (Synthroid, Levoxyl) 125 MCG tablet Take 125 mcg by mouth in the morning. Take before meals. 02/21/20 25 Discontinu ed(Other) glucosamine-cho ndroitin 500-400 MG tablet Take 1 tablet by mouth in the morning and 1 tablet in the evening and 1 tablet before bedtime. 02/21/20 25 Discontinu ed(Other) Active Problems Problem Noted Date Diagnosed Date Papillary thyroid carcinoma 01/05/2023 Overview (02/16/2023): Diagnosed 11/19/22. Papillary thyroid carcinoma. Total thyroidectomy 12/28/22. Completed post op [id number] Maier mid January 2023. Thyromegaly 12/28/2022 Resolved Problems Problem Noted Date Diagnosed Date Resolved Date Seasonal allergic rhinitis 12/28/2022 0 12/28/2022 BMI 30.0-30.9,adult 10/31/2014 12/29/19 23 Premature menopause on HRT 10/31/2014 0 12/28/2022 Encounters Date Type Department Care Team Description 02/20/2025 9:00 AM EDT Office Visit [facility] [address] [place] [id number] Sarai Quintana PA Well woman exam with routine gynecological exam; Breast cancer screening by mammogram; Postmenopausal state 02/20/2025 Bamboo flowsheet [facility] [address] [place] [id number] Sarai Quintana PA from Last 3 Months Family History Medical History Relation Name Comments [...] (209 lb) 02/20/2025 8:53 AM EDT Height 172.7 cm (5' 8 ) 02/16/2023 8:57 AM EDT Body Mass Index 31.78 02/16/2023 8:57 AM EDT Plan of Treatment Upcoming Encounters Date Type Department Care Team (Late st Contact Info) Description 02/25/2026 9:00 AM EDT Procedure [facility] [address] [place] [phone] Sarai Quintana PA [address] [place] [address] [place] [address] Insurance [employer] Care Teams Wheel Grinder Relationship Specialty Start Date End Date Ave Barnett MD [address] [facility] [place] [address] PCP - General Family Medicine 02/04/25
--- OUTSIDE RECORDS SUMMARY | 2025-02-20 19:44 | XMS_ITS ---
Author Organization [facility] Address [address] [place] [id number] Care Team Providers Care Video Production Engineer Name Role Phone Ave Barnett MD Primary Care Provider [phone] Lena Neff MD Unavailable [phone] Active Problems Problem Noted Date Diagnosed Date Thyroid cancer 01/24/2023 Current Treatment and Therapy Plans AMB THYROTROPIN MARCO 0.9 MG D1,2 - Q28D* Plan Start Date:12/31/2024 Plan Provider:Telly Hoover MD Linked Problems Thyroid cancer (HCC) Treatment Medications thyrotropin marco (THYROGEN) Past Treatment and Therapy Plans NON-CHEMO 1 Plan Name Start Date Discontinue Date Treatment Medications Discontinue Reason Plan Provider Cycles AMB THYROTROPIN MARCO 0.9 MG D1,2 - Q28D 3 05/24/2023 thyrotropin marco (THYROGEN) Other Telly Hoover MD 1 of 1 cycle started
--- OUTSIDE RECORDS SUMMARY | 2025-02-20 19:44 | XMS_ITS | Clinical Summary ---
Author Organization [facility] Address [address], [address] [place] [address] Care Team Providers Care Orthopaedic General Name Role Phone Ave Barnett MD Primary Care Provider Allergies Active Allergy Reactions Criticality Noted Date [...] Plan of Treatment Not on file [place] [employer] Care Teams Orthopaedic General Relationship Specialty Start Date End Date Ave Barnett MD PCP - General Family Medicine 04/26/16
--- OUTSIDE RECORDS SUMMARY | 2025-02-20 19:45 | XMS_ITS | CCD ---
Author Organization [facility] Care Team Providers Care Catcher Filter Tip Name Role Phone Marta Eisenberg Unavailable Salinas Zhou Consulting Unavailable FAINA, DR MARTA Donohue Attending Unavailable FAINA, DR MARTA Donohue Primary Care Unavailable EISENBERG, DR MARTA Donohue Admitting Unavailable EISENBERG, DR [...] EISENBERG, DR MARTA Donohue Primary Care Unavailable EISENBERG, DR MARTA Donohue Attending Unavailable EISENBERG, DR MARTA Donohue Admitting Unavailable Salinas Zhou Consulting Unavailable FAINA, DR MARTA Donohue Consulting Unavailable TIMOSCAR, DR STAUFFER Attending Unavailable TIMOSCAR, DR STAUFFER Admitting Unavailable FAINA, DR MARTA Donohue Primary Care Unavailable EISENBERG, DR MARTA Donohue Primary Care Unavailable TIMOSCAR, DR STAUFFER Admbecky Unavailable TIMOSCAR, DR STAUFFER Attending Unavailable FAINA, DR MARTA Donohue Primary Care Unavailable Salinas Zhou Consulting Unavailable FAINA, DR MARTA Donohue Attending Unavailable FAINA, DR MARTA Donohue Admitting Unavailable EISENBERG, DR MARTA Donohue Consulting Unavailable EISENBERG, DR MARTA Donohue Primary Care Unavailable EISENBERG, DR MARTA Donohue Attending Unavailable EISENBERG, DR MARTA Donohue Admitting Unavailable Salinas Zhou Consulting Unavailable FAINA, DR MARTA Donohue Consulting Unavailable FAINA, DR MARTA Donohue Primary Care Unavailable EISENBERG, DR MARTA Donohue Consulting Unavailable EISENBERG, DR MARTA Donohue Attending Unavailable EISENBERG, MARTA E Admitting Unavailable Marta Eisenberg MD Primary Care Provider Xiomy Neff Unavailable MD Marta Eisenberg Primary Care Provider MD Nikkie Hoover Attending Provider MD Marta Eisenberg Primary Care Provider MD Nikkie Hoover Attending Provider Nikkie Hoover Admitting Unavailable Nikkie Hoover Attending Unavailable Marta Eisenberg Primary Care Unavailable Xiomy Neff MD Unavailable Marta Eisenberg MD Primary Care Provider Telly HOOVER JUNG Referring Unavailable ENGELERTelly Attending Unavailable MARTA EISENBERG Primary Care Unavailable ENGELERTelly JUNG Referring Unavailable MARTA EISENBERG Primary Care Unavailable ENGELERTelly JUNG Referring Unavailable MARTA EISENBERG Primary Care Unavailable ENGELERTelly JUNG Referring Unavailable MARTA EISENBERG Primary Care Unavailable ENGELER, Telly FENG Referring Unavailable MARTA EISENBERG Primary Care Unavailable MARTA EISENBERG Primary Care Unavailable MARTA EISENBERG Primary Care Unavailable ENGELER, G JUNG Attending Unavailable ENGELER, G JUNG Referring Unavailable MARTA EISENBERG Primary Care Unavailable Marta Eisenberg MD Primary Care Provider Allergies Allergy Classification Reported Allergen(s) Allergy Type Date of Onset Reaction(s) Facility Penicillins (antibiotic) (1 source) Penicillins Drug Allergy 01-10-20 24 Unknown Reaction [facility] Sulfonamides (antibiotic) (1 source) Sulfonamides (Antibiotic) Drug Allergy 01-10-20 24 Unknown Reaction [facility] (4 sources) Penicillin Drug Allergy Unknown [facility] Other (4 sources) PCN-200 Propensity to adverse reactions Unknown [facility] Other (20 sources) Substance with sulfonamide structure and antibacterial mechanism of action (substance) Drug allergy 11-01-19 15 [facility] (4 sources) SULFA 10 Propensity to adverse reactions Unknown [facility] Other (5 sources) Penicillins; Translations: [PENICILLINS] Drug allergy (disorder) 03-04-20 13 [facility] Repository Comment on above: Onset Date: 05/30/20 15 (2 sources) Sulfonamides (Antibiotic) Drug allergy (disorder) 03-04-20 13 [facility] Repository (19 sources) Penicillins Drug Allergy 01-11-20 23 [facility] (1 source) Substance with penicillin structure and antibacterial mechanism of action (substance) Drug allergy Unknown [facility] Other (1 source) patient allergy list reviewed by nurse or physicia Propensity to adverse reactions 05-20-20 16 Comment:Done [facility] Other (1 source) Allergies Reconciled Propensity to adverse reactions Unknown [facility] Other (1 source) Sulf-10 Drug allergy 05-30-20 15 Unknown [facility] Other (2 sources) Sulfonamides (Antibiotic); Translations: [SULFA (SULFONAMIDE ANTIBIOTICS)] Allergy to substance 01-11-20 23 Unknown Reaction [facility] (9 sources) Penicillins Drug Allergy 01-11-20 23 [facility] (3 sources) Penicillins Drug Intolerance 11-01-19 15 [facility] Work Phone: Medications Current Medications Medication Drug Class(es) Dates [...] once daily Start: 11-12-2022 End: 10-13-2023 take 1 tablet by mouth in the morning atorvastatin (Lipitor) 20 MG tablet Take 20 mg by mouth in the morning. 12/09/2022 Active chondroitin sulfates 400 mg / glucosamine sulfate 500 mg oral tablet (3 sources) End: 02-20-2025 take 1 tablet by mouth in the morning, then take 1 tablet by mouth in the evening, then take 1 tablet by mouth at bedtime glucosamine-chondroitin 500-400 MG tablet Take 1 tablet by mouth in the morning and 1 tablet in the evening and 1 tablet before bedtime. 02/20/2025 Discontinued (Other) gabapentin 400 mg oral capsule (20 sources) Anti-epilep tic Agent Start: 02-19-2025 take 1 capsule by mouth at bedtime gabapentin (Neurontin) 400 MG capsule Take 400 mg by mouth at bedtime 02/19/2025 Active Start: 08-31-2022 End: 02-20-2025 take 1 tablet by mouth once daily at bedtime Gabapentin 600 mg tablet Discontinued 600 MG PO Daily at bedtime September 02, 2023 1:00am September 26, 2023 3:05pm Start: 08-31-2022 End: 07-27-2024 take 1 tablet by mouth once daily at bedtime Gabapentin 800 mg tablet Discontinued 800 MG PO Daily at bedtime September 26, 2023 12:00am December 27, 2023 9:09am take 1 capsule by [facility] once daily at bedtime gabapentin (NEURONTIN) 400 mg capsule Take 400 mg by mouth daily at bedtime. Active Comment on above: Take by mouth daily at bedtime. levothyroxine sodium 0.137 mg oral tablet (20 sources) l-Thyroxine Start: take 1 tablet by mouth before mealtime levothyroxine (Synthroid, Levoxyl) 137 MCG tablet Take 137 mcg by mouth in the morning. Take before meals. 02/14/2025 Active Start: 01-16-2025 take 1 tablet by carlie once daily before breakfast levothyroxine (SYNTHROID) 137 mcg tablet Take 1 tablet by mouth daily before breakfast. 30 tablet 3 01/16/2025 Active Start: 09-26-2023 take 1 capsule by mo ut once daily Levothyroxine 137 mcg capsule Active 137 MCG PO Daily September 26, 2023 12:00am Start: 07-08-2023 End: 01-14-2025 take 1 tablet by mouth once daily before breakfast levothyroxine (SYNTHROID) 137 mcg tablet Take 1 tablet by mouth daily before breakfast. 30 tablet 3 09/19/2024 01/14/2025 Discontinued Start: 03-24-2023 take 1 tablet by carlie th once daily before breakfast levothyroxine (SYNTHROID) 137 mcg tablet Take 1 tablet by mouth daily before breakfast. 30 tablet 3 03/24/2023 Active Start: 01-11-2023 End: 02-20-2025 take 1 tablet by mouth once daily levothyroxine (SYNTHROID) 125 mcg tablet Take 1 tablet by mouth once daily. Start 01/27/23 30 tablet 2 01/11/2023 Active Comment on above: Take 1 tablet by carlie th once daily. Start 01/27/23 Take 1 tablet by carlie th daily before breakfast. Multiple Vitamin (multivitamin) capsule (3 sources) take 1 capsule by mouth in the morning Multiple Vitamin (multivitamin) capsule Take 1 capsule by mouth in the morning. Active MULTIVITAMIN ORAL (20 sources) MULTIVITAMIN ORA L Take by mouth. Active MULTIVITAMIN ORA L Take by mouth. 0 Active Comment on above: Take by mouth. Completed/Discontinued Medications Medication Drug Class(es) Dates Sig (Normalized) Sig (Original) glucosamine/msm/cho ndroitin A (GLUCOSAMINE-CHONDR -MSM ORAL) (19 sources) End: 07-27-2024 glucosamine/msm/areli droitin A (GLUCOSAMINE-CHONDR- MSM ORAL) Take by mouth. 07/27/2024 Discontinued glucosamine/msm/ chondroitin A (TMQQUOBVMSP-VGYWSN-JSH ORAL) Take by mouth. Active glucosamine/msm/ chondroitin A (TVMBVONSZWS-NCJSOI-HLM ORAL) Take by mouth. 0 Active Comment on above: Take by mouth. liothyronine sodium 0.025 mg oral tablet (13 sources) l-Triiodothyronine Start : 12-29 take 1 tablet by mouth twice daily liothyronine (CYTOMEL) 25 mcg tablet Take 25 mcg by mouth twice daily. 0 12/29/2022 Active Comment on above: Take 25 mcg by mouth twice daily. permethrin 50 mg/ml topical cream (2 sources) Pyrethroid Start : 01-09 End: 11-19 Permethrin 5 % cream Discontinued 1 APPLIC TOPICAL Q14D 60 January 10, 2024 12:00am November 19, 2024 3:30pm apply second treatment 14 days after first treatment if live lice remain pilocarpine hydrochloride 5 mg oral tablet (13 sources) Cholinergic Receptor Agonist Start : 01-11 take 1 tablet by mouth three times daily pilocarpine (SALAGEN, PILOCARPINE,) 5 mg tablet Indications: Thyroid cancer (HCC) Take 1 tablet by mouth three times daily. Start 01/24/23 15 tablet 0 01/11/2023 Active Comment on above: Take 1 tablet by carlie th three times daily. Start 01/24/23 prochlorperazine 10 mg oral tablet (13 sources) Phenothiazine Start : 01-11 take 1 tablet by mouth every eight hours as needed prochlorperazine (COMPAZINE) 10 mg tablet Indications: Thyroid cancer (HCC) Take 1 tablet by mouth every 8 hours as needed. 15 tablet 1 01/11/2023 Active Comment on above: Take 1 tablet by carlie th every 8 hours as needed. thyrotropin marco 0.9 mg injection (THYROGEN) (2 sources) Start : 01-01 End: 01-01 inject 0.9 mg by intramuscular injection once 0.9 mg, INTRAMUSCULAR, ONCE, 1 dose, On Tue01/01/25 at 0830, REFRIGERATE Start: 12-31-2024 End: 12-31-2024 inject 0.9 mg by intramuscular injection once 0.9 mg, INTRAMUSCULAR, ONCE, 1 dose, On Tue12/31/24 at 0830, REFRIGERATE Problems Active Problems Problem Classification Problem Date Documented Da te Episodic/Chronic Cancer of thyroid (20 sources) Malignant tumor of thyroid gland; Translations: [Malignant neoplasm of thyroid gland] Onset: 01-05-2023 Chronic Disorders of lipid metabolism (5 sources) [...] mass index (BMI) 32.0-32.9, adult] Chronic Other screening for suspected conditions (not mental disorders or infectious disease) (7 sources) Encounter for screening for malignant neoplasm of colon; Translations: [Encounter for screening mammogram for malignant neoplasm of breast] Onset: 03-01-2022 Episodic Other upper respiratory disease (1 source) Other seasonal allergic rhinitis Chronic Residual codes; unclassified (1 source) Tobacco user; Translations: [Tobacco use] Episodic Residual codes; unclassified (2 sources) Tobacco use and exposure - finding; Translations: [Tobacco use] 09-23-2023 Episodic Residual codes; unclassified (2 sources) Postmenopausal state; Translations: [Asymptomatic menopausal state] 02-20-2025 Episodic Spondylosis; intervertebral disc disorders; other back [...] Classification Problem Date Documented Da te Episodic/Chronic Menopausal disorders (3 sources) Premature menopause; Translations: [Asymptomatic premature menopause] Onset: 10-31-2014 Resolved: 12-28-2022 12-28-2022 Chronic Other non-traumatic joint disorders (1 source) Arthralgia of the lower leg; Translations: [Pain in joint, lower leg] Onset: 03-01-2016 Episodic Other non-traumatic joint disorders (1 source) Pain in wrist; Translations: [Pain in right wrist] Onset: 09-08-2015 Episodic Other nutritional; endocrine; and metabolic disorders (4 sources) Body mass index 30+ - obesity; Translations: [Body mass index 31.0-31.9, adult] Onset: 10-31-2014 Resolved: 12-28-2022 12-28-2022 Chronic Other upper respiratory disease (7 sources) Seasonal allergic rhinitis; Translations: [Other seasonal allergic rhinitis] Onset: 12-28-2022 Resolved: 12-28-2022 12-28-2022 Chronic Other upper respiratory infections (1 source) Acute [...] Test Name Value Interpretation Reference Range Facility [facility] 01-10-2025 CNOV Office Visit (RADTSA ) CASSIE WINTERS ([id number]) 1965 F Date Time Provider Department 01/10/25 9:30 AM Telly HOOVER During your visit today, we recorded the following information about you: Temperature Pulse Respiration Blood pressure 97.2 degrees 67/minute 18/minute 111/66 Weight 94.9 kg Telly Hoover MD 01/10/2025 9:43 AM Signed Radiation Oncology - Follow-up Note PATIENT NAME: Cassie Winters PATIENT : 1965 Primary Site: Thyroid Date of Diagnosis: 11/19/2022 Clinical Stage: T1 Nx Mx Pathologic Stage: T1 N0 Mx DIAGNOSIS: Papillary thyroid carcinoma status post total thyroidectomy, T1BN0. S/p I-131: 53.4 mCi 01/26/2023. HPI: Doing well. She underwent recent laboratory evaluation after Thyrogen stimulation. Denies issues with this. Denies new problems or concerns. She does have some continued mild dysphagia and fullness feeling in the above neck area. Denies any palpitations shortness of breath or [...] metastasis. LABORATORY: Latest Reference Range AND Units 05/18/23 09:53 11/22/23 08:27 05/23/24 08:23 07/09/24 14:04 12/31/24 08:12 01/04/25 09:04 S/p thyrogen Thyroglobulin Ab, Serum <4.0 IU/mL 1.1 <0.9 <0.9 <0.9 Thyroglobulin, Serum 1.6 - 50.0 ng/mL 0.1 (L) 0.1 (L) 0.1 (L) 0.1 (L) Thyroglobulin, LC-MS/MS 1.3 - 31.8 ng/mL <0.5 (L) T4 5.5 - 10.2 ug/dL 9.9 9.0 9.4 Free T4 0.9 - 1.7 ng/dL 1.7 TSH 0.270 - 4.200 mIU/L 0.095 (L) 0.214 (L) 0.255 (L) 0.454 (L): Data is abnormally low Latest Reference Range AND Units 01/26/23 10:59 [...] Sulfa (Sulfonamide * Hives MEDICATIONS: gabapentin (NEURONTIN) 400 mg capsule Take 400 mg by mouth daily at bedtime. levothyroxine (SYNTHROID) 137 mcg tablet Take 1 tablet by mouth daily before breakfast. atorvastatin (LIPITOR) 20 mg tablet MULTIVITAMIN ORAL Take by mouth. PAST MEDICAL [...] noted in HPI PHYSICAL EXAM: VS: There w (more content not included)... Normal [facility] Thyroglobulin and Thyrogobul in Ab panelon 01-04-2025 Thyroglobulin Ab Qn [IU]/mL Normal <4.0 [facility] Comment on above: Order Comment: [place] Type: BLOOD SPECIMEN Ordering Facility: [facility] Address: [address] [place] [address] Result Comment: The Thyroglobulin Antibody test was performed using the Wire DXI paramagnetic particle chemiluminescent immunoassay method. Results obtained with different assay methods or kits cannot be used interchangeably. Performed By: #### 3 026-2, 3016-3 #### [facility] CLIA [id number] [address] [place] [address] [place] THYROGLOBULIN, SERUM 0.1 ng/mL Low 1.6-50.0 [facility] Comment on above: Order Comment: [place] Type: BLOOD SPECIMEN Ordering Facility: [facility] Address: [address] [place] [address] Result Comment: The Thyroglobulin test was performed using the Dr. Zel DXI paramagnetic particle chemiluminescent immunoassay method. Results obtained with different assay methods or kits cannot be used interchangeably. Performed By: #### 3 026-2, 3016-3 #### [facility] CLIA [id number] [address] [place] [address] [place] CNOVon 01-01-2025 CNOV Office Visit (RADTSA ) CASSIE WINTERS ([id number]) 1965 F Date Time Provider Department 01/01/25 8:30 AM LAB/PORT RADT LIANAZAM DAVID During your visit today, we recorded the following information about you: Temperature Pulse Respiration Blood pressure 96.8 degrees 77/minute 16/minute 115/77 Referring Provider: Telly HOOVER [[id number]] Allergies As of Date: 01/01/2025 Noted Allergy Reaction PENICILLINS 01/10/2023 4 - Hives SULFA (SULFONAMIDE ANTIBIOTICS) 01/10/2023 4 - Hives Date Reviewed: 12/31/2024 Reviewed by: Elina Schulte, ERIKA - Fully Assessed Reason for Visit: Injections [199] Primary Visit Diagnosis:Thyroid cancer (HCC) [C73] Order(s):[facility]ON INFUSION APPOINTMENT REQUEST [[id number]] Order #: [id number]: 1 FUTURE TREATMENT PARAMETER-NOT NEEDED [[id number]] Order #: [id number]: 1 [] thyrotropin marco 0.9 mg injection (THYROGEN)Disp: Rfl: NaCl 0.9% iv infusionDisp: Rfl: diphenhydrAMINE 50 mg injection (BENADRYL)Disp: Rfl: hydrocortisone sodium succinate (PF) 100 mg injection (Solu-CORTEF)Disp: Rfl: EPINEPHrine 1 mg/mL (1 mL) 0.3 mg injectionDisp: Rfl: BCN NURSING COMMUNICATION [[id number]] Order #: [id number]: 1 STANDING [facility] NURSING COMMUNICATION [[id number]] Order #: [id number]: 1 STANDING sodium chloride 0.9 % (flush) 10-20 mL (BD POSIFLUSH)Disp: Rfl: sodium chloride 0.9 % (flush) 10-20 mL (BD POSIFLUSH)Disp: Rfl: [facility] NURSING COMMUNICATION [[id number]] Order #: [id number]: 1 STANDING [facility] NURSING COMMUNICATION [[id number]] Order #: [id number]: 1 STANDING Prescriptions as of 01/01/2025 - gabapentin (NEURONTIN) 400 mg capsule Take 400 mg by mouth daily at bedtime. - levothyroxine (SYNTHROID) 137 mcg tablet Take 1 tablet by mouth daily before breakfast. - atorvastatin (LIPITOR) 20 mg tablet - MULTIVITAMIN ORAL Take by mouth. Facility-Administered Medications as of 01/01/2025 - NaCl 0.9% iv infusion - diphenhydrAMINE 50 mg injection (BENADRYL) - hydrocortisone sodium succinate (PF) 100 mg injection (Solu-CORTEF) - EPINEPHrine 1 mg/mL (1 mL) 0.3 mg injection - sodium chloride 0.9 % (flush) 10-20 mL (BD POSIFLUSH) - sodium chloride 0.9 % (flush) 10-20 mL (BD POSIFLUSH) Problem List As Of Date 01/01/2025 Noted Resolved Thyroid cancer (HCC) [C73] 01/24/2023 Prescriptions ordered this encounter Disp Refills Start End THYROTROPIN MARCO 0.9 MG INTRAMUSCULA* 01/01/2025 01/01/2025 Route: IM SODIUM CHLORIDE 0.9 % INTRAVENOUS SO* 01/01/2025 Cmt: Inform physician Route: IV DIPHENHYDRAMINE 50 MG/ML INJECTION S* 01/01/2025 Route: IV HYDROCORTISONE SOD SUCCINATE (PF) 10* 01/01/2025 Route: IV EPINEPHRINE 1 MG/ML (1 ML) INJECTION* 01/01/2025 Route: IM SODIUM CHLORIDE 0.9 % (FLUSH) INJECT* 01/01/2025 Route: IV SODIUM CHLORIDE 0.9 % (FLUSH) INJECT* 01/01/2025 Route: IV Encounter Status:Closed by ELINA SCHULTE on 01/01/25 [facility] CNOVon 12-31-2024 CNOV Office Visit (RADTSA ) CHRISCASSIE ([id number]) 1965 F Date Time Provider Department 12/31/24 8:30 AM LAB/PORT RADT LIAN DAVID During your visit today, we recorded the following information about you: Temperature Pulse Respiration Blood pressure 96.9 degrees 61/minute 16/minute 138/80 Referring Provider: Telly HOOVER [[id number]] Allergies As of Date: 12/31/2024 Noted Allergy Reaction PENICILLINS 01/10/2023 4 - Hives SULFA (SULFONAMIDE ANTIBIOTICS) 01/10/2023 4 - Hives Date Reviewed: 12/31/2024 Reviewed by: Elina Schulte, RN - Fully Assessed Reason for Visit: Injections [199] Cmt: Thyrogen Primary Visit Diagnosis:Thyroid cancer (HCC) [C73] Order(s):BEACON PROVIDER APPOINTMENT REQUEST [[id number]] Order #: [id number]: 1 FUTURE [facility] INFUSION APPOINTMENT REQUEST [[id number]] Order #: [id number]: 1 FUTURE TREATMENT PARAMETER-NOT NEEDED [[id number]] Order #: [id number]: 1 [] thyrotropin marco 0.9 mg injection (THYROGEN)Disp: Rfl: NaCl 0.9% iv infusionDisp: Rfl: diphenhydrAMINE 50 mg injection (BENADRYL)Disp: Rfl: hydrocortisone sodium succinate (PF) 100 mg injection (Solu-CORTEF)Disp: Rfl: EPINEPHrine 1 mg/mL (1 mL) 0.3 mg injectionDisp: Rfl: BCN NURSING COMMUNICATION [[id number]] Order #: [id number]: 1 STANDING [facility]N NURSING COMMUNICATION [[id number]] Order #: [id number]: 1 STANDING sodium chloride 0.9 % (flush) 10-20 mL (BD POSIFLUSH)Disp: Rfl: sodium chloride 0.9 % (flush) 10-20 mL (BD POSIFLUSH)Disp: Rfl: [facility] NURSING COMMUNICATION [[id number]] Order #: [id number]: 1 STANDING [facility] NURSING COMMUNICATION [[id number]] Order #: [id number]: 1 STANDING Prescriptions as of 12/31/2024 - gabapentin (NEURONTIN) 400 mg capsule Take 400 mg by mouth daily at bedtime. - levothyroxine (SYNTHROID) 137 mcg tablet Take 1 tablet by mouth daily before breakfast. - atorvastatin (LIPITOR) 20 mg tablet - MULTIVITAMIN ORAL Take by mouth. Facility-Administered Medications as of 12/31/2024 - NaCl 0.9% iv infusion - diphenhydrAMINE 50 mg injection (BENADRYL) - hydrocortisone sodium succinate (PF) 100 mg injection (Solu-CORTEF) - EPINEPHrine 1 mg/mL (1 mL) 0.3 mg injection - sodium chloride 0.9 % (flush) 10-20 mL (BD POSIFLUSH) - sodium chloride 0.9 % (flush) 10-20 mL (BD POSIFLUSH) Problem List As Of Date 12/31/2024 Noted Resolved Thyroid cancer (HCC) [C73] 01/24/2023 Prescriptions ordered this encounter Disp Refills Start End THYROTROPIN MARCO 0.9 MG INTRAMUSCULA* 12/31/2024 12/31/2024 Route: IM SODIUM CHLORIDE 0.9 % INTRAVENOUS SO* 12/31/2024 Cmt: Inform physician Route: IV DIPHENHYDRAMINE 50 MG/ML INJECTION S* 12/31/2024 Route: IV HYDROCORTISONE SOD SUCCINATE (PF) 10* 12/31/2024 Route: IV EPINEPHRINE 1 MG/ML (1 ML) INJECTION* 12/31/2024 Route: IM SODIUM CHLORIDE 0.9 % (FLUSH) INJECT* 12/31/2024 Route: IV SODIUM CHLORIDE 0.9 % (FLUSH) INJECT* 12/31/2024 Route: IV Encounter Status:Closed by ELINA SCHULTE on 12/31/24 Normal [facility] T4 [Mass/Vol] 1.7 ng/dL Normal 0.9-1.7 [facility] Comment on above: Order Comment: Speci men Type: BLOOD SPECIMEN Ordering Facility: [facility] Address: [address] [place] [address] Performed By: #### 3 026-2, 3016-3 #### [facility] CLIA [id number] [address] [place] [address] [place] TSH SerPl-aCncon 12-31-2024 TSH Qn 0.454 m[IU]/L Normal 0.270-4.200 [facility] Comment on above: Order Comment: Speci men Type: BLOOD SPECIMEN Ordering Facility: [facility] Address: [address] [place] [address] Performed By: #### 3 026-2, 3016-3 #### [facility] CLIA [id number] [address] [place] [address] [place] Thyroglobulin and Thyrogobul in Ab panelon 12-31-2024 Thyroglobulin Ab Qn [IU]/mL Normal <4.0 [facility] Comment on above: Order Comment: Speci men Type: BLOOD SPECIMEN Ordering Facility: [facility] Address: [address] [place] [address] Result Comment: The Thyroglobulin Antibody test was performed using the [employer] DXI paramagnetic particle chemiluminescent immunoassay method. Results obtained with different assay methods or kits cannot be used interchangeably. Performed By: #### 5 7780-9 #### [facility] CLIA [id number] [address] [place] [address] [place] THYROGLOBULIN, SERUM 0.1 ng/mL Low 1.6-50.0 [facility] Comment on above: Order Comment: Speci men Type: BLOOD SPECIMEN Ordering Facility: [facility] Address: [address] [place] [address] Result Comment: The Thyroglobulin test was performed using the [employer] Un[employer]el DXI paramagnetic particle chemiluminescent immunoassay method. Results obtained with different assay methods or kits cannot be used interchangeably. Performed By: #### 5 7780-9 #### [facility] CLIA [id number] [address] STATES OF [facility] 12-21-2024 CNPN Telephone ([employer]) CASSIE WINTERS ([id number]) 1965 F Date Time Provider Department 12/21/24 [...] by: Elina Schulte, RN - Fully Assessed Prescriptions as of 12/24/2024 - levothyroxine (SYNTHROID) 137 mcg tablet Take 1 tablet by mouth daily before breakfast. - atorvastatin (LIPITOR) 20 mg tablet - MULTIVITAMIN ORAL Take by mouth. Problem List As Of Date 12/21/2024 Noted Resolved Thyroid cancer (HCC) [C73] 01/24/2023 Encounter Status:Closed by [facility]WOR[facility] CASSIE WINTERS ([id number]) 1965 F Date Time Provider Department 12/21/24 Telly HOOVER During your visit today, we recorded the following information about you: Mario Farnsworth RN 12/21/2024 4:37 PM Signed Pharmacist: Please place Thyrogen orders scheduled 12/31/24 and 01/01/[address] Hoover. Thanks ERIKA Franco Kathryn [facility] 12/24/2024 8:17 AM Signed Orders placed and routed in a separate encounter Giancarlo Pathak, CalvinD, BCOP Allergies As of Date: 12/21/2024 Noted Allergy Reaction PENICILLINS 01/10/2023 4 - Hives SULFA (SULFONAMIDE ANTIBIOTICS) 01/10/2023 4 - Hives Date Reviewed: 07/19/2024 Reviewed by: Elina Schulte, RN - Fully Assessed Reason for Visit: Orders [681] Prescriptions as of 12/24/2024 - levothyroxine (SYNTHROID) 137 mcg tablet Take 1 tablet by mouth daily before breakfast. - atorvastatin (LIPITOR) 20 mg tablet - MULTIVITAMIN ORAL Take by mouth. Problem List As Of Date 12/21/2024 Noted Resolved Thyroid cancer (HCC) [C73] 01/24/2023 Encounter Status:Closed by PAULINE PATHKA on 12/24/24 [facility] Harper 12-19-2024 CNPN Telephone (RADTSA) CASSIE WINTERS ([id number]) 1965 F Date Time Provider Department 12/19/24 [...] ERIKA - Fully Assessed Reason for Visit: Patient Question [1477] Prescriptions as of 12/19/2024 - levothyroxine (SYNTHROID) 137 mcg tablet Take 1 tablet by mouth daily before breakfast. - atorvastatin (LIPITOR) 20 mg tablet - MULTIVITAMIN ORAL Take by mouth. Problem List As Of Date 12/19/2024 Noted Resolved Thyroid cancer (HCC) [C73] 01/24/2023 Encounter Status:Closed by MARIO FARNSWORTH on 12/19/24 [facility] CNOVon 07-19-2024 CNOV Office Visit (RADTSA ) CASSIE WINTERS ([id number]) 1965 F Date Time Provider Department 07/19/24 [...] mouth daily at bedtime. glucosamine/msm/chondr oitin A (OOCCLSPBBSE-TYXQRS-VT M ORAL) Take by mouth. PAST MEDICAL [...] On appropriate (more content not included)... Normal [facility] Thyroglobulin and Thyrogobul in Ab panelon 07-09-2024 Thyroglobulin Ab Qn [IU]/mL Normal <4.0 [facility] Comment on above: Order Comment: [place]ooth [place]de Type: BLOOD SPECIMEN Ordering Facility: [facility] Address: [address] [place] [address] Result Comment: The Thyroglobulin Antibody test was performed using the Dr. Zel DXI paramagnetic particle chemiluminescent immunoassay method. Results obtained with different assay methods or kits cannot be used interchangeably. Performed By: #### 3 026-2, 3016-3 #### [facility] CLIA [id number] [address] [place] [address] [place] THYROGLOBULIN, SERUM 0.1 ng/mL Low 1.6-50.0 [facility] Comment on above: Order Comment: [place] Type: BLOOD SPECIMEN Ordering Facility: [facility] Address: [address] [place] [address] Result Comment: The Thyroglobulin test was performed using the Rafaela [place] [employer] DXI paramagnetic particle chemiluminescent immunoassay method. Results obtained with different assay methods or kits cannot be used interchangeably. Performed By: #### 3 026-2, 3016-3 #### [facility] CLIA [id number] [address] [facility] [id number] [place] [address] [place] CNPNon 06-21-2024 CNPN Telephone (RADTSA) CHRISCASSIE ([id number]) 1965 F Date Time Provider Department 06/21/24 [...] TO IA OR LC-MS/MS [SQTHYRORF] Order #: [id number] FUTURE Prescriptions as of 07/09/2024 - levothyroxine (SYNTHROID) 137 mcg tablet Take 1 tablet by mouth daily before breakfast. - atorvastatin (LIPITOR) 20 mg tablet - gabapentin (NEURONTIN) 800 mg tablet Take by mouth daily at bedtime. - glucosamine/msm/chondr oitin A (AWXVOGQNRVN-QAUAMF-VJ M ORAL) Take by mouth. - MULTIVITAMIN ORAL Take by mouth. Problem List As Of Date 06/21/2024 Noted Resolved Thyroid cancer (HCC) [C73] 01/24/2023 Encounter Status:Closed by MARIO FARNSWORTH on 07/09/24 Normal [facility] T4 SerPl-mCncon 05-23-2024 T4 [Mass/Vol] 9.4 ug/dL Normal 5.5-10.2 [facility] Comment on above: Order Comment: Speci men Type: BLOOD SPECIMEN Ordering Facility: [facility] Address: [address] [place] [address] Performed By: #### 3 026-2, 3015-3 #### [facility] CLIA [id number] [address] [place] [address] [place] TSH SerPl-aCncon 05-23-2024 TSH Qn 0.255 m[IU]/L Low 0.270-4.200 [facility] Comment on above: Order Comment: Smooth men Type: BLOOD SPECIMEN Ordering Facility: [facility] Address: [address] [place] [address] Performed By: #### 3 026-2, 3015-3 #### [facility] CLIA [id number] [facility] [place] [address] [place] Laboratory - Chemistry and C hemistry - challengeon 11-22-2023 T4 [Mass/Vol] 9.0 ug/dL 5.5-10.2 [facility] TSH Qn 0.214 m[IU]/L 0.270-4.200 [facility] Thyroglobulin [Mass/volume] in Serum or Plasmaon 11-22-2023 Thyroglobulin [Mass/Vol] <0.5 ng/mL 1.3-31.8 [facility] Comment on above: Results obtained wit [...] developed and its performance characteristics determined by [facility]. It has not been cleared or approved by the [place] Food and Drug Administration. This test was performed in a CLIA certified laboratory and is intended for clinical purposes.Performed By: [facility] [place] [address] [id number] Director: Jose Carlos Rico MD, PhDCLIA Number: [id number] NM thyroid ca whole bodyon 0 02-02-2023 NM thyroid ca whole body [place] [id number] Nuclear Medicine Report Signed Patient: Cassie Winters MR#: [id number] : 1965 Acct:[id number] Age/Sex: 57 / F ADM Date: 01/26/23 Loc: NM Room: Type: [facility] Attending Dr: Nikkie Hoover MD Copies to: [...] Lokesh Guzmán M.D.02/02/2023 3:40 PM Dictation Location: [place] [address] Transcribed By: DEWEY 02/02/23 1540 Dictated By: Lokesh Guzmán II, MD 02/02/23 1534 Signed By: 02/02/23 1540 [facility] US THYROID FN ASP BXon 11-30 US THYROID FN ASP BX Begin Addendum #1 COLLECTED DATE/TIME: 11/19/2022, 13:16 EDT Final Diagnosis Report for [facility] [place] (A/B) LEFT THYROID MID LOBE NODULE; [...] 2. Pathology results are pending. Normal [facility] US THYROIDon 11-08-2022 US THYROID EXAMINATION: US [...] SALINAS ZHOU Date: 2022-11-08 15:05 Normal [facility] CBC AUTO DIFFon 11-06-2022 BASO # 0.0 103/ul Normal 0.0-0.1 [facility] Comment on above: Performed By: #### C BC #### [facility] [address] [place] [address] Dr. Joellen Kohli Basophils/100 WBC (Bld) 0.5 % Normal 0.2-2.0 [facility] Comment on above: Performed By: #### C BC #### [facility] [address] [place] [address] [address] Joellen Kohli EO # 0.1 103/ul Normal 0.0-0.7 [facility] Comment on above: Performed By: #### C BC #### [facility] [address] [place] [address] Dr. Joellen Kohli Eosinophils/100 WBC (Bld) 1.7 % Normal 0.9-7.0 [facility] Comment on above: Performed By: #### C BC #### [facility] [address] [place] [address] Dr. Joellen Kohli Erythrocyte distribution width (RBC) [Ratio] 11.5 % Normal 11.0-15.0 [facility] Comment on above: Performed By: #### C BC #### [facility] [address] [place] [address] Dr. Joellen Kohli Hematocrit (Bld) [Volume fraction] 42.0 % Normal 36.0-48.0 [facility] Comment on above: Performed By: #### C BC #### [facility] [address] [place] [address] Dr. Joellen Kohli Hemoglobin (Bld) [Mass/Vol] 14.1 g/dL Normal 12.0-16.0 [facility] Comment on above: Performed By: #### C BC #### [facility] [address] [place] [address] Dr. Joellen Kohli IG # 0.01 10e3/ul Normal 0.00-0.03 [facility] Comment on above: Performed By: #### C BC #### [facility] [address] [place] [address] Dr. Joellen Kohli IG % 0.2 % Normal 0.0-0.5 [facility] Comment on above: Performed By: #### C BC #### [facility] [address] [place] [address] Dr. Joellen Kohli LYMPH # 2.2 103/ul Normal 1.2-3.8 [facility] Comment on above: Performed By: #### C BC #### [facility] [address] [place] [address] Dr. Joellen Kohli Lymphocytes/100 WBC (Bld) 38.1 % Normal 20.5-60.0 [facility] Comment on above: Performed By: #### C BC #### [facility] [address] [place] [address] Dr. Joellen Kohli MANUAL DIFF REQ NO Normal [facility] Comment on above: Performed By: #### C BC #### [facility] [address] [place] [address] Dr. Joellen Kohli MCH (RBC) [Entitic mass] 30.9 pg Normal 26.7-34.0 [facility] Comment on above: Performed By: #### C BC #### [facility] [address] [place] [address] Dr. Joellen Kohli MCHC (RBC) [Mass/Vol] 33.6 g/dL Normal 29.9-35.2 [facility] Comment on above: Performed By: #### C BC #### [facility] [address] [place] [address] Dr. Joellen Kohli MCV (RBC) [Entitic vol] 91.9 fL Normal 81.0-99.0 [facility] Comment on above: Performed By: #### C BC #### [facility] [address] [place] [address] Dr. Joellen Kohli MONO # 0.5 103/ul Normal 0.3-0.8 [facility] Comment on above: Performed By: #### C BC #### [facility] [address] [place] [address] Dr. Joellen Kohli Monocytes/100 WBC (Bld) 9.2 % Normal 1.7-12.0 [facility] Comment on above: Performed By: #### C BC #### [facility] [address] [place] [address] Dr. Joellen Kohli NEUT # 2.9 103/ul Normal 1.4-6.5 [facility] Comment on above: Performed By: #### C BC #### [facility] [address] [place] [address] Dr. Joellen Kohli Neutrophils/100 WBC (Bld) 50.3 % Normal 43.0-75.0 [facility] Comment on above: Performed By: #### C BC #### [facility] [address] [place] [address] Dr. Joellen Kohli Platelet mean volume (Bld) [Entitic vol] 9.1 fL Critically low 9.5-13.5 [facility] Comment on above: Performed By: #### C BC #### [facility] [address] [place] [address] Dr. Joellen Kohli PLT 306 103/ul Normal 150-450 [facility] Comment on above: Performed By: #### C BC #### [facility] [address] [place] [address] Dr. Joellen Kohli RBC 4.57 106/ul Normal 4.20-5.40 [facility] Comment on above: Performed By: #### C BC #### [facility] [address] [place] [address] Dr. Joellen Kohli WBC 5.8 103/ul Normal 4.0-11.0 [facility] Comment on above: Performed By: #### C BC #### [facility] [address] [place] [address] Dr. Joellen Kohli LIPID PROFILEon 11-06-2022 CHOL-HDL RATIO NORM SEE BELOW Normal [facility] Comment on above: Result Comment: 3.3 - 4.4 LOW RISK 4.4 - 7.1 AVERAGE RISK 7.1 - 11.0 MODERATE RISK >11.0 HIGH RISK Performed By: #### C MP, TSH, LIPID #### [facility] [address] [place] [address] Dr. Joellen Kohli Cholesterol [Mass/Vol] 276 mg/dL Critically high <=200 [facility] Comment on above: Performed By: #### C MP, TSH, LIPID #### [facility] [address] [place] [address] Dr. Joellen Kohli Cholesterol in HDL [Mass/Vol] 52 mg/dL Normal 40-60 [facility] Comment on above: Performed By: #### C MP, TSH, LIPID #### [facility] [address] [place] [address] Dr. Joellen Kohli Cholesterol in LDL [Mass/Vol] 192.4 mg/dL Normal [facility] Comment on above: Performed By: #### C MP, TSH, LIPID #### [facility] [address] [place] [address] [address] Joellen Kohli Cholesterol.total/C holesterol in HDL [Mass ratio] 5.3 {ratio} Normal [facility] Comment on above: Performed By: #### C MP, TSH, LIPID #### [facility] [address] [place] [address] [address] Joellen Kohli HDL NORMAL > or = 60 mg/dl - LO W CARDIOVASCULAR RISK <40 mg/dl - HIGH CARDIOVASCULAR RISK Normal [facility] Comment on above: Performed By: #### C MP, TSH, LIPID #### [facility] [address] [place] [address] [address] Joellen Kohli LDL CALC NORMAL SEE BELOW Normal [facility] Comment on above: Result Comment: <100 mg/dl OPTIMAL 100 - 129 mg/dl NEAR OR ABOVE OPTIMAL 130 - 159 mg/dl BORDERLINE HIGH 160 - 189 mg/dl HIGH >190 mg/dl VERY HIGH Performed By: #### C MP, TSH, LIPID #### [facility] [address] [place] [address] Dr. Joellen Kohli Triglyceride [Mass/Vol] 158 mg/dL Critically high <=150 [facility] Comment on above: Performed By: #### C MP, TSH, LIPID #### [facility] [address] [place] [address] Dr. Joellen Kohli VLDL CALC 31.6 mg/dL Normal [facility] Comment on above: Performed By: #### C MP, TSH, LIPID #### [facility] [address] [place] [address] Dr. Joellen Kohli PROF 14(COMP METB)on 023 Albumin [Mass/Vol] 3.8 g/dL Normal 3.4-5.0 [facility] Comment on above: Performed By: #### C MP, TSH, LIPID #### [facility] [address] [place] [address] Dr. Joellen Kohli Albumin/Globulin [Mass ratio] 1.0 {ratio} Normal [facility] Comment on above: Performed By: #### C MP, TSH, LIPID #### [facility] [address] [place] [address] [address] Joellen Kohli ALP [Catalytic activity/Vol] 115 U/L Normal 46-116 [facility] Comment on above: Performed By: #### C MP, TSH, LIPID #### [facility] [address] [place] [address] [address] Joellen Kohli ALT [Catalytic activity/Vol] 35 U/L Normal 14-59 [facility] Comment on above: Performed By: #### C MP, TSH, LIPID #### [facility] [address] [place] [address] [address] Joellen Kohli Anion gap [Moles/Vol] 11.5 mmol/L Normal [facility] Comment on above: Performed By: #### C MP, TSH, LIPID #### [facility] [address] [place] [address] [address] Joellen Kohli AST [Catalytic activity/Vol] 17 U/L Normal 15-37 [facility] Comment on above: Performed By: #### C MP, TSH, LIPID #### [facility] [address] [place] [address] [address] Joellen Kohli Bilirubin [Mass/Vol] 0.5 mg/dL Normal 0.2-1.0 [facility] Comment on above: Performed By: #### C MP, TSH, LIPID #### [facility] [address] [place] [address] [address] Joellen Kohli Calcium [Mass/Vol] 9.4 mg/dL Normal 8.5-10.1 [facility] Comment on above: Performed By: #### C MP, TSH, LIPID #### [facility] [address] [place] [address] [address] Joellen Kohli Chloride [Moles/Vol] 106 mmol/L Normal 98-107 [facility] Comment on above: Performed By: #### C MP, TSH, LIPID #### [facility] [address] [place] [address] [address] Joellen Kohli CO2 [Moles/Vol] 26.8 mmol/L Normal 21.0-32.0 [facility] Comment on above: Performed By: #### C MP, TSH, LIPID #### [facility] [address] [place] [address] [address] Joellen Kohli Creatinine [Mass/Vol] 0.89 mg/dL Normal 0.55-1.02 [facility] Comment on above: Performed By: #### C MP, TSH, LIPID #### [facility] [address] [place] [address] [address] Joellen Kohli EGFR-AF MALDIVIAN >60 Normal >=60 [facility] Comment on above: Performed By: #### C MP, TSH, LIPID #### [facility] [address] [place] [address] [address] Joellen Kohli EGFR-NON AF MALDIVIAN >60 Normal >=60 [facility] Comment on above: Performed By: #### C MP, TSH, LIPID #### [facility] [address] [place] [address] [address] Joellen Kohli Globulin (S) [Mass/Vol] 3.9 g/dL Normal [facility] Comment on above: Performed By: #### C MP, TSH, LIPID #### [facility] [address] [place] [address] [address] Joellen Kohli Glucose [Mass/Vol] 104 mg/dL Normal 74-106 [facility] Comment on above: Performed By: #### C MP, TSH, LIPID #### [facility] [address] [place] [address] [address] Joellen Kohli Potassium [Moles/Vol] 4.3 mmol/L Normal 3.5-5.1 [facility] Comment on above: Performed By: #### C MP, TSH, LIPID #### [facility] [address] [place] [address] [address] Joellen Kohli Protein [Mass/Vol] 7.7 g/dL Normal 6.4-8.2 [facility] Comment on above: Performed By: #### C MP, TSH, LIPID #### [facility] [address] [place] [address] [address] Joellen Kohli Sodium [Moles/Vol] 140 mmol/L Normal 136-145 [facility] Comment on above: Performed By: #### C MP, TSH, LIPID #### [facility] [address] [place], [place] [address] Dr. Joellen Kohli Urea nitrogen [Mass/Vol] 16.0 mg/dL Normal 7.0-18.0 [facility] Comment on above: Performed By: #### C MP, TSH, LIPID #### [facility] [address] [place] [address] [address] Joellen Kohli Urea nitrogen/Creatinine [Mass ratio] 18.0 mg/mg Normal [facility] Comment on above: Performed By: #### C MP, TSH, LIPID #### [facility] [address] [place] [address] [address] Joellen Kohli TSHon 11-06-2022 TSH 1.121 uIU/mL Normal 0.358-3.740 [facility] Comment on above: Performed By: #### C MP, TSH, LIPID #### [facility] [address] [place] [address] [address] Joellen Kohli MG MAMM SCREEN 3D ANN CADon 03-01-2022 MG MAMM SCREEN 3D ANN CAD Patient: CASSIE WINTERS Exam Date: 03/01/2022 : 1965 Gender:F Ordering : DR MARTA EISENBERG M.D. Admission #: [id number] Family : Order #: [id number] CLICK HERE TO VIEW EXAM RADIOLOGY REPORT [...] kidney cancer at age 52. LOCATION: [facility] BREAST COMPOSITION: Scattered areas fibroglandular density. FINDINGS: [...] Zhou M.D. on 03/01/2022 at 11:56 Normal [facility] XR LSPINE MIN 4 VIEWSon 08-0 XR [...] by: SALINAS ZHOU Date: 2022-02-15 07:44 Normal [facility] Provider Letter FTon 10-09 Provider Letter [facility] MARTA EISENBERG, [address] [place] [address] Re: CASSIE WINTERS Date of : 1965 Thank you for your referral of Cassie Winters who was seen on consultation on October 01, 2020, for flare up of rectal pressure. I have enclosed my consultation note for your review. I will be happy to follow Cassie should her symptoms continue. Sincerely, Mkcinley Hernadez MD General Surgery Normal [facility] Ambulatory Clinical Summaryo n 10-01-2020 Ambulatory Clinical Summary {[id number]}CD:[id number] Normal [facility] General Surgery Office/Clini c Noteon 10-01-2020 [...] ДМИТРИЙ MOSER, Mckinley Cyr Only if needed [address] [place] [address]- Additional Instructions: Problem List/Past Medical History Ongoing [...] vaccine, inactivated - Not Given Patient Refuses [facility] Comment on above: Result Comment: Elec tronically Signed By: ДМИТРИЙ MOSER, Mckinley Schulte\Date and Time Signed: 10/01/20 16:58 EDT Ambulatory Clinical Summaryo n 09-17-2020 Ambulatory Clinical Summary {[id number]}CD:[id number] [facility] Physician Referralon 021 Physician Referral [id number] 0CD:127 [facility] Vital Signs Date Time Vital Sign Value Performing Clinician Facility 02-20-2025 08:53-0400 Body mass index (BMI) [Ratio] 31.78 kg/m2 Sarai NAIDU Work Phone: [facility] 02-20-2025 08:53-0400 Body weight 94.8 kg Sarai NAIDU Work Phone: [facility] 02-20-2025 08:53-0400 Diastolic blood pressure 68 mm[Hg] Sarai NAIDU Work Phone: [facility] 02-20-2025 08:53-0400 Systolic blood pressure 112 mm[Hg] Sarai NAIDU Work Phone: [facility] 01-10-2025 09:16-0400 Body mass index (BMI) [Ratio] 31.81 kg/m2 MARCE Hoover MD Work Phone: [facility] [place] [facility] 01-10-2025 09:16-0400 Body temperature 97.2 [degF] MARCE Hoover MD Work Phone: [facility] [place] [facility] 01-10-2025 09:16-0400 Body weight 94.9 kg MARCE Hoover MD Work Phone: [facility] 01-10-2025 09:16-0400 Diastolic blood pressure 66 mm[Hg] MARCE Hoover MD Work Phone: [facility] 01-10-2025 09:16-0400 Heart rate 67 /min MARCE Hoover MD Work Phone: [facility] [place] [facility] 01-10-2025 09:16-0400 Respiratory rate 18 /min MARCE Hoover MD Work Phone: [facility] [place] [facility] 01-10-2025 09:16-0400 SaO2% (BldA) [Mass fraction] 95 % NA Kiko MOSER Work Phone: [facility] 01-10-2025 09:16-0400 Systolic blood pressure 111 mm[Hg] NA Kiko MOSER Work Phone: [facility] 01-01-2025 08:24-0400 Body temperature 96.8 [degF] [facility] [place] Work Phone: [facility] 01-01-2025 08:24-0400 Diastolic blood pressure 77 mm[Hg] [facility] [place] Work Phone: [facility] 01-01-2025 08:24-0400 Heart rate 77 /min [facility] [place] Work Phone: [facility] 01-01-2025 08:24-0400 Respiratory rate 16 /min [facility] [place] Work Phone: [facility] 01-01-2025 08:24-0400 SaO2% (BldA) [Mass fraction] 97 % [facility] [place] Work Phone: [facility] 01-01-2025 08:24-0400 Systolic blood pressure 115 mm[Hg] [facility] [place] Work Phone: [facility] [place] [facility] 12-31-2024 08:22-0400 Body temperature 96.91 [degF] [facility] [place] Work Phone: [facility] 12-31-2024 08:22-0400 Diastolic blood pressure 80 mm[Hg] [facility] [place] Work Phone: [facility] 12-31-2024 08:22-0400 Heart rate 61 /min [facility] [place] Work Phone: [facility] 12-31-2024 08:22-0400 Respiratory rate 16 /min [facility] [place] Work Phone: [facility] 12-31-2024 08:22-0400 SaO2% (BldA) [Mass fraction] 99 % [facility] [place] Work Phone: [facility] 12-31-2024 08:22-0400 Systolic blood pressure 138 mm[Hg] [facility] [place] Work Phone: [facility] [place] [facility] 11-19-2024 15:25-0400 Body height 168.91 cm [facility] 11-19-2024 15:25-0400 Body mass index (BMI) [Ratio] 33 kg/m2 [facility] 11-19-2024 15:25-0400 Body weight 94.34 kg [facility] 11-19-2024 15:25-0400 Diastolic blood pressure 73 mm[Hg] [facility] 11-19-2024 15:25-0400 Heart rate 71 /min [facility] 11-19-2024 15:25-0400 Systolic blood pressure 111 mm[Hg] [facility] 07-19-2024 13:37-0500 Body mass index (BMI) [Ratio] 31.38 kg/m2 MARCE Hoover MD Work Phone: [facility] 07-19-2024 13:37-0500 Body temperature 96.6 [degF] MARCE Hoover MD Work Phone: [facility] 07-19-2024 13:37-0500 Body weight 93.6 kg MARCE Hoover MD Work Phone: [facility] 07-19-2024 13:37-0500 Diastolic blood pressure 80 mm[Hg] MARCE Hoover MD Work Phone: [facility] 07-19-2024 13:37-0500 Heart rate 66 /min MARCE Hoover MD Work Phone: [facility] 07-19-2024 13:37-0500 Respiratory rate 18 /min MARCE Hoover MD Work Phone: [facility] 07-19-2024 13:37-0500 SaO2% (BldA) [Mass fraction] 99 % MARCE Hoover MD Work Phone: [facility] 07-19-2024 13:37-0500 Systolic blood pressure 125 mm[Hg] MARCE Hoover MD Work Phone: [facility] 01-10-2024 09:15-0400 Body height 168.91 cm [facility] 01-10-2024 09:15-0400 Body mass index (BMI) [Ratio] 32.1 kg/m2 [facility] 01-10-2024 09:15-0400 Body weight 91.62 kg [facility] 01-10-2024 09:15-0400 Diastolic blood pressure 72 mm[Hg] [facility] 01-10-2024 09:15-0400 Heart rate 71 /min [facility] 01-10-2024 09:15-0400 Systolic blood pressure 111 mm[Hg] [facility] 11-29-2023 14:48-0400 Body mass index (BMI) [Ratio] 30.67 kg/m2 MARCE Hoover MD Work Phone: [facility] 11-29-2023 14:48-0400 Body weight 91.5 kg MARCE Hoover MD Work Phone: [facility] 05-31-2023 14:24-0500 Body temperature 97.39 [degF] MARCE Hoover MD Work Phone: [facility] 05-31-2023 14:24-0500 Body weight 94.8 kg MARCE Hoover MD Work Phone: [facility] 05-31-2023 14:24-0500 Diastolic blood pressure 73 mm[Hg] MARCE Hoover MD Work Phone: [facility] 05-31-2023 14:24-0500 Heart rate 75 /min MARCE Hoover MD Work Phone: [facility] 05-31-2023 14:24-0500 Respiratory rate 16 /min MARCE Hoover MD Work Phone: [facility] 05-31-2023 14:24-0500 SaO2% (BldA) [Mass fraction] 100 % NA Kiko MOSER Work Phone: [facility] 05-31-2023 14:24-0500 Systolic blood pressure 107 mm[Hg] NA Kiko MOSER Work Phone: [facility] 01-25-2023 08:54-0400 Body temperature 97.11 [degF] [facility] Work Phone: [facility] 01-25-2023 08:54-0400 Diastolic blood pressure 81 mm[Hg] [facility] Work Phone: [facility] 01-25-2023 08:54-0400 Heart rate 82 /min [facility] Work Phone: [facility] 01-25-2023 08:54-0400 Respiratory rate 18 /min [facility] Work Phone: [facility] 01-25-2023 08:54-0400 SaO2% (BldA) [Mass fraction] 98 % [facility] [place] Work Phone: [facility] 01-25-2023 08:54-0400 Systolic blood pressure 130 mm[Hg] [facility] Work Phone: [facility] 01-24-2023 08:53-0400 Body temperature 97.2 [degF] [facility] Work Phone: [facility] 01-24-2023 08:53-0400 Body weight 94.35 kg [facility] Work Phone: [facility] 01-24-2023 08:53-0400 Diastolic blood pressure 78 mm[Hg] [facility] Work Phone: [facility] 01-24-2023 08:53-0400 Heart rate 73 /min [facility] Work Phone: [facility] 01-24-2023 08:53-0400 Respiratory rate 16 /min [facility] [place] Work Phone: [facility] 01-24-2023 08:53-0400 SaO2% (BldA) [Mass fraction] 98 % [facility] Work Phone: [facility] 01-24-2023 08:53-0400 Systolic blood pressure 115 mm[Hg] [facility] Work Phone: [facility] 01-10-2023 10:59-0400 Body height 172.7 cm MARCE Hoover MD Work Phone: [facility] 01-10-2023 10:59-0400 Body temperature 98.4 [degF] MARCE Hooevr MD Work Phone: [facility] 01-10-2023 10:59-0400 Body weight 95.71 kg MARCE Hoover MD Work Phone: [facility] 01-10-2023 10:59-0400 Diastolic blood pressure 69 mm[Hg] MARCE Hoover MD Work Phone: [facility] 01-10-2023 10:59-0400 Heart rate 76 /min MARCE Hoover MD Work Phone: [facility] 01-10-2023 10:59-0400 Respiratory rate 16 /min MARCE Hoover MD Work Phone: [facility] 01-10-2023 10:59-0400 SaO2% (BldA) [Mass fraction] 98 % MARCE Hoover MD Work Phone: [facility] 01-10-2023 10:59-0400 Systolic blood pressure 108 mm[Hg] MARCE Hoover MD Work Phone: [facility] 11-04-2022 15:00-0400 Body height 168.91 cm Marta Eisenberg Other [facility] Other 11-04-2022 15:00-0400 Body mass index (BMI) [Ratio] 33.86 kg/m2 Marta Eisenberg Other [facility] Other 11-04-2022 15:00-0400 Body weight 96.62 kg Marta Eisenberg Other [facility] Other 11-04-2022 15:00-0400 Diastolic blood pressure 80 mm[Hg] Marta Eisenberg Other [facility] Other 11-04-2022 15:00-0400 SaO2% (BldA) [Mass fraction] 99 % Marta Eisenberg Other [facility] Other 11-04-2022 15:00-0400 Systolic blood pressure 120 mm[Hg] Marta Eisenberg Other [facility] Other Encounters Encounter Date Encounter Type Care Provider Facility Start: 02-20-2025 End: 02-20-2025 Bamboo flowsheet Sarai NAIDU Work Phone: [facility] Start: 02-20-2025 End: 02-20-2025 Bamboo flowsheet Sarai NAIDU Work Phone: [facility] Start: 02-20-2025 End: 02-20-2025 Patient encounter procedure Sarai NAIDU Work Phone: [facility] Work Phone: Start: 02-20-2025 End: 02-20-2025 Periodic preventive med est patient 40-64yrs Sarai NAIDU Work Phone: [facility] Comment on above: Well woman exam with routine gynecological exam; Breast cancer screening by mammogram; Postmenopausal state Start: 01-14-2025 End: 01-16-2025 Refill Telly Hoover MD Work Phone: Radiation Oncology Comment on above: Refill Request Start: 01-10-2025 End: 01-10-2025 Office outpatient visit 15 minutes Telly Hoover MD Work Phone: Radiation Oncology Comment on above: Thyroid cancer (HCC) (Primary Dx) Start: 01-10-2025 End: 01-10-2025 ambulatory Telly HOOVER Facility:[facility] Start: 01-04-2025 End: 01-04-2025 ambulatory Telly HOOVER Facility:[facility] Start: 01-01-2025 End: 01-01-2025 Patient encounter procedure [facility] Work Phone: Radiation Oncology Comment on above: Thyroid cancer (HCC) (Primary Dx) Start: 01-01-2025 End: 01-01-2025 ambulatory Telly HOOVER Facility:[facility] Start: 12-31-2024 End: 12-31-2024 Patient encounter procedure [facility] Work Phone: Radiation Oncology Comment on above: Thyroid cancer (HCC) (Primary Dx) Start: 12-31-2024 End: 12-31-2024 ambulatory Telly HOOVER Facility:[facility] Start: 12-25-2024 End: 12-25-2024 Orders Only Telly Hoover MD Work Phone: Radiation Oncology Start: 12-24-2024 End: 12-24-2024 Orders Only Pauline Pathak [facility] Work Phone: Hematology/Oncology Start: 12-21-2024 End: 12-24-2024 Telephone encounter Telly Hoover MD Work Phone: Radiation Oncology Comment on above: Orders Start: 12-19-2024 End: 12-19-2024 Telephone encounter Telly Hoover MD Work Phone: Radiation Oncology Comment on above: Patient Question Start: 11-19-2024 End: 11-19-2024 ambulatory [facility] Work Phone: Start: 11-19-2024 End: 11-19-2024 Encounter for general adult medical examination without abnormal findings [facility] Start: 11-19-2024 End: 11-19-2024 Patient encounter procedure [facility] Work Phone: Start: 09-19-2024 End: 09-19-2024 Refill Telly Hoover MD Work Phone: Radiation Oncology Comment on above: Refill Request Start: 07-19-2024 End: 07-19-2024 ambulatory Telly HOOVER Facility:[facility] Start: 07-19-2024 End: 07-19-2024 Office outpatient visit 15 minutes Telly Hoover MD Work Phone: Radiation Oncology Comment on above: Thyroid cancer (HCC) (Primary Dx) Start: 07-09-2024 End: 07-09-2024 ambulatory MARTA EISENBERG Facility:[facility] Start: 06-21-2024 End: 07-09-2024 Telephone encounter Telly Hoover MD Work Phone: Radiation Oncology Comment on above: Future Appointment; Results; Appointment Start: 05-23-2024 End: 05-23-2024 ambulatory MARTA EISENBERG Facility:[facility] Start: 02-16-2024 Refill Telly davila MD Work Phone: Radiation Oncology Comment on above: Refill Request Start: 01-10-2024 Patient encounter status [facility] Start: 01-10-2024 End: 01-10-2024 ambulatory [facility] Work Phone: Start: 01-10-2024 End: 01-10-2024 Patient encounter procedure [facility] Physician [facility] Work Phone: Start: 11-29-2023 End: 11-29-2023 Patient encounter procedure Telly Hoover MD Work Phone: Radiation Oncology Comment on above: Thyroid cancer (HCC) (Primary Dx) Start: 11-22-2023 Non-patient / Non-visit [facility]ician Group[facility] Work Phone: Start: 10-21-2023 Refill Telly davila MD Work Phone: Radiation Oncology Comment on above: Refill Request Start: 08-17-2023 End: 08-17-2023 ambulatory Marta Eisenberg Other [facility] [email or web address] Other Start: 08-17-2023 Telephone encounter Marta Eisenberg [facility] Start: 05-31-2023 End: 05-31-2023 Patient encounter procedure [...] Start: 01-26-2023 End: 01-26-2023 ambulatory Nikkie Hoover Facility:[facility] Start: 01-26-2023 End: 01-26-2023 ambulatory MD Marta Eisenberg Work Phone: [facility] Work Phone: Start: 01-26-2023 End: 01-26-2023 Patient encounter procedure MD Marta Eisenberg Work Phone: [facility] [place] Work Phone: Comment on above: Thyroid cancer [...] encounter procedure MD Marta Eisenberg Work Phone: [facility] Work Phone: Start: 01-21-2023 Patient encounter procedure [facility] Provider [facility] Department Start: 01-19-2023 Telephone encounter Telly Hoover MD Work Phone: Radiation Oncology Comment on above: Patient Update Start: 01-17-2023 Patient encounter procedure [facility] Provider [facility] Department Start: 01-17-2023 Telephone encounter Telly Hoover MD Work Phone: Radiation Oncology Comment on above: Orders Start: 01-14-2023 Patient encounter procedure [facility] Provider [facility] Department Start: 01-11-2023 End: 01-11-[address] Work Phone: [facility] Start: 01-11-2023 End: 01-11-2023 Nutrition therapy Anamika Alston RD Work Phone: Nutrition Therapy Comment on above: Nutrition Telephone Start: 01-10-2023 End: 01-10-2023 Patient encounter procedure Telly Hoover MD Work Phone: Radiation Oncology Comment on above: Thyroid cancer (HCC) (Primary Dx) Start: 12-28-[address] XIOMY Nugenti ty:[facility] Start: 12-21-[address] MARTA Nugent ity:[facility] Start: 11-24-2022 End: 11-24-2022 ambulatory Marta Eisenberg Other [facility] Other Start: 11-24-2022 Telephone encounter Marta Eisenberg [facility] Start: 11-19-2022 End: 11-19-[address] MARTA EISENBERG Facility:[facility] Start: 11-11-2022 Encounter for genera l adult medical examination without abnormal findings DR MARTA EISENBERG [facility] Start: 11-09-2022 End: 11-09-2022 ambulatory Marta Eisenberg Other [facility] Other Start: 11-09-2022 Telephone encounter Marta Eisenberg [facility] Start: 11-08-2022 End: 11-09-[address] MARTA EISENBERG Facility:[facility] Start: 11-06-2022 End: 11-07-[address] MARTA EISENBERG Facility:[facility] Start: 11-06-2022 End: 11-07-2022 Encounter for general adult medical examination without abnormal findings DR MARTA EISENBERG Facility:[facility] Start: 11-04-2022 End: 11-04-2022 ambulatory Marta Eisenberg Other [facility] Other Start: 11-04-2022 Encounter for genera l adult medical examination without abnormal findings Marta Eisenberg [facility] Start: 11-04-2022 Periodic preventive med est patient 40-64yrs Marta Eisenberg [facility] Start: 03-19-[address] MARTA EISENBERG Facil ity:[facility] Start: 03-05-2022 End: 03-05-[address] MARTA EISENBERG Facility:[facility] Start: 03-01-2022 End: 03-02-[address] MARTA EISENBERG Facility:[facility] Start: 02-19-2022 End: 02-20-[address] MARTA EISENBERG Facility:[facility] Start: 02-13-2022 End: 02-14-2022 ambulatory Salinas Zhou Facility:[facility] Start: 02-12-2022 Adult health examination Valentine Eisenberg Other [facility] Other Procedures Date Procedure Procedure Detail Performing Clinician Start: 05-22-[address] Work Phone: Start: 06-19-2018 General examination of patient Marta Eisenberg Other Start: 06-19-2018 Screening for malign ant neoplasm of colon Marta Eisenberg Other Screening for malign ant neoplasm of breast Martadae Eisenberg Other Plan of Treatment Date Care Activity Detail Author Start: 2038 RSV Vaccine (1 - 1-d ose 75+ series) RSV Vaccine (1 - 1-dose 75+ series) [facility] Start: 02-25-2026 End: 02-25-2026 Patient encounter procedure 02/25/2026 9:00 AM EDT Procedure Visit MARILYN LUND [address] [place] [id number] Sarai Quintana PA [address] [place] [address] MARILYN LUND Start: 01-14-2026 End: 01-14-2026 Patient encounter procedure 01/14/2026 9:15 AM EDT Office Visit Radiation Oncology [address] [place] [address] Telly Hoover MD [address] [place] [address] 1 year f follow uyop Radiation Oncology Comment on above: 1 year f follow uyop Start: 01-10-2026 End: 04-11-2026 Thyroglobulin and Thyrogobulin Ab panel - Serum or Plasma THYROGLOBULIN, SERUM WITH REFLEX TO IA OR LC-MS/MS Lab Routine Thyroid cancer (HCC) Expected: 01/10/2026, Expires: 04/11/2026 [facility] Comment on above: Expected: 01/10/2026 , Expires: 04/11/2026 Start: 01-10-2026 End: 01-10-2026 Thyrotropin [Units/volume] in Serum or Plasma THYROID STIMULATING HORMONE Lab Routine Thyroid cancer (HCC) Expected: 01/10/2026, Expires: 01/10/2026 [facility] Work Phone: Comment on above: Expected: 01/10/2026 , Expires: 01/10/2026 Start: 01-10-2026 End: 01-10-2026 Thyroxine (T4) [Mass/volume] in Serum or Plasma T4/THYROXINE Lab Routine Thyroid cancer (HCC) Expected: 01/10/2026, Expires: 01/10/2026 [facility] Comment on above: Expected: 01/10/2026 , Expires: 01/10/2026 Start: 01-10-2026 End: 01-10-2026 Triiodothyronine (T3) [Mass/volume] in Serum or Plasma T3 Lab Routine Thyroid cancer (HCC) Expected: 01/10/2026, Expires: 01/10/2026 [facility] Comment on above: Expected: 01/10/2026 , Expires: 01/10/2026 Start: 01-07-2026 End: 01-07-2026 Patient encounter procedure 01/07/2026 8:30 AM EDT Office Visit [facility] [address] [place] [address] [place] [address] [facility] Comment on above: lab Start: 11-21-2025 Screening for malign ant neoplasm of colon [facility] Start: 03-18-2025 Influenza vaccination [facility] Start: 02-20-2025 End: 02-20-2026 DXA Skeletal system Views for bone density DEXA bone density Imaging Routine Postmenopausal state Expected: 02/20/2025 (Approximate), Expires: 02/20/2026 [facility] Comment on above: Expected: 02/20/2025 (Approximate), Expires: 02/20/2026 Start: 02-20-2025 End: 04-22-2026 MG Breast - bilateral Screening Bilateral screening mammogram Imaging Routine Breast cancer screening by mammogram Expected: 02/20/2025, Expires: 04/22/2026 [facility] Work Phone: Comment on above: Expected: 02/20/2025 , Expires: 04/22/2026 Start: 02-20-2025 End: 02-20-2025 Patient encounter procedure 02/20/2025 9:00 AM EDT Office Visit MARILYN ULND [address] [place] [id number] Sarai Quintana PA [address] [place], [place] [id number] Arrived MARILYN LUND Comment on above: Arrived Start: 01-16-2025 End: 04-17-2025 Thyroglobulin and Thyrogobulin Ab panel - Serum or Plasma THYROGLOBULIN, SERUM WITH REFLEX TO IA OR LC-MS/MS Lab Routine Thyroid cancer (HCC) Expected: 01/16/2025, Expires: 04/17/2025 [facility] Work Phone: Comment on above: Expected: 01/16/2025 , Expires: 04/17/2025 Start: 01-16-2025 End: 04-17-2025 Thyrotropin [Units/volume] in Serum or Plasma THYROID STIMULATING HORMONE Lab Routine Thyroid cancer (HCC) Expected: 01/16/2025, Expires: 04/17/2025 [facility] Comment on above: Expected: 01/16/2025 , Expires: 04/17/2025 Start: 01-16-2025 End: 04-17-2025 Thyroxine (T4) free [Mass/volume] in Serum or Plasma T4 FREE/FREE THYROXINE Lab Routine Thyroid cancer (HCC) Expected: 01/16/2025, Expires: 04/17/2025 [facility] Comment on above: Expected: 01/16/2025 , Expires: 04/17/2025 Start: 01-10-2025 End: 01-10-2025 Patient encounter procedure 01/10/2025 9:30 AM EDT Office Visit Radiation Oncology [address] [address] Telly Hoover MD [address] [place] [address] [place] [address] Follow up Radiation Oncology Comment on above: Follow up Start: 01-09-2025 End: 01-09-2025 Patient encounter procedure 01/09/2025 11:45 AM EDT Office Visit Radiation Oncology [address] [address] Telly Hoover MD [address] [address] Follow up Radiation Oncology Comment on above: Follow up Start: 01-04-2025 End: 01-04-2025 Patient encounter procedure 01/04/2025 9:15 AM EDT Office Visit [facility] [address] [place] [address] [facility] Comment on above: lab TG only Start: 01-01-2025 End: 01-01-2025 Patient encounter procedure 01/01/2025 8:30 AM EDT Office Visit Radiation Oncology [address] [place] [address] Thyrogen injectin Radiation Oncology Comment on above: Thyrogen injectin Start: 12-31-2024 End: 12-31-[address] [facility] Comment on above: 1st labs TG, T4, TSH Thyrogen Injection Start: 12-28-2024 End: 12-28-2024 Nursing evaluation of patient and report 12/28/2024 9:00 AM EDT Nurse Visit Radiation Oncology [address] [address] Lian, Nurse Radt [address] [place] [address] lab TG only Radiation Oncology Comment on above: lab TG only Start: 12-28-2024 End: 12-28-2024 Patient encounter procedure 12/28/2024 9:00 AM EDT Office Visit [facility] [address] [place] [address] [facility] Comment on above: lab TG only Start: 12-25-2024 End: 12-25-2024 Nursing evaluation of patient and report 12/25/2024 9:15 AM EDT Nurse Visit Radiation Oncology [address] [place] [address] Lian, Nurse Radt [address] [place] [address] injection Thyrogen Radiation Oncology Comment on above: injection Thyrogen Start: 12-25-2024 End: 12-25-2024 Patient encounter procedure 12/25/2024 9:00 AM EDT Office Visit Radiation Oncology [address] [place] [address] Injection Thyrogen Radiation Oncology Comment on above: Injection Thyrogen Start: 12-24-2024 End: 12-24-2024 Patient encounter procedure 12/24/2024 9:00 AM EDT Office Visit Radiation Oncology [address] [place] [address] 1st labs TG, T4, TSH Radiation Oncology Comment on above: 1st labs TG, T4, TSH Start: 07-19-2024 End: 07-19-2024 Patient encounter procedure 07/19/2024 10:45 AM EST Office Visit Radiation Oncology [address] [place] [address] Telly Hoover MD [address] [place] [address] follow up from labs Radiation Oncology Comment on above: follow up from labs Start: 07-06-2024 End: 10-05-2024 Thyroglobulin and Thyrogobulin Ab panel - Serum or Plasma THYROGLOBULIN, SERUM WITH REFLEX TO IA OR LC-MS/MS Lab Routine Thyroid cancer (HCC) Expected: 07/06/2024, Expires: 10/05/2024 [facility] Work Phone: Comment on above: Expected: 07/06/2024 , Expires: 10/05/2024 Start: 05-31-2024 End: 08-30-2024 THYROGLOBULIN BY LC-MS/MS, SERUM OR PLASMA, FOR THYROGLOBULIN ANTIBODY INTERFERENCE THYROGLOBULIN BY LC-MS/MS, SERUM OR PLASMA, FOR THYROGLOBULIN ANTIBODY INTERFERENCE Lab Routine Thyroid cancer (HCC) Expected: 05/31/2024, Expires: 08/30/2024 [facility] Comment on above: Expected: 05/31/2024 , Expires: 08/30/2024 Start: 05-31-2024 End: 08-30-2024 Thyrotropin [Units/volume] in Serum or Plasma THYROID STIMULATING HORMONE Lab Routine Thyroid cancer (HCC) Expected: 05/31/2024, Expires: 08/30/2024 [facility] Work Phone: Comment on above: Expected: 05/31/2024 , Expires: 08/30/2024 Start: 05-31-2024 End: 08-30-2024 Thyroxine (T4) [Mass/volume] in Serum or Plasma T4/THYROXINE Lab Routine Thyroid cancer (HCC) Expected: 05/31/2024, Expires: 08/30/2024 [facility] Comment on above: Expected: 05/31/2024 , Expires: 08/30/2024 Start: 05-30-2024 End: 05-30-2024 Patient encounter procedure 05/30/2024 10:15 AM EST Office Visit Radiation Oncology [address] [place] [address] Telly Hoover MD [address] [place] [address] [place] [address] Followup Radiation Oncology Comment on above: Followup Start: 05-23-2024 End: 05-23-2024 Patient encounter procedure 05/23/2024 10:00 AM EST Office Visit [facility] [address] [place] [place] [address] [facility] Comment on above: Lab Followup Start: 03-18-2024 Covid-19 Vaccine ( season) Covid-19 Vaccine () [facility] Start: 03-18-2024 Influenza vaccination [facility] Start: 11-29-2023 End: 02-28-2024 THYROGLOBULIN BY MASS SPECTROMETRY THYROGLOBULIN BY MASS SPECTROMETRY Lab Routine Thyroid cancer (HCC) Expected: 11/29/2023 (Approximate), Expires: 02/28/2024 [facility] Work Phone: Comment on above: Expected: 11/29/2023 (Approximate), Expires: 02/28/2024 Start: 11-29-2023 End: 02-28-2024 Thyrotropin [Units/volume] in Serum or Plasma TSH BLD Lab Routine Thyroid cancer (HCC) Expected: 11/29/2023 (Approximate), Expires: 02/28/2024 [facility] Work Phone: Comment on above: Expected: 11/29/2023 (Approximate), Expires: 02/28/2024 Start: 11-29-2023 End: 02-28-2024 Thyroxine (T4) [Mass/volume] in Serum or Plasma T4/THYROXINE BLOOD Lab Routine Thyroid cancer (HCC) Expected: 11/29/2023 (Approximate), Expires: 02/28/2024 [facility] Work Phone: Comment on above: Expected: 11/29/2023 (Approximate), Expires: 02/28/2024 Start: 2023 RSV Vaccine (1 - 1-d ose 60+ series) RSV Vaccine (1 - 1-dose 60+ series) [facility] Start: 07-18-2023 Behavioral Health Screening Behavioral Health Screening [facility] Start: 03-18-2023 Covid-19 Vaccine ( season) Covid-19 Vaccine ( season) [facility] Start: 03-18-2023 Influenza vaccination C [facility] Start: 02-02-2023 Radionuclide localiz ation of tumor, whole body NM thyroid ca whole body [facility] Start: 01-26-2023 End: 03-28-2023 THYROGLOBULIN BY MASS SPECTROMETRY THYROGLOBULIN BY MASS SPECTROMETRY Lab Routine Thyroid cancer (HCC) Expected: 01/26/2023, Expires: 03/28/2023 [facility] Work Phone: Comment on above: Expected: 01/26/2023 , Expires: 03/28/2023 Start: 01-10-2023 End: 03-12-2023 THYROGLOBULIN BY MASS SPECTROMETRY [facility] [facility] Work Phone: Comment on above: Expected: 01/10/2023 , Expires: 03/12/2023 Start: 07-18-2022 DEPRESSION ASSESSMENT DEPRESSION ASS ESSMENT [facility] Start: 05-22-2020 Mammography [facility] Start: 05-22-2020 Screening for malign ant neoplasm of breast Mammogram Screening [facility] Start: 2013 Pneumococcal Vaccine : 50+ (1 of 1 - PCV) Pneumococcal Vaccine: 50+ (1 of 1 - PCV) [facility] Start: 2013 SHINGRIX VACCINE (1 of 2) ALLEN GRIX VACCINE (1 of 2) [facility] Start: 2008 COLOGUARD (FIT-DNA) COLOGUARD (FIT-D NA) [facility] Start: 2008 Colonoscopy COLONOSCOPY [facility] Start: 2008 COLORECTAL CANCER SCREENING COLORECTAL CANCER SCREENING [facility] Start: [address] COLONOGRAPHY [facility] Start: 2008 DIABETES SCREEN DIABETES SCREEN [facility] Start: 2008 Diabetes Screening Diabetes Screenin g [facility] Start: 2008 FECAL OCCULT BLOOD FECAL OCCULT BLOO D [facility] Start: 2008 Lipid 1996 panel - S irving or Plasma Lipid Screening [facility] Start: 2008 Lipid panel Lipid Screening [facility] Start: 2008 LIPID SCREEN LIPID SCREEN [facility] Start: 2008 Screening for malign ant neoplasm of colon [facility] Start: 2008 SIGMOIDOSCOPY SIGMOIDOSCOPY [facility] Start: 1993 HPV TESTING HPV TESTING [facility] Start: 1993 Screening for malign ant neoplasm of cervix HPV Testing [facility] Start: 1984 PAP TESTING PAP TESTING [facility] Start: 1984 Screening for malign ant neoplasm of cervix [facility] Start: 1982 Urine microalbumin profile [facility] Start: 1981 Anxiety Screening Anxiety Screening [facility] Start: 1981 Depression Screening Depression Scre ening [facility] Start: 1981 HEPATITIS C SCREENING HEPATITIS C [facility] Start: 1981 Hepatitis C screening Hepatitis C [facility] Start: 1981 HIV SCREENING HIV SCREENING [facility] Start: 1981 HIV screening HIV Screening [facility] Start: 02-26-1964 COVID-19 VACCINE (#1) COVID-19 VACCI NE (#1) [facility] Hepatic function panel [facility] End: 02-09-2024 Rp therapy oral administration NM THERAPY THYROID I-131 Radiology Routine Thyroid cancer (HCC) 1 Occurrences starting 01/11/2023 until 02/09/2024 [facility] Work Phone: Comment on above: 1 Occurrences starti ng 01/11/2023 until 02/09/2024 THIN PREP TIS PAP AN D HR HPV DNA THIN PREP TIS PAP AND HR HPV DNA Pathology and Cytology Routine Well woman exam with routine gynecological exam Ordered: 02/20/2025 [facility] Comment on above: Ordered: 02/20/2025 Thyroglobulin and Thyrogobulin Ab panel - Serum or Plasma THYROGLOBULIN, SERUM WITH REFLEX TO IA OR LC-MS/MS Lab Routine Thyroid cancer (HCC) 07/09/2024 2:[address] [facility] Payers Date Payer Category Payer Private Health Insurance [id number] 2024 Unknown [id number] 2023 Self-pay [id number] 2021 Unknown [id number] 1963 Unknown [id number] 2.16.84 [id number] 1963 Unknown [id number] 2.16.84 [id number] 1963 Unknown [id number] 2.16.84 [id number] 1963 Unknown [id number] 2.16.84 [id number] 1963 Unknown [id number] 2.16.84 [id number] 1963 Unknown [id number] 2.16.84 [id number] 1963 Unknown [id number] 2.16.84 [id number] 1963 Unknown [id number] 2.16.84 [id number] 1963 Unknown [id number] 2.16.84 [id number] 1963 Unknown [id number] 2.16.84 [id number] 1959 Blue Cross Blue Shield ALESSANDRA [id number] 1959 Self-pay [id number] Unknown [facility] [id number] Unknown [id number] 2.16.8 [id number] Social History Date Type Detail Facility Unknown if ever smoked [facility] Other Start: 01-24-2023 End: 02-20-2025 Sex Assigned At [facility] Start: 12-28-2022 End: 01-10-2023 Tobacco smoking status NHIS Never smoked tobacco [facility] Start: 12-28-2022 End: 01-10-2023 Tobacco use and exposure Smokeless tobacco non-user [facility] Start: 01-10-2023 End: 11-29-2023 Alcohol intake Ex-drinker (finding) [facility] Start: 01-10-2023 Alcohol Comment rarely [facility] Start: 1965 Sex Assigned At Not on file [facility] Start: 01-24-2023 End: 02-20-2025 History of Social function [facility] National Score (1-100), lower number is lower risk 89 [facility] Start: 1965 Sex Assigned At Female F [facility] Start: 11-19-2024 Sex Female (finding) [facility] Start: 02-16-2023 End: 02-20-2025 Alcoholic beverage intake Lifetime non-drinker (finding) [facility] Clinical Notes 11-04-2022 to 02-20-2025 ELYSIA Gonzales - 02/20/2025 9:00 AM Telly Lua MD - 01/10/2025 9:30 AM EDTTelephone Encounter - Mary Avery - 12/24/2024 9:20 AM Telly Lua MD - 07/19/2024 1:36 PM EST Note Date & Type Note Facility 02-20-2025 History of Present illness Narrative Reason for Appointment: Patient ID: Cassie Winters is a 59 y.o. female who [...] History: Diagnosis Date Adenomyosis distress affecting care ([facility]) 1990 Fractured coccyx (HCC) Other seasonal allergic rhinitis Papillary carcinoma (HCC) HISTORY PAST MEDICAL HISTORY SOCIAL HISTORY Past Medical History: Diagnosis Date Adenomyosis BMI 30.0-30.9,adult 10/31/2014 distress affecting care ([facility]) 1991 Fractured coccyx (HCC) Other seasonal [...] nursing note reviewed. Exam conducted with a condenser cleaner present. Vitals: Estimated body mass index is 31.78 kg/m as calculated from the following: Height [...] of: ELYSIA Gonzales documented in this encounter [facility] 01-10-2025 History of Present illness Narrative Radiation Oncology - Follow-up Note PATIENT NAME: Cassie Winters PATIENT : 1965 Primary Site: Thyroid Date of Diagnosis: 11/19/2022 Clinical Stage: T1 Nx Mx Pathologic Stage: T1 N0 Mx DIAGNOSIS: Papillary thyroid carcinoma status post total thyroidectomy, T1BN0. S/p I-131: 53.4 mCi 01/26/2023. HPI: Doing well. She underwent recent laboratory evaluation after Thyrogen stimulation. Denies issues with this. Denies new problems or concerns. She does have some continued mild dysphagia and fullness feeling in the above neck area. Denies any palpitations shortness of breath or [...] metastasis. LABORATORY: Latest Reference Range & Units 05/18/23 09:53 11/22/23 08:27 05/23/24 08:23 07/09/24 14:04 12/31/24 08:12 01/04/25 09:04 S/p thyrogen Thyroglobulin Ab, Serum <4.0 IU/mL 1.1 <0.9 <0.9 <0.9 Thyroglobulin, Serum 1.6 - 50.0 ng/mL 0.1 (L) 0.1 (L) 0.1 (L) 0.1 (L) Thyroglobulin, LC-MS/MS 1.3 - 31.8 ng/mL <0.5 (L) T4 5.5 - 10.2 ug/dL 9.9 9.0 9.4 Free T4 0.9 - 1.7 ng/dL 1.7 TSH 0.270 - 4.200 mIU/L 0.095 (L) 0.214 (L) 0.255 (L) 0.454 (L): Data is abnormally low Latest Reference Range & Units 01/26/23 10:59 [...] Sulfa (Sulfonamide * Hives MEDICATIONS: gabapentin (NEURONTIN) 400 mg capsule Take 400 mg by mouth daily at bedtime. levothyroxine (SYNTHROID) 137 mcg tablet Take 1 tablet by mouth daily before breakfast. atorvastatin (LIPITOR) 20 mg tablet MULTIVITAMIN ORAL Take by mouth. PAST MEDICAL [...] Thyroid cancer: Overall doing fairly well. Thyroglobulin very low after Thyrogen stimulation. Appropriate thyroid hormone replacement with appropriate TSH suppression. Recommend follow-up in 1 year with repeat labs. Signed by: Telly Hoover MD cc: Marta Eisenberg ([facility]) [address] [place] [address] Xiomy Neff MD [address] [place] [phone] documented in this encounter [facility] 01-10-2025 Note HNO ID: [id number] Author: Telly HOOVER MD Service: ? Author Type: Physician Type: Progress Notes Filed: 01/10/2025 09:43 Note Text: Radiation Oncology - Follow-up Note PATIENT NAME: Cassie Winters PATIENT : 1965 Primary Site: Thyroid Date of Diagnosis: 11/19/2022 Clinical Stage: T1 Nx Mx Pathologic Stage: T1 N0 Mx DIAGNOSIS: Papillary thyroid carcinoma status post total thyroidectomy, T1BN0. S/p I-131: 53.4 mCi 01/26/2023. HPI: Doing well. She underwent recent laboratory evaluation after Thyrogen stimulation. Denies issues with this. Denies new problems or concerns. She does have some continued mild dysphagia and fullness feeling in the above neck area. Denies any palpitations shortness of breath or [...] metastasis. LABORATORY: Latest Reference Range AND Units 05/18/23 09:53 11/22/23 08:27 05/23/24 08:23 07/09/24 14:04 12/31/24 08:12 01/04/25 09:04 S/p thyrogen Thyroglobulin Ab, Serum <4.0 IU/mL 1.1 <0.9 <0.9 <0.9 Thyroglobulin, Serum 1.6 - 50.0 ng/mL 0.1 (L) 0.1 (L) 0.1 (L) 0.1 (L) Thyroglobulin, LC-MS/MS 1.3 - 31.8 ng/mL <0.5 (L) T4 5.5 - 10.2 ug/dL 9.9 9.0 9.4 Free T4 0.9 - 1.7 ng/dL 1.7 TSH 0.270 - 4.200 mIU/L 0.095 (L) 0.214 (L) 0.255 (L) 0.454 (L): Data is abnormally low Latest Reference Range AND Units 01/26/23 10:59 [...] Sulfa (Sulfonamide * Hives MEDICATIONS: gabapentin (NEURONTIN) 400 mg capsule Take 400 mg by mouth daily at bedtime. levothyroxine (SYNTHROID) 137 mcg tablet Take 1 tablet by mouth daily before breakfast. atorvastatin (LIPITOR) 20 mg tablet MULTIVITAMIN ORAL Take by mouth. PAST MEDICAL [...] RADIOLOGY/LABORATORY DATA: see HPI ASSESSMENT/PLAN: Papillary thyroid (more content not included)... [facility] 12-24-2024 Telephone encounter Note Appointments changed per request [facility] 12-24-2024 Miscellaneous Notes Appointments changed per request [...] Mario Farnsworth RN documented in this encounter [facility] 12-24-2024 Telephone encounter Note Orders placed and routed in a separate encounter Giancarlo Pathak PharmD, BCOP [facility] 12-24-2024 Miscellaneous Notes Orders placed and routed in a separate encounter Giancarlo Pathak PharmD, BCOP Pharmacist: Please place Thyrogen orders scheduled 12/31/24 and 01/01/[address] Hoover. Thanks Mario Farnsworth RN documented in this encounter [facility] 12-21-2024 Telephone encounter Note Pharmacist: Please place Thyrogen orders scheduled 12/31/24 and 01/01/[address] Hoover. Thanks Mario Farnsworth RN [facility] 12-21-2024 Telephone encounter Note I notified Lubna [...] with Dr. Hoover. Thanks Mario Farnsworth RN [facility] 12-19-2024 Telephone encounter Note Patient notified of Dr. Hoover's response. Mario Farnsworth RN [facility] 12-19-2024 Miscellaneous Notes Patient notified of Dr. Hoover's response. Mario Farnsworth RN Cassie called stating she is scheduled for day 2 Thyrogen injection on 12/25/24. She also has a mammogram scheduled same day in the afternoon and would like to know if it's ok to keep mammogram as scheduled or should she reschedule? Please advise. Mario Farnsworth RN documented in this encounter [facility] 12-19-2024 Telephone encounter Note Cassie called stating she is scheduled for day 2 Thyrogen injection on 12/25/24. She also has a mammogram scheduled same day in the afternoon and would like to know if it's ok to keep mammogram as scheduled or should she reschedule? Please advise. Mario Farnsworth RN [facility] 09-19-2024 Telephone encounter Note Please sign if agreeable. Elina Schulte RN [facility] 09-19-2024 Miscellaneous Notes Please sign if agreeable. Elina Schulte RN documented in this encounter [facility] 07-19-2024 Note HNO ID: [id number] Author: Telly HOOVER MD Service: ? Author [...] by mouth daily at bedtime. glucosamine/msm/chondroitin A ([id number] ORAL) Take by mouth. PAST MEDICAL HISTORY [...] thyroglobulin. Signed by: Telly Hoover MD cc: Marta Eisenberg ([facility]) [address] [facility] [place] [phone] Xiomy Neff MD [address] (more content not included)... [facility] 07-19-2024 History of Present illness Narrative Radiation Oncology - Follow-up Note PATIENT NAME: Casise Winters PATIENT : 1965 Primary Site: Thyroid [...] by mouth daily at bedtime. glucosamine/msm/chondroitin A ([id number] ORAL) Take by mouth. PAST MEDICAL HISTORY [...] thyroglobulin. Signed by: Telly Hoover MD cc: Marta Eisenberg ([facility]) [address] [place] [phone] Xiomy Neff MD [address] [place] [phone] documented in this encounter [facility] 07-06-2024 Telephone encounter Note Patient is scheduled 07/09/24 at 200PM for labs and following up with Dr Hoover on 07/19/24 at 1045 Christine Cha PSS [facility] 07-06-2024 Miscellaneous Notes Patient is scheduled 07/09/24 at 200PM for labs and following up with Dr Hoover on 07/19/24 at 1045 Christine Cha PSS I notified Lubna that the previously [...] follow up for now. Elina Schulte RN documented in this encounter [facility] 07-05-2024 Telephone encounter Note I notified Lubna that the previously drawn Thyroglobulin interference level to be cancelled and patient is to have thyroglobulin reflex drawn. Dr. Hoover: Please sign pended lab order. PSS: Please call patient and schedule lab draw and follow up. Thanks Mario Farnsworth RN [facility] 06-21-2024 Telephone encounter Note Cancelled per request [facility] 06-21-2024 Telephone encounter Note Call placed to [...] follow up for now. Elina Schulte RN [facility] 11-29-2023 History of Present illness Narrative Radiation Oncology - Follow-up Note [...] by mouth daily at bedtime. glucosamine/msm/chondroitin A ([id number]-GRM ORAL) Take by mouth. MULTIVITAMIN ORAL Take [...] by: Telly Hoover MD cc: Marta Eisenberg ([facility]) [address] [place] [phone] Xiomy Neff MD [address] [place] [phone] documented in this encounter [facility] 05-31-2023 History of Present illness Narrative Radiation Oncology - Follow-up Note [...] by mouth daily at bedtime. glucosamine/msm/chondroitin A ([id number]-[id number]-GLM ORAL) Take by mouth. MULTIVITAMIN ORAL Take [...] by: Telly Hoover MD cc: Marta Eisenberg ([facility]) [address] [place] [phone] Xiomy Neff MD [address] [place] [phone] documented in this encounter [facility] 03-18-2023 Miscellaneous Notes I notified Lubna of [...] 03/18. Pt prefers Saurabh Boateng. Thank you Elina Schulte, RN documented in this encounter [facility] 01-31-2023 Miscellaneous Notes Pt was notified. Elina Schulte, RN Pt LM for a call back. Stated ROD started her on a new thyroid medication and wasn't sure if this was in place of her old one or if she is suppose to take both. Requested a call back to verify @ [phone]. Rowena Vásquez documented in this encounter [facility] 01-26-2023 History of Present illness Narrative PATIENT NAME: Cassie Winters PATIENT : 1965 I-131 treatment 54 mCi [facility] Note at [facility] documented in this encounter [facility] 01-24-2023 Nurse Note Status: Patient states there is no possibility she is at this time. documented in this encounter [facility] 01-19-2023 Miscellaneous Notes I called to update Lubna that the 01/26/23 and 02/02/23 appt's at [facility] have been confirmed. She denies further questions. Mario Farnsworth LPN documented in this encounter [facility] 01-17-2023 Miscellaneous Notes I-131 order pending your approval. Mario Farnsworth LPN documented in this encounter [facility] 01-13-2023 History of Present illness Narrative Radiation Oncology - New Patient/Consult [...] lymph node within the specimen. No perineural invasion.[id number] Patient has done very well after surgery. [...] mcg by mouth twice daily. glucosamine/msm/chondroitin A ([id number]-PTR ORAL) Take by mouth. MULTIVITAMIN ORAL Take [...] by: Telly Hoover MD cc: Marta Eisenberg ([facility]) [address] [place] [phone] Xiomy Neff MD [address] [place] [phone] documented in this encounter [facility] 01-11-2023 History of Present illness Narrative Oncology Nutrition Therapy Initial Assessment I have communicated my name and active licensure. The patient's identity and physical location were verified at the time of this visit. Either the patient or their legal small business representative has been informed of the risks [...] Resting Metabolic Rate: 1584 Weight Change: n/a [place] Body Weight: 63.9kg Estimated kilocalorie needs: 9353-4488 kilocalories determined by 25-30 kcal/kg Estimated protein needs: 64-77 grams determined by 1.0-1.2 g/kg Dosing weight Estimated fluid needs: ~1101-8987 milliliters based on 1 mL per kcal [...] mcg by mouth twice daily. glucosamine/msm/chondroitin A ([id number]-TVZ ORAL) Take by mouth. MULTIVITAMIN ORAL Take by mouth. No current facility-administered medications for this visit. Need for Follow up: prn Referred by: radiation nursing MNT Billing Type: Initial Assess/15 min 1 unit Time Spent with Patient: 15 minutes Signed by: Anamika Alston MS, RDN, LD documented in this encounter [facility] 11-24-2022 Evaluation note Encounter Date Diagnosis Assessment Notes November, Thyromegaly (ICD-10 - E01.0) [facility] Other 04-20-2023 Evaluation note* Encounter Date Diagnosis [...] no response will call for referral to rhythmic gymnastics coach in [place]. [facility] [employer] Other evaludxinn noteNo [facility] [employer] Other evaluation note* Diagnosis Thyroid cancer (HCC)- Primary Malignant neoplasm of thyroid gland documented in this encounter [facility] note* Diagnosis Thyroid cancer (HCC)- Primary Malignant neoplasm of thyroid gland documented in this encounter [facility] note* Diagnosis Thyroid cancer (HCC)- Primary Malignant neoplasm of thyroid gland documented in this encounter [facility] note* Diagnosis Thyroid cancer (HCC)- Primary Malignant neoplasm of thyroid gland documented in this encounter [facility] noteNo assessment information [facility] Work Phone: evaluation note* Diagnosis Thyroid cancer (HCC)- Primary Malignant neoplasm of thyroid gland documented in this encounter [facility] note* Diagnosis Thyroid cancer (HCC)- Primary Malignant neoplasm of thyroid gland documented in this encounter [facility] note* Diagnosis Thyroid cancer (HCC)- Primary Malignant neoplasm of thyroid gland documented in this encounter [facility] note* Diagnosis Thyroid cancer (HCC)- Primary Malignant neoplasm of thyroid gland documented in this encounter [facility] note* Diagnosis Thyroid cancer (HCC)- Primary Malignant neoplasm of thyroid gland documented in this encounter [facility] note* Diagnosis Onset Date Resolution Status Admit Date Mixed hyperlipidemia acute November 19, 2024 3:19pm Wellness examination acute November 19, 2024 3:19pm [facility] Work Phone: evaluation note* Diagnosis Thyroid cancer (HCC)- Primary Malignant neoplasm of thyroid gland documented in this encounter [facility] note* Diagnosis Thyroid cancer (HCC)- Primary Malignant neoplasm of thyroid gland documented in this encounter [facility] note* Diagnosis Thyroid cancer (HCC)- Primary Malignant neoplasm of thyroid gland documented in this encounter [facility] note* Diagnosis Well woman exam with routine gynecological exam Routine gynecological examination Breast cancer screening by mammogram Postmenopausal state Asymptomatic postmenopausal status (age-related) (natural) documented [facility] N[facility] - Reported* Type Description Date Medical History DDD (degenerative disc disease), lumbar Medical History Enlarged thyroid Medical History Fatigue Surgical History JONNY AND BSO 2003 Surgical History TAIL BONE FRACTURE Hospitalization History SEE SURGICAL HX [facility] Other Reason for referral (narrative)* Diagnostic Procedure Only (Routine) - Pending Review Specialty Diagnoses / Procedures Referred By Contbri t Referred To Contact MOLECULAR & FUNCTIONAL IMAGING Diagnoses Thyroid cancer (HCC) Procedures NM THERAPY THYROID I-131 RP THERAPY ORAL ADMINISTRATION Telly Hoover MD [address] [place] [address] [place] [address] Molecular & Functional Imaging [address] [place] [address] Referral ID Status Reason Start Date Expiration Date Visits Requested Visits Authorized [id number] Pending Review Auto-Generat ed Referral 01/11/2023 02/09/2024 1 1 [facility] Summary Purpose Family History Relationship Condition Age [...] 1 Thyromegaly (E01.0) Referral Organization [facility] Referring Provider First Name Marta Referring Provider Last Name Faina Referring Provider Specialty Family [facility] Referred Organization [facility] Referred Provider Xiomy Neff Referred Address ,[place], [place],[address] Referred Provider Specialty Otolaryngolo gy Referral Priority [...] section and content) DATE CREATED AUTHOR 10/10/2020 [facility] DATE CREATED AUTHOR AUTHOR'S ORGANIZ ATION 12/01/2022 [facility] DATE CREATED AUTHOR AUTHOR'S ORGANIZ ATION 02/03/2023 [facility] DATE CREATED AUTHOR AUTHOR'S ORGANIZ ATION 01/11/2025 [facility] REASON FOR VISIT (unrecogniz ed section and content) Reason Comments Injections Specialty Diagnoses / Procedures Referred By Contac t Referred To Contact Diagnoses Thyroid cancer (HCC) Telly Hoover MD [address] [place] [address] [place] [address] Phone: tel: fax: Hematology/Oncology [address] [place] [address] [place] [address] Phone: tel: fax: Referral ID Status Reason Start Date Expiration Date V isits Requested Visits Authorized [id number] Authorized 12/24/2024 07/17/2025 1 99 Reason Comments Thyroid Cancer Thyrogen Injection Specialty Diagnoses / Procedures Referred By Contbri t Referred To Contact Diagnoses Thyroid cancer (HCC) Procedures THYROTROPIN INJECTION Telly Hoover MD [address] [place] [address] [place] [address] Nate Treat Flinton [address] [place] [address] Referral ID Status Reason Start Date Expiration Date V isits Requested Visits Authorized [id number] Authorized 01/24/2023 07/17/2023 99 99 Reason Comments Nutrition Telephone Reason Comments Consult Reason Comments Orders Reason Comments Patient Update Reason Comments Thyroid Cancer Reason Comments Patient Question Reason Comments Medication Dosage Adjustment Results, Lab Reason Onset Date Comments Refill Request 02/16/2024 Reason Onset Date Comments Refill Request 10/21/2023 Reason Comments Future Appointment Results Appointment Reason Onset Date Comments Refill Request 09/19/2024 Reason Comments Injections Thyrogen Reason Onset Date Comments Refill Request 01/14/2025 Reason Comments Well Women Visit Source Comments (unrecognize d section and content) In the event this informatio n is protected by the Federal Confidentiality of Alcohol and Drug Abuse Patient Records regulations: The Federal rules restrict any use of the information to criminally investigate or prosecute any alcohol or drug abuse patient.[facility] CenterIn the event this information is protected by the Federal Confidentiality of Alcohol and Drug Abuse Patient Records regulations: The Federal rules restrict any use of the information to criminally investigate or prosecute any alcohol or drug abuse patient.[facility] CenterIn the event this information is protected by the Federal Confidentiality of Alcohol and Drug Abuse Patient Records regulations: The Federal rules restrict any use of the information to criminally investigate or prosecute any alcohol or drug abuse patient.[facility] CenterIn the event this information is protected by the Federal Confidentiality of Alcohol and Drug Abuse Patient Records regulations: The Federal rules restrict any use of the information to criminally investigate or prosecute any alcohol or drug abuse patient.[facility] CenterIn the event this information is protected by the Federal Confidentiality of Alcohol and Drug Abuse Patient Records regulations: The Federal rules restrict any use of the information to criminally investigate or prosecute any alcohol or drug abuse patient.[facility] CenterIn the event this information is protected by the Federal Confidentiality of Alcohol and Drug Abuse Patient Records regulations: The Federal rules restrict any use of the information to criminally investigate or prosecute any alcohol or drug abuse patient.[facility] CenterIn the event this information is protected by the Federal Confidentiality of Alcohol and Drug Abuse Patient Records regulations: The Federal rules restrict any use of the information to criminally investigate or prosecute any alcohol or drug abuse patient.[facility] CenterIn the event this information is protected by the Federal Confidentiality of Alcohol and Drug Abuse Patient Records regulations: The Federal rules restrict any use of the information to criminally investigate or prosecute any alcohol or drug abuse patient.[facility] CenterIn the event this information is protected by the Federal Confidentiality of Alcohol and Drug Abuse Patient Records regulations: The Federal rules restrict any use of the information to criminally investigate or prosecute any alcohol or drug abuse patient.[facility] CenterIn the event this information is protected by the Federal Confidentiality of Alcohol and Drug Abuse Patient Records regulations: The Federal rules restrict any use of the information to criminally investigate or prosecute any alcohol or drug abuse patient.[facility] CenterIn the event this information is protected by the Federal Confidentiality of Alcohol and Drug Abuse Patient Records regulations: The Federal rules restrict any use of the information to criminally investigate or prosecute any alcohol or drug abuse patient.[facility] CenterIn the event this information is protected by the Federal Confidentiality of Alcohol and Drug Abuse Patient Records regulations: The Federal rules restrict any use of the information to criminally investigate or prosecute any alcohol or drug abuse patient.[facility] CenterIn the event this information is protected by the Federal Confidentiality of Alcohol and Drug Abuse Patient Records regulations: The Federal rules restrict any use of the information to criminally investigate or prosecute any alcohol or drug abuse patient.[facility] CenterIn the event this information is protected by the Federal Confidentiality of Alcohol and Drug Abuse Patient Records regulations: The Federal rules restrict any use of the information to criminally investigate or prosecute any alcohol or drug abuse patient.[facility] CenterIn the event this information is protected by the Federal Confidentiality of Alcohol and Drug Abuse Patient Records regulations: The Federal rules restrict any use of the information to criminally investigate or prosecute any alcohol or drug abuse patient.[facility] CenterIn the event this information is protected by the Federal Confidentiality of Alcohol and Drug Abuse Patient Records regulations: The Federal rules restrict any use of the information to criminally investigate or prosecute any alcohol or drug abuse patient.[facility] CenterIn the event this information is protected by the Federal Confidentiality of Alcohol and Drug Abuse Patient Records regulations: The Federal rules restrict any use of the information to criminally investigate or prosecute any alcohol or drug abuse patient.[facility] CenterIn the event this information is protected by the Federal Confidentiality of Alcohol and Drug Abuse Patient Records regulations: The Federal rules restrict any use of the information to criminally investigate or prosecute any alcohol or drug abuse patient.[facility] CenterIn the event this information is protected by the Federal Confidentiality of Alcohol and Drug Abuse Patient Records regulations: The Federal rules restrict any use of the information to criminally investigate or prosecute any alcohol or drug abuse patient.[facility] CenterIn the event this information is protected by the Federal Confidentiality of Alcohol and Drug Abuse Patient Records regulations: The Federal rules restrict any use of the information to criminally investigate or prosecute any alcohol or drug abuse patient.[facility] CenterIn the event this information is protected by the Federal Confidentiality of Alcohol and Drug Abuse Patient Records regulations: The Federal rules restrict any use of the information to criminally investigate or prosecute any alcohol or drug abuse patient.[facility] CenterIn the event this information is protected by the Federal Confidentiality of Alcohol and Drug Abuse Patient Records regulations: The Federal rules restrict any use of the information to criminally investigate or prosecute any alcohol or drug abuse patient.[facility] CenterIn the event this information is protected by the Federal Confidentiality of Alcohol and Drug Abuse Patient Records regulations: The Federal rules restrict any use of the information to criminally investigate or prosecute any alcohol or drug abuse patient.[facility] CenterIn the event this information is protected by the Federal Confidentiality of Alcohol and Drug Abuse Patient Records regulations: The Federal rules restrict any use of the information to criminally investigate or prosecute any alcohol or drug abuse patient.[facility] CenterIn the event this information is protected by the Federal Confidentiality of Alcohol and Drug Abuse Patient Records regulations: The Federal rules restrict any use of the information to criminally investigate or prosecute any alcohol or drug abuse patient.[facility] CenterIn the event this information is protected by the Federal Confidentiality of Alcohol and Drug Abuse Patient Records regulations: The Federal rules restrict any use of the information to criminally investigate or prosecute any alcohol or drug abuse patient.[facility] CenterIn the event this information is protected by the Federal Confidentiality of Alcohol and Drug Abuse Patient Records regulations: The Federal rules restrict any use of the information to criminally investigate or prosecute any alcohol or drug abuse patient.[facility] CenterIn the event this information is protected by the Federal Confidentiality of Alcohol and Drug Abuse Patient Records regulations: The Federal rules restrict any use of the information to criminally investigate or prosecute any alcohol or drug abuse patient.[facility] CenterIn the event this information is protected by the Federal Confidentiality of Alcohol and Drug Abuse Patient Records regulations: The Federal rules restrict any use of the information to criminally investigate or prosecute any alcohol or drug abuse patient.[facility] Care Teams (unrecognized sec tion and content) [...] January 10, 2024 End: January 10, 2024 Catcher Filter Tip Relationship Specialty Start Date End Date Marta Eisenberg MD [address] [place] [id number] PCP - General Family Medicine 01/07/23 Xiomy Neff [address] [facility] [address] [place] [address] Ent - Otolaryngology 01/07/23 Catcher Filter Tip Relationship Specialty Start Date End Date Marta Eisenberg MD [address] [place] [facility] [id number] PCP - General Family Medicine 01/07/23 Xiomy Neff [address] [facility] [address] [place] [address] Ent - Otolaryngology 01/07/23 Catcher Filter Tip Relationship Specialty Start Date End Date Marta Eisenberg MD [address] [place] [address] PCP - General Family Medicine 01/07/23 Xiomy Neff [address] [facility] [address] [place] [address] Ent - Otolaryngology 01/07/23 Catcher Filter Tip Relationship Specialty Start Date End Date Marta Eisenberg MD [address] [place] [place] [address] PCP - General Family Medicine 01/07/23 Xiomy Neff [address] [place] [address] Ent - Otolaryngology 01/07/23 Catcher Filter Tip Relationship Specialty Start Date End Date Marta Eisenberg MD [address] [place] [place] [address] PCP - General Family Medicine 01/07/23 Xiomy Neff [address] [facility] [address] [place] [address] Ent - Otolaryngology 01/07/23 Catcher Filter Tip Relationship Specialty Start Date End Date Marta Eisenberg MD [address] [place] [address] PCP - General Family Medicine 01/07/23 Xiomy Neff [address] [facility] [address] [place] [address] Ent - Otolaryngology 01/07/23 Catcher Filter Tip Relationship Specialty Start Date End Date Marta Eisenberg MD [address] [place] [address] PCP - General Family Medicine 01/07/23 Xiomy Neff [address] [facility] [address] [place] [address] Ent - Otolaryngology 01/07/23 Catcher Filter Tip Relationship Specialty Start Date End Date Marta Eisenberg MD [address] [place] [address] PCP - General Family Medicine 01/07/23 Xiomy Neff [address] [place] [address] Ent - Otolaryngology 01/07/23 Team Status: Inactive Member Role Status Dates Marta Eisenberg MD Primary Care Provider Active Nikkie Hoover MD Attending Provider Active Catcher Filter Tip Relationship Specialty Start Date End Date Marta Eisenberg MD [address] [place] [address] PCP - General Family Medicine 01/07/23 Xiomy Neff [address] [facility] [address] [place] [address] Ent - Otolaryngology 01/07/23 Catcher Filter Tip Relationship Specialty Start Date End Date Marta Eisenberg MD [address] [place] [address] PCP - General Family Medicine 01/07/23 Xiomy Neff MD [address] [place] [address] Ent - Otolaryngology 01/07/23 Catcher Filter Tip Relationship Specialty Start Date End Date Marta Eisenberg MD [address] [place] [address] PCP - General Family Medicine 01/07/23 Xiomy Neff MD [address] [place] [address] Ent - Otolaryngology 01/07/23 Catcher Filter Tip Relationship Specialty Start Date End Date Marta Eisenberg MD [address] [place] [place] [address] PCP - General Family Medicine 01/07/23 Xiomy Neff MD [address] [place] [address] Ent - Otolaryngology 01/07/23 Catcher Filter Tip Relationship Specialty Start Date End Date Marta Eisenberg MD [address] [place] [place] [address] PCP - General Family Medicine 01/07/23 Xiomy Neff MD [address] [place] [address] Ent - Otolaryngology 01/07/23 Catcher Filter Tip Relationship Specialty Start Date End Date Marta Eisenberg MD [address] [place] [id number] PCP - General Family Medicine 01/07/23 Xiomy Neff MD [address] [place] [address] Ent - Otolaryngology 01/07/23 Catcher Filter Tip Relationship Specialty Start Date End Date Marta Eisenberg MD [address] [place] [place] [address] PCP - General Family Medicine 01/07/23 Xiomy Neff MD [address] [place] [address] Ent - Otolaryngology 01/07/23 Catcher Filter Tip Relationship Specialty Start Date End Date Marta Eisenberg MD [address] [place] [id number] PCP - General Family Medicine 01/07/23 Xiomy Neff MD [address] [place] [address] Ent - Otolaryngology 01/07/23 Catcher Filter Tip Relationship Specialty Start Date End Date Marta Eisenberg MD [address] [place] [place] [address] PCP - General Family Medicine 01/07/23 Xiomy Neff MD [address] [place] [address] Ent - Otolaryngology 01/07/23 Catcher Filter Tip Relationship Specialty Start Date End Date Marta Eisenberg MD [address] [place] [place] [id number] PCP - General Family Medicine 01/07/23 Xiomy Neff MD [address] [place] [address] Ent - Otolaryngology 01/07/23 Catcher Filter Tip Relationship Specialty Start Date End Date Marta Eisenberg MD [address] [place] [place] [address] PCP - General Family Medicine 01/07/23 Xiomy Neff MD [address] [place] [address] Ent - Otolaryngology 01/07/23 Catcher Filter Tip Relationship Specialty Start Date End Date Marta Eisenberg MD [address] [place] [address] PCP - General Family Medicine 02/04/25 Catcher Filter Tip Relationship Specialty Start Date End Date Marta Eisenberg MD [address] [place] [address] PCP - General Family Medicine 02/04/25 Goals (unrecognized section and content) Goals may [...] BE BASED ON THE PRIMARY CLINICAL RECORDS. [facility] [email or web address] [facility]. provides no warranty or guarantee of the accuracy or completeness of information in this document.
[2025-02-25 14:13] LABS: Age Gdln ACOG Testing Note (.); IGP, Aptima HPV, rfx 16/18,45 Note (.)
== END 2025-02-20 19:39 | disposition home or self-care (01) ==
LOC: LAB 19:38
PROVIDERS: PCP Family Medicine; Visit Provider Physician Assistant
DX: Z01.419 Encounter for gynecological examination (general) (routine) without abnormal findings (principal)
CPT/HCPCS: 87624; 88175